=== PATIENT | male | born 1940 | race Caucasian/White ===

== ENCOUNTER → 2020-07-19 09:14 | Outpatient (BNVA) | payer MEDICARE, SELFPAY | PROVIDERS: PCP Internal Medicine; Referring Provider Internal Medicine; Visit Provider Orthopaedic Surgery | DX: Z47.1 Aftercare following joint replacement surgery (principal); Z96.641 Presence of right artificial hip joint; I48.0 Paroxysmal atrial fibrillation | CPT/HCPCS: 99212 ==

== ENCOUNTER 2020-08-09 07:48 | Outpatient (REF) | payer MEDICARE, SELFPAY ==
[2020-08-09 11:19] LABS: MANUAL DIFF FLAG NO
[2020-08-09 11:30] LABS: Basophils Absolute Auto 0.1 X10*3/uL (0.0-0.2); Basophils Percent Auto 0.8 % (0-2); Eosinophils Absolute Auto 0.8 X10*3/uL (0.0-0.4); Eosinophils Percent Auto 9.4 % (0-4); Hematocrit 44.6 % (42-52); Hemoglobin 14.1 g/dl (14.0-18.0); Imm Gran Abs Auto 0.09 X10*3/uL (0.00-0.03); Imm Gran Pct Auto 1.1 % (0.0-0.4); Lymphocytes Absolute Auto 1.7 X10*3/uL (1.2-4.9); Lymphocytes Percent Auto 21.2 % (20-40); Mean Corpuscular HGB Conc 31.6 g/dl (31.0-36.0); Mean Corpuscular Hemoglobin 29.7 pg (27.0-33.0); Mean Corpuscular Volume 93.9 fL (80-98); Mean Platelet Volume 11.3 fL (9.4-12.4); Monocytes Absolute Auto 0.6 X10*3/uL (0.1-1.2); Monocytes Percent Auto 7.6 % (2-11); Neutrophils Absolute Auto 4.8 X10*3/uL (2.0-8.3); Neutrophils Percent Auto 59.9 % (45-73); Platelet Count 257 X10*3/uL (160-400); Red Blood Count 4.75 X10*6/uL (4.60-5.80); Red Cell Distribution Width 14.2 % (11.0-16.0)
[2020-08-09 12:08] LABS: Alanine Aminotransferase 18 U/L (0-40); Albumin Level 4.2 g/dL (3.5-5.0); Alkaline Phosphatase 78 U/L (39-117); Anion Gap 14 (12-20); Aspartate Amino Transferase 17 U/L (5-37); Bilirubin Total 0.8 mg/dL (0.0-1.0); Blood Urea Nitrogen 20 mg/dL (9-16); Calcium 8.7 mg/dL (8.4-10.2); Carbon Dioxide 24 mmol/L (22-29); Chloride 110 mmol/L (96-108); Estimated Glomerular Filt Rate 57; Glucose Random 69 mg/dL (60-115); Potassium 4.9 mmol/l (3.3-5.1); Sodium 143 mmol/L (135-145); Total Protein 6.8 g/dL (6.5-8.0)
== END 2020-08-09 07:49 | disposition home or self-care (01) ==
LOC: HO.HMGCLDS 07:48
PROVIDERS: PCP Internal Medicine; Visit Provider Internal Medicine
DX: Z12.5 Encounter for screening for malignant neoplasm of prostate (principal); I48.0 Paroxysmal atrial fibrillation; R97.20 Elevated prostate specific antigen [PSA]
CPT/HCPCS: 36415; 80053; 84153; 85025

== ENCOUNTER 2020-08-09 08:00 | Outpatient (RCR) | payer MEDICARE, SELFPAY ==
--- NOTE | 2020-09-07 07:50 | MHC.PT.DC ---
[facility] [place] Office [place] Office [place] Office [address] Jean Montoya [address] [phone] F: [phone] F: [phone] F: [phone] F: [phone] Physical Therapy Discharge Report Diagnosis: S/P total R hip replacement Date of Surgery: 04/24/2020 Date of Evaluation: 05/29/20 Date of Discharge: 09/07/20 Treatments to Date: 19 Cancellations to Date: 0 No Shows to Date: 0 Discharge Status: Achieved Goals Improved Function Independent with HEP Patient Elected to Stop Discharge Summary: At the last tx session patient reporting no issues with ther-ex and understands his home exercise program well. Demos less LE buckling with transfers into standing. Patient went on vacation and did not return to PT following this. He was I in ambulation, demo'd good ROM and strength and I in HEP. Chart was kept open for 30 days. DC to HEP at this time. Electronically signed by: Roslyn Stephens, PT Please sign and return to therapist. Thank you for your referral.
== END 2020-09-07 07:50 | disposition home or self-care (01) ==
LOC: HO.PTCHIC 08:00
PROVIDERS: PCP Internal Medicine; Visit Provider Physician Assistant
DX: Z47.1 Aftercare following joint replacement surgery (principal); Z96.641 Presence of right artificial hip joint
CPT/HCPCS: 97110; 97116; 97140; 97530

== ENCOUNTER → 2020-08-29 09:15 | Outpatient (BNVA) | payer MEDICARE, SELFPAY | PROVIDERS: PCP Internal Medicine; Referring Provider Internal Medicine; Visit Provider Internal Medicine | DX: Z76.89 Persons encountering health services in other specified circumstances (principal) ==

== ENCOUNTER → 2020-08-29 | Outpatient (REF) | payer MEDICARE, SELFPAY ==
--- NOTE | 2020-08-29 | ECG_ITS ---
Hook-up date: 2020-08-29 10:36:00 Duration: 29:32:00 Test Indications: PAF Medications: 70069 QRS complexes 534 Ventricular ectopics which represent <1 % of total QRS comp. 1227 Supraventricular ectopics which represent 1 % of total QRS comp. * Paced QRS complexs which represent % of total QRS comp. VENTRICULAR ECTOPY 534 Isolated 0 Bigeminal Cycles 0 Couplets 0 Runs 0 Beats in Runs * Beats LONGEST at * BPM at :: -- * Beats FASTEST at * BPM at :: -- SUPRAVENTRICULAR ECTOPY 1156 Isolated 15 Couplets 12 Runs 41 Beats in Runs 7 Beats LONGEST at 91 BPM at 06:49:13 2020-08-30 3 Beats FASTEST at 144 BPM at 20:55:52 2020-08-29 HEART RATES 52 MIN at 03:05:45 2020-08-30 68 AVG 130 MAX at 10:26:17 2020-08-30 LONGEST RR 1.2400 secs at 07:41:21 2020-08-30 S-T LEVELS Channel 1 - 128 mm at 10:36:00 2020-08-29 - 128 mm at 10:36:00 2020-08-29 Channel 2 - 128 mm at 10:36:00 2020-08-29 - 128 mm at 10:36:00 2020-08-29 Channel 3 - 128 mm at 02:95:51 -- - 128 mm at 02:95:51 Underlying rhythm is sinus; Average ventricular rate 68/min; Occasional supraventricular and ventricular ectopy; Some strips show atrial flutter, but overall burden about 1%; ventricular rate during flutter about 100-130/min; Patient did not return diary Referred By: Kim Chandra Overread By: KIM CHANDRA
== END ==
LOC: HO.CARD
PROVIDERS: Visit Provider Internal Medicine
DX: I48.0 Paroxysmal atrial fibrillation (principal)
CPT/HCPCS: 93226

== ENCOUNTER → 2020-08-30 08:51 | Outpatient (BNVA) | payer MEDICARE, SELFPAY | PROVIDERS: Visit Provider Orthopaedic Surgery | DX: I48.91 Unspecified atrial fibrillation (principal); Z96.641 Presence of right artificial hip joint | CPT/HCPCS: 99212 ==

== ENCOUNTER → 2020-09-24 12:26 | Outpatient (BNVA) | payer MEDICARE, SELFPAY | PROVIDERS: PCP Internal Medicine; Visit Provider Internal Medicine | DX: I48.0 Paroxysmal atrial fibrillation (principal); R42 Dizziness and giddiness; Z79.01 Long term (current) use of anticoagulants | CPT/HCPCS: 93005; 99212 ==

== ENCOUNTER 2020-11-21 07:51 | Outpatient (REF) | payer MEDICARE, SELFPAY ==
[2020-11-21 11:21] LABS: MANUAL DIFF FLAG NO
[2020-11-21 11:38] LABS: Basophils Percent Auto 0.6 % (0-2); Eosinophils Absolute Auto 0.5 X10*3/uL (0.0-0.4); Eosinophils Percent Auto 6.8 % (0-4); Hematocrit 44.3 % (42-52); Hemoglobin 14.3 g/dl (14.0-18.0); Imm Gran Abs Auto 0.09 X10*3/uL (0.00-0.03); Imm Gran Pct Auto 1.3 % (0.0-0.4); Lymphocytes Absolute Auto 1.4 X10*3/uL (1.2-4.9); Lymphocytes Percent Auto 21.2 % (20-40); Mean Corpuscular HGB Conc 32.3 g/dl (31.0-36.0); Mean Corpuscular Hemoglobin 29.8 pg (27.0-33.0); Mean Corpuscular Volume 92.3 fL (80-98); Mean Platelet Volume 11.5 fL (9.4-12.4); Monocytes Absolute Auto 0.6 X10*3/uL (0.1-1.2); Monocytes Percent Auto 8.3 % (2-11); Neutrophils Absolute Auto 4.2 X10*3/uL (2.0-8.3); Neutrophils Percent Auto 61.8 % (45-73); Platelet Count 259 X10*3/uL (160-400); White Blood Count 6.7 X10*3/uL (4.8-10.8)
[2020-11-21 12:03] LABS: Anion Gap 13 (12-20); Blood Urea Nitrogen 20 mg/dL (9-16); Calcium 8.9 mg/dL (8.4-10.2); Carbon Dioxide 24 mmol/L (22-29); Chloride 110 mmol/L (96-108); Estimated Glomerular Filt Rate > 60; Potassium 4.6 mmol/L (3.3-5.1); Sodium 142 mmol/L (135-145)
[2020-11-21 12:05] LABS: Free T4 (Free Thyroxine) 0.89 ng/dL (0.71-1.85); Thyroid Stimulating Hormone 3.36 uIU/mL (0.32-4.0)
[2020-11-21 12:25] LABS: Glucose Random 55 mg/dL (60-115)
[2020-11-22 22:24] LABS: Vitamin B12 261 pg/mL (200-900)
== END 2020-11-21 07:52 | disposition home or self-care (01) ==
LOC: HO.HMGCLDS 07:51
PROVIDERS: PCP Internal Medicine; Visit Provider Internal Medicine
DX: I48.0 Paroxysmal atrial fibrillation (principal); N18.9 Chronic kidney disease, unspecified; E78.00 Pure hypercholesterolemia, unspecified; R63.5 Abnormal weight gain; E53.8 Deficiency of other specified B group vitamins
CPT/HCPCS: 36415; 80048; 82607; 84439; 84443; 85025

== ENCOUNTER 2020-11-23 08:45 | Outpatient (REF) | payer MEDICARE, SELFPAY ==
[2020-11-23 12:34] LABS: Anion Gap 14 (12-20); Blood Urea Nitrogen 17 mg/dL (9-16); Calcium 8.9 mg/dL (8.4-10.2); Carbon Dioxide 23 mmol/L (22-29); Chloride 110 mmol/L (96-108); Estimated Glomerular Filt Rate 59; Glucose Random 82 mg/dL (60-115); Lipase 28 U/L (8-78); Potassium 4.6 mmol/L (3.3-5.1); Sodium 142 mmol/L (135-145)
[2020-11-23 13:29] LABS: Prostate Specific Antigen 7.45 ng/mL (<0.05-4.0)
[2020-11-26 13:06] LABS: Insulin Level Total 15.7 uIU/mL
== END 2020-11-23 08:46 | disposition home or self-care (01) ==
LOC: HO.HMGCLDS 08:45
PROVIDERS: PCP Internal Medicine; Visit Provider Internal Medicine
DX: Z12.5 Encounter for screening for malignant neoplasm of prostate (principal); R53.83 Other fatigue; E16.2 Hypoglycemia, unspecified; I48.91 Unspecified atrial fibrillation; R97.20 Elevated prostate specific antigen [PSA]
CPT/HCPCS: 36415; 80048; 83525; 83690; 84153

== ENCOUNTER 2021-02-01 09:07 | Outpatient (REF) | payer MEDICARE, SELFPAY ==
--- NOTE | ~2021-02-01 | XR_ITS ---
EXAMINATION: XR PELVIS CLINICAL INFORMATION: Right hip replacement. Pain. COMPARISON: Previous x-rays most recent May 2020 TECHNIQUE: AP view of the pelvis and right hip. FINDINGS: There is a right hip replacement in satisfactory position. There is a faint vertical lucency in the femoral shaft adjacent to the inferior is a stent that appears unchanged. No fracture, dislocation or x-ray evidence of loosening is seen. There is degenerative changes of the lower lumbar spine. Bones of the pelvis are unremarkable. There is mild arthritis at the left hip joint. Soft tissues are unremarkable. XR/XR pelvis 1-2V IMPRESSION: Unchanged appearance of right hip replacement. Mild arthritis and lower lumbar spine.
== END 2021-02-01 09:08 | disposition home or self-care (01) ==
LOC: HO.HOSX 09:07
PROVIDERS: Visit Provider Orthopaedic Surgery
DX: M16.11 Unilateral primary osteoarthritis, right hip (principal); M25.551 Pain in right hip; I48.0 Paroxysmal atrial fibrillation; R97.20 Elevated prostate specific antigen [PSA]; Z96.641 Presence of right artificial hip joint
CPT/HCPCS: 72170; 99212

== ENCOUNTER 2021-02-20 14:10 | Outpatient (REF) | payer MEDICARE, SELFPAY ==
[2021-02-20 16:27] LABS: Anion Gap 15 (12-20); Blood Urea Nitrogen 19 mg/dL (9-16); Calcium 8.8 mg/dL (8.4-10.2); Carbon Dioxide 20 mmol/L (22-29); Chloride 109 mmol/L (96-108); Estimated Glomerular Filt Rate 60; Glucose Random 116 mg/dL (60-115); Potassium 4.1 mmol/L (3.3-5.1); Sodium 140 mmol/L (135-145)
[2021-02-20 16:54] LABS: Vitamin B12 209 pg/mL (200-900)
== END 2021-02-20 14:11 | disposition home or self-care (01) ==
LOC: HO.HMGCLDS 14:10
PROVIDERS: PCP Internal Medicine; Visit Provider Internal Medicine
DX: I48.0 Paroxysmal atrial fibrillation (principal); N18.9 Chronic kidney disease, unspecified; E53.8 Deficiency of other specified B group vitamins
CPT/HCPCS: 36415; 80048; 82607

== ENCOUNTER → 2021-02-26 08:45 | Outpatient (REF) | payer MEDICARE, SELFPAY ==
--- NOTE | 2021-02-26 08:47 | CA_ITS ---
Transthoracic Echocardiogram Patient (Last, First, Middle): Jesus Giraldo E Gender: Male Date of : 1940 Age: 80 Procedure Date: 02/26/2021 Procedure Type: Transthoracic Echocardiogram Location: OP Height: 177.8 cm Weight: 102.06 kg BSA: 2.19 m2 Heart Rate: bpm BP: 130 / 70 mmHg Lab Assistant: Referring MD: Kwaku Valencia MD Symptoms: I48.0 - Paroxysmal atrial fibrillation Study Quality: Good ECG Rhythm: Sinus and intermittent atrial flutter Conclusions: - The left ventricular systolic function is normal. The visually estimated ejection fraction is between 55-60%. - No obvious valvular pathology seen on this study. Findings Left Ventricle Normal left ventricular cavity size. There is mildly increased left ventricular wall thickness. The left ventricular systolic function is normal. The visually estimated ejection fraction is between 55-60%. There is no evidence of regional wall motion abnormalities. Diastolic function is indeterminate on the basis of available data. Right Ventricle Normal right ventricular cavity size and systolic function. Atria Both atria are normal in size. Aortic Valve There is a normal trileaflet aortic valve. There is no aortic valve stenosis. There is no aortic valve regurgitation. Mitral Valve The mitral valve appears normal. There is trace mitral valve regurgitation. There is no mitral valve stenosis. Pulmonic Valve The pulmonic valve was not well visualized. There is trace pulmonic valve regurgitation. Tricuspid Valve Normal tricuspid valve structure. There is trace tricuspid valve regurgitation. The pulmonary artery systolic pressure is normal. Great Vessels The aortic annulus, sinuses of valsalva, asc aorta, and aortic arch are normal in size. Venous The inferior vena cava was not well visualized. Pericardium/Pleural There is no evidence of pericardial effusion. Prior Study Comparison No significant change compared to prior study dated: 06/24/2019. Recommendations, Care & Conclusions No obvious valvular pathology seen on this study. Measurements 2D Linear Measurements RVIDd: 3.12 RVIDd Index: 1.42 IVSd: 1.06 0.6-0.9/0.6-1.0 cm LVIDd: 5.89 3.9-5.3/4.2-5.9 cm LVIDd Index: 2.69 2.4-3.2/2.2-3.1 cm/m2 LVIDs: 4.19 2.0-3.6 cm LVPWd: 1.33 0.7-1.1 cm Ao Root: 3.40 2.1-3.5 cm LA Diam: 4.20 2.7-3.8/3.0-4.0 cm LAIDs Index: 1.92 1.5-2.3 cm/m2 LV Mass: 377.86 67-162/88-224 g LV Mass Index: 172.54 43-95/49-115 g/m2 LVOT Diam: 2.30 3.0+(-)1.3 cm 2D Systolic Function EF 4C: 50.40 >55% EF 2C: 61.20 >55% EF BiP: 55.40 >55% Aortic Valve AoV Pk Andrew: 1.13 AoV Mn Andrew: 0.87 AoV VTI: 0.21 AoV Pk Grad: 5.00 Aov Mn Grad: 3.00 DIMA Cont.VTI: 3.52 LVOT LVOT Pk Andrew: 1.08 LVOT Mn Andrew: 0.63 LVOT VTI: 0.18 LVOT Pk Grad: 5.00 LVOT Mn Grad: 2.00 LVOT Diam: 2.30 LVOT Area: 4.15 Tricuspid Valve TR Pk Andrew: 2.23 TR Pk Grad: 20.00 RA Press: 8.00 RVSP: 28.00 Great Vessels Aorta Ao Root-2D: 3.40 2.0-3.7 cm Ao Asc: 3.70 2.1-3.4 cm Ao Arch: 2.60 Updated in Other Vendor System with Status of Final Kwaku Valencia MD electronically signed on 02/26/2021 2:04:08 PM with status of Final
--- NOTE | 2021-02-26 08:47 | ECG_ITS ---
Hook-up date: 2021-02-26 09:48:00 Duration: 25:08:00 Test Indications: PAF Medications: 633083 QRS complexes 266 Ventricular ectopics which represent <1 % of total QRS comp. 790 Supraventricular ectopics which represent <1 % of total QRS comp. * Paced QRS complexs which represent % of total QRS comp. VENTRICULAR ECTOPY 266 Isolated 3 Bigeminal Cycles 0 Couplets 0 Runs 0 Beats in Runs * Beats LONGEST at * BPM at :: -- * Beats FASTEST at * BPM at :: -- SUPRAVENTRICULAR ECTOPY 766 Isolated 7 Couplets 2 Runs 10 Beats in Runs 7 Beats LONGEST at 120 BPM at 18:44:23 2021-02-26 7 Beats FASTEST at 120 BPM at 18:44:23 2021-02-26 HEART RATES 53 MIN at 02:24:59 2021-02-27 72 AVG 137 MAX at 09:55:01 2021-02-26 LONGEST RR 1.3200 secs at 00:43:36 2021-02-27 S-T LEVELS Channel 1 - 128 mm at 09:48:00 2021-02-26 - 128 mm at 09:48:00 2021-02-26 Channel 2 - 128 mm at 09:48:00 2021-02-26 - 128 mm at 09:48:00 2021-02-26 Channel 3 - 128 mm at 02:90:71 -- - 128 mm at 02:90:71 Underlying rhythm is sinus; About 5% of the time, the rhythm is atrial fibrillation; rate goes up to 137/min; but only 2% of the time, rate >100/min; Overall average rate 72/min; Rare PACs and PVCs (<1%); Patient diary not available for review. Referred By: Kim Chandra Overread By: KIM CHANDRA
== END ==
LOC: HO.CARD 08:45
PROVIDERS: Visit Provider Internal Medicine
DX: I48.0 Paroxysmal atrial fibrillation (principal)
CPT/HCPCS: 93225; 93226; 93306

== ENCOUNTER → 2021-03-13 14:55 | Outpatient (BNVA) | payer MEDICARE, SELFPAY | PROVIDERS: PCP Internal Medicine; Referring Provider Internal Medicine; Visit Provider Internal Medicine | DX: I48.0 Paroxysmal atrial fibrillation (principal); R42 Dizziness and giddiness; Z79.01 Long term (current) use of anticoagulants | CPT/HCPCS: 93005; 99212 ==

== ENCOUNTER 2021-03-17 18:08 | Emergency (ER) | payer MEDICARE, SELFPAY ==
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
--- NOTE | ~2021-03-17 | XR_ITS ---
EXAMINATION: XR HIP, RIGHT CLINICAL INFORMATION: Right hip pain COMPARISON: 02/01/2021 TECHNIQUE: Two views of the right hip. AP pelvis FINDINGS: The right total hip arthroplasty components are in stable position and alignment without evidence of loosening or fracture. No new abnormality. XR/XR hip RT min 2V IMPRESSION: Stable appearance of the pelvis and right hip arthroplasty.
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
[2021-03-17 18:16] VITALS: BP 127/66; PULSE 105; RESP 18; TEMP 37; O2SAT 94; BMI 32.3
--- NOTE | 2021-03-17 18:20 | PC.NURSE ---
Late entry: 1820: Pt's gait is steady and even using walker. pt has no obvious deformity at right hip. Pt is able to tolerate seated position without issues.
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
[2021-03-17] MEDS: Acetaminophen 325 MG TABLET 975 MG PO (20:37)
[2021-03-17 20:51] VITALS: BP 115/74; PULSE 100; RESP 15; TEMP 37; O2SAT 96
--- NOTE | 2021-03-17 21:01 | PC.NURSE ---
PT OF PT IN ROOM NOTED THAT WERE WAS SOME BLOOD NOTED ON PT PANTS AFTER USING THE REST ROOM PT IS ON BLOOD THINNER URINE ORDER AND LABS ORDERED.
[2021-03-17 21:07] LABS: MANUAL DIFF FLAG NO
[2021-03-17 21:12] LABS: Basophils Percent Auto 0.3 % (0-2); Eosinophils Absolute Auto 0.3 X10*3/uL (0.0-0.4); Eosinophils Percent Auto 3.6 % (0-4); Hematocrit 40.7 % (42-52); Hemoglobin 13.2 g/dl (14.0-18.0); Imm Gran Abs Auto 0.08 X10*3/uL (0.00-0.03); Imm Gran Pct Auto 0.9 % (0.0-0.4); Lymphocytes Absolute Auto 1.7 X10*3/uL (1.2-4.9); Lymphocytes Percent Auto 17.6 % (20-40); Mean Corpuscular HGB Conc 32.4 g/dl (31.0-36.0); Mean Corpuscular Hemoglobin 29.4 pg (27.0-33.0); Mean Corpuscular Volume 90.6 fL (80-98); Mean Platelet Volume 10.3 fL (9.4-12.4); Monocytes Absolute Auto 0.8 X10*3/uL (0.1-1.2); Monocytes Percent Auto 8.9 % (2-11); Neutrophils Absolute Auto 6.5 X10*3/uL (2.0-8.3); Neutrophils Percent Auto 68.7 % (45-73); Platelet Count 231 X10*3/uL (160-400); Red Blood Count 4.49 X10*6/uL (4.60-5.80); Red Cell Distribution Width 13.2 % (11.0-16.0); White Blood Count 9.4 X10*3/uL (4.8-10.8)
[2021-03-17 21:34] LABS: Anion Gap 14 (12-20); Blood Urea Nitrogen 16 mg/dL (9-16); Calcium 8.8 mg/dL (8.4-10.2); Carbon Dioxide 22 mmol/L (22-29); Chloride 110 mmol/L (96-108); Creatinine Clr Calc Pharmacy 60.2; Estimated Glomerular Filt Rate > 60; Glucose Random 83 mg/dL (60-115); Potassium 4.5 mmol/L (3.3-5.1); Sodium 141 mmol/L (135-145)
[2021-03-17 22:29] LABS: Glucose Urine UA NEG (NEG); Leukocyte Esterase Urine NEG (NEG); Nitrite Urine NEG (NEG); Specific Gravity - Urine 1.025 (1.005-1.025); Urine Blood NEG (NEG); Urine Ketones NEG (NEG); Urine Protein TRACE MG/DL (NEG-TRACE)
[2021-03-17 22:30] LABS: Appearance Urine HAZY; Color Urine YELLOW
== END 2021-03-18 00:12 | disposition home or self-care (01) ==
PROVIDERS: Physician Assistant Medical; Emergency Provider Emergency Medicine; PCP Internal Medicine
DX: S70.01XA Contusion of right hip, initial encounter (principal); R51.9 Headache, unspecified; I48.0 Paroxysmal atrial fibrillation; Z79.01 Long term (current) use of anticoagulants; Z96.641 Presence of right artificial hip joint; Y93.89 Activity, other specified; V85.5XXA Driver of special construction vehicle injured in nontraffic accident, initial encounter; Y93.9 Activity, unspecified; Y92.410 Unspecified street and highway as the place of occurrence of the external cause; Y99.9 Unspecified external cause status
CPT/HCPCS: 36415; 70450; 73502; 73700; 80048; 81003; 85025; 99284; 99285

== ENCOUNTER → 2021-04-11 08:06 | Outpatient (BNVA) | payer MEDICARE, SELFPAY | PROVIDERS: PCP Internal Medicine; Visit Provider Orthopaedic Surgery | DX: M25.551 Pain in right hip (principal); M16.11 Unilateral primary osteoarthritis, right hip; I48.0 Paroxysmal atrial fibrillation; Z96.641 Presence of right artificial hip joint; Z79.01 Long term (current) use of anticoagulants | CPT/HCPCS: 99212 ==

== ENCOUNTER → 2021-04-15 15:51 | Outpatient (REF) | payer MEDICARE, SELFPAY | LOC: HO.SL 15:51 | PROVIDERS: PCP Internal Medicine; Visit Provider Internal Medicine | DX: G47.33 Obstructive sleep apnea (adult) (pediatric) (principal) | CPT/HCPCS: 95806 ==

== ENCOUNTER → 2021-05-08 13:49 | Outpatient (BNVA) | payer MEDICARE, SELFPAY | PROVIDERS: PCP Internal Medicine; Visit Provider Urology | DX: R97.20 Elevated prostate specific antigen [PSA] (principal); N40.1 Benign prostatic hyperplasia with lower urinary tract symptoms; N13.8 Other obstructive and reflux uropathy | CPT/HCPCS: 99202 ==

== ENCOUNTER → 2021-05-28 11:10 | Outpatient (BNVA) | payer MEDICARE, SELFPAY | PROVIDERS: PCP Internal Medicine; Visit Provider Internal Medicine | DX: G47.33 Obstructive sleep apnea (adult) (pediatric) (principal); R06.00 Dyspnea, unspecified; I48.0 Paroxysmal atrial fibrillation; M16.11 Unilateral primary osteoarthritis, right hip; R97.20 Elevated prostate specific antigen [PSA]; Z96.641 Presence of right artificial hip joint; Z79.01 Long term (current) use of anticoagulants; Z79.899 Other long term (current) drug therapy | CPT/HCPCS: 99202 ==

== ENCOUNTER 2021-06-07 08:00 | Outpatient (RCR) | payer MEDICARE, SELFPAY ==
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
--- NOTE | 2021-06-07 08:56 | MHC.PT.DC ---
[facility] [place] Office [place] Office [place] Office [address] Jean Montoya [address] [phone] F: [phone] F: [phone] F: [phone] F: [phone] Physical Therapy Discharge Report Diagnosis: R hip contracture, flexor tendon tightness Date of Surgery: 03/2020 Date of Evaluation: 04/26/21 Date of Discharge: 06/07/21 Treatments to Date: 9 Cancellations to Date: 0 No Shows to Date: 1 Discharge Status: Achieved Goals Improved Function Independent with HEP Discharge Summary: Pt appropriate for d/c secondary to meeting all goals and I with HEP. He continues to have mildly tight hip flexors, but his balance strategies have improved to 60seconds with eyes open on airex and 30sec with eyes closed on airex. LEFS improved from 37/80 to 49/80. No further questions at this time. Electronically signed by: Sharon Cornejo PT Please sign and return to therapist. Thank you for your referral.
== END 2021-06-07 08:56 | disposition home or self-care (01) ==
LOC: HO.PTCHIC 08:00
PROVIDERS: PCP Internal Medicine; Visit Provider Orthopaedic Surgery
DX: M24.559 Contracture, unspecified hip (principal); Z96.641 Presence of right artificial hip joint
CPT/HCPCS: 97110; 97112; 97140; 97161

== ENCOUNTER 2021-07-16 14:46 | Outpatient (REF) | payer MEDICARE, SELFPAY ==
--- NOTE | 2021-07-16 17:39 | PFT_ITS ---
INDICATION: Dyspnea. SPIROMETRY: The FEV1 to FVC of 80% with an FEV1 of 3.22 L which is 115% predicted, FVC of 4.05 L which is 102% predicted. No significant response to bronchodilators noted. Maximum voluntary ventilation 103% predicted. LUNG VOLUMES: Total lung capacity 110% predicted with a residual volume 116% predicted and a significant decrease of 28% predicted of the expiratory reserve volume. The patient also has a mild diffusion impairment. COMPARISONS: None available. INTERPRETATION: No obstructive nor restrictive ventilatory defects identified. No significant response to bronchodilators noted. Normal maximum voluntary ventilation. Lung volumes demonstrate a significantly decreased expiratory reserve volume secondary to his elevated BMI. In addition to that, he does have a mild diffusion impairment. Clinical correlation warranted. MD ANDERS Corona/STELLA / [id number]
== END 2021-07-16 14:47 | disposition home or self-care (01) ==
LOC: HO.RESP 14:46
PROVIDERS: PCP Internal Medicine; Visit Provider Internal Medicine
DX: R06.00 Dyspnea, unspecified (principal); G47.33 Obstructive sleep apnea (adult) (pediatric); I48.0 Paroxysmal atrial fibrillation
CPT/HCPCS: 94060; 94727; 94729

== ENCOUNTER 2021-09-02 11:22 | Outpatient (REF) | payer MEDICARE, SELFPAY ==
--- NOTE | ~2021-09-02 | US_ITS ---
EXAMINATION: US PELVIS LIMITED (BLADDER) CLINICAL INFORMATION: Poor urinary stream. COMPARISON: None. TECHNIQUE: Real-time imaging of the bladder. FINDINGS: BLADDER: Well distended. Bilateral ureteral jets are demonstrated. Prevoid bladder volume is 196.5 mL. Postvoid bladder volume is 176 mL. The bladder wall is mildly thickened measuring 1.2 cm. There are layered echogenic stones and debris in the bladder with twinkle artifact. Enlarged prostate, volume 124 mL. There is a small anechoic cyst in the prostate gland measuring 1.0 x 0.8 x 0.7 cm. US/US bladder IMPRESSION: Echogenic debris and small stones in the dependent portion of the bladder. There is mild bladder wall thickening. Moderate prostate enlargement with a small cyst within.
== END 2021-09-02 11:23 | disposition home or self-care (01) ==
LOC: HO.US 11:22
PROVIDERS: PCP Internal Medicine; Visit Provider Urology
DX: N40.1 Benign prostatic hyperplasia with lower urinary tract symptoms (principal); N13.8 Other obstructive and reflux uropathy; R39.12 Poor urinary stream
CPT/HCPCS: 76857

== ENCOUNTER 2021-09-10 15:53 | Outpatient (REF) | payer MEDICARE, SELFPAY ==
[2021-09-10 17:34] LABS: PSA,Total (Free>4and<10) 3.11 ng/mL (0.00-4.00)
== END 2021-09-10 15:54 | disposition home or self-care (01) ==
LOC: HO.LAB 15:53
PROVIDERS: PCP Internal Medicine; Visit Provider Urology
DX: Z12.5 Encounter for screening for malignant neoplasm of prostate (principal); R97.20 Elevated prostate specific antigen [PSA]
CPT/HCPCS: 36415; 84153

== ENCOUNTER → 2021-09-12 11:30 | Outpatient (BNVA) | payer MEDICARE, SELFPAY | PROVIDERS: Visit Provider Urology | DX: N40.1 Benign prostatic hyperplasia with lower urinary tract symptoms (principal); N13.8 Other obstructive and reflux uropathy; R35.1 Nocturia; R97.20 Elevated prostate specific antigen [PSA] | CPT/HCPCS: 99212 ==

== ENCOUNTER → 2021-09-17 13:19 | Outpatient (BNVA) | payer MEDICARE, SELFPAY | PROVIDERS: PCP Internal Medicine; Visit Provider Internal Medicine | DX: G47.33 Obstructive sleep apnea (adult) (pediatric) (principal); R06.00 Dyspnea, unspecified | CPT/HCPCS: 99212 ==

== ENCOUNTER 2021-09-18 12:15 | Outpatient (REF) | payer MEDICARE, SELFPAY ==
[2021-09-18 13:30] LABS: MANUAL DIFF FLAG NO
[2021-09-18 13:32] LABS: Basophils Percent Auto 0.6 % (0-2); Eosinophils Absolute Auto 0.3 X10*3/uL (0.0-0.4); Eosinophils Percent Auto 4.3 % (0-4); Hematocrit 45.6 % (42.0-52.0); Hemoglobin 14.8 g/dl (14.0-18.0); Imm Gran Abs Auto 0.07 X10*3/uL (0.00-0.03); Lymphocytes Absolute Auto 1.6 X10*3/uL (1.2-4.9); Lymphocytes Percent Auto 22.2 % (20-40); Mean Corpuscular HGB Conc 32.5 g/dl (31.0-36.0); Mean Corpuscular Hemoglobin 29.7 pg (27.0-33.0); Mean Corpuscular Volume 91.6 fL (80.0-98.0); Mean Platelet Volume 10.7 fL (9.4-12.4); Monocytes Absolute Auto 0.6 X10*3/uL (0.1-1.2); Neutrophils Absolute Auto 4.7 x10*3/uL (2.0-8.3); Neutrophils Percent Auto 63.9 % (45-73); Platelet Count 250 X10*3/uL (160-400); Red Blood Count 4.98 X10*6/uL (4.60-5.80); Red Cell Distribution Width 13.3 % (11.0-16.0); White Blood Count 7.3 X10*3/uL (4.8-10.8)
[2021-09-18 13:50] LABS: Alanine Aminotransferase 16 U/L (0-40); Albumin Level 4.1 g/dL (3.5-5.0); Alkaline Phosphatase 63 U/L (39-117); Anion Gap 13 (12-20); Aspartate Amino Transferase 13 U/L (5-37); Bilirubin Total 0.9 mg/dL (0.0-1.0); Blood Urea Nitrogen 19 mg/dL (9-16); Calcium 9.3 mg/dL (8.4-10.2); Carbon Dioxide 24 mmol/L (22-29); Chloride 111 mmol/L (96-108); Estimated Glomerular Filt Rate > 60; Glucose Random 74 mg/dL (60-115); Potassium 4.6 mmol/L (3.3-5.1); Sodium 143 mmol/L (135-145); Total Protein 6.9 g/dL (6.5-8.0)
[2021-09-18 14:12] LABS: Thyroid Stimulating Hormone 2.37 uIU/mL (0.32-4.0)
== END 2021-09-18 12:16 | disposition home or self-care (01) ==
LOC: HO.10HDL 12:15
PROVIDERS: Visit Provider Internal Medicine
DX: I48.91 Unspecified atrial fibrillation (principal); R53.83 Other fatigue; I48.0 Paroxysmal atrial fibrillation; R42 Dizziness and giddiness; G47.33 Obstructive sleep apnea (adult) (pediatric); Z79.01 Long term (current) use of anticoagulants
CPT/HCPCS: 36415; 80053; 84439; 84443; 85025; 93005; 99212

== ENCOUNTER 2021-10-10 08:47 | Day surgery (SDC) | payer MEDICARE, SELFPAY ==
[2021-10-04 12:49] VITALS: BMI 32.7
[2021-10-10 08:53] VITALS: BMI 32.3
[2021-10-10 09:10] VITALS: BP 134/79; PULSE 92; RESP 22; TEMP 36.8; O2SAT 97
[2021-10-10] MEDS: Lactated Ringers 1,000 ML 100 ML IVCONT (09:18)
--- NOTE | 2021-10-10 09:50 | MHC.SHP ---
Pre-Procedural Eval Section A Date of Service: 10/10/21 The patient is an INPATIENT: No Section B Chief Complaint: A-Fib Allergies: Allergies Allergy/AdvReac Type Severity Reaction Status Date / Time No Known Allergies Allergy Verified 09/18/21 14:27 [No Known Allergies*] Plan I have reviewed the history and physical and performed a pertinent physical examination on my patient. No changes have occurred unless specified.
[2021-10-10 10:29] VITALS: BP 108/76; PULSE 80; RESP 14; TEMP 36.7; O2SAT 95
[2021-10-10 10:34] VITALS: BP 105/64; PULSE 80; RESP 16; O2SAT 97
[2021-10-10 10:39] VITALS: BP 104/72; PULSE 83; RESP 16; O2SAT 97
[2021-10-10 10:44] VITALS: BP 118/73; PULSE 81; RESP 16; O2SAT 96
[2021-10-10 10:59] VITALS: BP 127/78; PULSE 85; RESP 16; TEMP 36.7; O2SAT 96
--- NOTE | 2021-10-10 11:15 | P.PNCAR_ITS ---
Cardioversion Procedure Note Cardioversion Date of Procedure: 10/10/2021 Ordering Provider: Performing Provider: Indication for Procedure: Atrial fibrillation Pre-Op Diagnosis: Atrial fibrillation Post-Op Diagnosis: Atrial fibrillation Consent: Informed consent obtained. Procedure: After informed consent was obtained, patient was taken to the PACU. The patient was then positioned appropriately. The cardioversion pads were placed in anteroposterior position. Once under anesthesia, 120 joules of synchronized shock was administered. The rhythm converted from atrial fibrillation to sinus rhythm. However, this lasted only for a few seconds and he went back into atrial fibrillation. He was again cardioverted with 150 joules of synchronized shock. He again converted to sinus but very briefly and went back into atrial fibrillation. Complications: None. Impression: Unsuccessful cardioversion. Recommendations: Will arrange followup. Possible Amiodarone loading and redo- cardioversion. To be decided. Discussed with .
--- NOTE | 2021-10-10 13:40 | P.CONAN_ITS ---
HPI - Anesthesia Eval Consult details Narrative: 81 yo male patient for Cardioversion [facility] Active Problems Active Problems: All Active Problems (Updated 09/18/21 @ 15:46 by Kwaku Valencia MD) Nocturia more than twice per night (Acute) LATASHA (obstructive sleep apnea) (Acute). Unable to tolerate CPAP Dyspnea on exertion (Acute) Elevated PSA (Acute) BPH w urinary obs/LUTS (Acute) Hip flexor tendon tightness (Acute) long-term current use of anticoagulant (Acute) Postural dizziness (Acute) Paroxysmal atrial fibrillation (Acute) Status post right hip replacement (Acute) Past Medical History Medical History Dyspnea on exertion Elevated PSA long-term current use of anticoagulant LATASHA (obstructive sleep apnea) Paroxysmal atrial fibrillation Unilateral primary osteoarthritis, right hip Family History Family History Father Heart attack Mother No problems noted. 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 Allergies Allergy/AdvReac Type Severity Reaction Status Date / Time No Known Allergies Allergy Verified 09/18/21 14:27 [No Known Allergies*] Home Medications Medication Instructions Recorded Confirmed Last Taken Type finasteride 5 mg tablet 5 mg PO DAILY 09/18/21 10/04/21 Unknown History tamsulosin 0.4 mg capsule 0.4 mg PO DAILY 09/18/21 10/04/21 Unknown History Exam Exam Date and Time: October 10, 2021 1340 Height,Weight and Vital Signs: Height 5 ft 10 in Weight 102.058 kg Last Vital Signs Temp 98.1 F 10/10/21 10:59 Pulse 85 10/10/21 10:59 Resp 16 10/10/21 10:59 BP 127/78 10/10/21 10:59 Pulse Ox 96 10/10/21 10:59 Airway Mallampati Class: II TM Dist: >3cm Neck ROM: Full Loose/Missing/Broken Teeth: No Heart: Irregularly irregular Lungs: CTAB Assessment and Plan Assessment Anesthesia Assessment: Anesthesia Plan Discussed and Chart Reviewed Final Anesthetic Review Family History of Problems with Anesthesia: No History of Problems with Anesthesia: No NPO: Yes ASA Class: III Final Preanesthetic Review: No Changes in Pt Med Stat, Meds/Allgs Chart Reviewed, Consent Obtained/Reviewed and Anes Risks/Benef Reviewed Patient Risk: Intermediate Procedure Risk: Intermediate Assessment/Block/Sedation in SS: Assess/Block/Sedation- Anesthetic Plan Anesthetic Plan: GA Disposition: Standard PACU
== END 2021-10-10 11:24 | disposition home or self-care (01) ==
PROVIDERS: PCP Internal Medicine; Visit Provider Internal Medicine
PROC: 5A2204Z Restoration of Cardiac Rhythm, Single (ICD-10-PCS; CPT 92960; principal; 2021-10-10 10:00)
DX: I48.0 Paroxysmal atrial fibrillation (principal); Z79.01 Long term (current) use of anticoagulants; R53.83 Other fatigue; R03.1 Nonspecific low blood-pressure reading; R06.02 Shortness of breath; G47.33 Obstructive sleep apnea (adult) (pediatric); Z79.899 Other long term (current) drug therapy; Z96.641 Presence of right artificial hip joint
CPT/HCPCS: 92960; J2370

== ENCOUNTER → 2021-10-21 09:11 | Outpatient (BNVA) | payer MEDICARE, SELFPAY | PROVIDERS: PCP Internal Medicine; Referring Provider Internal Medicine; Visit Provider Internal Medicine | DX: I48.0 Paroxysmal atrial fibrillation (principal); R42 Dizziness and giddiness; G47.33 Obstructive sleep apnea (adult) (pediatric); Z79.01 Long term (current) use of anticoagulants | CPT/HCPCS: 93005; 99212 ==

== ENCOUNTER → 2021-11-07 09:10 | Outpatient (BNVA) | payer MEDICARE, SELFPAY | PROVIDERS: PCP Internal Medicine; Referring Provider Internal Medicine; Visit Provider Internal Medicine | DX: Z13.89 Encounter for screening for other disorder (principal) ==

== ENCOUNTER → 2022-02-26 09:01 | Outpatient (BNVA) | payer MEDICARE, SELFPAY | PROVIDERS: PCP Internal Medicine; Referring Provider Internal Medicine; Visit Provider Internal Medicine | DX: I48.0 Paroxysmal atrial fibrillation (principal); R42 Dizziness and giddiness; G47.33 Obstructive sleep apnea (adult) (pediatric); Z79.01 Long term (current) use of anticoagulants | CPT/HCPCS: 93005; 99212 ==

== ENCOUNTER 2022-03-11 15:29 | Outpatient (REF) | payer MEDICARE, SELFPAY ==
--- NOTE | ~2022-03-11 | XR_ITS ---
EXAMINATION: XR ABDOMEN KUB CLINICAL INDICATION: Rule out gastric obstruction COMPARISON: None TECHNIQUE: AP view of the abdomen. FINDINGS: There are very dilated loop of large bowel. There is a large amount of stool the colon. Findings are suggestive of severe constipation/large bowel obstruction. There is no evidence of free air. No calcifications are seen. There are degenerative changes of the spine. There is a right hip replacement. XR/XR abdomen 1V IMPRESSION: Very dilated and large bowel in a large amount of stool in the colon. Differential would include severe constipation/obstipation and large bowel obstruction. Findings will be communicated to the emergency room by the [facility] work flow registered pharmacy technician.
--- NOTE | ~2022-03-11 | XR_ITS ---
EXAMINATION: XR CHEST CLINICAL INFORMATION: Rule out lesion COMPARISON: None TECHNIQUE: 2 views of the chest were obtained. FINDINGS: The cardiac and mediastinal contours are normal. The lungs are clear. There is no pleural effusion or pneumothorax. There are degenerative changes of the spine. Distended bowel below the diaphragm is noted. XR/XR chest 2V IMPRESSION: No evidence for acute disease in the chest. Distended bowel below the diaphragm.
[2022-03-11 16:55] LABS: MANUAL DIFF FLAG NO
[2022-03-11 16:56] LABS: PSA,Total (Free>4and<10) 4.63 ng/mL (0.00-4.00)
[2022-03-11 18:11] LABS: Basophils Absolute Auto 0.1 X10*3/uL (0.0-0.2); Basophils Percent Auto 0.6 % (0-2); Eosinophils Absolute Auto 0.4 X10*3/uL (0.0-0.4); Eosinophils Percent Auto 4.3 % (0-4); Hematocrit 43.1 % (42.0-52.0); Hemoglobin 14.1 g/dl (14.0-18.0); Imm Gran Abs Auto 0.09 X10*3/uL (0.00-0.03); Lymphocytes Absolute Auto 1.9 X10*3/uL (1.2-4.9); Lymphocytes Percent Auto 21.4 % (20-40); Mean Corpuscular HGB Conc 32.7 g/dl (31.0-36.0); Mean Corpuscular Hemoglobin 30.3 pg (27.0-33.0); Mean Corpuscular Volume 92.5 fL (80.0-98.0); Mean Platelet Volume 11.2 fL (9.4-12.4); Monocytes Absolute Auto 0.6 X10*3/uL (0.1-1.2); Monocytes Percent Auto 6.4 % (2-11); Neutrophils Absolute Auto 5.9 x10*3/uL (2.0-8.3); Neutrophils Percent Auto 66.3 % (45-73); Platelet Count 245 X10*3/uL (160-400); Red Blood Count 4.66 X10*6/uL (4.60-5.80); Red Cell Distribution Width 13.8 % (11.0-16.0); White Blood Count 8.9 X10*3/uL (4.8-10.8)
[2022-03-11 18:19] LABS: Alanine Aminotransferase 14 U/L (0-40); Albumin Level 4.2 g/dL (3.5-5.0); Alkaline Phosphatase 69 U/L (39-117); Anion Gap 12 (12-20); Aspartate Amino Transferase 15 U/L (5-37); Bilirubin Total 0.9 mg/dL (0.0-1.0); Blood Urea Nitrogen 17 mg/dL (9-16); C Reactive Protein 0.16 mg/dL (< or = 0.50); Calcium 8.8 mg/dL (8.4-10.2); Carbon Dioxide 23 mmol/L (22-29); Chloride 111 mmol/L (96-108); Estimated Glomerular Filt Rate 50; Glucose Random 97 mg/dL (60-115); Potassium 4.2 mmol/L (3.3-5.1); Sodium 142 mmol/L (135-145); Total Protein 6.9 g/dL (6.5-8.0)
[2022-03-11 18:42] LABS: Free T4 (Free Thyroxine) 0.97 ng/dL (0.71-1.85); Thyroid Stimulating Hormone 3.51 uIU/mL (0.32-4.0)
[2022-03-11 18:44] LABS: Vitamin B12 202 pg/mL (200-900)
[2022-03-12 14:22] LABS: Free Prostate Spec Ag 1.7 ng/mL; Percent Free Prostate Spec Ag 35 % (calc) (>25); Prostate Specific Ag Total 4.9 ng/mL (< OR = 4.0)
== END 2022-03-11 15:30 | disposition home or self-care (01) ==
LOC: HO.LAB 15:29
PROVIDERS: Absent Provider Internal Medicine; PCP Internal Medicine; Visit Provider Urology
DX: N40.1 Benign prostatic hyperplasia with lower urinary tract symptoms (principal); N13.8 Other obstructive and reflux uropathy; R53.83 Other fatigue; G47.33 Obstructive sleep apnea (adult) (pediatric); Z12.5 Encounter for screening for malignant neoplasm of prostate
CPT/HCPCS: 36415; 71046; 74018; 80053; 82550; 82607; 84153; 84154; 84439; 84443; 85025; 86140

== ENCOUNTER 2022-03-14 10:57 | Emergency (ER) | payer MEDICARE, SELFPAY ==
--- NOTE | ~2022-03-14 | CT_ITS ---
EXAMINATION: CT ABDOMEN AND PELVIS WITHOUT CONTRAST CLINICAL INFORMATION: Abdominal discomfort COMPARISON: None TECHNIQUE: Multidetector volumetric imaging was performed from the superior aspect of the liver through the pubic symphysis. Sagittal and coronal reformatted images were obtained on the technologist's workstation. This CT examination was performed using dose optimization techniques as appropriate, variously including the following: *Automated exposure control *Adjustment of mA and/or kV according to patient size (this includes techniques or standardized protocols for targeted exams where dose is matched to indication/reason for exam; i.e. extremities or head) *Use of iterative reconstruction technique DLP: 850 mGy-cm FINDINGS: LUNG BASES: The visualized lung bases are unremarkable. LIVER, GALLBLADDER, AND BILIARY TREE: The liver is normal in size, shape, and attenuation. No focal hepatic lesion or biliary ductal dilatation is present. Physiologically contracted. PANCREAS: Markedly atrophic. No pancreatic mass or inflammation. SPLEEN: Unremarkable. ADRENAL GLANDS: Unremarkable. KIDNEYS AND URETERS: The kidneys are normal in size, shape, and attenuation. No hydronephrosis, hydroureter, or calculi seen. No perinephric stranding. BLADDER: Multiple stones present within the bladder. No significant gallbladder wall thickening or perivesicular fat stranding. GASTROINTESTINAL TRACT: Small hiatal hernia. Stomach otherwise unremarkable. No intestinal obstruction or inflammation. Moderate stool present throughout the colon. Appendix not clearly identified, however there are no inflammatory changes about the cecum to suggest appendicitis. ABDOMINAL WALL: Moderate fat-containing indirect inguinal hernia on the right without associated inflammation. LYMPH NODES: Normal. VASCULAR: Unremarkable. PELVIC VISCERA: Moderate prostatomegaly. Seminal vesicles unremarkable. OSSEOUS STRUCTURES: No acute or suspicious osseous abnormalities. Degenerative changes present throughout the spine. CT/CT abdomen pelvis wo con IMPRESSION: * No acute findings within the abdomen or pelvis. * Multiple bladder calculi present, without evidence of cystitis. * Mild constipation. * Small hiatal hernia.
[2022-03-14 11:03] VITALS: BP 147/81; PULSE 72; RESP 20; TEMP 36.9; O2SAT 96; BMI 32.7
--- NOTE | 2022-03-14 11:32 | PC.NURSE ---
ABDOMEN IS FIRM BUT NORMAL FOR HIM, HISTORY OF CONSTIPATION, GOES SMALL AMOUNTS EVERY OTHER DAY. TAKES MEDICATION FOR HIS BOWELS
[2022-03-14 11:42] VITALS: BP 144/84; PULSE 70; RESP 18; TEMP 36.6; O2SAT 95
--- NOTE | 2022-03-14 11:46 | ECG_ITS ---
Test Reason : Dyspnea Blood Pressure : / mmHG Vent. Rate : 073 BPM Atrial Rate : 073 BPM P-R Int : 174 ms QRS Dur : 090 ms QT Int : 420 ms P-R-T Axes : 013 042 022 degrees QTc Int : 462 ms Normal sinus rhythm Normal ECG When compared with ECG of 23-APR-2020 09:28, Sinus rhythm has replaced Atrial fibrillation Referred By: Nadia Ramos Electronically Signed By:Bird Soria
--- NOTE | 2022-03-14 11:57 | ED_ITS ---
HPI - General Adult General Chief complaint: Dyspnea Stated complaint: was told to come in by DR. plata Time Seen by Provider: 03/14/22 11:44 Source: patient and family () Mode of arrival: ambulatory History of Present Illness HPI narrative: 81-year-old male with with increasing shortness of breath and abdominal distension and feeling of weakness. He was seen by his primary care provider on 03/11 at and at that time he noted that he was more tired and increased shortness of breath on exertion. The further endorses that the patient has had very small bowel movements that are light brown in nature they deny any nausea, vomiting, fever, chills, melena, hematochezia. Related Data Previous Rx's Medication Instructions Recorded apixaban 5 mg tablet (Eliquis) 5 mg PO BID #60 tabs 10/10/21 diltiazem HCl 120 mg 120 mg PO DAILY #90 caps 02/26/22 capsule,extended release 24 hr Allergies Allergy/AdvReac Type Severity Reaction Status Date / Time No Known Allergies Allergy Verified 02/26/22 09:04 [No Known Allergies*] Review of Systems Review of Systems: Pertinent positives and negatives as stated in HPI 10 point review systems is otherwise negative. PMFSH Past Medical History Source: nursing notes reviewed Medical History Unilateral primary osteoarthritis, right hip Family History Family History Father Heart attack Mother No problems noted. Social History Social History Alcohol intake: never Patient Tobacco Use Status: Never used Tobacco Advance Directives: Yes Advance Directives Information Provided: Yes Advance Directives on File: No Current occupational status: retired Current occupation: Right Handed Physical Exam ED Vital Signs: Vital Signs - 24 hr 03/14/22 11:03 03/14/22 11:42 03/14/22 13:37 Temperature 98.4 F 97.8 F 98.2 F Pulse Rate 72 70 77 Respiratory Rate 20 18 16 Blood Pressure 147/81 H 144/84 H 134/89 Pulse Oximetry 96 95 95 Oxygen Delivery Method Room Air Room Air Nasal Cannula BMI result Body Mass Index 32.7 VITAL SIGNS: Reviewed. GENERAL: Well developed, well nourished, in no acute distress. HEAD: Normocephalic/atraumatic EYES: PERRLA, EOMI EARS: Ext canals without abnormality OROPHARYNX: no oral lesions noted, posterior pharynx clear LUNGS: Normal breath sounds. No adventitious sounds or accessory muscle use. SpO2<96> CARDIOVASCULAR: Regular rate and rhythm without noted murmurs, no JVD or lower extremity edema. ABDOMEN: Soft, non-tender, non-distended with bowel sounds. MUSCULOSKELETAL: No tenderness, deformities, or effusions noted on gross inspection. EXTREMITIES: No cyanosis, clubbing or edema. SKIN: Inspection of the skin reveals no rashes NEUROLOGIC: Alert and oriented x 4. Strength and sensation to light touch were grossly intact x 4. Course Course Course Narrative: 81-year-old male with history and clinical presentation concerning for possible distal mass given the brief review of AXR that has not been officially read by radiology. Patient will undergo CT scan and repeat lab work to better identify an intra-abdominal situation. Radiology called and informed me that patient has a large bowel obstruction, questionable Cleveland's, however Roxy's is not consistent with patient's history and on my own interpretation of CT scan review is likely secondary to an extensive stool load. I did consult with Dr. Espinal who came down and saw the patient and has deemed in no surgical intervention at this time and the noted inguinal hernia is reducible. Patient will receive an enema at this time and will re-evaluated afterwards. Patient received 1 fleets enema with good response and otherwise has no acute complaints. I did discuss with the patient and his girlfriend the possibility of a referral to Gastroenterology and as they are in contact with the primary care provider the girlfriend will contact him and set that up. Medical Decision Making Lab Data Result diagrams: 03/14/22 12:36 03/14/22 12:36 Labs: Lab Results 03/14/22 03/14/22 03/14/22 Range/Units 12:36 12:36 12:36 WBC 7.6 (4.8-10.8) X10*3/uL RBC 4.43 L (4.60-5.80) X10*6/uL Hgb 13.2 L (14.0-18.0) g/dl Hct 40.9 L (42.0-52.0) % MCV 92.3 (80.0-98.0) fL MCH 29.8 (27.0-33.0) pg MCHC 32.3 (31.0-36.0) g/dl RDW 13.2 (11.0-16.0) % Plt Count 228 (160-400) X10*3/uL MPV 10.3 (9.4-12.4) fL Immature Gran % (Auto) 0.9 H (0.0-0.4) % Neut % (Auto) 68.6 (45-73) % Lymph % (Auto) 19.1 L (20-40) % [place] % (Auto) 7.2 (2-11) % Eos % (Auto) 3.8 (0-4) % Baso % (Auto) 0.4 (0-2) % Lymph # (Auto) 1.4 (1.2-4.9) X10*3/uL [place] # (Auto) 0.5 (0.1-1.2) X10*3/uL Eos # (Auto) 0.3 (0.0-0.4) X10*3/uL Baso # (Auto) 0.0 (0.0-0.2) X10*3/uL Abs Immat Gran (auto) 0.07 H (0.00-0.03) X10*3/uL Absolute Neuts (auto) 5.2 (2.0-8.3) x10*3/uL Absolute Nucleated RBC 0.000 (0.0-0.012) X10*3/uL Nucleated RBC % (auto) 0.0 (0.0-0.2) /100WBC PT 17.1 H (9.9-13.0) SEC INR 1.5 H (0.9-1.1) Sodium 140 (135-145) mmol/L Potassium 4.3 (3.3-5.1) mmol/L Chloride 110 H (96-108) mmol/L Carbon Dioxide 23 (22-29) mmol/L Anion Gap 11 L (12-20) BUN 19 H (9-16) mg/dL Creatinine 1.21 (0.5-1.4) mg/dL Estim Creat Clear Calc 56.7 Estimated GFR 57 Random Glucose 82 (60-115) mg/dL Lactic Acid (0.5-2.0) mmol/L Calcium 8.5 (8.4-10.2) mg/dL Total Bilirubin 0.5 (0.0-1.0) mg/dL AST 11 (5-37) U/L ALT 13 (0-40) U/L Alkaline Phosphatase 64 (39-117) U/L Total Protein 6.4 L (6.5-8.0) g/dL Albumin 3.9 (3.5-5.0) g/dL Urine Color Urine Appearance Urine pH (5.0-8.0) Ur Specific [place] (1.005-1.025) Urine Protein (NEG-TRACE) MG/DL Urine Glucose (UA) (NEG) MG/DL Urine Ketones (NEG) MG/DL Urine Blood (NEG) Urine Nitrite (NEG) Ur Leukocyte Esterase (NEG) Stool Occult Blood (NEGATIVE) COVID-19 (ANNA) (Negative) COVID-19 Clin Com 03/14/22 03/14/22 03/14/22 Range/Units 12:36 12:40 12:56 WBC (4.8-10.8) X10*3/uL RBC (4.60-5.80) X10*6/uL Hgb (14.0-18.0) g/dl Hct (42.0-52.0) % MCV (80.0-98.0) fL MCH (27.0-33.0) pg MCHC (31.0-36.0) g/dl RDW (11.0-16.0) % Plt Count (160-400) X10*3/uL MPV (9.4-12.4) fL Immature Gran % (Auto) (0.0-0.4) % Neut % (Auto) (45-73) % Lymph % (Auto) (20-40) % [place] % (Auto) (2-11) % Eos % (Auto) (0-4) % Baso % (Auto) (0-2) % Lymph # (Auto) (1.2-4.9) X10*3/uL [place] # (Auto) (0.1-1.2) X10*3/uL Eos # (Auto) (0.0-0.4) X10*3/uL Baso # (Auto) (0.0-0.2) X10*3/uL Abs Immat Gran (auto) (0.00-0.03) X10*3/uL Absolute Neuts (auto) (2.0-8.3) x10*3/uL Absolute Nucleated RBC (0.0-0.012) X10*3/uL Nucleated RBC % (auto) (0.0-0.2) /100WBC PT (9.9-13.0) SEC INR (0.9-1.1) Sodium (135-145) mmol/L Potassium (3.3-5.1) mmol/L Chloride (96-108) mmol/L Carbon Dioxide (22-29) mmol/L Anion Gap (12-20) BUN (9-16) mg/dL Creatinine (0.5-1.4) mg/dL Estim Creat Clear Calc Estimated GFR Random Glucose (60-115) mg/dL Lactic Acid 1.2 (0.5-2.0) mmol/L Calcium (8.4-10.2) mg/dL Total Bilirubin (0.0-1.0) mg/dL AST (5-37) U/L ALT (0-40) U/L Alkaline Phosphatase (39-117) U/L Total Protein (6.5-8.0) g/dL Albumin (3.5-5.0) g/dL Urine Color Urine Appearance Urine pH (5.0-8.0) Ur Specific [place] (1.005-1.025) Urine Protein (NEG-TRACE) MG/DL Urine Glucose (UA) (NEG) MG/DL Urine Ketones (NEG) MG/DL Urine Blood (NEG) Urine Nitrite (NEG) Ur Leukocyte Esterase (NEG) Stool Occult Blood POSITIVE (NEGATIVE) COVID-19 (ANNA) Negative (Negative) COVID-19 Clin Com See Note 03/14/22 Range/Units 14:03 WBC (4.8-10.8) X10*3/uL RBC (4.60-5.80) X10*6/uL Hgb (14.0-18.0) g/dl Hct (42.0-52.0) % MCV (80.0-98.0) fL MCH (27.0-33.0) pg MCHC (31.0-36.0) g/dl RDW (11.0-16.0) % Plt Count (160-400) X10*3/uL MPV (9.4-12.4) fL Immature Gran % (Auto) (0.0-0.4) % Neut % (Auto) (45-73) % Lymph % (Auto) (20-40) % [place] % (Auto) (2-11) % Eos % (Auto) (0-4) % Baso % (Auto) (0-2) % Lymph # (Auto) (1.2-4.9) X10*3/uL [place] # (Auto) (0.1-1.2) X10*3/uL Eos # (Auto) (0.0-0.4) X10*3/uL Baso # (Auto) (0.0-0.2) X10*3/uL Abs Immat Gran (auto) (0.00-0.03) X10*3/uL Absolute Neuts (auto) (2.0-8.3) x10*3/uL Absolute Nucleated RBC (0.0-0.012) X10*3/uL Nucleated RBC % (auto) (0.0-0.2) /100WBC PT (9.9-13.0) SEC INR (0.9-1.1) Sodium (135-145) mmol/L Potassium (3.3-5.1) mmol/L Chloride (96-108) mmol/L Carbon Dioxide (22-29) mmol/L Anion Gap (12-20) BUN (9-16) mg/dL Creatinine (0.5-1.4) mg/dL Estim Creat Clear Calc Estimated GFR Random Glucose (60-115) mg/dL Lactic Acid (0.5-2.0) mmol/L Calcium (8.4-10.2) mg/dL Total Bilirubin (0.0-1.0) mg/dL AST (5-37) U/L ALT (0-40) U/L Alkaline Phosphatase (39-117) U/L Total Protein (6.5-8.0) g/dL Albumin (3.5-5.0) g/dL Urine Color YELLOW Urine Appearance CLEAR Urine pH 6.0 (5.0-8.0) Ur Specific [place] 1.020 (1.005-1.025) Urine Protein NEG (NEG-TRACE) MG/DL Urine Glucose (UA) NEG (NEG) MG/DL Urine Ketones NEG (NEG) MG/DL Urine Blood NEG (NEG) Urine Nitrite NEG (NEG) Ur Leukocyte Esterase NEG (NEG) Stool Occult Blood (NEGATIVE) COVID-19 (ANNA) (Negative) COVID-19 Clin Com ECG Data Attestation: I personally reviewed and interpreted this ECG as follows: Prior ECG tracings: available for review Interpretation: Normal sinus rhythm, HR-73, no STEMI, LA/QRS/QTC are within normal limits. Discharge Plan Discharge Clinical Impression: Constipation in male, Paroxysmal A-fib, Chronic anticoagulation Patient Disposition: Home, Self-Care Instructions: Constipation (ED), High Fiber Diet (ED), Fleet Enema (ED) Additional Instructions: 1. Resume all home medications as prescribed. 2. Recommend [id number] Fleet's enema no more than twice a week. 3. Follow-up with your primary care provider in the next 1-2 days and is cuss the appropriateness of obtaining a Gastroenterology consultation for further evaluation of your constipation. Return to the ER for any acute worsening of symptoms. Prescriptions: No Action Eliquis 5 mg tablet 5 mg PO BID Qty: 60 11RF diltiazem HCl 120 mg capsule,extended release 24hr 120 mg PO DAILY Qty: 90 3RF Referrals: Demond Plata MD [Primary Care Provider] -
[2022-03-14 12:44] LABS: MANUAL DIFF FLAG NO
[2022-03-14 12:49] LABS: Basophils Percent Auto 0.4 % (0-2); Eosinophils Absolute Auto 0.3 X10*3/uL (0.0-0.4); Eosinophils Percent Auto 3.8 % (0-4); Hematocrit 40.9 % (42.0-52.0); Hemoglobin 13.2 g/dl (14.0-18.0); Imm Gran Abs Auto 0.07 X10*3/uL (0.00-0.03); Imm Gran Pct Auto 0.9 % (0.0-0.4); Lymphocytes Absolute Auto 1.4 X10*3/uL (1.2-4.9); Lymphocytes Percent Auto 19.1 % (20-40); Mean Corpuscular HGB Conc 32.3 g/dl (31.0-36.0); Mean Corpuscular Hemoglobin 29.8 pg (27.0-33.0); Mean Corpuscular Volume 92.3 fL (80.0-98.0); Mean Platelet Volume 10.3 fL (9.4-12.4); Monocytes Absolute Auto 0.5 X10*3/uL (0.1-1.2); Monocytes Percent Auto 7.2 % (2-11); Neutrophils Absolute Auto 5.2 x10*3/uL (2.0-8.3); Neutrophils Percent Auto 68.6 % (45-73); Platelet Count 228 X10*3/uL (160-400); Red Blood Count 4.43 X10*6/uL (4.60-5.80); Red Cell Distribution Width 13.2 % (11.0-16.0); White Blood Count 7.6 X10*3/uL (4.8-10.8)
--- NOTE | 2022-03-14 12:51 | PM.CNGS ---
History of Present Illness Consult details Consult date: 03/14/22 Reason for consult: other (abd bloating & constipation) Requesting physician: Nadai Ramos Narrative: The patient is an 81-year-old male who denies any significant past medical history but reports that he seldom sees his PCP and has never had a colonoscopy. Per cardiology note, he has atrial fibrillation, obstructive sleep apnea, is on an anticoagulant/Eliquis and is being worked up for possible orthopedic procedure. He has had a right hip replacement previously. He is accompanied by his girlfriend of some number of years who reports that he has had chronic issues with constipation and she treats him by giving him MiraLax, omaira Colace, lactulose occasionally but notes that he never seems to have complete evacuation of his colon in her experience. She further reports that his abdomen is bloating and dilated and he has gone up a pants size over the past 6 months. Patient was being evaluated as an outpatient by his PCP and abdominal x-ray from the other day raise concern about a colon obstruction, so I was asked to evaluate the patient. Patient denies any abdominal pain, nausea or vomiting. He has never had a colonoscopy. He reports a normal for him bowel movement earlier today but his significant other and notes that he frequently has thin stool. In reviewing his cardiology notes, he had an attempted cardioversion and recent medication changes. He denies asthma, cardiac, pulmonary, hepatic or renal disorders. He notes that he sees Dr. Perez, the urologist, on a regular basis and had a rectal exam. The patient does not believe he has prostate cancer but rather just elevated PSA. Review of Systems Review of Systems: Yes all other systems are reviewed and are negative Constitutional: Constitutional: Reports as per HPI Cardiovascular: Cardiovascular: Reports as per HPI Respiratory: Respiratory: Reports as per HPI Gastrointestinal: Gastrointestinal: Reports change in bowel habits Comments: Worsening constipation, no blood per rectum and no diarrhea Genitourinary: Genitourinary: Reports no additional male genitourinary complaints Musculoskeletal: Musculoskeletal: Reports as per HPI Integumentary/Breasts: Skin/Breast: Reports system reviewed and no additional complaints, except as docu Neurologic: Reports system reviewed and no additional complaints, except as documented Psychiatric: Psychiatric: Reports no additional psychiatric complaints Endocrine: Endocrine: Reports no additional endocrine complaints Hematologic/Lymphatic: Hematologic/Lymphatic: Reports no additional hematologic/lymphatic complaints and Reports easy bruising Allergic/Immunologic: Allergic/Immunologic: Reports no additional allergic/immunologic complaints [facility] Past Medical History Medical History Unilateral primary osteoarthritis, right hip Family History Family History Father Heart attack Mother No problems noted. 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 He is an elderly gentleman who is anicteric and in no acute distress NC/AT, PENG I EOMI Sclera are anicteric, conjunctiva pink and moist Oropharynx clear no aphthous ulcers Mallampati class 4 mucous membranes moist No cervical masses adenopathy or bruits are noted Heart is regular with no rubs or murmurs, normal S1-S2 Lungs are clear and equal anteriorly Abdomen is obese and soft. There is no tenderness to palpation and no rebound, rigidity or guarding On rectal exam, it is a limited exam due to his habitus but I do not appreciate any rectal masses. Guaiac card was left with the ER staff prostate is enlarged and I do not appreciate any dominant masses good sphincter tone is present On abdominal exam, a reducible right inguinal hernia is noted and a prominent diastasis is present Skin has decreased turgor is to be expected with his age Extremities are free of cyanosis clubbing edema Results Labs Result diagrams: 03/14/22 12:36 03/14/22 12:36 Labs: Abnormal lab results 03/14/22 Range/Units 12:36 RBC 4.43 L (4.60-5.80) X10*6/uL Hgb 13.2 L (14.0-18.0) g/dl Hct 40.9 L (42.0-52.0) % Immature Gran % (Auto) 0.9 H (0.0-0.4) % Lymph % (Auto) 19.1 L (20-40) % Abs Immat Gran (auto) 0.07 H (0.00-0.03) X10*3/uL Short CBC 03/14/22 Range/Units 12:36 WBC 7.6 (4.8-10.8) X10*3/uL Hgb 13.2 L (14.0-18.0) g/dl Hct 40.9 L (42.0-52.0) % Plt Count 228 (160-400) X10*3/uL All other labs normal. CT scan report excerpt: GASTROINTESTINAL TRACT: Small hiatal hernia. Stomach otherwise unremarkable. No intestinal obstruction or inflammation. Moderate stool present throughout the colon. Appendix not clearly identified, however there are no inflammatory changes about the cecum to suggest appendicitis. RIGHT indirect inguinal hernia containing fat also noted; this is reducible on exam. Imaging Abdominal x-ray: report reviewed Abdomen CT scan report/results: report reviewed and image reviewed CT scan - pelvis: report reviewed and image reviewed Assessment and Plan (1) Constipation in male: Status: Acute (2) Paroxysmal A-fib: Status: Acute (3) Chronic anticoagulation: Status: Acute (4) LATASHA (obstructive sleep apnea): Status: Acute (5) BPH w urinary obs/LUTS: Status: Acute (6) Elevated PSA: Status: Acute (7) [facility] current use of anticoagulant: Status: Acute Plan I reviewed the CT scan myself. While there is a right inguinal hernia, it readily reduces on exam and does not contain bowel. Repeat labs show no leukocytosis nor left shift. The patient is CT demonstrates that his colon is large and dilated but there is no free air, free fluid or evidence of a volvulus or acute surgical pathology to explain his chronic constipation issues. Official interpretation is pending I spoke with Dr. Ramos and would recommend completing the workup. If the patient is not able to take p.o. or is unsafe at home with medical management, this is deferred to the medical team but there is no acute surgical pathology to explain the ongoing symptoms. The patient clearly needs an outpatient colonoscopy given his age and progression of constipation and fact that he has never had a colonoscopy. 1507 ADDENDUM No acute surgical pathology to explain the patient's chronic constipation is noted. Care is deferred to the ED team and an outpatient colonoscopy/GI workup regarding his chronic constipation would be in order. Thank you for asking me to participate in his care. Procedures Date of Service Date of Service: 03/14/22
[2022-03-14 12:55] LABS: INTERNATIONAL NORM RATIO 1.5 (0.9-1.1); Prothrombin Time 17.1 SEC (9.9-13.0)
[2022-03-14 12:59] LABS: Lactic Acid 1.2 mmol/L (0.5-2.0)
[2022-03-14] MEDS: Sodium Phosphate,Mono-Dibasic 133 ML ENEMA PR (13:04)
[2022-03-14 13:05] LABS: COVID-19 Test Negative (Negative)
[2022-03-14 13:05] LABS: Alanine Aminotransferase 13 U/L (0-40); Albumin Level 3.9 g/dL (3.5-5.0); Alkaline Phosphatase 64 U/L (39-117); Anion Gap 11 (12-20); Aspartate Amino Transferase 11 U/L (5-37); Bilirubin Total 0.5 mg/dL (0.0-1.0); Blood Urea Nitrogen 19 mg/dL (9-16); Calcium 8.5 mg/dL (8.4-10.2); Carbon Dioxide 23 mmol/L (22-29); Chloride 110 mmol/L (96-108); Creatinine Clr Calc Pharmacy 56.7; Estimated Glomerular Filt Rate 57; Glucose Random 82 mg/dL (60-115); Potassium 4.3 mmol/L (3.3-5.1); Sodium 140 mmol/L (135-145); Total Protein 6.4 g/dL (6.5-8.0)
[2022-03-14 13:07] LABS: OBS Int Ctl Valid YES; OBS1 POSITIVE (NEGATIVE)
[2022-03-14 13:37] VITALS: BP 134/89; PULSE 77; RESP 16; TEMP 36.8; O2SAT 95
[2022-03-14 14:20] LABS: Appearance Urine CLEAR; Color Urine YELLOW; Glucose Urine UA NEG (NEG); Leukocyte Esterase Urine NEG (NEG); Nitrite Urine NEG (NEG); Urine Blood NEG (NEG); Urine Ketones NEG (NEG); Urine Protein NEG (NEG-TRACE)
[2022-03-14 15:23] VITALS: BP 140/70; PULSE 77; RESP 16; TEMP 36.9; O2SAT 98
== END 2022-03-14 15:29 | disposition home or self-care (01) ==
PROVIDERS: Emergency Provider Student in an Organized Health Care Education/Training Program; PCP Internal Medicine
DX: K59.00 Constipation, unspecified (principal); I48.0 Paroxysmal atrial fibrillation; R06.02 Shortness of breath; R14.0 Abdominal distension (gaseous); G47.33 Obstructive sleep apnea (adult) (pediatric); N40.1 Benign prostatic hyperplasia with lower urinary tract symptoms; N13.8 Other obstructive and reflux uropathy; R97.20 Elevated prostate specific antigen [PSA]; Z79.01 Long term (current) use of anticoagulants; Z20.822 Contact with and (suspected) exposure to COVID-19
CPT/HCPCS: 36415; 74176; 80053; 81003; 82272; 83605; 85025; 85610; 87040; 87635; 93005; 99284

== ENCOUNTER → 2022-03-18 08:22 | Outpatient (BNVA) | payer MEDICARE, SELFPAY | PROVIDERS: PCP Internal Medicine; Visit Provider Urology | DX: N40.1 Benign prostatic hyperplasia with lower urinary tract symptoms (principal); R35.1 Nocturia; R97.20 Elevated prostate specific antigen [PSA] | CPT/HCPCS: Q3014 ==

== ENCOUNTER 2022-04-30 09:21 | Day surgery (SDC) | payer MEDICARE, SELFPAY ==
--- NOTE | 2022-04-29 08:29 | HO.ANESPROP2 ---
Documented by User: Richa Peralta NP 04/29/22 08:30 HPI - Anesthesia Eval Consult details Narrative: 81yo M for Colonoscopy Eliquis for afib s/p cardioversion 09/2021 with [place] [facility] Active Problems Active Problems: All Active Problems (Updated 03/15/22 @ 00:01 by Background Daemon) Nocturia more than twice per night (Acute) LATASHA (obstructive sleep apnea) (Acute) Dyspnea on exertion (Acute) Elevated PSA (Acute) BPH w urinary obs/LUTS (Acute) Hip flexor tendon tightness (Acute) alf current use of anticoagulant (Acute) Postural dizziness (Acute) Paroxysmal atrial fibrillation (Acute) Status post right hip replacement (Acute) Past Medical History Medical History Unilateral primary osteoarthritis, right hip Family History Family History Father Heart attack Mother No problems noted. Family history of problems with anesthesia: No Surgical History Surgical History History of total replacement of right hip History of Problems with Anesthesia: No Social History Social History Alcohol intake: never Patient Tobacco Use Status: Never used Tobacco Use of substances other than those prescribed or required for medical reasons: No Are you DNR?: No Advance Directives: No Advance Directives Information Provided: Yes Current occupational status: retired Current occupation: Right [employer]ed Meds Allergies Allergy/AdvReac Type Severity Reaction Status Date / Time No Known Allergies Allergy Verified 03/18/22 08:23 [No Known Allergies*] Home Medications Medication Instructions Recorded Confirmed Last Taken Type diltiazem HCl 120 mg capsule,24 120 mg PO DAILY 03/18/22 03/18/22 Unknown History hr,extended release Exam Exam Date and Time: April 29, 2022 08 Pertinent Lab Results Pertinent Lab Results: Laboratory Tests 03/14/22 03/14/22 12:36 12:36 WBC 7.6 Hgb 13.2 L Hct 40.9 L Plt Count 228 Sodium 140 Potassium 4.3 Chloride 110 H Carbon Dioxide 23 BUN 19 H Creatinine 1.21 Narrative Narrative: EKG 02/2022 Vent. Rate : 073 BPM ? ? Atrial Rate : 073 BPM ?? P-R Int : 174 ms? QRS Dur : 090 ms ? ? QT Int : 420 ms ? ? ? P-R-T Axes : 013 042 022 degrees ?? QTc Int : 462 ms ? Normal sinus rhythm Normal ECG When compared with ECG of 23-APR-2020 09:28, Sinus rhythm has replaced Atrial fibrillation Assessment and Plan Assessment Anesthesia Assessment: Chart Reviewed Final Anesthetic Review Family History of Problems with Anesthesia: No History of Problems with Anesthesia: No Documented by User: Hermes Ramires MD 04/30/22 10:12 [facility] Past Medical History Medical History Unilateral primary osteoarthritis, right hip Family History Family History Father Heart attack Mother No problems noted. Surgical History Surgical History History of total replacement of right hip Social History Social History Alcohol intake: never Patient Tobacco Use Status: Never used Tobacco Use of substances other than those prescribed or required for medical reasons: No Are you DNR?: No Advance Directives: No Advance Directives Information Provided: Yes Current occupational status: retired Current occupation: Right [employer]ed Meds Allergies Allergy/AdvReac Type Severity Reaction Status Date / Time No Known Allergies Allergy Verified 03/18/22 08:23 [No Known Allergies*] Home Medications Medication Instructions Recorded Confirmed Last Taken Type diltiazem HCl 120 mg capsule,24 120 mg PO DAILY 03/18/22 03/18/22 Unknown History hr,extended release Exam Airway Mallampati Class: III TM Dist: >3cm Neck ROM: Full Assessment and Plan Assessment Anesthesia Assessment: Anesthesia Plan Discussed Final Anesthetic Review NPO: Yes ASA Class: III Final Preanesthetic Review: No Changes in Pt Med Stat, Meds/Allgs Chart Reviewed, Consent Obtained/Reviewed and Anes Risks/Benef Reviewed Patient Risk: Intermediate Procedure Risk: Low Anesthetic Plan Anesthetic Plan: MAC: Disposition: Standard PACU
--- NOTE | ~2022-04-30 | CT_ITS ---
EXAMINATION: CT COLONOGRAPHY CLINICAL INFORMATION: Incomplete colonoscopy. Possible mass in region of splenic flexure COMPARISON: Selected portions of CT performed without contrast 03/14/22 TECHNIQUE: Bowel preparation: There is a large amount of retained fecal residue and fluid. This limits the exam. Stool tagging with Gastrografin and barium: Stool tagging was not used. Colonic distention: CO2 mechanical insufflator used via enema tube with inadequate distention despite multiple efforts. Acquisition: Low dose imaging targeted to colonic was performed in the supine and prone positions. Procedure: No immediate complication reported. Review: The acquired images were reviewed in axial, coronal and sagittal planes. Additional 3-D fly through images were reviewed at an independent workstation. This CT examination was performed using dose optimization techniques as appropriate, variously including the following: *Automated exposure control *Adjustment of mA and/or kV according to patient size (this includes techniques or standardized protocols for targeted exams where dose is matched to indication/reason for exam; i.e. extremities or head) *Use of iterative reconstruction technique DLP: 568 mGy-cm FINDINGS: Colonic findings: There is inadequate distention. This precludes assessment for small or moderate sized polyps or masses. There is a large amount of fecal residue and fluid. The colon is tortuous and redundant. There is an abrupt changing caliber in a redundant sigmoid:. The degree of proximal distention makes significant folliculus unlikely. There are segments of colon which are markedly dilated and other segments which are extremely narrowed. There appears to be an Endo Clip associated with an area of the colon immediately beneath the diaphragm. This is likely in the region of the splenic flexure. At the time of the current study there is no gaseous distention through this area. Even in retrospect I do not appreciate a definite mass on the previous study. The large number of loops in the epigastric area and subphrenic area in the upper midline make assessment difficult. In the coronal plane the potential of a colonic mass immediately beneath the diaphragm is difficult to exclude. Alternatively, consistent with the abrupt change in caliber of the sigmoid colon and twisting of the mesentery a twisting of the transverse colon due to some developing volvulus or abnormal fixation of the gut could be present. Non-colonic findings: There is fat protruding through a hiatal hernia and there is a sliding-type hiatal hernia. The orientation of the mesentery is somewhat atypical. No evidence of small bowel obstruction. The prostate is enlarged. There are bladder calculi. Fat protrudes into the right inguinal canal. Artifact related to right hip replacement. There is some low-attenuation associated with the left sacroiliac joint which does not have an aggressive appearance. CT/CT colonography IMPRESSION: Study limited by retained fecal material and inadequate distention despite multiple attempts. The study is abnormal but difficult to evaluate. Markedly redundant and tortuous colon. The sigmoid demonstrates an abrupt change in caliber but there is no evidence of a high-grade proximal obstruction. A form of sigmoid volvulus could develop from this orientation. Many loops of bowel coalescing beneath the diaphragm in the epigastric area including a segment of colon which contains an Endo Clip and is never distended. A mass in this area cannot be excluded. Alternatively consistent with the possible swirling of the mesentery and angulation and abrupt narrowing of the sigmoid there may be a similar abrupt narrowing in the transverse colon with a twisting of the gut. There is a hiatal hernia. The orientation of the vessels in the mesentery is atypical. Fat-containing right inguinal hernia. There are bladder calculi.
[2022-04-30 10:02] VITALS: BMI 32.5
[2022-04-30 10:31] VITALS: BP 144/84; PULSE 72; RESP 20; TEMP 36.6; O2SAT 99
[2022-04-30] MEDS: Lactated Ringers 1,000 ML 100 ML IVCONT (10:31)
[2022-04-30 12:35] VITALS: BP 106/54; PULSE 61; RESP 16; TEMP 36.1; O2SAT 98
--- NOTE | 2022-04-30 12:38 | P.BOP_ITS ---
Brief Operative Note Date of Service: 04/30/22 Pre-op diagnosis: Heme + stool Post-op diagnosis: other (Mass at ? splenic flexure) Procedure: Colonoscopy to transverse colon with biopsies, marking with submucosal ink, and placement of Resolution clip x 1 Surgeon: Arturo Salazar Anesthesia: MAC Was an Resource Specialist used for this Procedure?: No Estimated blood loss (mL): 2.0 Pathology: other (A. Mass at 90cm, ? splenic flexure) Condition: stable Disposition: PACU
[2022-04-30 12:50] VITALS: BP 105/72; PULSE 57; RESP 16; O2SAT 99
[2022-04-30 13:18] VITALS: BP 144/72; PULSE 54; RESP 16; O2SAT 98
--- NOTE | 2022-04-30 23:17 | OP_ITS ---
SURGEON: Arturo Salazar MD INDICATIONS: The patient presents for evaluation of heme-positive stool. Full consent was obtained from him for this, including risks of bleeding and perforation. PREOPERATIVE DIAGNOSIS: Heme-positive stool. POSTOPERATIVE DIAGNOSIS: PROCEDURE PERFORMED: ESTIMATED BLOOD LOSS: COMPLICATIONS: ANESTHESIA: Preop medication used, monitored anesthesia care. ASSISTANTS: SPECIMENS: POSTOPERATIVE DIAGNOSES: Heme-positive stool, colon mass at what appeared to be the area of the splenic flexure, diverticulosis, and internal hemorrhoids. PROCEDURES PERFORMED: Colonoscopy to the region of the transverse colon with biopsies, marking with submucosal ink, and placement of one resolution clip. DESCRIPTION OF PROCEDURE: The patient was placed in the left lateral decubitus position. The digital rectal exam revealed no abnormalities. The Olympus video pediatric colonoscope was entered into the rectum and advanced to the region of what I felt was the transverse colon. The colon at this level was somewhat dilated and tortuous. I was able to visualize the lumen clearly proximal to the scope, but I could not advance beyond what I felt was the transverse colon, despite abdominal wall pressure. The scope was then slowly withdrawn assessing all mucosal surfaces carefully. Preparation was excellent. In the area of what I felt was the splenic flexure at approximately 90 cm was a polypoid lesion with what appeared to be some narrowing of the lumen, encompassing at least 50% of the circumference of the colon, which was quite flat and carpet-like in parts, but also polypoid in parts. It was quite soft. It was not particularly ulcerated nor friable. Multiple biopsies were obtained from it. I did place multiple ink cannon proximal, adjacent, and just distal to the lesion. I also placed a single clip on the distal edge of the lesion to help locate with a CT scan. The colon distal to this appeared normal without any sign of other polyps, colitis, nor angiodysplasia. There was a mild amount of sigmoid diverticulosis. Again, the colon distal to the area also appeared somewhat dilated and tortuous. In the rectum, the scope was retroflexed visualizing internal hemorrhoids, but no other pathology. The rectal mucosa appeared normal. The scope was straightened and withdrawn from the patient. He tolerated the procedure well and was returned to the recovery area in stable condition. IMPRESSION: Colonic lesion with some component of narrowing of the bowel lumen at what I feel is probably the splenic flexure, status post biopsy, marking with submucosal ink, and placement of a resolution clip. 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 I shall see if we can obtain a CT colonography to assess the more proximal bowel today and also see where the lesion is located if we can see the clip on the CT scan. I will plan to see him shortly in followup in the office and we will arrange surgical followup as needed. This has all been discussed with his significant other. He was advised that he could resume his Eliquis in the next 48 hours. MD SARA Lang/STELLA / [phone] MTDD
== END 2022-04-30 14:27 | disposition home or self-care (01) ==
PROVIDERS: PCP Internal Medicine; Visit Provider Internal Medicine
PROC: 0DJD8ZZ Inspection of Lower Intestinal Tract, Via Natural or Artificial Opening Endoscopic (ICD-10-PCS; CPT 45378; principal; 2022-04-30 10:40)
DX: K92.1 Melena (principal); R19.8 Other specified symptoms and signs involving the digestive system and abdomen; D12.3 Benign neoplasm of transverse colon; K57.30 Diverticulosis of large intestine without perforation or abscess without bleeding; K64.8 Other hemorrhoids; K59.00 Constipation, unspecified; R97.20 Elevated prostate specific antigen [PSA]; G47.33 Obstructive sleep apnea (adult) (pediatric); I48.0 Paroxysmal atrial fibrillation; Z79.01 Long term (current) use of anticoagulants
CPT/HCPCS: 45380; 45381; 74261; 88305

== ENCOUNTER 2022-05-06 11:05 | Outpatient (REF) | payer MEDICARE, SELFPAY ==
--- NOTE | ~2022-05-06 | US_ITS ---
EXAMINATION: US PELVIS LIMITED (BLADDER) CLINICAL INFORMATION: Poor urinary stream. COMPARISON: US pelvis limited (bladder) 09/02/2021. CT colonoscopy 04/30/2022 TECHNIQUE: Real-time imaging of the bladder. FINDINGS: BLADDER: Well distended. There is bladder wall thickening measuring up to 1.3 cm. There are multiple bladder stones. Bilateral ureteral jets are demonstrated. Prevoid bladder volume is 382 mL. Postvoid bladder volume is 228 mL. ADDITIONAL FINDINGS: The prostate gland is difficult to visualize. The prostate gland appears enlarged, volume measuring 59 mL. US/US bladder IMPRESSION: Multiple bladder stones, largest 228 post void bladder residual and diffuse bladder wall thickening. Enlarged prostate gland.
== END 2022-05-06 11:06 | disposition home or self-care (01) ==
LOC: HO.US 11:05
PROVIDERS: Visit Provider Urology
DX: R35.1 Nocturia (principal); R39.12 Poor urinary stream
CPT/HCPCS: 76857

== ENCOUNTER → 2022-05-07 10:35 | Outpatient (BNVA) | payer MEDICARE, SELFPAY | PROVIDERS: PCP Internal Medicine; Visit Provider Surgery | DX: D12.3 Benign neoplasm of transverse colon (principal); Z98.890 Other specified postprocedural states | CPT/HCPCS: 99202 ==

== ENCOUNTER → 2022-05-29 15:02 | Outpatient (BNVA) | payer MEDICARE, SELFPAY | PROVIDERS: PCP Internal Medicine; Visit Provider Surgery | DX: D12.3 Benign neoplasm of transverse colon (principal); Z98.890 Other specified postprocedural states | CPT/HCPCS: 99212 ==

== ENCOUNTER → 2022-06-25 10:52 | Outpatient (BNVA) | payer MEDICARE, SELFPAY | PROVIDERS: PCP Internal Medicine; Visit Provider Urology | DX: R97.20 Elevated prostate specific antigen [PSA] (principal); N40.1 Benign prostatic hyperplasia with lower urinary tract symptoms; N13.8 Other obstructive and reflux uropathy; R35.1 Nocturia | CPT/HCPCS: 99212 ==

== ENCOUNTER → 2022-08-12 08:25 | Outpatient (REF) | payer MEDICARE, SELFPAY ==
--- NOTE | 2022-08-12 08:28 | HM_ITS ---
Conclusion: 1. Patient was monitored for total period of 3 days 2. Baseline was normal sinus rhythm with intermittent atrial fibrillation noted 52% of time. This was 1 single long episode of 1 day and 4 hours with maximal heart rate of 154 beats per minute 3. No significant pauses or bradycardia noted 4. Total of 10,278 PACs accounting for about 3% of total beats account for frequent PACs 5. No patient reported events MTDD
--- NOTE | 2022-08-12 08:28 | CA_ITS ---
Transthoracic Echocardiogram Patient (Last, First, Middle): Jesus Giraldo E Gender: Male Date of : 1940 Age: 82 Procedure Date: 08/12/2022 Procedure Type: Transthoracic Echocardiogram Location: OP Height: 177.8 cm Weight: 102.06 kg BSA: 2.19 m2 Heart Rate: bpm BP: 136 / 84 mmHg Data Management Consultant: CAROLE Referring MD: Kwaku Valencia MD Hardening Machine Operator Helper: Gigi Kessler MD Symptoms: I48.0 - Paroxysmal atrial fibrillation Study Quality: Fair, contrast used ECG Rhythm: Atrial Fibrillation Conclusions: - 1. Normal LV systolic function with LVEF of 55-60% 2. Normal cardiac valvular Doppler 3. Normal RV systolic pressure 4. 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 No gross pericardial effusion Findings Procedure Information Contrast agent, definity, is being given per protocol without apparent complications. Left Ventricle Normal left ventricular size, thickness, and systolic function. The visually estimated ejection fraction is between 55-60%. Diastolic function is indeterminate on the basis of available data. Right Ventricle Normal right ventricular cavity size and systolic function. Atria The left atrium is likely dilated. Interatrial shunt cannot be excluded. The right atrium is normal in size. Aortic Valve Normal aortic valve structure and function. There is no aortic valve stenosis. There is no aortic valve regurgitation. Mitral Valve Normal mitral valve structure and function. There is trace mitral valve regurgitation. There is no mitral valve stenosis. Pulmonic Valve The pulmonic valve was not well visualized. Tricuspid Valve There is trace tricuspid valve regurgitation. The right ventricular systolic pressure is normal. There is no evidence of pulmonary hypertension. Great Vessels The pulmonary artery was not well visualized. There is mild dilatation of the ascending aorta measuring 3.90 cm. Venous The inferior vena cava is normal in size and collapses greater than 50% with inspiration. Pericardium/Pleural There is no evidence of pericardial effusion. Prior Study Comparison Changes noted compared to prior study dated: 02/26/2021. Ascending aorta is mildly dilated at 3.9 cm. Patient noted to be in atrial fibrillation Measurements 2D Linear Measurements IVSd: 1.05 0.6-0.9/0.6-1.0 cm LVIDd: 5.10 3.9-5.3/4.2-5.9 cm LVIDd Index: 2.33 2.4-3.2/2.2-3.1 cm/m2 LVIDs: 3.39 2.0-3.6 cm LVPWd: 1.13 0.7-1.1 cm LA Diam: 4.50 2.7-3.8/3.0-4.0 cm LAIDs Index: 2.05 1.5-2.3 cm/m2 LV Mass: 263.30 67-162/88-224 g LV Mass Index: 120.23 43-95/49-115 g/m2 LVOT Diam: 2.20 3.0+(-)1.3 cm 2D Systolic Function EF 4C: 57.30 >55% EF 2C: 60.80 >55% EF BiP: 58.50 >55% Mitral Valve MV Pk E: 0.99 MV PK A: 0.37 MV Decel Time: 155.00 E/A: 2.60 E'Lateral: 7.62 E'Medial: 6.13 E/E' Med: 16.10 E/E' Lat: 12.90 PHT: 45.00 MVA PHT: 4.89 Decel Grand: 6.35 Aortic Valve AoV Pk Andrew: 0.96 AoV Mn Andrew: 0.68 AoV VTI: 0.19 AoV Pk Grad: 4.00 Aov Mn Grad: 2.00 DIMA Cont.VTI: 3.01 LVOT LVOT Pk Andrew: 0.73 LVOT Mn Andrew: 0.49 LVOT VTI: 0.15 LVOT Pk Grad: 2.00 LVOT Mn Grad: 1.00 LVOT Diam: 2.20 LVOT Area: 3.80 Diastolic Function MV Pk E: 0.99 MV Pk A: 0.37 E/A: 2.60 E'Medial: 6.13 E/E' Med: 16.10 E' Laterial: 7.62 E/E' Lat: 12.90 Right Ventricle TAPSE (mm): 17.00 TVS' Andrew: 11.20 Tricuspid Valve TR Pk Andrew: 2.13 TR Pk Grad: 18.00 RA Press: 3.00 RVSP: 21.00 Great Vessels Aorta Sinus of Valsalva: 4.01 2.0-3.[address] Ridge: 2.96 1.7-3.4 cm Ao Asc: 3.90 2.1-3.4 cm Updated in Other Vendor System with Status of Final Gigi Kessler MD electronically signed on 08/13/2022 4:57:41 PM with status of Final
== END ==
LOC: HO.CARD 08:25
PROVIDERS: PCP Internal Medicine; Visit Provider Internal Medicine
DX: I48.0 Paroxysmal atrial fibrillation (principal)
CPT/HCPCS: 93242; 93306; Q9957

== ENCOUNTER → 2022-08-18 12:55 | Outpatient (BNVA) | payer MEDICARE, SELFPAY | PROVIDERS: PCP Internal Medicine; Referring Provider Internal Medicine; Visit Provider Internal Medicine | DX: Z01.810 Encounter for preprocedural cardiovascular examination (principal); I48.0 Paroxysmal atrial fibrillation; G47.33 Obstructive sleep apnea (adult) (pediatric); Z79.01 Long term (current) use of anticoagulants | CPT/HCPCS: 93005; 99212 ==

== ENCOUNTER 2022-11-20 10:54 | Outpatient (REF) | payer MEDICARE, SELFPAY ==
[2022-11-20 14:06] LABS: MANUAL DIFF FLAG NO
[2022-11-20 14:28] LABS: Basophils Absolute Auto 0.1 X10*3/uL (0.0-0.2); Basophils Percent Auto 0.8 % (0-2); Eosinophils Absolute Auto 0.3 X10*3/uL (0.0-0.4); Eosinophils Percent Auto 4.6 % (0-4); Hematocrit 44.1 % (42.0-52.0); Imm Gran Abs Auto 0.11 X10*3/uL (0.00-0.03); Imm Gran Pct Auto 1.5 % (0.0-0.4); Lymphocytes Absolute Auto 1.4 X10*3/uL (1.2-4.9); Lymphocytes Percent Auto 19.9 % (20-40); Mean Corpuscular HGB Conc 31.7 g/dl (31.0-36.0); Mean Corpuscular Hemoglobin 28.4 pg (27.0-33.0); Mean Corpuscular Volume 89.5 fL (80.0-98.0); Mean Platelet Volume 11.7 fL (9.4-12.4); Monocytes Absolute Auto 0.5 X10*3/uL (0.1-1.2); Monocytes Percent Auto 6.9 % (2-11); Neutrophils Absolute Auto 4.8 x10*3/uL (2.0-8.3); Neutrophils Percent Auto 66.3 % (45-73); Platelet Count 232 X10*3/uL (160-400); Red Blood Count 4.93 X10*6/uL (4.60-5.80); Red Cell Distribution Width 15.9 % (11.0-16.0); White Blood Count 7.2 X10*3/uL (4.8-10.8)
[2022-11-20 14:55] LABS: Alanine Aminotransferase 16 U/L (0-40); Albumin Level 3.9 g/dL (3.5-5.0); Alkaline Phosphatase 80 U/L (39-117); Anion Gap 12 (12-20); Aspartate Amino Transferase 13 U/L (5-37); Bilirubin Total 0.6 mg/dL (0.0-1.0); Blood Urea Nitrogen 18 mg/dL (9-16); Calcium 8.8 mg/dL (8.4-10.2); Carbon Dioxide 26 mmol/L (22-29); Chloride 110 mmol/L (96-108); Estimated Glomerular Filt Rate > 60; Glucose Random 113 mg/dL (60-115); Potassium 4.8 mmol/L (3.3-5.1); Sodium 143 mmol/L (135-145); Total Protein 6.9 g/dL (6.5-8.0)
[2022-11-20 15:06] LABS: Appearance Urine Cloudy; Color Urine Yellow; Glucose Urine UA Negative (Negative); Leukocyte Esterase Urine Large (3+) (Negative); Nitrite Urine Negative (Negative); PH 8.5 (5.0-9.0); UMIC TRIGGER UACC YES; Urine Blood Negative (Negative); Urine Ketones Negative (Negative); Urine Protein 100 (2+) mg/dL (Neg-Trace)
[2022-11-20 15:17] LABS: Vitamin B12 312 pg/mL (200-900)
[2022-11-20 15:29] LABS: UACC Culture Trigger YES; WBC Urine 0-5 /HPF (0-5)
[2022-11-20 15:33] LABS: Bacteria Urine 2+ (None Seen)
[2022-11-20 15:34] LABS: Hyaline Casts Urine 0-2 /LPF (0-2); Other Crystals Urine Present
== END 2022-11-20 10:55 | disposition home or self-care (01) ==
LOC: HO.10HDL 10:54
PROVIDERS: Visit Provider Internal Medicine
DX: D64.9 Anemia, unspecified (principal); I48.91 Unspecified atrial fibrillation; R30.0 Dysuria; E53.8 Deficiency of other specified B group vitamins
CPT/HCPCS: 36415; 80053; 81001; 81003; 82607; 85025; 87086; 87088; 87186

== ENCOUNTER → 2022-12-03 11:06 | Outpatient (REF) | payer MEDICARE, SELFPAY ==
--- NOTE | 2022-12-03 11:12 | HM_ITS ---
Conclusion: 1. Patient was monitored for total period of 3 days 2. Baseline was atrial fibrillation with average heart of 87 beats per minute with overall adequate rate control 3. No significant pauses noted 4. No patient reported symptoms MTDD
== END ==
LOC: HO.CARD 11:06
PROVIDERS: PCP Internal Medicine; Visit Provider Internal Medicine
DX: I48.0 Paroxysmal atrial fibrillation (principal)
CPT/HCPCS: 93242

== ENCOUNTER 2022-12-22 10:58 | Outpatient (REF) | payer MEDICARE, SELFPAY ==
[2022-12-22 14:37] LABS: Prostate Specific Antigen 2.66 ng/mL (<0.05-4.0)
== END 2022-12-22 10:59 | disposition home or self-care (01) ==
LOC: HO.10HDL 10:58
PROVIDERS: Visit Provider Urology
DX: Z12.5 Encounter for screening for malignant neoplasm of prostate (principal); R97.20 Elevated prostate specific antigen [PSA]
CPT/HCPCS: 36415; 84153

== ENCOUNTER 2022-12-23 08:31 | Outpatient (REF) | payer MEDICARE, SELFPAY | END 2022-12-23 08:32 | disposition home or self-care (01) | LOC: HO.LAB 08:31 | PROVIDERS: PCP Internal Medicine; Visit Provider Urology | DX: N40.1 Benign prostatic hyperplasia with lower urinary tract symptoms (principal); R35.1 Nocturia; R33.8 Other retention of urine; N13.8 Other obstructive and reflux uropathy; N39.0 Urinary tract infection, site not specified; R97.20 Elevated prostate specific antigen [PSA]; Z79.899 Other long term (current) drug therapy; Z79.01 Long term (current) use of anticoagulants | CPT/HCPCS: 51798; 87086; 87088; 87186; 99212 ==

== ENCOUNTER → 2023-02-26 15:12 | Outpatient (BNVA) | payer MEDICARE, SELFPAY | PROVIDERS: PCP Internal Medicine; Referring Provider Internal Medicine; Visit Provider Internal Medicine | DX: I48.0 Paroxysmal atrial fibrillation (principal); G47.33 Obstructive sleep apnea (adult) (pediatric); Z79.01 Long term (current) use of anticoagulants | CPT/HCPCS: 99212 ==

== ENCOUNTER → 2023-03-03 10:31 | Outpatient (BNVA) | payer MEDICARE, SELFPAY | PROVIDERS: PCP Internal Medicine; Visit Provider Internal Medicine | DX: G47.33 Obstructive sleep apnea (adult) (pediatric) (principal); R06.00 Dyspnea, unspecified; E66.9 Obesity, unspecified; I48.0 Paroxysmal atrial fibrillation; Z68.33 Body mass index [BMI] 33.0-33.9, adult | CPT/HCPCS: 99212 ==

== ENCOUNTER → 2023-03-06 10:11 | Outpatient (REF) | payer MEDICARE, SELFPAY ==
--- NOTE | ~2023-03-06 | NM_ITS ---
TC-PYP Cardiac Study INDICATION: Evaluation for Cardiac Amyloidosis CLINICAL HISTORY: 82 years old Male with diastolic heart failure TECHNIQUE: 25 mCi of Tc-99m pyrophosphate was injected intravenously. Planar images of the chest were obtained in the anterior and left lateral views at 3 hours.. SPECT-CT images of the chest were also obtained. Images were obtained with and without CT attenuation. Total DLP 182 mGy-cm COMPARISON: None FINDINGS: 1. Image Quality: Fair 2. Semi-quantitative visual scoring of the cardiac uptake is performed as follows: 0 = absent cardiac uptake and intense bone uptake 3. H-CL Ratio if Applicable: Normal 4. Ancillary Finds: Calcific changes in the ascending aorta as well as the pulmonary 3 NM/NM TC PYP cardiac amyloidosis IMPRESSION: 1. No evidence of ATTR type cardiac amyloidosis 2. Please note that the Tc 99m PYP is more sensitive in detecting transthyretin-related cardiac amyloidosis than that of light-chain cardiac amyloidosis.
== END ==
LOC: HO.NUCMED 10:11
PROVIDERS: PCP Internal Medicine; Visit Provider Internal Medicine
DX: I50.43 Acute on chronic combined systolic (congestive) and diastolic (congestive) heart failure (principal)
CPT/HCPCS: 78803; A9538

== ENCOUNTER 2023-03-12 10:35 | Outpatient (REF) | payer MEDICARE, SELFPAY ==
[2023-03-12 13:21] LABS: MANUAL DIFF FLAG NO
[2023-03-12 13:41] LABS: Basophils Absolute Auto 0.1 X10*3/uL (0.0-0.2); Basophils Percent Auto 0.8 % (0-2); Eosinophils Absolute Auto 0.3 X10*3/uL (0.0-0.4); Hemoglobin 15.2 g/dl (14.0-18.0); Imm Gran Abs Auto 0.09 X10*3/uL (0.00-0.03); Imm Gran Pct Auto 1.2 % (0.0-0.4); Lymphocytes Absolute Auto 1.7 X10*3/uL (1.2-4.9); Lymphocytes Percent Auto 21.7 % (20-40); Mean Corpuscular HGB Conc 32.3 g/dl (31.0-36.0); Mean Corpuscular Hemoglobin 29.4 pg (27.0-33.0); Mean Corpuscular Volume 90.9 fL (80.0-98.0); Mean Platelet Volume 11.4 fL (9.4-12.4); Monocytes Absolute Auto 0.6 X10*3/uL (0.1-1.2); Monocytes Percent Auto 7.7 % (2-11); Neutrophils Absolute Auto 5.1 x10*3/uL (2.0-8.3); Neutrophils Percent Auto 64.6 % (45-73); Platelet Count 248 X10*3/uL (160-400); Red Blood Count 5.17 X10*6/uL (4.60-5.80); Red Cell Distribution Width 13.4 % (11.0-16.0); White Blood Count 7.8 X10*3/uL (4.8-10.8)
[2023-03-12 13:55] LABS: Alanine Aminotransferase 12 U/L (0-40); Alkaline Phosphatase 63 U/L (39-117); Anion Gap 14 (12-20); Aspartate Amino Transferase 12 U/L (5-37); Bilirubin Total 0.9 mg/dL (0.0-1.0); Blood Urea Nitrogen 18 mg/dL (9-16); Calcium 9.6 mg/dL (8.4-10.2); Carbon Dioxide 22 mmol/L (22-29); Chloride 109 mmol/L (96-108); Estimated Glomerular Filt Rate 58; Glucose Random 67 mg/dL (60-115); Potassium 4.4 mmol/L (3.3-5.1); Sodium 141 mmol/L (135-145); Total Protein 7.4 g/dL (6.5-8.0)
[2023-03-12 14:16] LABS: B Type Natriuretic Peptide 107 pg/mL (<100)
== END 2023-03-12 10:36 | disposition home or self-care (01) ==
LOC: HO.10HDL 10:35
PROVIDERS: Visit Provider Internal Medicine
DX: I48.91 Unspecified atrial fibrillation (principal); R06.02 Shortness of breath; I10 Essential (primary) hypertension; N40.0 Benign prostatic hyperplasia without lower urinary tract symptoms
CPT/HCPCS: 36415; 80053; 83880; 85025; 86140

== ENCOUNTER → 2023-04-14 10:50 | Outpatient (REF) | payer MEDICARE, SELFPAY | LOC: HO.SL 10:50 | PROVIDERS: PCP Internal Medicine; Visit Provider Internal Medicine | DX: G47.33 Obstructive sleep apnea (adult) (pediatric) (principal); R40.0 Somnolence; E66.9 Obesity, unspecified | CPT/HCPCS: 95806 ==

== ENCOUNTER → 2023-04-14 11:17 | Outpatient (BNV) | payer MEDICARE, SELFPAY | PROVIDERS: PCP Internal Medicine; Visit Provider Internal Medicine | DX: G47.33 Obstructive sleep apnea (adult) (pediatric) (principal) | CPT/HCPCS: 95806 ==

== ENCOUNTER 2023-04-30 11:13 | Outpatient (AMB) | payer MEDICARE, SELFPAY ==
[2023-04-30 11:18] VITALS: BP 94/50; BMI 33.1
--- NOTE | 2023-04-30 11:18 | A.OFFVIS_ITS ---
Intake Vital Signs 04/30/23 11:18 Height 5 ft 10 in Weight 231 lb BMI 33.1 BP 94/50 L Blood Pressure Location Lt brachial Position Sitting Intake Visit Reasons: copd/andreas Intake Note: pt is here for follow up of sleep study results. 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 COMES FOR FOLLOW-UP., AFTER HE HAS A REPEAT SLEEP STUDY. ACCORDING TO HIS HE SLEEPS FAIRLY GOOD, BUT STILL WAKES UP UN-REFRESHED AND REMAINS TIRED AND SLEEPY DURING THE DAYTIME. HE HAS NO COUGH OR WHEEZING. WEIGHT IS UNCHANGED. THIS GENTLEMAN IS KNOWN TO HAVE HYPERTENSION, CHRONIC ATRIAL FIBRILLATION, BPH. HE IS ON LONG-TERM ANTICOAGULATION. 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 Social History Alcohol intake: never Patient Tobacco Use Status: Never used Tobacco Current occupational status: retired Current occupation: Right Handed Review of Systems Const All systems reviewed & are unremarkable except as noted in HPI and below Eyes Reports no additional complaints ENT Reports no additional complaints Card Denies chest pain, Reports irregular heart rhythm, Denies leg edema and Reports dyspnea on exertion (mild) Resp Reports dyspnea on exertion (mild) GI Reports no additional complaints Reports no additional complaints Musc Reports no additional complaints Skin/Breast Reports system reviewed and no additional complaints, except as documented Neuro Reports no additional complaints Psych Reports no additional complaints Physical Exam Vital Signs: Last Vital Signs BP 94/50 L 04/30/23 11:18 BMI result Body Mass Index 33.1 Const General: healthy appearing (Except for being overweight), comfortable, no acute distress, alert and awake Orientation/consciousness: patient oriented x3 HEENT Head: Yes normal to inspection General nose exam: No nasal polyps present and No nasal discharge present Face and sinus: Yes sinuses nontender Mouth: oropharynx normal Throat: Yes posterior oropharynx normal Eyes General: appearance normal, both eyes and all related structures Neck Neck: Yes normal visual inspection, Yes no lymphadenopathy, Yes trachea midline and Yes no JVD Thyroid: Thyroid normal Chest Chest palpation & inspection: normal inspection of the chest, normal palpation of entire chest wall and no tenderness Resp Effort & Inspection: normal respiratory effort Auscultation: clear to auscultation bilaterally, no crackles and no wheezes Percussion: percussion normal Cardio Palpation: normal PMI Rate: regular rate Rhythm: abnormal rhythm (Atrial fib) Heart sounds: no gallops and no murmurs Peripheral pulses: Peripheral pulses 2+ throughout GI Palpation (GI): Soft to palpation, nontender, No hepatosplenomegaly present, no masses and Other GI palpation findings present (Abdomen is moderately obese and protuberant) Auscultation: normal bowel sounds Back/Spine/Pelvis Thoracic/Lumbar Spine: thoracic and lumbar spine normal to inspection Skin General skin exam: no rashes or lesions noted Neuro General: patient oriented x3 and no focal motor deficits Cranial nerves: Yes CN's II-XII intact bilaterally Extrem General: Yes normal to inspection, Yes no clubbing, cyanosis or edema and Yes no calf tenderness Psych Appearance: grossly normal and well kempt Speech and movement: Normal speech and movement present Results Reviewed Results Reviewed: HOME-BASED SLEEP STUDY ON 04/15/2023. RESULTS REVIEWED WITH HIM AND HIS . TOTAL SLEEP TIME AHI 24 WHICH PUTS HIM IN MODERATELY SEVERE OBSTRUCTIVE SLEEP APNEA CATEGORY. HE SLEPT MOST OF THE TIME IN LEFT LATERAL POSITION WITH AHI OF 22.5. THERE WAS ALSO MILD NOCTURNAL HYPOXEMIA WITH AVERAGE O2 SAT 94 LOWEST O2 SAT 82 AND O2 SAT BELOW 88% FOR 6 MINUTES Assessment & Plan Assessment & Plan (1) Obesity (BMI 30-39.9): Comment: Remains moderately obese, this puts him at risk of obstructive sleep apnea. He is not able to lose much weight. Code(s): E66.9 - Obesity, unspecified (2) ANDREAS (obstructive sleep apnea): Comment: Patient has past history of documented obstructive sleep apnea. He gave up using CPAP hoping that he could lose some weight and will continue to practice Position therapy. Because of persistent paroxysmal atrial fibrillation, his cardiology service has recommended him to reconsider going on CPAP therapy. HIS SLEEP STUDY DOES CONFIRM THAT HE HAS MODERATELY SEVERE OBSTRUCTIVE SLEEP APNEA. Considering that he has comorbidity is specially chronic atrial fibrillation, he should consider using Ng the CPAP. After some discussion he has agreed to try using the CPAP. I will order the a Pap mode with pressure setting 6-20 cm, using nasal mask and this could be changed to full face if needed. He wanted to discuss the alternative modes of treatment, I explained that CPAP therapy is the best mode. Also discussed with him about INSPIRE . TO BE CONSIDERED FOR THIS MODE OF TREATMENT HE STILL HAS TO USE CPAP AND IF HE FAILS AGAIN, HE WOULD BE REFERRED TO AN INSPIRE-TRAINED SURGEON. FULL INFORMATION ABOUT THE INSPIRE THERAPY IS GIVEN TO HIM. Code(s): G47.33 - Obstructive sleep apnea (adult) (pediatric) (3) Dyspnea on exertion: Comment: DYSPNEA ON EXERTION FOR THE LAST FEW YEARS. As per pulmonary function test he does not have obstructive or restrictive pulmonary disorder. Dyspnea on exertion is probably functional, may be contributed by his abdominal obesity, and atrial fibrillation. I explained the results to him and his . He does not need and would not benefit from use of any bronchodilator or inhaled steroids. PLAN : Try to lose some weight. Do deep breathing exercises with the incentive spirometer which I have given him from the office, at least 3 times a day. Code(s): R06.00 - Dyspnea, unspecified Coding Level of Care Code Est Pt Level 4 (95612) Diagnoses Obesity (BMI 30-39.9) E66.9 ANDREAS (obstructive sleep apnea) G47.33 Dyspnea on exertion R06.00
== END 2023-04-30 13:24 | disposition home or self-care (01) ==
PROVIDERS: PCP Internal Medicine; Visit Provider Internal Medicine
DX: E66.9 Obesity, unspecified (principal); G47.33 Obstructive sleep apnea (adult) (pediatric); R06.00 Dyspnea, unspecified
CPT/HCPCS: 99214

== ENCOUNTER → 2023-04-30 11:13 | Outpatient (BNVA) | payer MEDICARE, SELFPAY | PROVIDERS: PCP Internal Medicine; Visit Provider Internal Medicine | DX: G47.33 Obstructive sleep apnea (adult) (pediatric) (principal); R06.00 Dyspnea, unspecified; E66.9 Obesity, unspecified; Z68.33 Body mass index [BMI] 33.0-33.9, adult | CPT/HCPCS: 99212 ==

== ENCOUNTER 2023-05-26 08:51 | Outpatient (AMB) | payer MEDICARE, SELFPAY ==
--- NOTE | 2023-05-26 08:53 | MHC.OFFVIS ---
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 To recall, in 2019, he was diagnosed with atrial fibrillation. This happened in the setting of workup for hip surgery. We briefly used amiodarone around the time of his hip surgery but subsequently left him on beta-blockers only. Then he went back into atrial fibrillation and was not feeling too good. Attempted cardioversion, but remained in atrial fibrillation. Then we planned on amiodarone loading and re-attempt cardioversion. However even before the cardioversion he went back into sinus. He did remain in sinus for a while but then went back into atrial fibrillation. However, with regard to symptoms he felt the same with or without atrial fibrillation and hence no further attempts were made. Currently, according to as well as patient main symptom is shortness of breath with activity. Difficult to say if it is from atrial fibrillation, as even he was in sinus, he never felt really normal. Still not able to use CPAP. That is another issue. FORMERLY [facility] Medical History Colon adenoma Dyspnea on exertion Elevated PSA [facility] current use of anticoagulant Obesity (BMI 30-39.9) LATASHA (obstructive sleep apnea) Paroxysmal atrial fibrillation Somnolence, daytime Unilateral primary osteoarthritis, right hip Surgical History 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 Social History Alcohol intake: never Patient Tobacco Use Status: Never used Tobacco Current occupational status: retired Current occupation: Right Handed Review of Systems Const Denies weakness ENT Denies dizziness Card Denies chest pain, Denies chest pain with activity, Denies syncope, Denies rapid heart rate, Denies pedal edema, Denies edema, Denies leg edema, Denies lightheadedness, Denies palpitations, Reports dyspnea, Reports dyspnea on exertion and Denies orthopnea Resp Denies cough, Reports dyspnea and Reports dyspnea on exertion GI Denies hematochezia and Denies change in stool character Musc Denies abnormal gait, Denies muscle cramps, Denies muscle weakness, Denies numbness, Denies radiating pain into limb and Denies tingling Neuro Denies abnormal gait, Denies dizziness, Denies syncope, Denies numbness, Denies tingling and Denies weakness Endo Denies palpitations Physical Exam Vital Signs: Last Vital Signs Pulse 82 05/26/23 08:55 BP 100/62 05/26/23 08:55 BMI result Body Mass Index 33.2 Const General: comfortable and no acute distress Orientation/consciousness: patient oriented x3 HEENT Other: Unremarkable Head: Yes normal to inspection Neck Neck: Yes normal visual inspection Chest Chest palpation & inspection: normal inspection of the chest Resp Auscultation: clear to auscultation bilaterally Cardio Palpation: normal PMI Heart sounds: S1 normal heart sound present, S2 normal heart sound present, no gallops, no murmurs and no rubs GI Palpation (GI): Soft to palpation Back/Spine/Pelvis Other: unremarkable Skin General skin exam: no rashes or lesions noted Neuro General: patient oriented x3 Extrem General: Yes normal to inspection Psych Mental Status: mental status grossly normal Assessment & Plan Assessment & Plan (1) Persistent atrial fibrillation: Code(s): I48.19 - Other persistent atrial fibrillation (2) Paroxysmal atrial fibrillation: Comment: Patient is being followed by Cardiology and he is on long-term anticoagulation Code(s): I48.0 - Paroxysmal atrial 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 He gave up using CPAP hoping that he could lose some weight and will continue to practice Position therapy. Because of persistent paroxysmal atrial fibrillation, his cardiology service has recommended him to reconsider going on CPAP therapy. HIS SLEEP STUDY DOES CONFIRM THAT HE HAS MODERATELY SEVERE OBSTRUCTIVE SLEEP APNEA. Considering that he has comorbidity is specially chronic atrial fibrillation, he should consider using Ng the CPAP. After some discussion he has agreed to try using the CPAP. I will order the a Pap mode with pressure setting 6-20 cm, using nasal mask and this could be changed to full face if needed. He wanted to discuss the alternative modes of treatment, I explained that CPAP therapy is the best mode. Also discussed with him about INSPIRE . TO BE CONSIDERED FOR THIS MODE OF TREATMENT HE STILL HAS TO USE CPAP AND IF HE FAILS AGAIN, HE WOULD BE REFERRED TO AN INSPIRE-TRAINED SURGEON. FULL INFORMATION ABOUT THE INSPIRE THERAPY IS GIVEN TO HIM. Code(s): G47.33 - Obstructive sleep apnea (adult) (pediatric) Plan Shortness of breath is possibly related to atrial fibrillation at least partially, but again difficult to say as even in the past he did not feel any different even while in sinus rhythm. Any case, we will reassess him for cardiomyopathy from persistent atrial fibrillation and also do another Holter to see how the heart rate control is. Based on this, possibly start him on amiodarone and prepare him for another cardioversion to see if that might help. Long-term effects of amiodarone also discussed today. If indeed successful, then possibly refer for ablation. However, even before planning cardioversion the sleep apnea will need to be sorted out as he is still not using CPAP and working with Pulmonary regarding that. That needs to be in working order before attempted cardioversion as likely that he will go back into atrial fibrillation otherwise. Patient's is concerned about carotid disease and hence would like him screen for the same. Will get a carotid Doppler. Follow-up after testing. All questions answered to the satisfaction. 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
[2023-05-26 08:55] VITALS: BP 100/62; PULSE 82; BMI 33.2
== END 2023-05-26 09:18 | disposition home or self-care (01) ==
PROVIDERS: PCP Internal Medicine; Referring Provider Internal Medicine; Visit Provider Internal Medicine
DX: I48.19 Other persistent atrial fibrillation (principal); I48.0 Paroxysmal atrial fibrillation; Z79.01 Long term (current) use of anticoagulants; G47.33 Obstructive sleep apnea (adult) (pediatric)
CPT/HCPCS: 99214

== ENCOUNTER → 2023-05-26 08:51 | Outpatient (BNVA) | payer MEDICARE, SELFPAY | PROVIDERS: PCP Internal Medicine; Referring Provider Internal Medicine; Visit Provider Internal Medicine | DX: I48.19 Other persistent atrial fibrillation (principal); I48.0 Paroxysmal atrial fibrillation; G47.33 Obstructive sleep apnea (adult) (pediatric); Z79.01 Long term (current) use of anticoagulants | CPT/HCPCS: 99212 ==

== ENCOUNTER 2023-06-02 14:00 | Emergency (ER) | payer MEDICARE, SELFPAY ==
--- NOTE | ~2023-06-02 | XR_ITS ---
EXAMINATION: XR CHEST CLINICAL INFORMATION: Shortness of breath. COMPARISON: March 11, 2022. TECHNIQUE: Frontal view of the chest was obtained. FINDINGS: No significant abnormality is noted involving the heart, lungs, mediastinum, or soft tissues. Mild degenerative changes of the spine and possibly the shoulders. XR/XR chest 1V IMPRESSION: No acute finding.
[2023-06-02 14:02] VITALS: BP 105/68; PULSE 81; RESP 20; TEMP 36; O2SAT 96; BMI 33.0
--- NOTE | 2023-06-02 14:02 | ED.GENADULT ---
HPI - General Adult General Chief complaint: Dyspnea Stated complaint: Lightheaded,SOB Time Seen by Provider: 06/02/23 17:15 Related Data Home Medications Medication Instructions Recorded Confirmed polyethylene glycol 3350 17 17 g PO DAILY 05/07/22 05/26/23 gram/dose oral powder (Miralax) Previous Rx's Medication Instructions Recorded apixaban 5 mg tablet (Eliquis) 5 mg PO BID #60 tabs 10/10/22 finasteride 5 mg tablet 5 mg PO DAILY 90 days #90 tabs 12/23/22 tamsulosin 0.4 mg capsule 0.4 mg PO BEDTIME 90 days #90 caps 01/15/23 diltiazem HCl 120 mg 120 mg PO DAILY #90 caps 04/30/23 capsule,extended release 24 hr Allergies Allergy/AdvReac Type Severity Reaction Status Date / Time No Known Allergies Allergy Verified 06/02/23 14:02 [No Known Allergies*] PMF Past Medical History Medical History Colon adenoma Dyspnea on exertion Elevated PSA [facility] current use of anticoagulant Obesity (BMI 30-39.9) LATASHA (obstructive sleep apnea) Paroxysmal atrial fibrillation Somnolence, daytime Unilateral primary osteoarthritis, right hip Surgical History History of total replacement of right hip Status post right hip replacement Family History Family History Father Heart attack Mother No problems noted. Social History Social History Alcohol intake: never Patient Tobacco Use Status: Never used Tobacco Advance Directives: No Advance Directives Information Provided: No Current occupational status: retired Current occupation: Right Handed Physical Exam ED Vital Signs: Vital Signs - 24 hr 06/02/23 14:02 06/02/23 17:20 06/02/23 18:16 Temperature 96.8 F Pulse Rate 81 87 79 Respiratory Rate 20 18 Blood Pressure 105/68 118/78 128/87 Pulse Oximetry 96 97 Oxygen Delivery Method Room Air Room Air 06/02/23 18:17 06/02/23 18:21 06/02/23 19:42 Temperature 97.5 F Pulse Rate 90 83 83 Respiratory Rate 18 Blood Pressure 127/90 H 129/81 138/84 Pulse Oximetry 100 Oxygen Delivery Method Room Air BMI result Body Mass Index 33.0 Course Course Course Narrative: 82 year old male with history of afib presenting from the echo suite with increasing shortness of breath. 90/48mmHg in the echo suite and patient was very diaphoretic so they sent him down here. Plan: labs, imaging, EKG Medical Decision Making Medical Decision Making [facility] Narrative: Patient's blood pressure normal 138/84, heart rate 83 -orthostatic vitals negative -patient does have a mild UTI, given cefuroxime p.o. -patient does not want to wait for the results of a 2nd troponin Differential Diagnosis Differential Diagnoses: The differential diagnosis associated with the presentation includes (ACS, orthostatic hypotension, dehydration) Admission/Observation Consideration of admission/observation: Escalation of care including admission/observation considered (Patient could not complete his echocardiogram due to symptoms including dizziness, admission was considered. Patient now asymptomatic) Lab Data [facility] Lab Attestation statement: I reviewed the patient's lab results. 06/02/23 14:24 06/02/23 14:23 Labs: Lab Results 06/02/23 06/02/23 06/02/23 Range/Units 14:23 14:23 14:24 WBC 6.6 (4.8-10.8) X10*3/uL RBC 4.97 (4.60-5.80) X10*6/uL Hgb 15.0 (14.0-18.0) g/dl Hct 45.3 (42.0-52.0) % MCV 91.1 (80.0-98.0) fL MCH 30.2 (27.0-33.0) pg MCHC 33.1 (31.0-36.0) g/dl RDW 14.0 (11.0-16.0) % Plt Count 192 (160-400) X10*3/uL MPV 10.2 (9.4-12.4) fL Immature Gran % (Auto) 1.2 H (0.0-0.4) % Neut % (Auto) 57.2 (45-73) % Lymph % (Auto) 25.9 (20-40) % [place] % (Auto) 10.2 (2-11) % Eos % (Auto) 4.7 H (0-4) % Baso % (Auto) 0.8 (0-2) % Lymph # (Auto) 1.7 (1.2-4.9) X10*3/uL [place] # (Auto) 0.7 (0.1-1.2) X10*3/uL Eos # (Auto) 0.3 (0.0-0.4) X10*3/uL Baso # (Auto) 0.1 (0.0-0.2) X10*3/uL Abs Immat Gran (auto) 0.08 H (0.00-0.03) X10*3/uL Absolute Neuts (auto) 3.8 (2.0-8.3) x10*3/uL Absolute Nucleated RBC 0.000 (0.0-0.012) X10*3/uL Nucleated RBC % (auto) 0.0 (0.0-0.2) /100WBC Sodium 142 (135-145) mmol/L Potassium 4.1 (3.3-5.1) mmol/L Chloride 111 H (96-108) mmol/L Carbon Dioxide 22 (22-29) mmol/L Anion Gap 13 (12-20) BUN 17 H (9-16) mg/dL Creatinine 1.33 (0.5-1.4) mg/dL Estim Creat Clear Calc 50.9 Estimated GFR 51 Random Glucose 68 (60-115) mg/dL Calcium 9.5 (8.4-10.2) mg/dL Magnesium 2.3 (1.6-2.6) mg/dL Total Bilirubin 0.7 (0.0-1.0) mg/dL AST 14 (5-37) U/L ALT 17 (0-40) U/L Alkaline Phosphatase 60 (39-117) U/L Troponin I High Sens < 2.7 (<3.5-35.0) ng/L B-Natriuretic Peptide (<100) pg/mL Total Protein 7.3 (6.5-8.0) g/dL Albumin 4.1 (3.5-5.0) g/dL Urine Color Urine Appearance Urine pH (5.0-9.0) Ur Specific [place] (1.005-1.025) Urine Protein (Neg-Trace) mg/dL Urine Glucose (UA) (Negative) mg/dL Urine Ketones (Negative) mg/dL Urine Blood (Negative) Urine Nitrite (Negative) Ur Leukocyte Esterase (Negative) Urine RBC (0-2) /HPF Urine WBC (0-5) /HPF Ur Squamous Epith Cells (0-2) /HPF Urine Bacteria (None Seen) Hyaline Casts (0-2) /LPF 06/02/23 06/02/23 Range/Units 14:24 18:13 WBC (4.8-10.8) X10*3/uL RBC (4.60-5.80) X10*6/uL Hgb (14.0-18.0) g/dl Hct (42.0-52.0) % MCV (80.0-98.0) fL MCH (27.0-33.0) pg MCHC (31.0-36.0) g/dl RDW (11.0-16.0) % Plt Count (160-400) X10*3/uL MPV (9.4-12.4) fL Immature Gran % (Auto) (0.0-0.4) % Neut % (Auto) (45-73) % Lymph % (Auto) (20-40) % [place] % (Auto) (2-11) % Eos % (Auto) (0-4) % Baso % (Auto) (0-2) % Lymph # (Auto) (1.2-4.9) X10*3/uL [place] # (Auto) (0.1-1.2) X10*3/uL Eos # (Auto) (0.0-0.4) X10*3/uL Baso # (Auto) (0.0-0.2) X10*3/uL Abs Immat Gran (auto) (0.00-0.03) X10*3/uL Absolute Neuts (auto) (2.0-8.3) x10*3/uL Absolute Nucleated RBC (0.0-0.012) X10*3/uL Nucleated RBC % (auto) (0.0-0.2) /100WBC Sodium (135-145) mmol/L Potassium (3.3-5.1) mmol/L Chloride (96-108) mmol/L Carbon Dioxide (22-29) mmol/L Anion Gap (12-20) BUN (9-16) mg/dL Creatinine (0.5-1.4) mg/dL Estim Creat Clear Calc Estimated GFR Random Glucose (60-115) mg/dL Calcium (8.4-10.2) mg/dL Magnesium (1.6-2.6) mg/dL Total Bilirubin (0.0-1.0) mg/dL AST (5-37) U/L ALT (0-40) U/L Alkaline Phosphatase (39-117) U/L Troponin I High Sens (<3.5-35.0) ng/L B-Natriuretic Peptide 146 H (<100) pg/mL Total Protein (6.5-8.0) g/dL Albumin (3.5-5.0) g/dL Urine Color Yellow Urine Appearance Cloudy Urine pH 8.0 (5.0-9.0) Ur Specific [place] 1.025 (1.005-1.025) Urine Protein 30 (1+) H (Neg-Trace) mg/dL Urine Glucose (UA) Negative (Negative) mg/dL Urine Ketones Trace (Negative) mg/dL Urine Blood Negative (Negative) Urine Nitrite Positive H (Negative) Ur Leukocyte Esterase Large (3+) H (Negative) Urine RBC 0-2 (0-2) /HPF Urine WBC >50 H (0-5) /HPF Ur Squamous Epith Cells 0-2 (0-2) /HPF Urine Bacteria 4+ (None Seen) Hyaline Casts 0-2 (0-2) /LPF Critical Care Time Critical Care Time Critical Care Time: Yes Total Critical Care Time: 60 Attestation: I have personally provided critical care time. Time includes review of lab data, radiology results, discussion with consultants, and monitoring for potential decompensation. Intervention performed as documented. Discharge Plan Discharge Clinical Impression: Dizziness Patient Disposition: Home, Self-Care Prescriptions: No Action Eliquis 5 mg tablet 5 mg PO BID Qty: 60 11RF tamsulosin 0.4 mg capsule 0.4 mg PO BEDTIME 90 Days Qty: 90 1RF diltiazem HCl 120 mg capsule,extended release 24hr 120 mg PO DAILY Qty: 90 3RF polyethylene glycol 3350 [Miralax] 17 gram/dose powder 17 g PO DAILY finasteride 5 mg tablet 5 mg PO DAILY 90 Days Qty: 90 1RF
--- NOTE | 2023-06-02 14:04 | ECG_ITS ---
Test Reason : SOB Blood Pressure : / mmHG Vent. Rate : 095 BPM Atrial Rate : 000 BPM P-R Int : 000 ms QRS Dur : 092 ms QT Int : 388 ms P-R-T Axes : 000 039 -13 degrees QTc Int : 487 ms Atrial fibrillation Possible Inferior infarct , age undetermined Abnormal ECG When compared with ECG of 14-MAR-2022 12:06, Atrial fibrillation has replaced Sinus rhythm Referred By: Estelita Tabares Electronically Signed By:KRISHAN JOSE
[2023-06-02 14:30] LABS: MANUAL DIFF FLAG NO
[2023-06-02 14:33] LABS: Basophils Absolute Auto 0.1 X10*3/uL (0.0-0.2); Basophils Percent Auto 0.8 % (0-2); Eosinophils Absolute Auto 0.3 X10*3/uL (0.0-0.4); Eosinophils Percent Auto 4.7 % (0-4); Hematocrit 45.3 % (42.0-52.0); Imm Gran Abs Auto 0.08 X10*3/uL (0.00-0.03); Imm Gran Pct Auto 1.2 % (0.0-0.4); Lymphocytes Absolute Auto 1.7 X10*3/uL (1.2-4.9); Lymphocytes Percent Auto 25.9 % (20-40); Mean Corpuscular HGB Conc 33.1 g/dl (31.0-36.0); Mean Corpuscular Hemoglobin 30.2 pg (27.0-33.0); Mean Corpuscular Volume 91.1 fL (80.0-98.0); Mean Platelet Volume 10.2 fL (9.4-12.4); Monocytes Absolute Auto 0.7 X10*3/uL (0.1-1.2); Monocytes Percent Auto 10.2 % (2-11); Neutrophils Absolute Auto 3.8 x10*3/uL (2.0-8.3); Neutrophils Percent Auto 57.2 % (45-73); Platelet Count 192 X10*3/uL (160-400); Red Blood Count 4.97 X10*6/uL (4.60-5.80); White Blood Count 6.6 X10*3/uL (4.8-10.8)
[2023-06-02 14:55] LABS: B Type Natriuretic Peptide 146 pg/mL (<100)
[2023-06-02 15:06] LABS: Troponin-I High Sensitivity < 2.7 ng/L (<3.5-35.0)
[2023-06-02 15:34] LABS: Alanine Aminotransferase 17 U/L (0-40); Albumin Level 4.1 g/dL (3.5-5.0); Alkaline Phosphatase 60 U/L (39-117); Anion Gap 13 (12-20); Aspartate Amino Transferase 14 U/L (5-37); Bilirubin Total 0.7 mg/dL (0.0-1.0); Blood Urea Nitrogen 17 mg/dL (9-16); Calcium 9.5 mg/dL (8.4-10.2); Carbon Dioxide 22 mmol/L (22-29); Chloride 111 mmol/L (96-108); Creatinine Clr Calc Pharmacy 50.9; Estimated Glomerular Filt Rate 51; Glucose Random 68 mg/dL (60-115); Magnesium 2.3 mg/dL (1.6-2.6); Potassium 4.1 mmol/L (3.3-5.1); Sodium 142 mmol/L (135-145); Total Protein 7.3 g/dL (6.5-8.0)
[2023-06-02 17:20] VITALS: BP 118/78; PULSE 87; RESP 18; O2SAT 97
--- NOTE | 2023-06-02 17:57 | ED_ITS ---
HPI - General Adult General Chief complaint: Dyspnea Stated complaint: Lightheaded,SOB Time Seen by Provider: 06/02/23 17:15 Source: patient Mode of arrival: wheelchair Limitations: no limitations History of Present Illness HPI narrative: Patient comes to the emergency room via wheelchair from the cardiology office. Today, patient was getting an echocardiogram. They were unable to complete echocardiogram because the patient started feeling short of breath, lightheaded with exertion, started becoming diaphoretic. Patient is known to have a history of atrial fibrillation and is on Eliquis. Patient reports any chest pain or syncopal episodes. At this time, patient states that he is asymptomatic. Related Data Previous Rx's ?Medication ?Instructions ?Recorded apixaban 5 mg tablet (Eliquis) 5 mg PO BID #60 tabs 10/19/23 diltiazem HCl 120 mg capsule,24 120 mg PO DAILY #90 caps 01/14/24 hr,extended release Allergies Allergy/AdvReac Type Severity Reaction Status Date / Time No Known Allergies Allergy Verified 03/15/24 09:17 [No Known Allergies*] Review of Systems 2 Review of Systems: Constitutional : No Weight loss, No Fever, No Chills, No Night Sweats, No Fatigue, No Malaise ENT/Mouth : No Hearing loss, No Ear Pain, No Nasal Congestion, No Sinus Pain, No Hoarseness, No sore throat, No Rhinorrhea, No Swallowing Difficulty Eyes: No Eye Pain, No Swelling, No Redness, No Foreign Body, No Discharge, No Vision Changes Cardiovascular : No Chest Pain, No SOB, No Dyspnea on Exertion, No Orthopnea, No Edema, No Palpitations Respiratory : No Cough, No Sputum, No Wheezing, No Smoke Exposure, No Dyspnea Gastrointestinal : No Nausea, No Vomiting, No Diarrhea, No Constipation, No abdominal Pain, No Hematochezia, No Melena Genitourinary : no irregular bleeding, No Dysuria, No Urinary Frequency, No Hematuria, No Urinary Incontinence, No Urgency, No Flank Pain, No Urinary Flow Changes, No Hesitancy Musculoskeletal : No joint pain, No Myalgias, No Joint Swelling Skin : No Skin Lesions, No rash Neuro : No Weakness, No Numbness, No Paresthesias, No Loss of Consciousness, No Dizziness, No Headache Psych : No Anxiety/Panic, No Depression, No SI/HI/AH/VH, No Social Issues, Heme/Lymph: No Bruising, No Bleeding,No Lymphadenopathy Endocrine : No Polyuria, No Polydipsia, No Temperature Intolerance 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 Social History Social History Alcohol intake: never Patient Tobacco Use Status: Never used Tobacco Current occupational status: retired Current occupation: Right Handed Physical Exam ED Vital Signs: Vital Signs - 24 hr 06/02/23 14:02 06/02/23 17:20 Temperature 96.8 F Pulse Rate 81 87 Respiratory Rate 20 18 Blood Pressure 105/68 118/78 Pulse Oximetry 96 97 Oxygen Delivery Method Room Air Room Air BMI result Body Mass Index 33.0 Const Other: Appearance: Alert. Oriented X3. No acute distress. Eyes: Pupils equal, round and reactive to light. ENT: Pharynx normal. Neck: Normal inspection. Neck supple. No lymph nodes noted. No crepitus CVS: Normal heart rate and rhythm. Pulses normal. Normal S1 and S2 Respiratory: No respiratory distress. Breath sounds normal. No Wheezing. No rales Abdomen: Soft and nontender. No rigidity. No distention. Skin: Skin warm and dry. Normal skin color. Normal skin turgor. Extremities: No lower extremity edema. No Lacerations. No Rash Neuro: Oriented X 3. No motor deficit. No sensory deficit. Moving all extremities. No slurred speech. CN 2 through 12 grossly intact Psych: calm, cooperative, normal affect Medications Administered Discontinued Medications Generic Name Dose Route Start Last Admin Trade Name Freq PRN Reason Stop Dose Admin Cefuroxime Axetil 500 mg 06/02/23 20:18 06/02/23 20:51 Cefuroxime Axetil 500 Mg Tablet PO 06/02/23 20:19 500 mg ONCE ONE Administration Medical Decision Making Lab Data 06/02/23 14:24 06/02/23 14:23 Labs: Lab Results 06/02/23 06/02/23 06/02/23 Range/Units 14:23 14:24 18:13 WBC 6.6 (4.8-10.8) X10*3/uL RBC 4.97 (4.60-5.80) X10*6/uL Hgb 15.0 (14.0-18.0) g/dl Hct 45.3 (42.0-52.0) % MCV 91.1 (80.0-98.0) fL MCH 30.2 (27.0-33.0) pg MCHC 33.1 (31.0-36.0) g/dl RDW 14.0 (11.0-16.0) % Plt Count 192 (160-400) X10*3/uL MPV 10.2 (9.4-12.4) fL Immature Gran % (Auto) 1.2 H (0.0-0.4) % Neut % (Auto) 57.2 (45-73) % Lymph % (Auto) 25.9 (20-40) % Anderson % (Auto) 10.2 (2-11) % Eos % (Auto) 4.7 H (0-4) % Baso % (Auto) 0.8 (0-2) % Lymph # (Auto) 1.7 (1.2-4.9) X10*3/uL Anderson # (Auto) 0.7 (0.1-1.2) X10*3/uL Eos # (Auto) 0.3 (0.0-0.4) X10*3/uL Baso # (Auto) 0.1 (0.0-0.2) X10*3/uL Abs Immat Gran (auto) 0.08 H (0.00-0.03) X10*3/uL Absolute Neuts (auto) 3.8 (2.0-8.3) x10*3/uL Absolute Nucleated RBC 0.000 (0.0-0.012) X10*3/uL Nucleated RBC % (auto) 0.0 (0.0-0.2) /100WBC Sodium 142 (135-145) mmol/L Potassium 4.1 (3.3-5.1) mmol/L Chloride 111 H (96-108) mmol/L Carbon Dioxide 22 (22-29) mmol/L Anion Gap 13 (12-20) BUN 17 H (9-16) mg/dL Creatinine 1.33 (0.5-1.4) mg/dL Estim Creat Clear Calc 50.9 Estimated GFR 51 Random Glucose 68 (60-115) mg/dL Calcium 9.5 (8.4-10.2) mg/dL Magnesium 2.3 (1.6-2.6) mg/dL Total Bilirubin 0.7 (0.0-1.0) mg/dL AST 14 (5-37) U/L ALT 17 (0-40) U/L Alkaline Phosphatase 60 (39-117) U/L Troponin I High Sens < 2.7 (<3.5-35.0) ng/L B-Natriuretic Peptide 146 H (<100) pg/mL Total Protein 7.3 (6.5-8.0) g/dL Albumin 4.1 (3.5-5.0) g/dL Urine Color Yellow Urine Appearance Cloudy Urine pH 8.0 (5.0-9.0) Ur Specific [place] 1.025 (1.005-1.025) Urine Protein 30 (1+) H (Neg-Trace) mg/dL Urine Glucose (UA) Negative (Negative) mg/dL Urine Ketones Trace (Negative) mg/dL Urine Blood Negative (Negative) Urine Nitrite Positive H (Negative) Ur Leukocyte Esterase Large (3+) H (Negative) Urine RBC 0-2 (0-2) /HPF Urine WBC >50 H (0-5) /HPF Ur Squamous Epith Cells 0-2 (0-2) /HPF Urine Bacteria 4+ (None Seen) Hyaline Casts 0-2 (0-2) /LPF 06/02/23 Range/Units 19:49 WBC (4.8-10.8) X10*3/uL RBC (4.60-5.80) X10*6/uL Hgb (14.0-18.0) g/dl Hct (42.0-52.0) % MCV (80.0-98.0) fL MCH (27.0-33.0) pg MCHC (31.0-36.0) g/dl RDW (11.0-16.0) % Plt Count (160-400) X10*3/uL MPV (9.4-12.4) fL Immature Gran % (Auto) (0.0-0.4) % Neut % (Auto) (45-73) % Lymph % (Auto) (20-40) % Anderson % (Auto) (2-11) % Eos % (Auto) (0-4) % Baso % (Auto) (0-2) % Lymph # (Auto) (1.2-4.9) X10*3/uL Anderson # (Auto) (0.1-1.2) X10*3/uL Eos # (Auto) (0.0-0.4) X10*3/uL Baso # (Auto) (0.0-0.2) X10*3/uL Abs Immat Gran (auto) (0.00-0.03) X10*3/uL Absolute Neuts (auto) (2.0-8.3) x10*3/uL Absolute Nucleated RBC (0.0-0.012) X10*3/uL Nucleated RBC % (auto) (0.0-0.2) /100WBC Sodium (135-145) mmol/L Potassium (3.3-5.1) mmol/L Chloride (96-108) mmol/L Carbon Dioxide (22-29) mmol/L Anion Gap (12-20) BUN (9-16) mg/dL Creatinine (0.5-1.4) mg/dL Estim Creat Clear Calc Estimated GFR Random Glucose (60-115) mg/dL Calcium (8.4-10.2) mg/dL Magnesium (1.6-2.6) mg/dL Total Bilirubin (0.0-1.0) mg/dL AST (5-37) U/L ALT (0-40) U/L Alkaline Phosphatase (39-117) U/L Troponin I High Sens < 2.7 (<3.5-35.0) ng/L B-Natriuretic Peptide (<100) pg/mL Total Protein (6.5-8.0) g/dL Albumin (3.5-5.0) g/dL Urine Color Urine Appearance Urine pH (5.0-9.0) Ur Specific [place] (1.005-1.025) Urine Protein (Neg-Trace) mg/dL Urine Glucose (UA) (Negative) mg/dL Urine Ketones (Negative) mg/dL Urine Blood (Negative) Urine Nitrite (Negative) Ur Leukocyte Esterase (Negative) Urine RBC (0-2) /HPF Urine WBC (0-5) /HPF Ur Squamous Epith Cells (0-2) /HPF Urine Bacteria (None Seen) Hyaline Casts (0-2) /LPF Discharge Plan Discharge Clinical Impression: Dizziness, Acute UTI Patient Disposition: Home, Self-Care Additional Instructions: Please follow-up with your primary care physician tomorrow. If you have any worsening or new symptoms, please return to the emergency room or call 911 Prescriptions: No Action Eliquis 5 mg tablet 5 mg PO BID Qty: 60 11RF diltiazem HCl 120 mg capsule,extended release 24 hr 120 mg PO DAILY Qty: 90 3RF Interventions: ED Discharge Assessment Last Done: 06/02/23 20:58 Discharge Date/Time: 06/02/23 21:48 Print Language: Hong Konger
[2023-06-02 18:16] VITALS: BP 128/87; PULSE 79
[2023-06-02 18:17] VITALS: BP 127/90; PULSE 90
[2023-06-02 18:21] VITALS: BP 129/81; PULSE 83
[2023-06-02 18:25] LABS: Appearance Urine Cloudy; Color Urine Yellow; Glucose Urine UA Negative (Negative); Leukocyte Esterase Urine Large (3+) (Negative); Nitrite Urine Positive (Negative); Specific Gravity - Urine 1.025 (1.005-1.025); UMIC TRIGGER UACC YES; Urine Blood Negative (Negative); Urine Ketones Trace mg/dL (Negative); Urine Protein 30 (1+) mg/dL (Neg-Trace)
[2023-06-02 18:30] LABS: Bacteria Urine 4+ (None Seen); Hyaline Casts Urine 0-2 /LPF (0-2); RBC Urine 0-2 /HPF (0-2); Squamous Epithelial Cell Urine 0-2 /HPF (0-2); UACC Culture Trigger YES; WBC Urine >50 /HPF (0-5)
[2023-06-02 19:42] VITALS: BP 138/84; PULSE 83; RESP 18; TEMP 36.4; O2SAT 100
[2023-06-02 20:35] LABS: Troponin-I High Sensitivity < 2.7 ng/L (<3.5-35.0)
== END 2023-06-02 21:48 | disposition home or self-care (01) ==
PROVIDERS: Physician Assistant; Emergency Provider Emergency Medicine; PCP Internal Medicine
DX: R06.02 Shortness of breath (principal); R42 Dizziness and giddiness; I48.91 Unspecified atrial fibrillation; Z79.899 Other long term (current) drug therapy; Z79.01 Long term (current) use of anticoagulants
CPT/HCPCS: 36415; 71045; 80053; 81001; 83735; 83880; 84484; 85025; 87086; 87088; 87186; 93005; 99284; 99285

== ENCOUNTER → 2023-06-05 11:04 | Outpatient (REF) | payer MEDICARE, SELFPAY ==
--- NOTE | ~2023-06-05 | US_ITS ---
EXAMINATION: US EXTRACRANIAL CAROTID DUPLEX, BILATERAL CLINICAL INFORMATION: Carotid stenosis per COMPARISON: None available. TECHNIQUE: Real-time ultrasound and Doppler techniques (integrating B-mode 2-D vascular images, Doppler spectral analysis and color-flow Doppler imaging) were utilized to interrogate the extracranial carotid arteries, the vertebral arteries and proximal subclavian arteries bilaterally. The degree of stenosis is determined by criteria similar to NASCET. FINDINGS: Right Side: 1. There is mild atherosclerotic plaque seen in the bifurcation/proximal ICA region. 2. The common carotid artery PSV proximally is 119 cm/s and distally 95 cm/s. 3. The proximal internal carotid artery velocities are 62 cm/s systolic and 15 cm/s diastolic. 4. The proximal external carotid artery PSV is 91 cm/s. 5. The vertebral artery shows 37 flow. 6. The subclavian artery waveforms are normal. Left Side: 1. There is mild atherosclerotic plaque seen in the bifurcation/proximal ICA region. 2. The common carotid artery PSV proximally is 110 cm/s and distally 81 cm/s. 3. The proximal internal carotid artery velocities are 41 cm/s systolic and 15 cm/s diastolic. 4. The proximal external carotid artery PSV is 109 cm/s. 5. The vertebral artery shows antegrade flow. 6. The subclavian artery waveforms are normal. US/US carotid duplex BI IMPRESSION: 1. RIGHT: Minimal, non-hemodynamically significant stenosis of the proximal right internal carotid artery corresponding to a 0-49% stenosis by velocity criteria. 2. LEFT: Minimal, non-hemodynamically significant stenosis of the proximal left internal carotid artery corresponding to a 0-49% stenosis by velocity criteria. 3. An irregular cardiac rhythm is observed.
--- NOTE | 2023-06-05 11:06 | HM_ITS ---
Conclusion: 1. Patient was monitored for total period of 3 days 2. Baseline rhythm is atrial fibrillation with average heart of 83 beats per minute with good rate control 3. Rare PVCs noted 4. No significant pauses noted 5. No patient reported events MTDD
--- NOTE | 2023-06-05 11:06 | CA_ITS ---
Transthoracic Echocardiogram Patient (Last, First, Middle): Jesus Giraldo E Gender: Male Date of : 1940 Age: 82 Procedure Date: 06/05/2023 Procedure Type: Transthoracic Echocardiogram Location: OP Height: 177.8 cm Weight: 104.33 kg BSA: 2.22 m2 Heart Rate: 94 bpm BP: 138 / 84 mmHg Product Support Consultant: SB Referring MD: Kwaku Valencia MD City Comptroller: Gigi Kessler MD Symptoms: I48.19 - Other persistent atrial fibrillation Study Quality: Technically Difficult ECG Rhythm: Atrial Fibrillation Conclusions: - 1. Technically very limited study despite use of contrast agent 2. Low normal LV ejection fraction 50-55% 3. Limited visualization cardiac valves with cardiac valvular Dopplers within normal limits 4. Normal measured RV systolic pressure Findings Procedure Information Contrast agent, definity, is being given per protocol without apparent complications. The quality of the study was technically difficult. The study quality is limited by patients body habitus and lung artifact. Left Ventricle The left ventricle was not well visualized. Normal left ventricular cavity size. The left ventricular systolic function is low normal. The visually estimated ejection fraction is between 50-55%. Diastolic function is indeterminate on the basis of available data. Right Ventricle The right ventricle was not well visualized. Atria The left atrium was not well visualized. The right atrium was not well visualized. Aortic Valve The aortic valve was not well visualized. There is no aortic valve stenosis. There is no aortic valve regurgitation. Mitral Valve The mitral valve was not well visualized. There is no mitral valve regurgitation. Pulmonic Valve The pulmonic valve was not well visualized. Tricuspid Valve The tricuspid valve was not well visualized. There is trace tricuspid valve regurgitation. The right ventricular systolic pressure is normal. Great Vessels The aorta was not well visualized. The pulmonary artery was not well visualized. Venous The inferior vena cava collapses greater than 50% with inspiration. Pericardium/Pleural The pericardium was not well visualized. Prior Study Comparison Changes noted compared to prior study dated: 08/12/2022. LV systolic function may be margin reduce although with quality of the study it could be also due to off axis view. Measurements 2D Linear Measurements LVOT Diam: 2.40 3.0+(-)1.3 cm 2D Systolic Function EF 4C: 56.00 >55% EF 2C: 47.30 >55% EF BiP: 51.10 >55% Mitral Valve MV Pk E: 0.82 Aortic Valve AoV Pk Andrew: 0.78 AoV Pk Grad: 2.00 DIMA: 4.22 LVOT LVOT Pk Andrew: 0.73 LVOT Mn Andrew: 0.51 LVOT VTI: 0.13 LVOT Pk Grad: 2.00 LVOT Mn Grad: 1.00 LVOT Diam: 2.40 LVOT Area: 4.52 Diastolic Function MV Pk E: 0.82 Right Ventricle TAPSE (mm): 14.00 TVS' Andrew: 9.57 Tricuspid Valve TR Pk Andrew: 2.16 TR Pk Grad: 19.00 RA Press: 3.00 RVSP: 23.00 Great Vessels Aorta Sinus of Valsalva: 3.80 2.0-3.5 cm Ao Asc: 3.70 2.1-3.4 cm Pulmonary Valve PV Pk Andrew: 0.64 Peak PV Grad: 2.00 Updated in Other Vendor System with Status of Final Gigi Kessler MD electronically signed on 06/05/2023 4:38:17 PM with status of Final
== END ==
LOC: HO.CARD 11:04
PROVIDERS: PCP Internal Medicine; Visit Provider Internal Medicine
DX: R00.2 Palpitations (principal); I48.19 Other persistent atrial fibrillation; I65.23 Occlusion and stenosis of bilateral carotid arteries
CPT/HCPCS: 93242; 93306; 93880; Q9957

== ENCOUNTER → 2023-06-05 11:06 | Outpatient (BNV) | payer MEDICARE, SELFPAY | PROVIDERS: PCP Internal Medicine; Visit Provider Internal Medicine Cardiovascular Disease | DX: I48.19 Other persistent atrial fibrillation (principal) | CPT/HCPCS: 93244; 93306 ==

== ENCOUNTER 2023-06-30 09:11 | Outpatient (AMB) | payer MEDICARE, SELFPAY ==
--- NOTE | 2023-06-30 09:13 | MHC.OFFVIS ---
Intake Intake Visit Reasons: 6m/PVR Intake Note: Patient is Present for Follow Up PVR Urology Medication: Finasteride, Tamsulosin Antibiotic Allergies: None Blood Thinners: Eliquis [facility] PVR: 148ml Allergies No Known Allergies [No Known Allergies*] Allergy (Verified 06/30/23 09:15) Medication List - Last Reconciled 06/30/23 by Carlin Perez MD apixaban (Eliquis) 5 mg PO BID cefuroxime axetil 500 mg PO BID diltiazem HCl 120 mg PO DAILY finasteride 5 mg PO DAILY 90 days polyethylene glycol 3350 (Miralax) 17 grams PO DAILY tamsulosin 0.4 mg PO BEDTIME 90 days HPI HPI Comments History of Present Illness Details Jesus is a very pleasant male. He is a patient of Dr. Leyva. He is seen for the following issues - elevated PSA - BPH PVR 150 Nocturia x3 Having trouble with bladder emptying On finasteride and tamsulosin Switched to terazosin 10 mg Recent UTI Proteus - finished 7 day course Still with leukocytes Repeat 7 day course with ciprofloxacin Lower urinary tract symptoms Here for further assessment of lower urinary tract symptoms Nocturia x3, weakness of stream No prior medications PSA 06/16 8.6, 04/17 7.5, 09/17 3.1, 03/19 4.6 35% ERIC 3+ prostate Discussed risks of prostate cancer approximately 20% Diagnosed with colorectal cancer 2021 Underwent resection in August 2022 - Associated with urinary retention [facility] Medical History Somnolence, daytime Obesity (BMI 30-39.9) Colon adenoma LATASHA (obstructive sleep apnea) Dyspnea on exertion snf current use of anticoagulant Paroxysmal atrial fibrillation Elevated PSA Unilateral primary osteoarthritis, right hip Surgical History 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 Social History Alcohol intake: never Patient Tobacco Use Status: Never used Tobacco Current occupational status: retired Current occupation: Right Handed Review of Systems Const Denies chills and Denies fever(s) Card Reports no additional complaints and Denies syncope Resp Denies cough GI Denies abdominal pain and Denies heartburn Reports as per HPI and Denies change in libido Neuro Denies syncope Psych Denies change in libido Endo Denies change in libido Physical Exam Const General: cooperative, healthy appearing, comfortable and no acute distress Orientation/consciousness: patient oriented x3 HEENT Face and sinus: Yes normal facial exam Mouth: moist mucous membranes Neck Neck: Yes normal visual inspection, Yes full ROM and Yes trachea midline Chest Chest palpation & inspection: normal inspection of the chest Resp Effort & Inspection: normal respiratory effort, able to speak in complete sentences and no respiratory distress GI Inspection: Yes normal to inspection Back/Spine/Pelvis Cervical Spine: normal cervical lordosis Thoracic/Lumbar Spine: thoracic and lumbar spine normal to inspection Skin General skin exam: no rashes or lesions noted Neuro General: patient oriented x3, gait normal, tone normal and moves all extremities Extrem General: Yes normal to inspection and Yes capillary refill normal Office Procedures Post Void Residual Post Residual Void Post Void Residual (PVR): 148 [id number] Void Residual by ultrasound Results AMB Urinalysis, Automated UA Leukoctes 500 Haley/uL Last Edit by MARKO Pollard on 06/30/23 09:24 UA Nitrite Negative Last Edit by MARKO Pollard on 06/30/23 09:24 UA Urobilinogen 1 mg/dL Last Edit by MARKO Pollard on 06/30/23 09:24 UA Protein 15 mg/dL Last Edit by MARKO Pollard on 06/30/23 09:24 UA pH 7.0 Last Edit by MARKO Pollard on 06/30/23 09:24 UA Blood 0 Ortiz/uL Last Edit by MARKO Pollard on 06/30/23 09:24 UA Specific [place] 1.015 Last Edit by MARKO Pollard on 06/30/23 09:24 UA Ketone Negative Last Edit by MARKO Pollard on 06/30/23 09:24 UA Bilirubin 0 mg/dL Last Edit by MARKO Pollard on 06/30/23 09:24 UA Glucose 0 mg/dL Last Edit by MARKO Pollard on 06/30/23 09:24 Results Reviewed Results Reviewed: Laboratory Last Values Urine pH (Auto) 7.0 06/30/23 09:15 Specific [place] (Auto) 1.015 06/30/23 09:15 Urine Protein (Auto) 15 mg/dL 06/30/23 09:15 Glucose (UA)(Auto) 0 mg/dL 06/30/23 09:15 Urine Ketones (Auto) Negative 06/30/23 09:15 Urine Blood (Auto) 0 Ortiz/uL 06/30/23 09:15 Urine Nitrite (Auto) Negative 06/30/23 09:15 Urine Bilirubin (Auto) 0 mg/dL 06/30/23 09:15 Urine Urobilinogen (Auto) 1 mg/dL 06/30/23 09:15 Leukocyte Esterase (Auto) 500 Haley/uL 06/30/23 09:15 Assessment & Plan Assessment & Plan (1) Chronic UTI (urinary tract infection): Code(s): N39.0 - Urinary tract infection, site not specified (2) BPH w urinary obs/LUTS: Code(s): N40.1 - Benign prostatic hyperplasia with lower urinary tract symptoms; N13.8 - Other obstructive and reflux uropathy Plan Two month follow-up Orders: Orders AMB Post Void Residual by ultrasound Today N13.8 - Other obstructive and reflux uropathy, N40.1 - Benign prostatic hyperplasia with lower urinary tract symptoms US bladder 2 Months N13.8 - Other obstructive and reflux uropathy, N40.1 - Benign prostatic hyperplasia with lower urinary tract symptoms AMB Urinalysis Automated Today Z13.9 - Encounter for screening, unspecified Medications: New terazosin 10 mg PO BEDTIME 90 days 90 caps 0RF N13.8 - Other obstructive and reflux uropathy, N40.1 - Benign prostatic hyperplasia with lower urinary tract symptoms ciprofloxacin HCl 250 mg PO BID 7 days 14 tabs 0RF N13.8 - Other obstructive and reflux uropathy, N40.1 - Benign prostatic hyperplasia with lower urinary tract symptoms Discontinued tamsulosin Discontinued Reason: Doctor's Order 0.4 mg PO BEDTIME 90 days 90 caps 1RF Patient Instructions: Imaging studies, laboratory and physical exam results were discussed and reviewed in detail. No major barriers to patient understanding were identified. An opportunity to ask questions regarding the treatment plan was provided. All questions were answered. The patient expressed understanding and agreement with the above treatment plan. The patient is aware they should contact our office by phone for worsening of their current condition or the appearance of new urologic symptoms. Compliance is encouraged with any medications and followup testing that is ordered. It is a privilege to participate in the urologic care of your patient. If you have any questions or concerns regarding treatment for the above conditions, or other urologic issues, please do not hesitate to contact me. The office telephone contact is [phone]. This note is constructed using voice recognition software. While every effort has been made to ensure accuracy rubber goods cutter finisher errors may have been included. Yours sincerely, Dr Carlin Perez MD, [facility] - Urology Providers of Expert, Compassionate Care for the Genitourinary System Coding Level of Care Code Est Pt Level 4 (56812) Diagnoses Chronic UTI (urinary tract infection) N39.0 BPH w urinary obs/LUTS N40.1; N13.8 CPT Codes Post Residual Void - PVR CPT Code: 09225-[id number] Void Residual by ultrasound ([id number])
== END 2023-06-30 09:42 | disposition home or self-care (01) ==
PROVIDERS: PCP Internal Medicine; Visit Provider Urology
DX: N39.0 Urinary tract infection, site not specified (principal); N40.1 Benign prostatic hyperplasia with lower urinary tract symptoms; N13.8 Other obstructive and reflux uropathy; Z13.9 Encounter for screening, unspecified
CPT/HCPCS: 99214

== ENCOUNTER → 2023-06-30 09:11 | Outpatient (BNVA) | payer MEDICARE, SELFPAY | PROVIDERS: Visit Provider Urology | DX: N40.1 Benign prostatic hyperplasia with lower urinary tract symptoms (principal); N13.8 Other obstructive and reflux uropathy; N39.0 Urinary tract infection, site not specified | CPT/HCPCS: 51798; 81003; 99212 ==

== ENCOUNTER 2023-07-16 10:05 | Outpatient (AMB) | payer MEDICARE, SELFPAY ==
[2023-07-16 10:07] VITALS: BP 108/60; PULSE 109; O2SAT 98
--- NOTE | 2023-07-16 10:07 | A.OFFVIS_ITS ---
Intake Vital Signs 07/16/23 10:07 BP 108/60 Blood Pressure Location Lt brachial Position Sitting Pulse 109 H Pulse Source Pulse Oximeter Pulse Oximetry (%) 98 Oxygen Delivery Method Room Air Intake Visit Reasons: Obstructive sleep apnea Allergies No Known Allergies [No Known Allergies*] Allergy (Verified 07/16/23 10:11) Medication List - Last Reconciled 07/16/23 by Marianna Correa LPN apixaban (Eliquis) 5 mg PO BID cefuroxime axetil 500 mg PO BID ciprofloxacin HCl 250 mg PO BID 7 days diltiazem HCl 120 mg PO DAILY finasteride 5 mg PO DAILY 90 days polyethylene glycol 3350 (Miralax) 17 grams PO DAILY terazosin 10 mg PO BEDTIME 90 days Do you need a note to return to daycare/school/sports/work: No HPI Obstructive sleep apnea HPI Details For 82 years old gentleman is here for follow-up for his obstructive. Sleep apnea and use of CPAP Since his last visit he has been using his CPAP very regularly, He has some discomfort from the mask, and also slips off during the night, but he has been sleeping well. Sometimes wakes up early around 04:00 and goes down to living room where he can still use CPAP for a few hours. He remains somewhat slow and gets short of breath when walking, this is a chronic problem and felt to be secondary to his being overweight . His pulmonary function test has shown no obstructive or restrictive disorder. 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 Social History Alcohol intake: never Patient Tobacco Use Status: Never used Tobacco Current occupational status: retired Current occupation: Right Handed Review of Systems Const All systems reviewed & are unremarkable except as noted in HPI and below Eyes Reports no additional complaints ENT Reports no additional complaints Card Denies chest pain, Reports irregular heart rhythm, Denies leg edema and Reports dyspnea on exertion (mild) Resp Reports dyspnea on exertion (mild) GI Reports no additional complaints Reports no additional complaints Musc Reports no additional complaints Skin/Breast Reports system reviewed and no additional complaints, except as documented Neuro Reports no additional complaints Psych Reports no additional complaints Physical Exam Vital Signs: Last Vital Signs Pulse 109 H 07/16/23 10:07 BP 108/60 07/16/23 10:07 Pulse Ox 98 07/16/23 10:07 Oxygen Delivery Method Room Air 07/16/23 10:07 Const General: healthy appearing (Except for being overweight), comfortable, no acute distress, alert and awake Orientation/consciousness: patient oriented x3 HEENT Head: Yes normal to inspection General nose exam: No nasal polyps present and No nasal discharge present Face and sinus: Yes sinuses nontender Mouth: oropharynx normal Throat: Yes posterior oropharynx normal Eyes General: appearance normal, both eyes and all related structures Neck Neck: Yes normal visual inspection, Yes no lymphadenopathy, Yes trachea midline and Yes no JVD Thyroid: Thyroid normal Chest Chest palpation & inspection: normal inspection of the chest, normal palpation of entire chest wall and no tenderness Resp Effort & Inspection: normal respiratory effort Auscultation: clear to auscultation bilaterally, no crackles and no wheezes Percussion: percussion normal Cardio Palpation: normal PMI Rate: regular rate Rhythm: abnormal rhythm (Atrial fib) Heart sounds: no gallops and no murmurs Peripheral pulses: Peripheral pulses 2+ throughout GI Palpation (GI): Soft to palpation, nontender, No hepatosplenomegaly present, no masses and Other GI palpation findings present (Abdomen is moderately obese and protuberant) Auscultation: normal bowel sounds Back/Spine/Pelvis Thoracic/Lumbar Spine: thoracic and lumbar spine normal to inspection Skin General skin exam: no rashes or lesions noted Neuro General: patient oriented x3 and no focal motor deficits Cranial nerves: Yes CN's II-XII intact bilaterally Extrem General: Yes normal to inspection, Yes no clubbing, cyanosis or edema and Yes no calf tenderness Psych Appearance: grossly normal and well kempt Speech and movement: Normal speech and movement present Results Reviewed Results Reviewed: COMPLIANCE REPORT FOR THE LAST 30 NIGHTS IS REVIEWED. HE HAS USED 30/30 NIGHTS, 100% AVERAGE USE PER NIGHT 6 HOURS 53 MINUTES. PRESSURE USED MOSTLY 12-13 CM. THERE IS MODERATE DEGREE OF AIR LEAK. RESIDUAL AHI 5.7 Assessment & Plan Assessment & Plan (1) Obesity (BMI 30-39.9): Comment: Remains moderately obese. He is not able to lose much weight. as he cannot do much exercise Code(s): E66.9 - Obesity, unspecified (2) LATASHA (obstructive sleep apnea): Comment: His home-based sleep study did show that he has moderately severe obstructive sleep apnea with total sleep time AHI 24. He has been started on CPAP therapy and he is remaining very compliant. As noted above in the compliance report, he is using 30/30 nights, and on an average is 6 hours and 53 minutes which is good. He is commended for his full compliance and is encouraged to keep on using. CPAP every night There is mild to moderate amount of air leak and he is instructed to tighten the straps, for proper fitting. Will recheck in 4 months. Code(s): G47.33 - Obstructive sleep apnea (adult) (pediatric) (3) Dyspnea on exertion: Comment: DYSPNEA ON EXERTION FOR THE LAST FEW YEARS. As per pulmonary function test he does not have obstructive or restrictive pulmonary disorder. Dyspnea on exertion is probably functional, may be contributed by his abdominal obesity, and atrial fibrillation. Advised to see if he can lose some lb. Also advised to keep on doing deep breathing exercises with the incentive spirometry device 3 to 4 times a day. Code(s): R06.00 - Dyspnea, unspecified Coding Level of Care Code Est Pt Level 3 (48566) Diagnoses Obesity (BMI 30-39.9) E66.9 LATASHA (obstructive sleep apnea) G47.33 Dyspnea on exertion R06.00
== END 2023-07-16 10:32 | disposition home or self-care (01) ==
PROVIDERS: PCP Internal Medicine; Visit Provider Internal Medicine
DX: E66.9 Obesity, unspecified (principal); G47.33 Obstructive sleep apnea (adult) (pediatric); R06.00 Dyspnea, unspecified
CPT/HCPCS: 99213

== ENCOUNTER → 2023-07-16 10:05 | Outpatient (BNVA) | payer MEDICARE, SELFPAY | PROVIDERS: PCP Internal Medicine; Visit Provider Internal Medicine | DX: R06.00 Dyspnea, unspecified (principal); G47.33 Obstructive sleep apnea (adult) (pediatric); E66.9 Obesity, unspecified | CPT/HCPCS: 99212 ==

== ENCOUNTER 2023-07-20 15:53 | Outpatient (REF) | payer MEDICARE, SELFPAY ==
--- NOTE | ~2023-07-20 | XR_ITS ---
EXAMINATION: XR ABDOMEN KUB CLINICAL INDICATION: Abdominal pain. Constipation. COMPARISON: Previous CT colonoscopy April 2022 TECHNIQUE: AP view of the abdomen. FINDINGS: There is a large amount stool colon. There are dilated loops of large bowel. Dilated viscus seen in the left lower quadrant probably representing the sigmoid colon measuring 15 cm in diameter. Distal large bowel obstruction cannot be excluded. No free air. No suspicious calcifications. Right hip replacement. Arthritis of the left hip joint and lumbar spine. XR/XR KUB IMPRESSION: Large stool burden and dilated large bowel. 15 centimeter dilated viscus in the left lower quadrant probably representing the sigmoid colon. Distal large bowel obstruction cannot be excluded. Findings will be communicated by the [place] workflow blood bank laboratory technician.
== END 2023-07-20 15:54 | disposition home or self-care (01) ==
LOC: HO.XRAY 15:53
PROVIDERS: PCP Internal Medicine; Visit Provider Internal Medicine
DX: Z13.89 Encounter for screening for other disorder (principal)
CPT/HCPCS: 74018

== ENCOUNTER 2023-07-20 16:31 | Emergency (ER) | payer MEDICARE, SELFPAY ==
--- NOTE | ~2023-07-20 | CT_ITS ---
EXAMINATION: CT ABDOMEN AND PELVIS WITH CONTRAST CLINICAL INFORMATION: hx of abdominal surgery constipated no flatus COMPARISON: CT coronary arteriography 04/30/2022, CT abdomen pelvis 03/14/2022, KUB earlier today TECHNIQUE: Multidetector volumetric images were obtained from the superior aspect of the liver through the pubic symphysis following administration 85 mL of Omnipaque 350 intravenous contrast. Sagittal and coronal reformatted images were obtained on the technologist's workstation. Oral contrast: No This CT examination was performed using dose optimization techniques as appropriate, variously including the following: *Automated exposure control *Adjustment of mA and/or kV according to patient size (this includes techniques or standardized protocols for targeted exams where dose is matched to indication/reason for exam; i.e. extremities or head) *Use of iterative reconstruction technique DLP: 834 mGy-cm FINDINGS: LUNG BASES: The visualized lung bases are unremarkable aside from the presence of some atelectasis. Heart size normal. Coronary calcium is seen.. LIVER, GALLBLADDER, AND BILIARY TREE: The liver is enlarged at 18 cm in cephalocaudad dimension. No focal hepatic lesion or biliary ductal dilatation is present. The gallbladder is unremarkable with no evidence of radiopaque gallstones, gallbladder wall thickening, or obvious pericholecystic inflammatory changes. PANCREAS: Unremarkable. SPLEEN: Unremarkable. ADRENAL GLANDS: Unremarkable. KIDNEYS AND URETERS: The kidneys are normal in size, shape, and attenuation. No hydronephrosis, hydroureter, or calculi seen. No perinephric stranding. BLADDER: The bladder calculi are seen, the largest measuring 1 cm in size. Similar findings have been seen in the past. GASTROINTESTINAL TRACT: A small hiatal hernia is present. Moderate stool burden is present throughout the colon. There is mild gaseous distention of bowel loop of sigmoid The small and large bowel are unremarkable. The appendix is not seen but there is no evidence of appendicitis. ABDOMINAL WALL: Small right inguinal hernia containing only fat. Similar but smaller hernia on the left. LYMPH NODES: No retroperitoneal lymphadenopathy. VASCULAR: Minimal calcific plaque in the aorta without aneurysm PELVIC VISCERA: Moderate to marked prostatic enlargement. Seminal vesicles appear normal OSSEOUS STRUCTURES: Degenerative changes are present in the spine. Right total hip prosthesis is present. No bony destructive lesions. CT/CT abdomen pelvis w IV con IMPRESSION: 1. Moderate stool burden throughout the colon with mild gaseous distention of a loop of sigmoid. No evidence of bowel obstruction. 2. Bladder calculi. 3. Mild hepatomegaly. 4. Small hiatal hernia. 5. Small bilateral inguinal hernias containing only fat. 6. Moderate to marked prostatic enlargement. 7. Other incidental findings as described above. Fleischner guidelines were followed.
--- NOTE | 2023-07-20 16:35 | ED_ITS ---
HPI - General Adult General Chief complaint: Abdominal Pain Stated complaint: ? bowel obstruction sent for xray Time Seen by Provider: 07/20/23 18:28 Source: patient, family (partner does most of the interview and talking for the patient) and old records reviewed Mode of arrival: ambulatory Limitations: no limitations History of Present Illness HPI narrative: 82 yo male with PMH of UTI, PAF On eliquis, obesity, LATASHA, BPH, colon adenoma s/p what sounds like laparascopic R sided colectomy in 2021 at [facility] in [place] due to partner preference comes in with c/o 1 weeks worsening constipation, poor appetite, distention. No flatus for 2 days, no BM for 2 days. No n/v or pain. Came in concerned for bowel obstruction MD complaint: ?obstruction Onset (ago): week(s) (1) Location: abdomen Radiation: non-radiation Severity: moderate Quality: dull and constant Relieving factors: none Exacerbating factors: eating Associated symptoms: loss of appetite Treatments prior to arrival: none Related Data Home Medications Medication Instructions Recorded Confirmed polyethylene glycol 3350 17 17 g PO DAILY 05/07/22 07/16/23 gram/dose oral powder (Miralax) Previous Rx's Medication Instructions Recorded apixaban 5 mg tablet (Eliquis) 5 mg PO BID #60 tabs 10/10/22 finasteride 5 mg tablet 5 mg PO DAILY 90 days #90 tabs 12/23/22 diltiazem HCl 120 mg 120 mg PO DAILY #90 caps 04/30/23 capsule,extended release 24 hr cefuroxime axetil 500 mg tablet 500 mg PO BID #14 tabs 06/02/23 ciprofloxacin HCl 250 mg tablet 250 mg PO BID 7 days #14 tabs 06/30/23 terazosin 10 mg capsule 10 mg PO BEDTIME 90 days #90 caps 06/30/23 Allergies Allergy/AdvReac Type Severity Reaction Status Date / Time No Known Allergies Allergy Verified 07/16/23 10:11 [No Known Allergies*] Review of Systems 2 Review of Systems: Constitutional : No Weight loss, No Fever, No Chills ENT/Mouth : No sore throat, No Rhinorrhea Eyes: No Swelling, No Redness Cardiovascular : No Chest Pain, No SOB, NoEdema Respiratory : No Cough, No Sputum, No Wheezing Gastrointestinal : no Nausea, no Vomiting, no Diarrhea, no abdominal Pain, No Hematochezia, No Melena, pos constipation Genitourinary : No Dysuria, No Urinary Frequency, No Hematuria, No Urgency Musculoskeletal : No joint pain, No Myalgias, No Joint Swelling Skin : No Skin Lesions, No rash Neuro : No Weakness, No Numbness, No Dizziness, No Headache Psych : No Anxiety/Panic, No Depression Heme/Lymph: No Bruising, No Lymphadenopathy Endocrine : No Polyuria, No Polydipsia All other systems reviewed and are negative. [facility] Past Medical History Attestation statement: The following information was validated with the patient. 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 Social History Social History Alcohol intake: never Patient Tobacco Use Status: Never used Tobacco Smoked in Last 30 Days: No Use of substances other than those prescribed or required for medical reasons: No Advance Directives: No Advance Directives Information Provided: No Current occupational status: retired Current occupation: Right Handed Physical Exam ED Vital Signs: Vital Signs - 24 hr 07/20/23 16:36 07/20/23 19:49 07/20/23 19:54 Temperature 98.3 F 97.9 F Pulse Rate 92 82 Respiratory Rate 20 18 Blood Pressure 121/77 147/88 H Pulse Oximetry 96 96 Oxygen Delivery Method Room Air Room Air BMI result Body Mass Index 33.7 Appearance: Alert. Oriented X3. No acute distress. Eyes: Pupils equal, round and reactive to light. ENT: Pharynx normal. Neck: Normal inspection. Neck supple. CVS: Normal heart rate and rhythm. Pulses normal. Respiratory: No respiratory distress. Breath sounds normal. Abdomen: mildly distended but no ttp Skin: Skin warm and dry. Normal skin color. Normal skin turgor. Extremities: No lower extremity edema. No calf ttp Neuro: Oriented X 3. No motor deficit. No sensory deficit. Course Course Course Narrative: RME performed by Mera Winn PA-C. Patient is an 82 year old assigned male at presenting to the emergency department with a bowel obstruction. Patient states that he was being seen by his PCP when he informed him that he hadn't had a bowel movement in 1 week. Patient was sent to radiology where they got an x-ray and recommended he come to the ER. Labs ordered. Patient placed in the back. warehouse assembly worker notified. Medications Administered Generic Name Dose Route Start Last Admin Trade Name Freq PRN Reason Stop Dose Admin Sodium Chloride 1,000 mls @ 100 mls/hr 07/20/23 19:00 07/20/23 19:54 Ns IVCONT 100 mls/hr .Q10H BEVERLY Administration Discontinued Medications Generic Name Dose Route Start Last Admin Trade Name Freq PRN Reason Stop Dose Admin Diatrizoate Meglum/Diatrizoate Sod 30 ml 07/20/23 21:45 07/20/23 21:46 Diatrizoate Meglumine, Sodium 30 Ml Solution PO 07/20/23 21:46 30 ml ONCE ONE Administration Iohexol 100 ml 07/20/23 21:45 07/20/23 21:45 Iohexol 350 Mg/Ml 100 Ml Infus..Btl IV 07/20/23 21:46 85 ml ONCE ONE Administration Medical Decision Making Medical Decision Making MDM Narrative: 82 yo male with PMH of UTI, PAF On eliquis, obesity, LATASHA, BPH, colon adenoma s/p what sounds like laparascopic R sided colectomy in 2021 at [facility] in [place] here with c/o constipation, decreased PO intake, lack of flatus worsening for 1 week now with distention - attempting to obtain records from [facility]. Will order labs, NS rate, CT scan for obstruction. Differential Diagnosis Differential Diagnoses: The differential diagnosis associated with the presentation includes constipation, obstruction Admission/Observation Consideration of admission/observation: Escalation of care including admission/observation considered no bowel obstruction at this time labs reassuring, very small bump in Cr to 1.43 from 1.33 but was given IVF. I went over CT scan with patient and spouse he seems fine but she is very upset we did not find anything and there is no obstruction he is not having n/v he has some bloating on exam but he is not tender. I explained she should follow with GI and she is upset they had to wait 8 hours and nothing again . I did try to listen to her but she is upset about the results and findings today. she also notes he has never had a normal bowel movement since she has known him Consult Healthcare Provider Management of the patient was discussed with: Mineral Technologist Lab Data [facility] Lab Attestation statement: I reviewed the patient's lab results. 07/20/23 18:49 07/20/23 18:49 Labs: Lab Results 07/20/23 Range/Units 18:49 WBC 7.8 (4.8-10.8) X10*3/uL RBC 4.87 (4.60-5.80) X10*6/uL Hgb 14.4 (14.0-18.0) g/dl Hct 43.8 (42.0-52.0) % MCV 89.9 (80.0-98.0) fL MCH 29.6 (27.0-33.0) pg MCHC 32.9 (31.0-36.0) g/dl RDW 13.7 (11.0-16.0) % Plt Count 209 (160-400) X10*3/uL MPV 10.0 (9.4-12.4) fL Immature Gran % (Auto) 0.6 H (0.0-0.4) % Neut % (Auto) 69.4 (45-73) % Lymph % (Auto) 19.1 L (20-40) % [place] % (Auto) 6.7 (2-11) % Eos % (Auto) 3.6 (0-4) % Baso % (Auto) 0.6 (0-2) % Lymph # (Auto) 1.5 (1.2-4.9) X10*3/uL [place] # (Auto) 0.5 (0.1-1.2) X10*3/uL Eos # (Auto) 0.3 (0.0-0.4) X10*3/uL Baso # (Auto) 0.1 (0.0-0.2) X10*3/uL Abs Immat Gran (auto) 0.05 H (0.00-0.03) X10*3/uL Absolute Neuts (auto) 5.4 (2.0-8.3) x10*3/uL Absolute Nucleated RBC 0.000 (0.0-0.012) X10*3/uL Nucleated RBC % (auto) 0.0 (0.0-0.2) /100WBC PT 15.9 H (11.1-13.3) SEC INR 1.3 H (0.9-1.1) Sodium 143 (135-145) mmol/L Potassium 4.1 (3.3-5.1) mmol/L Chloride 112 H (96-108) mmol/L Carbon Dioxide 21 L (22-29) mmol/L Anion Gap 14 (12-20) BUN 16 (9-16) mg/dL Creatinine 1.43 H (0.5-1.4) mg/dL Estim Creat Clear Calc 47.8 Estimated GFR 47 Random Glucose 96 (60-115) mg/dL Calcium 9.1 (8.4-10.2) mg/dL Magnesium 2.1 (1.6-2.6) mg/dL Total Bilirubin 0.4 (0.0-1.0) mg/dL AST 16 (5-37) U/L ALT 17 (0-40) U/L Alkaline Phosphatase 70 (39-117) U/L Total Protein 7.3 (6.5-8.0) g/dL Albumin 4.1 (3.5-5.0) g/dL Independent Interpretation I performed an independent interpretation of an: EKG and CT Scan (I see air and stool down to rectum) Interpretation: Rate: 78 Rhythm: afib [place]: normal Normal QRS complex. ST T wave : no PAULA, nonspecific qTC: normal prior studies: no acute ischemia The study has been interpreted contemporaneously by me. . Radiology Impression Discussion of test interpretation with radiology: I have reviewed the radiologist's reading. Independent Historian Clinical information obtained from an independent historian. History obtained from or confirmed by: Spouse External Record Review External record reviewed: Inpatient record Discharge Plan Discharge Clinical Impression: Constipation Qualifiers: Constipation type: unspecified constipation type Qualified Code(s): K59.00 - Constipation, unspecified Patient Disposition: Home, Self-Care Instructions: Constipation (ED) Additional Instructions: at this time a CT scan with both oral and IV contrast was done which did not show obstruction. Please follow up with your GI doctor or your colorectal surgeon. I would continue to stay hydrated and you could try over the counter stool softeners and a gentle stimulant one time a day like senna 8.6mg return for severe pain, vomiting, fevers, dizziness, weakness, inability to urinate, or any other concerns. Prescriptions: No Action Eliquis 5 mg tablet 5 mg PO BID Qty: 60 11RF diltiazem HCl 120 mg capsule,extended release 24hr 120 mg PO DAILY Qty: 90 3RF cefuroxime axetil 500 mg tablet 500 mg PO BID Qty: 14 0RF polyethylene glycol 3350 [Miralax] 17 gram/dose powder 17 g PO DAILY finasteride 5 mg tablet 5 mg PO DAILY 90 Days Qty: 90 1RF terazosin 10 mg capsule 10 mg PO BEDTIME 90 Days Qty: 90 0RF ciprofloxacin HCl 250 mg tablet 250 mg PO BID 7 Days Qty: 14 0RF Referrals: Arturo Salazar MD [Physician] - (please call to schedule appointment)
[2023-07-20 16:36] VITALS: BP 121/77; PULSE 92; RESP 20; TEMP 36.8; O2SAT 96; BMI 33.7
--- NOTE | 2023-07-20 18:32 | ECG_ITS ---
Test Reason : DIZZINESS Blood Pressure : / mmHG Vent. Rate : 078 BPM Atrial Rate : 000 BPM P-R Int : 000 ms QRS Dur : 090 ms QT Int : 378 ms P-R-T Axes : 000 066 -04 degrees QTc Int : 430 ms Atrial fibrillation Abnormal ECG When compared with ECG of 02-JUN-2023 14:16, No significant changes seen Referred By: Qiana Meek Electronically Signed By:KAREN RIOS MD
[2023-07-20 18:53] LABS: MANUAL DIFF FLAG NO
[2023-07-20 18:54] LABS: Basophils Absolute Auto 0.1 X10*3/uL (0.0-0.2); Basophils Percent Auto 0.6 % (0-2); Eosinophils Absolute Auto 0.3 X10*3/uL (0.0-0.4); Eosinophils Percent Auto 3.6 % (0-4); Hematocrit 43.8 % (42.0-52.0); Hemoglobin 14.4 g/dl (14.0-18.0); Imm Gran Abs Auto 0.05 X10*3/uL (0.00-0.03); Imm Gran Pct Auto 0.6 % (0.0-0.4); Lymphocytes Absolute Auto 1.5 X10*3/uL (1.2-4.9); Lymphocytes Percent Auto 19.1 % (20-40); Mean Corpuscular HGB Conc 32.9 g/dl (31.0-36.0); Mean Corpuscular Hemoglobin 29.6 pg (27.0-33.0); Mean Corpuscular Volume 89.9 fL (80.0-98.0); Monocytes Absolute Auto 0.5 X10*3/uL (0.1-1.2); Monocytes Percent Auto 6.7 % (2-11); Neutrophils Absolute Auto 5.4 x10*3/uL (2.0-8.3); Neutrophils Percent Auto 69.4 % (45-73); Platelet Count 209 X10*3/uL (160-400); Red Blood Count 4.87 X10*6/uL (4.60-5.80); Red Cell Distribution Width 13.7 % (11.0-16.0); White Blood Count 7.8 X10*3/uL (4.8-10.8)
[2023-07-20 19:03] LABS: INTERNATIONAL NORM RATIO 1.3 (0.9-1.1); Prothrombin Time 15.9 SEC (11.1-13.3)
[2023-07-20 19:07] LABS: Alanine Aminotransferase 17 U/L (0-40); Albumin Level 4.1 g/dL (3.5-5.0); Alkaline Phosphatase 70 U/L (39-117); Anion Gap 14 (12-20); Aspartate Amino Transferase 16 U/L (5-37); Bilirubin Total 0.4 mg/dL (0.0-1.0); Blood Urea Nitrogen 16 mg/dL (9-16); Calcium 9.1 mg/dL (8.4-10.2); Carbon Dioxide 21 mmol/L (22-29); Chloride 112 mmol/L (96-108); Creatinine Clr Calc Pharmacy 47.8; Estimated Glomerular Filt Rate 47; Glucose Random 96 mg/dL (60-115); Magnesium 2.1 mg/dL (1.6-2.6); Potassium 4.1 mmol/L (3.3-5.1); Sodium 143 mmol/L (135-145); Total Protein 7.3 g/dL (6.5-8.0)
[2023-07-20 19:49] VITALS: BP 147/88; PULSE 82; RESP 18; O2SAT 96
[2023-07-20 19:54] VITALS: TEMP 36.6
[2023-07-20] MEDS: 0.9 % Sodium Chloride 1,000 ML 100 ML IVCONT (19:54)
[2023-07-20] MEDS: iohexoL 350 MG/ML 100 ML INFUS..BTL IV (21:45)
[2023-07-20] MEDS: Diatrizoate Meglumine, Sodium 30 ML SOLUTION PO (21:46)
[2023-07-20 22:53] VITALS: BP 142/83; PULSE 74; RESP 18; O2SAT 96
[2023-07-20 23:17] LABS: Appearance Urine Clear; Color Urine Yellow; Glucose Urine UA Negative (Negative); Leukocyte Esterase Urine Small (1+) (Negative); Nitrite Urine Negative (Negative); UMIC TRIGGER UACC YES; Urine Blood Negative (Negative); Urine Ketones Negative (Negative); Urine Protein Negative (Neg-Trace)
[2023-07-20 23:22] LABS: Bacteria Urine Trace (None Seen); Hyaline Casts Urine 0-2 /LPF (0-2); RBC Urine 0-2 /HPF (0-2); Squamous Epithelial Cell Urine 0-2 /HPF (0-2); UACC Culture Trigger YES
== END 2023-07-20 23:34 | disposition home or self-care (01) ==
PROVIDERS: Physician Assistant Medical; Emergency Provider Emergency Medicine; PCP Internal Medicine
DX: K59.00 Constipation, unspecified (principal); I48.91 Unspecified atrial fibrillation; Z79.01 Long term (current) use of anticoagulants; Z79.899 Other long term (current) drug therapy
CPT/HCPCS: 36415; 74018; 74177; 80053; 81001; 83735; 85025; 85610; 87086; 87088; 87186; 93005; 99285; Q9967

== ENCOUNTER 2023-07-30 10:50 | Outpatient (AMB) | payer MEDICARE, SELFPAY ==
--- NOTE | 2023-07-30 10:56 | MHC.OFFVIS ---
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 To recall, in 2019, he was diagnosed with atrial fibrillation. This happened in the setting of workup for hip surgery. We briefly used amiodarone around the time of his hip surgery but subsequently left him on beta-blockers only. Then he went back into atrial fibrillation and was not feeling too good. Attempted cardioversion, but remained in atrial fibrillation. Then we planned on amiodarone loading and re-attempt cardioversion. However even before the cardioversion he went back into sinus. He did remain in sinus for a while but then went back into atrial fibrillation. However, with regard to symptoms he felt the same with or without atrial fibrillation and hence no further attempts were made. Currently, according to as well as patient main symptom is shortness of breath with activity. Difficult to say if it is from atrial fibrillation, as even he was in sinus, he never felt really normal. However, they feel it is a bit more than usual. 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 Social History Alcohol intake: never Patient Tobacco Use Status: Never used Tobacco Current occupational status: retired Current occupation: Right Handed Review of Systems Const All systems reviewed & are unremarkable except as noted in HPI and below Reports as per HPI, Reports no additional complaints and Reports weakness Eyes Reports as per HPI and Denies no additional complaints ENT Denies no additional complaints and Reports as per HPI Card Reports as per HPI, Reports no additional complaints, Denies acrocyanosis, Denies chest pain, Denies leg edema, Denies lightheadedness, Denies palpitations and Reports dyspnea Resp Reports as per HPI, Denies no additional complaints and Reports dyspnea GI Reports as per HPI and Denies no additional complaints Reports no additional complaints and Reports as per HPI Musc Reports no additional complaints and Reports as per HPI Skin/Breast Reports system reviewed and no additional complaints, except as documented Neuro Reports no additional complaints, Reports as per HPI and Reports weakness Psych Reports no additional complaints and Reports as per HPI Endo Reports no additional complaints, Reports as per HPI and Denies palpitations Yaniv/Lymph Reports no additional complaints and Reports as per HPI Aller/Immun Reports no additional complaints and Reports as per HPI Physical Exam Vital Signs: Last Vital Signs Pulse 83 07/30/23 10:57 BP 82/52 L 07/30/23 10:57 BMI result Body Mass Index 33.5 Const General: comfortable and no acute distress Orientation/consciousness: patient oriented x3 HEENT Other: Unremarkable Head: Yes normal to inspection Neck Neck: Yes normal visual inspection Chest Chest palpation & inspection: normal inspection of the chest Resp Auscultation: clear to auscultation bilaterally Cardio Palpation: normal PMI Heart sounds: S1 normal heart sound present, S2 normal heart sound present, no gallops, no murmurs and no rubs GI Palpation (GI): Soft to palpation Back/Spine/Pelvis Other: unremarkable Skin General skin exam: no rashes or lesions noted Neuro General: patient oriented x3 Extrem General: Yes normal to inspection Psych Mental Status: mental status grossly normal Assessment & Plan Assessment & Plan (1) Persistent atrial fibrillation: Code(s): I48.19 - Other persistent atrial fibrillation (2) LATASHA (obstructive sleep apnea): Code(s): G47.33 - Obstructive sleep apnea (adult) (pediatric) (3) Arterial hypotension: Code(s): I95.9 - Hypotension, unspecified Qualifiers: Hypotension type: hypotension due to drug Qualified Code(s): I95.2 - Hypotension due to drugs Plan Recent echocardiogram with low normal LVEF, 50-55% but otherwise unremarkable. In the Holter, underlying rhythm is atrial fibrillation rapid rate of 83/Min. Overall, difficult to say for shortness of breath is related to atrial fibrillation or not. We can give him another chance with cardioversion. We can start amiodarone and with loading dose. If he converts, then maintain low-dose amiodarone/consideration for ablation. Cardioversion in 2 weeks. Continue CPAP for LATASHA and he seems to be using it more regularly these days. With regard to low blood pressure, possibly related to Terazosin. That seems to be new medication. Need to discuss with Urology. Advised his to call them. Any case, he does not have any symptoms like presyncope. Discussed with significant other who came for appointment. Coding Level of Care Code Est Pt Level 4 (94316) Diagnoses Persistent atrial fibrillation I48.19 LATASHA (obstructive sleep apnea) G47.33 Hypotension due to drugs I95.2 Hypotension type: hypotension due to drug
[2023-07-30 10:57] VITALS: BP 82/52; PULSE 83; BMI 33.5
== END 2023-07-30 11:23 | disposition home or self-care (01) ==
PROVIDERS: PCP Internal Medicine; Visit Provider Internal Medicine
DX: I48.19 Other persistent atrial fibrillation (principal); G47.33 Obstructive sleep apnea (adult) (pediatric); I95.2 Hypotension due to drugs
CPT/HCPCS: 99214

== ENCOUNTER → 2023-07-30 10:50 | Outpatient (BNVA) | payer MEDICARE, SELFPAY | PROVIDERS: PCP Internal Medicine; Visit Provider Internal Medicine | DX: I48.19 Other persistent atrial fibrillation (principal); I95.2 Hypotension due to drugs; G47.33 Obstructive sleep apnea (adult) (pediatric) | CPT/HCPCS: 99212 ==

== ENCOUNTER 2023-08-04 12:18 | Outpatient (REF) | payer MEDICARE, SELFPAY ==
[2023-08-04 13:24] LABS: Appearance Urine Cloudy; Color Urine Yellow; Glucose Urine UA Negative (Negative); Leukocyte Esterase Urine Large (3+) (Negative); Nitrite Urine Negative (Negative); UMIC TRIGGER UACC YES; Urine Blood Negative (Negative); Urine Ketones Negative (Negative); Urine Protein Trace mg/dL (Neg-Trace)
[2023-08-04 13:31] LABS: Bacteria Urine 4+ (None Seen); Hyaline Casts Urine 0-2 /LPF (0-2); RBC Urine 0-2 /HPF (0-2); Squamous Epithelial Cell Urine 0-2 /HPF (0-2); UACC Culture Trigger YES; WBC Urine >50 /HPF (0-5)
== END 2023-08-04 12:19 | disposition home or self-care (01) ==
LOC: HO.10HDL 12:18
PROVIDERS: Visit Provider Internal Medicine
DX: R30.0 Dysuria (principal)
CPT/HCPCS: 81001; 87086; 87088; 87186

== ENCOUNTER 2023-08-12 12:36 | Outpatient (REF) | payer MEDICARE, SELFPAY ==
[2023-08-12 13:25] LABS: MANUAL DIFF FLAG NO
[2023-08-12 13:32] LABS: Basophils Absolute Auto 0.1 X10*3/uL (0.0-0.2); Basophils Percent Auto 0.7 % (0-2); Eosinophils Absolute Auto 0.3 X10*3/uL (0.0-0.4); Hematocrit 45.6 % (42.0-52.0); Hemoglobin 14.9 g/dl (14.0-18.0); Imm Gran Abs Auto 0.06 X10*3/uL (0.00-0.03); Imm Gran Pct Auto 0.7 % (0.0-0.4); Lymphocytes Absolute Auto 1.4 X10*3/uL (1.2-4.9); Lymphocytes Percent Auto 15.2 % (20-40); Mean Corpuscular HGB Conc 32.7 g/dl (31.0-36.0); Mean Corpuscular Volume 91.8 fL (80.0-98.0); Mean Platelet Volume 10.9 fL (9.4-12.4); Monocytes Absolute Auto 0.6 X10*3/uL (0.1-1.2); Monocytes Percent Auto 6.4 % (2-11); Neutrophils Absolute Auto 6.8 x10*3/uL (2.0-8.3); Platelet Count 244 X10*3/uL (160-400); Red Blood Count 4.97 X10*6/uL (4.60-5.80); Red Cell Distribution Width 13.9 % (11.0-16.0); White Blood Count 9.1 X10*3/uL (4.8-10.8)
[2023-08-12 14:09] LABS: Alanine Aminotransferase 16 U/L (0-40); Albumin Level 4.2 g/dL (3.5-5.0); Alkaline Phosphatase 70 U/L (39-117); Anion Gap 12 (12-20); Aspartate Amino Transferase 17 U/L (5-37); Bilirubin Total 0.7 mg/dL (0.0-1.0); Blood Urea Nitrogen 16 mg/dL (9-16); Calcium 8.8 mg/dL (8.4-10.2); Carbon Dioxide 25 mmol/L (22-29); Chloride 110 mmol/L (96-108); Estimated Glomerular Filt Rate 57; Glucose Random 112 mg/dL (60-115); Magnesium 2.3 mg/dL (1.6-2.6); Potassium 4.2 mmol/L (3.3-5.1); Sodium 143 mmol/L (135-145); Total Protein 7.4 g/dL (6.5-8.0)
[2023-08-12 14:17] LABS: Vitamin B12 257 pg/mL (200-900)
== END 2023-08-12 12:37 | disposition home or self-care (01) ==
LOC: HO.10HDL 12:36
PROVIDERS: Visit Provider Internal Medicine
DX: I48.91 Unspecified atrial fibrillation (principal); N18.9 Chronic kidney disease, unspecified; G47.33 Obstructive sleep apnea (adult) (pediatric); E53.8 Deficiency of other specified B group vitamins
CPT/HCPCS: 36415; 80053; 82607; 83735; 85025

== ENCOUNTER 2023-08-14 11:06 | Day surgery (SDC) | payer MEDICARE, SELFPAY ==
--- NOTE | 2023-08-13 08:50 | P.CONAN_ITS ---
HPI - Anesthesia Eval Consult details Narrative: 83yo M for Cardioversion Eliquis for afib [facility] Active Problems Active Problems: All Active Problems (Updated 03/18/22 @ 08:24 by MARKO Pollard) Arterial hypotension (Acute) Chronic UTI (urinary tract infection) (Acute) Persistent atrial fibrillation (Acute) Somnolence, daytime (Acute) Obesity (BMI 30-39.9) (Acute) Complicated urinary tract infection (Acute) Preoperative cardiovascular examination (Acute) Colon adenoma (Acute) Nocturia more than twice per night (Acute) LATASHA (obstructive sleep apnea) (Acute) Dyspnea on exertion (Acute) Elevated PSA (Acute) BPH w urinary obs/LUTS (Acute) Hip flexor tendon tightness (Acute) 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 History of Problems with Anesthesia: No Social History Alcohol intake: never Patient Tobacco Use Status: Never used Tobacco Current occupational status: retired Current occupation: Right Handed Meds Allergies Allergy/AdvReac Type Severity Reaction Status Date / Time No Known Allergies Allergy Verified 07/30/23 10:59 [No Known Allergies*] Home Medications Medication Instructions Recorded Confirmed Last Taken Type polyethylene glycol 3350 17 17 g PO DAILY 05/07/22 07/30/23 Unknown History gram/dose oral powder (Miralax) tamsulosin 0.4 mg capsule 0.4 mg PO DAILY 07/30/23 07/30/23 Unknown History Exam Pertinent Lab Results Pertinent Lab Results: Laboratory Tests 08/12/23 12:45 WBC 9.1 Hgb 14.9 Hct 45.6 Plt Count 244 Sodium 143 Potassium 4.2 Chloride 110 H Carbon Dioxide 25 BUN 16 Creatinine 1.22 Narrative Narrative: EKG 06/2023 Vent. Rate : 078 BPM Atrial Rate : 000 BPM P-R Int : 000 ms QRS Dur : 090 ms QT Int : 378 ms P-R-T Axes : 000 066 -04 degrees QTc Int : 430 ms Atrial fibrillation Abnormal ECG When compared with ECG of 02-JUN-2023 14:16, No significant changes seen ECHO 05/2023 Conclusions: - 1. Technically very limited study despite use of contrast agent 2. Low normal LV ejection fraction 50-55% 3. Limited visualization cardiac valves with cardiac valvular Dopplers within normal limits 4. Normal measured RV systolic pressure Assessment and Plan Assessment Anesthesia Assessment: Chart Reviewed Final Anesthetic Review Family History of Problems with Anesthesia: No History of Problems with Anesthesia: No
[2023-08-14] VITALS (7 sets, daily range): BP systolic 125–151; BP diastolic 78–94; PULSE 61–81; RESP 16–20; TEMP 36.4–36.6; O2SAT 95–97; BMI 33.2
[2023-08-14] MEDS: Lactated Ringers 1,000 ML 100 ML IVCONT (11:59)
[2023-08-14] MEDS: Apixaban 5 MG TABLET PO (11:59)
--- NOTE | 2023-08-14 12:09 | PC.NURSE ---
PT DIDNOT TAKE HIS ELIQUIS THIS AM DR CHANDRA ORDERED HIS AM DOSE GIVEN TO PATEINT RASH NOTED TO LEFT SIDE AND UMBILICAL HERNIA NOTED PT DENIES PAIN
--- NOTE | 2023-08-14 12:18 | P.CONAN_ITS ---
[facility] Active Problems Active Problems: All Active Problems (Updated 07/30/23 @ 12:23 by Kwaku Valencia MD) Arterial hypotension (Acute) Chronic UTI (urinary tract infection) (Acute) Persistent atrial fibrillation (Acute) Complicated urinary tract infection (Acute) Preoperative cardiovascular examination (Acute) Nocturia more than twice per night (Acute) BPH w urinary obs/LUTS (Acute) Hip flexor tendon tightness (Acute) Postural dizziness (Acute) Somnolence, daytime (Acute) Obesity (BMI 30-39.9) (Acute) Colon adenoma (Acute) LATASHA (obstructive sleep apnea) (Acute) Dyspnea on exertion (Acute) Elevated PSA (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 History of Problems with Anesthesia: No Social History Social History Alcohol intake: never Patient Tobacco Use Status: Never used Tobacco Are you DNR?: No Advance Directives: No Advance Directives Information Provided: Yes Nutrition Risks: No Nutritional Risk Current occupational status: retired Current occupation: Right Handed Meds Allergies Allergy/AdvReac Type Severity Reaction Status Date / Time No Known Allergies Allergy Verified 07/30/23 10:59 [No Known Allergies*] Active Medications: Current Medications Lactated Ringer's (Lr) 1,000 mls @ 100 mls/hr IVCONT .Q10H BEVERLY Last Admin: 08/14/23 11:59 Dose: 100 mls/hr Home Medications Medication Instructions Recorded Confirmed Last Taken Type polyethylene glycol 3350 17 17 g PO DAILY 05/07/22 07/30/23 Unknown History gram/dose oral powder (Miralax) tamsulosin 0.4 mg capsule 0.4 mg PO DAILY 07/30/23 07/30/23 Unknown History Exam Height,Weight and Vital Signs: Height 5 ft 10 in Weight 104.961 kg Last Vital Signs Temp 98 F 08/14/23 11:25 Pulse 81 08/14/23 11:25 Resp 20 08/14/23 11:25 BP 149/94 H 08/14/23 11:25 Pulse Ox 97 08/14/23 11:25 O2 Del Method Room Air 08/14/23 11:25 Airway Mallampati Class: II (top front) TM Dist: >3cm Neck ROM: Full Heart: rrr Lungs: cta Assessment and Plan Assessment Anesthesia Assessment: Anesthesia Plan Discussed and Chart Reviewed Final Anesthetic Review Family History of Problems with Anesthesia: No History of Problems with Anesthesia: No NPO: Yes ASA Class: III Final Preanesthetic Review: No Changes in Pt Med Stat, Meds/Allgs Chart Reviewed and Consent Obtained/Reviewed Patient Risk: Intermediate Procedure Risk: Intermediate Anesthetic Plan Anesthetic Plan: MAC: Disposition: Standard PACU
--- NOTE | 2023-08-14 12:39 | MHC.SHP ---
Pre-Procedural Eval Section A Date of Service: 08/14/23 The patient is an INPATIENT: No Section B Chief Complaint: Other persistent atrial fibrillation Allergies: Allergies Allergy/AdvReac Type Severity Reaction Status Date / Time No Known Allergies Allergy Verified 07/30/23 10:59 [No Known Allergies*] Plan I have reviewed the history and physical and performed a pertinent physical examination on my patient. No changes have occurred unless specified. Time Spent With Patient Time: Total time managing care of this patient today ____ minutes.
--- NOTE | 2023-08-14 12:40 | HO.CARDIVERS ---
Cardioversion Procedure Note Cardioversion Date of Procedure: 08/14/2023 Ordering Provider: Dr. Valencia Performing Provider: Dr. Valencia Indication for Procedure: Atrial fibrillation Pre-Op Diagnosis: Atrial fibrillation Post-Op Diagnosis: Sinus rhythm KAVITA findings (if KAVITA Performed): Not performed History: See office note Consent: Informed consent obtained Procedure: After informed consent was obtained, patient was taken to the PACU. The patient was then positioned appropriately. The cardioversion pads were placed in anteroposterior position. Once under anesthesia, 150 joules of synchronized shock was administered. The rhythm converted from atrial fibrillation to sinus rhythm. Patient remained in sinus rhythm after the end of procedure. Complications: None Impression: Successful cardioversion from atrial fibrillation to sinus rhythm Recommendations: Continue amiodarone. Continue Eliquis. Follow-up will be arranged. Discussed with .
--- NOTE | 2023-08-14 12:45 | ECG_ITS ---
Test Reason : post op Blood Pressure : / mmHG Vent. Rate : 063 BPM Atrial Rate : 063 BPM P-R Int : 192 ms QRS Dur : 090 ms QT Int : 460 ms P-R-T Axes : 018 051 016 degrees QTc Int : 470 ms Normal sinus rhythm Low voltage QRS Borderline ECG When compared with ECG of 20-JUL-2023 19:20, Sinus rhythm has replaced Atrial fibrillation Referred By: Kwaku Valencia Electronically Signed By:KAREN RIOS MD
== END 2023-08-14 13:50 | disposition home or self-care (01) ==
PROVIDERS: PCP Internal Medicine; Visit Provider Internal Medicine
PROC: 5A2204Z Restoration of Cardiac Rhythm, Single (ICD-10-PCS; principal; 2023-08-14 12:30)
DX: I48.19 Other persistent atrial fibrillation (principal); Z79.01 Long term (current) use of anticoagulants; G47.33 Obstructive sleep apnea (adult) (pediatric); Z79.899 Other long term (current) drug therapy
CPT/HCPCS: 92960; 93005; J2704

== ENCOUNTER → 2023-08-14 11:06 | Outpatient (BNV) | payer MEDICARE, SELFPAY | PROVIDERS: PCP Internal Medicine; Visit Provider Internal Medicine | DX: I48.19 Other persistent atrial fibrillation (principal) | CPT/HCPCS: 92960 ==

== ENCOUNTER 2023-08-24 11:02 | Outpatient (REF) | payer MEDICARE, SELFPAY ==
--- NOTE | ~2023-08-24 | US_ITS ---
EXAMINATION: US PELVIS LIMITED (BLADDER) CLINICAL INFORMATION: Benign prostatic hyperplasia with lower urinary tract symptoms. COMPARISON: CT abdomen and pelvis with contrast and x-ray abdomen KUB 07/20/2023. Ultrasound pelvis limited (bladder) 05/06/2022. X-ray abdomen 03/11/2022. Ultrasound pelvis limited (bladder) 09/02/2021. TECHNIQUE: Real-time imaging of the bladder. FINDINGS: BLADDER: Well distended. Mild borderline thickening of the bladder wall, diffuse. Bilateral ureteral jets are not demonstrated. Prevoid bladder volume is 148 mL. Postvoid bladder volume is 74.1 mL. ADDITIONAL FINDINGS: Multiple bladder stones are identified, largest measured 1.2 x 0.6 x 1.0 cm. Prostate volume 52.8 mL. US/US bladder IMPRESSION: 1. Multiple bladder stones. 2. Enlarged prostate with prominent post void bladder volume. 3. Bilateral ureteral jets were not visualized.
== END 2023-08-24 11:03 | disposition home or self-care (01) ==
LOC: HO.US 11:02
PROVIDERS: PCP Internal Medicine; Visit Provider Urology
DX: N40.1 Benign prostatic hyperplasia with lower urinary tract symptoms (principal); N13.8 Other obstructive and reflux uropathy
CPT/HCPCS: 76857

== ENCOUNTER 2023-09-01 08:35 | Outpatient (AMB) | payer MEDICARE, SELFPAY ==
--- NOTE | 2023-09-01 08:40 | A.OFFVIS_ITS ---
Intake Intake Visit Reasons: 2m/US(set) Intake Note: Patient is Present for Follow Up US Urology Medication: Finasteride,Tamsulosin, Terazosin Antibiotic Allergies: None Blood Thinners: Eliquis PVR: 48 Compliants: Patient states that he urinates alot. 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 Allergies No Known Allergies [No Known Allergies*] Allergy (Verified 09/01/23 08:43) HPI HPI Comments History of Present Illness Details Jesus is a very pleasant male. He is a patient of Dr. Leyva. He is seen for the following issues - elevated PSA - BPH PVR 50 cc Follow-up after switching to terazosin 10 mg Continue nocturia 3x - has been on CPAP On finasteride and terazosin 10 mg Prior UTI Proteus - Still with leukocytes Recommend cystoscopy Lower urinary tract symptoms Here for further assessment of lower urinary tract symptoms Nocturia x3, weakness of stream No prior medications PSA 06/16 8.6, 04/17 7.5, 09/17 3.1, 03/19 4.6 35% ERIC 3+ prostate Discussed risks of prostate cancer approximately 20% Diagnosed with colorectal cancer 2021 Underwent resection in August 2022 - Associated with urinary retention [facility] Medical History (Updated 07/30/23 @ 12:23 by Kwaku Valencia MD) Somnolence, daytime Obesity (BMI 30-39.9) Colon adenoma LATASHA (obstructive sleep apnea) Dyspnea on exertion [facility] current use of anticoagulant Paroxysmal atrial fibrillation Elevated PSA Unilateral primary osteoarthritis, right hip Surgical History (Updated 08/14/23 @ 11:48 by Janet Perrin RN) History of bowel resection 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 Social History Alcohol intake: never Patient Tobacco Use Status: Never used Tobacco Current occupational status: retired Current occupation: Right Handed Review of Systems Const Denies chills and Denies fever(s) Card Reports no additional complaints and Denies syncope Resp Denies cough GI Denies abdominal pain and Denies heartburn Reports as per HPI and Denies change in libido Neuro Denies syncope Psych Denies change in libido Endo Denies change in libido Physical Exam Const General: cooperative, healthy appearing, comfortable and no acute distress Orientation/consciousness: patient oriented x3 HEENT Face and sinus: Yes normal facial exam Mouth: moist mucous membranes Neck Neck: Yes normal visual inspection, Yes full ROM and Yes trachea midline Chest Chest palpation & inspection: normal inspection of the chest Resp Effort & Inspection: normal respiratory effort, able to speak in complete sentences and no respiratory distress GI Inspection: Yes normal to inspection Back/Spine/Pelvis Cervical Spine: normal cervical lordosis Thoracic/Lumbar Spine: thoracic and lumbar spine normal to inspection Skin General skin exam: no rashes or lesions noted Neuro General: patient oriented x3, gait normal, tone normal and moves all extremities Extrem General: Yes normal to inspection and Yes capillary refill normal Office Procedures Post Void Residual Post Residual Void Post Void Residual (PVR): 48 25714-[id number] Void Residual by ultrasound Results AMB Urinalysis, Automated UA Leukoctes 500 Haley/uL Last Edit by MARKO Pollard on 09/01/23 08:50 UA Nitrite Negative Last Edit by MARKO Pollard on 09/01/23 08:50 UA Urobilinogen 0.2 mg/dL Last Edit by MARKO Pollard on 09/01/23 08:5 0 UA Protein 15 mg/dL Last Edit by MARKO Pollard on 09/01/23 08:50 UA pH 6.0 Last Edit by MARKO Pollard on 09/01/23 08:50 UA Blood 10 Ortiz/uL Last Edit by MARKO Pollard on 09/01/23 08:50 UA Specific [place] 1.015 Last Edit by MARKO Pollard on 09/01/23 08: 50 UA Ketone Negative Last Edit by MARKO Pollard on 09/01/23 08:50 UA Bilirubin 0 mg/dL Last Edit by [facility] on 09/01/23 08:50 UA Glucose 0 mg/dL Last Edit by MARKO Pollard on 09/01/23 08:50 Results Reviewed Results Reviewed: Laboratory Last Values Urine pH (Auto) 6.0 09/01/23 08:44 Specific [place] (Auto) 1.015 09/01/23 08:44 Urine Protein (Auto) 15 mg/dL 09/01/23 08:44 Glucose (UA)(Auto) 0 mg/dL 09/01/23 08:44 Urine Ketones (Auto) Negative 09/01/23 08:44 Urine Blood (Auto) 10 Ortiz/uL 09/01/23 08:44 Urine Nitrite (Auto) Negative 09/01/23 08:44 Urine Bilirubin (Auto) 0 mg/dL 09/01/23 08:44 Urine Urobilinogen (Auto) 0.2 mg/dL 09/01/23 08:44 Leukocyte Esterase (Auto) 500 Haley/uL 09/01/23 08:44 Assessment & Plan Assessment & Plan (1) BPH w urinary obs/LUTS: Code(s): N40.1 - Benign prostatic hyperplasia with lower urinary tract symptoms; N13.8 - Other obstructive and reflux uropathy (2) Elevated PSA: Code(s): R97.20 - Elevated prostate specific antigen [PSA] (3) Complicated urinary tract infection: Code(s): N39.0 - Urinary tract infection, site not specified Plan check cystoscopy Orders: Orders AMB Post Void Residual by ultrasound Today N13.8 - Other obstructive and reflux uropathy, N40.1 - Benign prostatic hyperplasia with lower urinary tract symptoms AMB Urinalysis Automated Today Z13.9 - Encounter for screening, unspecified Patient Instructions: Imaging studies, laboratory and physical exam results were discussed and reviewed in detail. No major barriers to patient understanding were identified. An opportunity to ask questions regarding the treatment plan was provided. All questions were answered. The patient expressed understanding and agreement with the above treatment plan. The patient is aware they should contact our office by phone for worsening of their current condition or the appearance of new urologic symptoms. Compliance is encouraged with any medications and followup testing that is ordered. It is a privilege to participate in the urologic care of your patient. If you have any questions or concerns regarding treatment for the above conditions, or other urologic issues, please do not hesitate to contact me. The office telephone contact is [phone]. This note is constructed using voice recognition software. While every effort has been made to ensure accuracy breakfast host errors may have been included. Yours sincerely, Dr Carlin Perez MD, [facility] - Urology Providers of Expert, Compassionate Care for the Genitourinary System Coding Level of Care Code Est Pt Level 4 (15665) Diagnoses BPH w urinary obs/LUTS N40.1; N13.8 Elevated PSA R97.20 Complicated urinary tract infection N39.0 CPT Codes Post Residual Void - PVR CPT Code: 66360-Lgsb Void Residual by ultrasound ([id number])
== END 2023-09-01 09:06 | disposition home or self-care (01) ==
PROVIDERS: PCP Internal Medicine; Visit Provider Urology
DX: N40.1 Benign prostatic hyperplasia with lower urinary tract symptoms (principal); N13.8 Other obstructive and reflux uropathy; R97.20 Elevated prostate specific antigen [PSA]; N39.0 Urinary tract infection, site not specified; Z13.9 Encounter for screening, unspecified
CPT/HCPCS: 99214

== ENCOUNTER → 2023-09-01 08:35 | Outpatient (BNVA) | payer MEDICARE, SELFPAY | PROVIDERS: PCP Internal Medicine; Visit Provider Urology | DX: N40.1 Benign prostatic hyperplasia with lower urinary tract symptoms (principal); N13.8 Other obstructive and reflux uropathy; R97.20 Elevated prostate specific antigen [PSA] | CPT/HCPCS: 51798; 81003; 99212 ==

== ENCOUNTER 2023-09-03 13:46 | Outpatient (AMB) | payer MEDICARE, SELFPAY ==
[2023-09-03 13:49] VITALS: BP 112/62; PULSE 75; BMI 33.2
--- NOTE | 2023-09-03 13:49 | MHC.OFFVIS ---
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 To recall, in 2019, he was diagnosed with atrial fibrillation. This happened in the setting of workup for hip surgery. We briefly used amiodarone around the time of his hip surgery but subsequently left him on beta-blockers only. Then he went back into atrial fibrillation and was not feeling too good. Attempted cardioversion, but remained in atrial fibrillation. Then we planned on amiodarone loading and re-attempt cardioversion. However even before the cardioversion he went back into sinus. He did remain in sinus for a while but then went back into atrial fibrillation. However, with regard to symptoms he felt the same with or without atrial fibrillation and hence no further attempts were made. More recently, he was complaining of some shortness of breath activity and we gave him another attempt at cardioversion. In spite of amiodarone loading, he has gone back into atrial fibrillation by today's EKG. Also, he feels just about the same in atrial fibrillation as well as sinus rhythm. 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 Social History Alcohol intake: never Patient Tobacco Use Status: Never used Tobacco Current occupational status: retired Current occupation: Right Handed Review of Systems Const Denies weakness ENT Denies dizziness Card Denies chest pain, Denies chest pain with activity, Denies syncope, Denies rapid heart rate, Denies pedal edema, Denies edema, Denies leg edema, Denies palpitations, Denies dyspnea on exertion and Denies orthopnea Resp Denies cough and Denies dyspnea on exertion GI Denies hematochezia and Denies change in stool character Musc Denies abnormal gait, Denies muscle cramps, Denies muscle weakness, Denies numbness, Denies radiating pain into limb and Denies tingling Neuro Denies abnormal gait, Denies dizziness, Denies syncope, Denies numbness, Denies tingling and Denies weakness Endo Denies palpitations Physical Exam Vital Signs: Last Vital Signs Pulse 75 09/03/23 13:49 BP 112/62 09/03/23 13:49 BMI result Body Mass Index 33.2 Const General: comfortable and no acute distress Orientation/consciousness: patient oriented x3 HEENT Other: Unremarkable Head: Yes normal to inspection Neck Neck: Yes normal visual inspection Chest Chest palpation & inspection: normal inspection of the chest Resp Auscultation: clear to auscultation bilaterally Cardio Palpation: normal PMI Heart sounds: S1 normal heart sound present, S2 normal heart sound present, no gallops, no murmurs and no rubs GI Palpation (GI): Soft to palpation Back/Spine/Pelvis Other: unremarkable Skin General skin exam: no rashes or lesions noted Neuro General: patient oriented x3 Extrem General: Yes normal to inspection Psych Mental Status: mental status grossly normal Office Procedures EKG Details: EKG with atrial fibrillation at a rate of 75/Min; artifact in tracing; nonspecific ST-T changes. [id number], Complete Assessment & Plan Assessment & Plan (1) Persistent atrial fibrillation: Code(s): I48.19 - Other persistent atrial fibrillation (2) LATASHA (obstructive sleep apnea): Code(s): G47.33 - Obstructive sleep apnea (adult) (pediatric) (3) Arterial hypotension: Code(s): I95.9 - Hypotension, unspecified Qualifiers: Hypotension type: hypotension due to drug Qualified Code(s): I95.2 - Hypotension due to drugs Plan Recent echocardiogram with low normal LVEF, 50-55% but otherwise unremarkable. In the Holter, he was having atrial fibrillation throughout. He was amiodarone loaded him cardioverted but by EKG today, he is back in atrial fibrillation. He feels the same with or without cardioversion according to patient as well as . Overall, after a started using the CPAP he apparently feels better and he also has some color to his face extra per . Hence recommend continuing that as that may be causing lot of his issues. Otherwise we will stop the amiodarone and just leave him on rate control. Continue anticoagulation without changes. The low blood pressure issues seems improved. Could be related to urology medication like terazosin. Medications: Discontinued amiodarone Take Amiodarone 400mg (2 tabs) twice a day for 2 weeks followed by 200mg (1 tab) daily indefinitely. Discontinued Reason: Doctor's Order 200 mg PO DIRECTED 70 tabs 1RF Coding Level of Care Code Est Pt Level 4 (77583) Diagnoses Persistent atrial fibrillation I48.19 LATASHA (obstructive sleep apnea) G47.33 Hypotension due to drugs I95.2 Hypotension type: hypotension due to drug CPT Codes EKG - CPT: 98834-[id number], Complete ([id number])
== END 2023-09-03 16:44 | disposition home or self-care (01) ==
PROVIDERS: PCP Internal Medicine; Visit Provider Internal Medicine
DX: I48.19 Other persistent atrial fibrillation (principal); G47.33 Obstructive sleep apnea (adult) (pediatric); I95.2 Hypotension due to drugs
CPT/HCPCS: 93010; 99214

== ENCOUNTER → 2023-09-03 13:46 | Outpatient (BNVA) | payer MEDICARE, SELFPAY | PROVIDERS: PCP Internal Medicine; Visit Provider Internal Medicine | DX: I48.19 Other persistent atrial fibrillation (principal); I95.2 Hypotension due to drugs; G47.33 Obstructive sleep apnea (adult) (pediatric) | CPT/HCPCS: 93005; 99212 ==

== ENCOUNTER 2023-09-29 11:47 | Outpatient (REF) | payer MEDICARE, SELFPAY ==
[2023-09-29 12:19] LABS: Appearance Urine Cloudy; Color Urine Yellow; Glucose Urine UA Negative (Negative); Leukocyte Esterase Urine Large (3+) (Negative); Nitrite Urine Negative (Negative); PH 7.5 (5.0-9.0); Specific Gravity - Urine 1.025 (1.005-1.025); UMIC TRIGGER UACC YES; Urine Blood Negative (Negative); Urine Ketones Trace mg/dL (Negative); Urine Protein 30 (1+) mg/dL (Neg-Trace)
[2023-09-29 12:22] LABS: Bacteria Urine 4+ (None Seen); Hyaline Casts Urine 0-2 /LPF (0-2); RBC Urine 0-2 /HPF (0-2); Squamous Epithelial Cell Urine 0-2 /HPF (0-2); UACC Culture Trigger YES; WBC Urine >50 /HPF (0-5)
== END 2023-09-29 11:48 | disposition home or self-care (01) ==
LOC: HO.LAB 11:47
PROVIDERS: PCP Internal Medicine; Visit Provider Internal Medicine
DX: R30.0 Dysuria (principal)
CPT/HCPCS: 81001; 87086

== ENCOUNTER 2023-10-30 10:59 | Outpatient (AMB) | payer MEDICARE, SELFPAY ==
--- NOTE | 2023-10-30 11:11 | MHC.OFFVIS ---
Intake Intake Visit Reasons: cysto Intake Note: Patient present today for a cysto Meds: Tamsulosin, Terazosin Allergies to Antibiotic: No Known Allergies Blood Thinner: Eliquis Urinalysis test clear for Cysto Disposable Uro-G Cystoscope Cannula: Lot: [id number] Exp: 03/11/2025 Bank Credit Card Collection Clerk Required: No Allergies No Known Allergies [No Known Allergies*] Allergy (Verified 10/30/23 11:25) Medication List - Last Reconciled 10/30/23 by Carlin Perez MD apixaban (Eliquis) 5 mg PO BID cefuroxime axetil 500 mg PO BID diltiazem HCl 120 mg PO DAILY finasteride 5 mg PO DAILY 90 days polyethylene glycol 3350 (Miralax) 17 grams PO DAILY HPI HPI Comments History of Present Illness Details Jesus is a very pleasant male. He is a patient of Dr. Leyva. He is seen for the following issues - elevated PSA - lower urinary tract symptoms - recurrent urinary tract infection Effective bladder emptying on combination finasteride and terazosin Here for check cystoscopy since persistent leukocytes in urine Has bladder stones in bladder with enlarged prostate and incomplete emptying Recommend GreenLight laser prostate with holmium laser bladder stones is nurse who accompanied him throughout Is on Eliquis recommend stop 3 days prior to surgery Lower urinary tract symptoms Here for further assessment of lower urinary tract symptoms Nocturia x3, weakness of stream Current medications include terazosin 10 mg and finasteride PSA 06/16 8.6, 04/17 7.5, 09/17 3.1, 03/19 4.6 35% ERIC 3+ prostate Discussed risks of prostate cancer approximately 20% Diagnosed with colorectal cancer 2021 Underwent resection in August 2022 - Associated with urinary retention [facility] Medical History Somnolence, daytime Obesity (BMI 30-39.9) Colon adenoma LATASHA (obstructive sleep apnea) Dyspnea on exertion [facility] current use of anticoagulant Paroxysmal atrial fibrillation Elevated PSA Unilateral primary osteoarthritis, right hip Surgical History History of bowel resection 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 Social History Alcohol intake: never Patient Tobacco Use Status: Never used Tobacco Current occupational status: retired Current occupation: Right Handed Review of Systems Const Denies chills and Denies fever(s) Card Reports no additional complaints and Denies syncope Resp Denies cough GI Denies abdominal pain and Denies heartburn Reports as per HPI and Denies change in libido Neuro Denies syncope Psych Denies change in libido Endo Denies change in libido Physical Exam Const General: cooperative, healthy appearing, comfortable and no acute distress Orientation/consciousness: patient oriented x3 HEENT Face and sinus: Yes normal facial exam Mouth: moist mucous membranes Neck Neck: Yes normal visual inspection, Yes full ROM and Yes trachea midline Chest Chest palpation & inspection: normal inspection of the chest Resp Effort & Inspection: normal respiratory effort, able to speak in complete sentences and no respiratory distress GI Inspection: Yes normal to inspection Back/Spine/Pelvis Cervical Spine: normal cervical lordosis Thoracic/Lumbar Spine: thoracic and lumbar spine normal to inspection Skin General skin exam: no rashes or lesions noted Neuro General: patient oriented x3, gait normal, tone normal and moves all extremities Extrem General: Yes normal to inspection and Yes capillary refill normal Office Procedures Cystoscopy Consent Discussed risk and benefit or proposed procedure with the patient. Information consent for procedure given to the patient. Discussed technical aspects, risks, benefits and alternatives in full. Addressed all of the patient's questions and concerns regarding the procedure. The patient demonstrated knowledge and understanding. They wish to proceed with this procedure. Preparation The patient was prepped in the usual manner. A certified performance technologist was present and in the room. Genitalia was prepped with betadine solution in a sterile manner. Lidocaine Jelly 2% was placed into the urethra and 16Fr flexible Olympus cystoscope was inserted into the meatus after adequate lubrication. Procedure Meatus and circumcised Urethra anterior and posterior urethra normal Prostatic Urethra moderate trilobar hyperplasia Bladder examination with retroflexion of cystoscope Bladder Orifices normal shape and position Bladder Capacity large Trabeculations grade 2 with multiple bladder stones proximally 1.5 cm Cellule Formation yes Diverticulum Formation - Mucosal Erythema - Bladder Tumor - [id number] Procedure code (CPT) selection complete Office Meds lidocaine HCl 2 % mucosal jelly in applicator Performing Provider: Carlin Perez MD Performing Location: [facility] Administered by: Jhonatan Luu LPN on 10/30/23 11:30 Dose Route Admin Location Dispensed Lot Number Expiration Date NDC Director Of Personnel 10 mL intra-urethral 10 mL nitrofurantoin monohydrate/macrocrystals 100 mg capsule Performing Provider: Carlin Perez MD Performing Location: [facility] Administered by: Jhonatan Luu LPN on 10/30/23 11:30 Dose Route Admin Location Dispensed Lot Number Expiration Date NDC Director Of Personnel 100 mg PO 1 cap naproxen 500 mg tablet Performing Provider: Carlin Perez MD Performing Location: [facility] Administered by: Jhonatan Luu LPN on 10/30/23 11:30 Dose Route Admin Location Dispensed Lot Number Expiration Date NDC Director Of Personnel 500 mg PO 1 tab Results AMB Urinalysis, Automated UA Leukoctes 500 Haley/uL Last Edit by MARKO Pollard on 10/30/23 11:17 UA Nitrite Negative Last Edit by MARKO Pollard on 10/30/23 11:17 UA Urobilinogen 0.2 mg/dL Last Edit by MARKO Pollard on 10/30/23 11:17 UA Protein 15 mg/dL Last Edit by MARKO Pollard on 10/30/23 11:17 UA pH 6.5 Last Edit by MARKO Pollard on 10/30/23 11:17 UA Blood 10 Ortiz/uL Last Edit by MARKO Pollard on 10/30/23 11:17 UA Specific Sanborn 1.020 Last Edit by MARKO Pollard on 10/30/23 11:17 UA Ketone Negative Last Edit by MARKO Pollard on 10/30/23 11:17 UA Bilirubin 0 mg/dL Last Edit by MARKO Pollard on 10/30/23 11:17 UA Glucose 0 mg/dL Last Edit by MARKO Pollard on 10/30/23 11:17 Results Reviewed Results Reviewed: Laboratory Last Values Urine pH (Auto) 6.5 10/30/23 11:16 Specific Sanborn (Auto) 1.020 10/30/23 11:16 Urine Protein (Auto) 15 mg/dL 10/30/23 11:16 Glucose (UA)(Auto) 0 mg/dL 10/30/23 11:16 Urine Ketones (Auto) Negative 10/30/23 11:16 Urine Blood (Auto) 10 Ortiz/uL 10/30/23 11:16 Urine Nitrite (Auto) Negative 10/30/23 11:16 Urine Bilirubin (Auto) 0 mg/dL 10/30/23 11:16 Urine Urobilinogen (Auto) 0.2 mg/dL 10/30/23 11:16 Leukocyte Esterase (Auto) 500 Haley/uL 10/30/23 11:16 Assessment & Plan Assessment & Plan (1) BPH w urinary obs/LUTS: Code(s): N40.1 - Benign prostatic hyperplasia with lower urinary tract symptoms; N13.8 - Other obstructive and reflux uropathy (2) Bladder stones: Code(s): N21.0 - Calculus in bladder Plan We discussed the nature of the decision and reasonable options for performing a prostate intervention. Interventions include TURP, GreenLight laser enucleation of the prostate, GreenLight laser ablation of the prostate, transurethral incision of the prostate, and I-Tend prostate procedure. Options such as medical therapy were discussed. The relative uncertainties and benefits related to each alternate procedure were adequately discussed. General surgical risks including, but not limited to, pain, bleeding, infection, myocardial infarction, pulmonary embolus, deep vein thrombosis and cerebrovascular accident which may result in further hospitalization were discussed. Full disclosure of the procedure as well as all major risks, benefits and complications were discussed including but not limited to damage to the urethra or bladder neck, recurrent BPH, retrograde ejaculation, bladder infection, urge, de alina frequency, incomplete emptying, dysuria, remote chance of erectile dysfunction, epididymitis, and meatal stenosis. The success rate of the procedure was discussed. Success of the procedure in the short-term does not necessarily guarantee that long-term success will be maintained. Suitable follow up will need to be maintained. The patient showed understanding of discussion. An opportunity was provided for questions to be answered and wishes to proceed with the following procedure. - holmium laser of bladder stone was GreenLight laser of prostate Orders: Orders AMB Urinalysis Automated 10/30/23 Z13.9 - Encounter for screening, unspecified AMB Cystoscopy 10/30/23 N13.8 - Other obstructive and reflux uropathy, N40.1 - Benign prostatic hyperplasia with lower urinary tract symptoms Medications: Refilled finasteride 5 mg PO DAILY 90 tabs 1RF 90 days N13.8 - Other obstructive and reflux uropathy, N40.1 - Benign prostatic hyperplasia with lower urinary tract symptoms, R33.9 - Retention of urine, unspecified, R97.20 - Elevated prostate specific antigen [PSA] Patient Instructions: Imaging studies, laboratory and physical exam results were discussed and reviewed in detail. No major barriers to patient understanding were identified. An opportunity to ask questions regarding the treatment plan was provided. All questions were answered. The patient expressed understanding and agreement with the above treatment plan. The patient is aware they should contact our office by phone for worsening of their current condition or the appearance of new urologic symptoms. Compliance is encouraged with any medications and followup testing that is ordered. It is a privilege to participate in the urologic care of your patient. If you have any questions or concerns regarding treatment for the above conditions, or other urologic issues, please do not hesitate to contact me. The office telephone contact is [phone]. This note is constructed using voice recognition software. While every effort has been made to ensure accuracy biodiesel product development manager errors may have been included. Yours sincerely, Dr Carlin Perez MD, [facility] - Urology Providers of Expert, Compassionate Care for the Genitourinary System Coding Level of Care Code Est Pt Level 4 (26326) Diagnoses BPH w urinary obs/LUTS N40.1; N13.8 Bladder stones N21.0 CPT Codes Cystoscopy - CPT: [id number] ([id number])
== END 2023-10-30 12:10 | disposition home or self-care (01) ==
PROVIDERS: PCP Internal Medicine; Visit Provider Urology
DX: N40.1 Benign prostatic hyperplasia with lower urinary tract symptoms (principal); N13.8 Other obstructive and reflux uropathy; Z13.9 Encounter for screening, unspecified
CPT/HCPCS: 52000; 99214

== ENCOUNTER → 2023-10-30 10:59 | Outpatient (BNVA) | payer MEDICARE, SELFPAY | PROVIDERS: PCP Internal Medicine; Visit Provider Urology | DX: N40.1 Benign prostatic hyperplasia with lower urinary tract symptoms (principal); N13.8 Other obstructive and reflux uropathy; N21.0 Calculus in bladder | CPT/HCPCS: 52000; 81003; 99212 ==

== ENCOUNTER 2023-11-12 11:03 | Outpatient (AMB) | payer MEDICARE, SELFPAY ==
[2023-11-12 11:07] VITALS: BP 94/68; PULSE 79; O2SAT 98; BMI 34.2
--- NOTE | 2023-11-12 11:07 | A.OFFVIS_ITS ---
Intake Vital Signs 11/12/23 11:07 Height 5 ft 10 in Weight 238 lb 1.588 oz BMI 34.2 BP 94/68 Blood Pressure Location Lt brachial Position Sitting Pulse 79 Pulse Source Pulse Oximeter Pulse Oximetry (%) 98 Oxygen Delivery Method Room Air Intake Visit Reasons: Obstructive sleep apnea Intake Note: pt is here for follow up of using cpap, he does have to get up to use the bathroom often at night, pt states he doesn't feel any different but states his color and other md state he looks good. 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 HE IS A CASE OF OBSTRUCTIVE SLEEP APNEA USING CPAP EVERY NIGHT. HE DOES NOT SAY TOO MUCH, AND IS THE HAPPY WITH HIS USE OF CPAP. HOWEVER ACCORDING TO HIS , HE HAS TO GO TO THE BATHROOM DURING THE NIGHT A FEW TIMES AND THE MASK COMES OFF, THEN SOMETIMES HE DOES NOT PUT IT BACK. HE IS ALWAYS SLOW AND CALM DURING THE DAY BUT HE DOES NOT DO MUCH EXERCISE. HIS IS WONDERING IF HE COULD USE A DIFFERENT TYPE OF MASK, TO REDUCE THE AIR LEAKAGE, AND WHICH WILL BE EASIER TO PUT BACK ON AFTER HE GOES TO THE BATHROOM. 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 Social History Alcohol intake: never Patient Tobacco Use Status: Never used Tobacco Current occupational status: retired Current occupation: Right Handed Review of Systems Const All systems reviewed & are unremarkable except as noted in HPI and below Eyes Reports no additional complaints ENT Reports no additional complaints Card Denies chest pain, Reports irregular heart rhythm, Denies leg edema and Reports dyspnea on exertion (mild) Resp Reports dyspnea on exertion (mild) GI Reports no additional complaints Reports no additional complaints Musc Reports no additional complaints Skin/Breast Reports system reviewed and no additional complaints, except as documented Neuro Reports no additional complaints Psych Reports no additional complaints Physical Exam Vital Signs: Last Vital Signs Pulse 79 11/12/23 11:07 BP 94/68 11/12/23 11:07 Pulse Ox 98 11/12/23 11:07 Oxygen Delivery Method Room Air 11/12/23 11:07 BMI result Body Mass Index 34.2 Const General: healthy appearing (Except for being overweight), comfortable, no acute distress, alert and awake Orientation/consciousness: patient oriented x3 HEENT Head: Yes normal to inspection General nose exam: No nasal polyps present and No nasal discharge present Face and sinus: Yes sinuses nontender Mouth: oropharynx normal Throat: Yes posterior oropharynx normal Eyes General: appearance normal, both eyes and all related structures Neck Neck: Yes normal visual inspection, Yes no lymphadenopathy, Yes trachea midline and Yes no JVD Thyroid: Thyroid normal Chest Chest palpation & inspection: normal inspection of the chest, normal palpation of entire chest wall and no tenderness Resp Effort & Inspection: normal respiratory effort Auscultation: clear to auscultation bilaterally, no crackles and no wheezes Percussion: percussion normal Cardio Palpation: normal PMI Rate: regular rate Rhythm: abnormal rhythm (Atrial fib) Heart sounds: no gallops and no murmurs Peripheral pulses: Peripheral pulses 2+ throughout GI Palpation (GI): Soft to palpation, nontender, No hepatosplenomegaly present, no masses and Other GI palpation findings present (Abdomen is moderately obese and protuberant) Auscultation: normal bowel sounds Back/Spine/Pelvis Thoracic/Lumbar Spine: thoracic and lumbar spine normal to inspection Skin General skin exam: no rashes or lesions noted Neuro General: patient oriented x3 and no focal motor deficits Cranial nerves: Yes CN's II-XII intact bilaterally Extrem General: Yes normal to inspection, Yes no clubbing, cyanosis or edema and Yes no calf tenderness Psych Appearance: grossly normal and well kempt Speech and movement: Normal speech and movement present Results Reviewed Results Reviewed: COMPLIANCE REPORT FOR THE LAST. 30 NIGHTS IS REVIEWED HE HAS USED 29/30 NIGHTS, 97%. AVERAGE USE IT PER NIGHT IS 4 HOURS 26 MINUTES WHICH IS LESS THAN BEFORE. PRESSURE USED MOSTLY 11-12 CM WHICH IS WELL WITHIN THE AUTO SET RANGE. THERE IS LOT OF AIR LEAK 95TH PERCENTILE 82 AND MAXIMUM IS 1 O2 L PER MINUTE. RESIDUAL AHI 13.3 WHICH IS, HIGHER THAN BEFORE Assessment & Plan Assessment & Plan (1) Obesity (BMI 30-39.9): Comment: Remains moderately obese. He is not able to lose much weight. as he cannot do much exercise Code(s): E66.9 - Obesity, unspecified Plan: NO FURTHER ACTION (2) LATASHA (obstructive sleep apnea): Comment: SILVA IS A KNOWN CASE OF OBSTRUCTIVE SLEEP APNEA. BEING TREATED WITH CPAP, WHICH HE USES REGULARLY ALMOST EVERY NIGHT. HIS THE USAGE PER NIGHT IS SOMEWHAT LESS THAN BEFORE. THERE IS ALSO SIGNIFICANT AIR LEAK. SO HIS RESIDUAL AHI IS 13.3, INDICATING SUB OPTIMAL BENEFIT FROM USE OF CPAP. Code(s): G47.33 - Obstructive sleep apnea (adult) (pediatric) Plan: HAD A GOOD DISCUSSION WITH THE PATIENT AND HIS . HE MUST USE THE CPAP AT LEAST FOR 6 HOURS AT NIGHT, AND IF HE CAN USE CPAP FOR ABOUT 1 OR 2 HOURS DURING THE DAY IT WILL BE HELPFUL. WE ARE REFERRING HIM TO SEE THE DME PROVIDER TO HAVE THE MASK ADJUSTMENT. AND EDUCATION ABOUT PROPER USE OF THE MASK. Coding Level of Care Code Est Pt Level 3 (46499) Diagnoses Obesity (BMI 30-39.9) E66.9 LATASHA (obstructive sleep apnea) G47.33
== END 2023-11-12 11:29 | disposition home or self-care (01) ==
PROVIDERS: PCP Internal Medicine; Visit Provider Internal Medicine
DX: E66.9 Obesity, unspecified (principal); G47.33 Obstructive sleep apnea (adult) (pediatric)
CPT/HCPCS: 99213

== ENCOUNTER → 2023-11-12 11:03 | Outpatient (BNVA) | payer MEDICARE, SELFPAY | PROVIDERS: PCP Internal Medicine; Visit Provider Internal Medicine | DX: G47.33 Obstructive sleep apnea (adult) (pediatric) (principal); E66.9 Obesity, unspecified; Z68.34 Body mass index [BMI] 34.0-34.9, adult | CPT/HCPCS: 99212 ==

== ENCOUNTER 2023-11-23 14:54 | Outpatient (REF) | payer MEDICARE, SELFPAY ==
[2023-11-23 20:06] LABS: Appearance Urine Turbid; Color Urine Dark Yellow; Glucose Urine UA Negative (Negative); Leukocyte Esterase Urine Large (3+) (Negative); Nitrite Urine Negative (Negative); PH >= 9.0 (5.0-9.0); Specific Gravity - Urine 1.025 (1.005-1.025); UMIC TRIGGER UACC YES; Urine Blood Negative (Negative); Urine Ketones Negative (Negative); Urine Protein 100 (2+) mg/dL (Neg-Trace)
[2023-11-23 20:30] LABS: Bacteria Urine 1+ (None Seen); Other Crystals Urine Present; Squamous Epithelial Cell Urine 0-2 /HPF (0-2); UACC Culture Trigger YES; WBC Urine 0-5 /HPF (0-5)
[2023-11-23 20:32] LABS: RBC Urine 0-2 /HPF (0-2)
== END 2023-11-23 14:55 | disposition home or self-care (01) ==
LOC: HO.LAB 14:54
PROVIDERS: PCP Internal Medicine; Visit Provider Internal Medicine
DX: R30.0 Dysuria (principal)
CPT/HCPCS: 81001; 81003; 87086; 87088; 87186

== ENCOUNTER 2024-01-05 10:46 | Outpatient (AMB) | payer MEDICARE, SELFPAY ==
--- NOTE | 2024-01-05 10:48 | A.OFFVIS_ITS ---
Intake Intake Visit Reasons: H&P Greenlight(Confirmed) Intake Note: Patient is Present for Telephone Follow Up For H&P Greenlight Urology Med: Finasteride Antibiotic Allergy: None Blood Thinner:Eliquis Allergies No Known Allergies [No Known Allergies*] Allergy (Verified 11/12/23 11:26) HPI HPI Comments History of Present Illness Details Jesus is a very pleasant male. He is a patient of Dr. Leyva. He is seen for the following issues - elevated PSA - lower urinary tract symptoms - recurrent urinary tract infection Telemedicine Evaluation 15 min Consultation Somo Soheila Video attempted Questions answered Has bladder stones in bladder with enlarged prostate and incomplete emptying Recommend GreenLight laser prostate with holmium laser bladder stones is nurse who accompanied him throughout Is on Eliquis recommend stop 3 days prior to surgery Lower urinary tract symptoms Here for further assessment of lower urinary tract symptoms Nocturia x3, weakness of stream Current medications include terazosin 10 mg and finasteride PSA 06/16 8.6, 04/17 7.5, 09/17 3.1, 03/19 4.6 35% ERIC 3+ prostate Discussed risks of prostate cancer approximately 20% Diagnosed with colorectal cancer 2021 Underwent resection in August 2022 - Associated with urinary retention PFSH Medical History Somnolence, daytime Obesity (BMI 30-39.9) Colon adenoma LATASHA (obstructive sleep apnea) Dyspnea on exertion intermediate current use of anticoagulant Paroxysmal atrial fibrillation Elevated PSA Unilateral primary osteoarthritis, right hip Surgical History History of bowel resection 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 Social History Alcohol intake: never Patient Tobacco Use Status: Never used Tobacco Current occupational status: retired Current occupation: Right Handed Review of Systems Const All systems reviewed & are unremarkable except as noted in HPI and below Reports no additional complaints Resp Reports no additional complaints GI Reports no additional complaints Reports as per HPI Musc Reports no additional complaints Physical Exam Telemedicine evaluation Appropriate responses Regular breathing rate and rhythm HEENT Head: Yes normal to inspection Ears: hearing grossly normal bilaterally Eyes General: appearance normal, both eyes and all related structures Neck Neck: Yes normal visual inspection Chest Chest palpation & inspection: normal inspection of the chest Resp Effort & Inspection: normal respiratory effort and able to speak in complete sentences Assessment & Plan Assessment & Plan (1) Bladder stones: Code(s): N21.0 - Calculus in bladder (2) Chronic UTI (urinary tract infection): Code(s): N39.0 - Urinary tract infection, site not specified (3) Complicated urinary tract infection: Code(s): N39.0 - Urinary tract infection, site not specified (4) BPH w urinary obs/LUTS: Code(s): N40.1 - Benign prostatic hyperplasia with lower urinary tract symptoms; N13.8 - Other obstructive and reflux uropathy Plan Risks, benefits and alternatives to therapy were discussed. These include but are not limited to infection, bleeding, damage to local organs and tissues, need for further interventions. Anesthetic risks regarding cardiac arrhythmia, blood clots, and potential mortality were discussed. The patient understands the typical recovery time and the outpatient nature of the procedure. After consideration of these risks the patient gives full informed consent and they wish to move ahead with the procedure. Laser of bladder stones and prostate Patient Instructions: Imaging studies, laboratory and physical exam results were discussed and reviewed in detail. No major barriers to patient understanding were identified. An opportunity to ask questions regarding the treatment plan was provided. All questions were answered. The patient expressed understanding and agreement with the above treatment plan. The patient is aware they should contact our office by phone for worsening of their current condition or the appearance of new urologic symptoms. Compliance is encouraged with any medications and followup testing that is ordered. It is a privilege to participate in the urologic care of your patient. If you adamson ve any questions or concerns regarding treatment for the above conditions, or other urologic issues, please do not hesitate to contact me. The office telephone contact is [phone]. This note is constructed using voice recognition software. While every effort has been made to ensure accuracy chute boss errors may have been included. Yours sincerely, Dr Carlin Perez MD, [facility] - Urology Providers of Expert, Compassionate Care for the Genitourinary System Telehealth Telehealth Location of provider rendering services: practice address Location of patient: address on file Patient Identification confirmed using: Name, : Yes Telehealth method: video Patient verbally consented to treatment: Yes Patient verbally consented to billing insurance company: Yes Patient informed of any privacy concerns related to visit: Yes Coding Level of Care Code Tele Est Pt Level 3 (10109) Diagnoses Bladder stones N21.0 Chronic UTI (urinary tract infection) N39.0 Complicated urinary tract infection N39.0 BPH w urinary obs/LUTS N40.1; N13.8
== END 2024-01-05 11:20 | disposition home or self-care (01) ==
LOC: HO.HUSH 10:46
PROVIDERS: PCP Internal Medicine; Visit Provider Urology
DX: N21.0 Calculus in bladder (principal); N39.0 Urinary tract infection, site not specified; N40.1 Benign prostatic hyperplasia with lower urinary tract symptoms; N13.8 Other obstructive and reflux uropathy
CPT/HCPCS: 99213

== ENCOUNTER → 2024-01-05 10:46 | Outpatient (BNVA) | payer MEDICARE, SELFPAY | PROVIDERS: PCP Internal Medicine; Visit Provider Urology ==

== ENCOUNTER 2024-01-13 09:44 | Outpatient (AMB) | payer MEDICARE, SELFPAY ==
--- NOTE | 2024-01-13 09:47 | MHC.OFFVIS ---
Intake Vital Signs 01/13/24 09:51 Height 5 ft 10 in Weight 239 lb 3.225 oz BMI 34.3 BP 102/60 Blood Pressure Location Lt brachial Position Sitting Pulse 74 Pulse Source Pulse Oximeter Pulse Oximetry (%) 97 Oxygen Delivery Method Room Air Intake Visit Reasons: Obstructive sleep apnea Intake Note: pre-op Dr. Perez surgery is 01/24, he states he is feeling his usual., c-pap is difficult, just changed masks Him Specialist Required: No Allergies No Known Allergies [No Known Allergies*] Allergy (Verified 01/13/24 10:07) Medication List - Last Reconciled 01/13/24 by Ari Rea MD apixaban (Eliquis) 5 mg PO BID diltiazem HCl CD 120 mg PO DAILY finasteride 5 mg PO DAILY 90 days Do you need a note to return to daycare/school/sports/work: No HPI Obstructive sleep apnea HPI Details Mr. Giraldo is 83 years old very pleasant gentleman who is here for follow-up for his sleep apnea. After his last visit he got his new mask which is the nasal mask, and is somewhat more comfortable than his previous fullface mask. He has try to use the CPAP every night but, he has to go to the bathroom very frequently at night so does not keep the mask on for optimal duration. He does mild daytime sleepiness but this is because of insufficient sleep at night. Breathing jackson he denies any cough or wheezing , but he does have mild dyspnea on exertion. This may be due to being overweight. Patient does not have history of COPD and he does not need to use any bronchodilator inhalers [facility] Medical History Somnolence, daytime Obesity (BMI 30-39.9) Colon adenoma LATASHA (obstructive sleep apnea) Dyspnea on exertion [facility] current use of anticoagulant Paroxysmal atrial fibrillation Elevated PSA Unilateral primary osteoarthritis, right hip Surgical History History of bowel resection 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 Social History Alcohol intake: never Patient Tobacco Use Status: Never used Tobacco Current occupational status: retired Current occupation: Right Handed Review of Systems Const All systems reviewed & are unremarkable except as noted in HPI and below Eyes Reports no additional complaints ENT Reports no additional complaints Card Denies chest pain, Reports irregular heart rhythm, Denies leg edema and Reports dyspnea on exertion (mild) Resp Reports dyspnea on exertion (mild) GI Reports no additional complaints Reports no additional complaints Musc Reports no additional complaints Skin/Breast Reports system reviewed and no additional complaints, except as documented Neuro Reports no additional complaints Psych Reports no additional complaints Physical Exam Vital Signs: Last Vital Signs Pulse 74 01/13/24 09:51 BP 102/60 01/13/24 09:51 Pulse Ox 97 01/13/24 09:51 Oxygen Delivery Method Room Air 01/13/24 09:51 BMI result Body Mass Index 34.3 Const General: healthy appearing (Except for being overweight), comfortable, no acute distress, alert and awake Orientation/consciousness: patient oriented x3 HEENT Head: Yes normal to inspection General nose exam: No nasal polyps present and No nasal discharge present Face and sinus: Yes sinuses nontender Mouth: oropharynx normal Throat: Yes posterior oropharynx normal Eyes General: appearance normal, both eyes and all related structures Neck Neck: Yes normal visual inspection, Yes no lymphadenopathy, Yes trachea midline and Yes no JVD Thyroid: Thyroid normal Chest Chest palpation & inspection: normal inspection of the chest, normal palpation of entire chest wall and no tenderness Resp Effort & Inspection: normal respiratory effort Auscultation: clear to auscultation bilaterally, no crackles and no wheezes Percussion: percussion normal Cardio Palpation: normal PMI Rate: regular rate Rhythm: abnormal rhythm (Atrial fib) Heart sounds: no gallops and no murmurs Peripheral pulses: Peripheral pulses 2+ throughout GI Palpation (GI): Soft to palpation, nontender, No hepatosplenomegaly present, no masses and Other GI palpation findings present (Abdomen is moderately obese and protuberant) Auscultation: normal bowel sounds Back/Spine/Pelvis Thoracic/Lumbar Spine: thoracic and lumbar spine normal to inspection Skin General skin exam: no rashes or lesions noted Neuro General: patient oriented x3 and no focal motor deficits Cranial nerves: Yes CN's II-XII intact bilaterally Extrem General: Yes normal to inspection, Yes no clubbing, cyanosis or edema and Yes no calf tenderness Psych Appearance: grossly normal and well kempt Speech and movement: Normal speech and movement present Results Reviewed Results Reviewed: Compliance report is reviewed. He has used 27/30 nights, , 90% of the time. Average use it per night 2 hours 57 minutes, which is suboptimal. There is not much air leak. Residual AHI 10.2 which is still high but less than before . SPIROMETRY in office SFM=597 % OIY3=189 % FEF 25-75 = 138 % NORMAL Assessment & Plan Assessment & Plan (1) Obesity (BMI 30-39.9): Comment: Remains moderately obese. He is not able to lose much weight. as he cannot do much exercise Code(s): E66.9 - Obesity, unspecified Plan: Again advised to reduce the intake of carbohydrates., and eat in small portions . (2) LATASHA (obstructive sleep apnea): Comment: SILVA IS A KNOWN CASE OF OBSTRUCTIVE SLEEP APNEA. BEING TREATED WITH CPAP, WHICH HE USES REGULARLY ALMOST EVERY NIGHT. HIS THE USAGE PER NIGHT IS SUBOPTIMAL. PART OF THE REASON IS FREQUENT AWAKENING TO GO TO THE BATHROOM , AND THEN HE FORGETS TO PUT ON THE MASK. Code(s): G47.33 - Obstructive sleep apnea (adult) (pediatric) Plan: ADVISED TO USE THE MASK AT LEAST FOR 4 HOURS EVERY NIGHT. THIS MAY BE SUPPLEMENTED BY USING 1 OR 2 HOURS DURING THE DAYTIME. (3) Dyspnea on exertion: Comment: DYSPNEA ON EXERTION FOR THE LAST FEW YEARS. As per pulmonary function test he does not have obstructive or restrictive pulmonary disorder. Dyspnea on exertion is probably functional, may be contributed by his abdominal obesity, and atrial fibrillation. PULMONARY FUNCTION TEST IN 2020 WAS NORMAL SPIROMETRY TODAY IN THE OFFICE IS ALSO NORMAL. Code(s): R06.00 - Dyspnea, unspecified Plan: KEEP ON DOING DEEP BREATHING EXERCISES. Plan FOR THE PLANNED UROLOGIC PROCEDURE, FROM PULMONARY POINT OF VIEW THERE IS NO CONTRAINDICATION AND HE IS CLEARED. Coding Level of Care Code Est Pt Level 3 (10924) Diagnoses Obesity (BMI 30-39.9) E66.9 LATASHA (obstructive sleep apnea) G47.33 Dyspnea on exertion R06.00
[2024-01-13 09:51] VITALS: BP 102/60; PULSE 74; O2SAT 97; BMI 34.3
== END 2024-01-13 10:25 | disposition home or self-care (01) ==
PROVIDERS: PCP Internal Medicine; Referring Provider Internal Medicine; Visit Provider Internal Medicine
DX: E66.9 Obesity, unspecified (principal); G47.33 Obstructive sleep apnea (adult) (pediatric); R06.00 Dyspnea, unspecified
CPT/HCPCS: 94010; 99213

== ENCOUNTER → 2024-01-13 09:44 | Outpatient (BNVA) | payer MEDICARE, SELFPAY | PROVIDERS: PCP Internal Medicine; Visit Provider Internal Medicine | DX: G47.33 Obstructive sleep apnea (adult) (pediatric) (principal); E66.9 Obesity, unspecified; R06.00 Dyspnea, unspecified; Z68.34 Body mass index [BMI] 34.0-34.9, adult | CPT/HCPCS: 94010; 99212 ==

== ENCOUNTER 2024-01-14 10:27 | Outpatient (REF) | payer MEDICARE, SELFPAY ==
[2024-01-14 11:37] LABS: Appearance Urine Turbid; Color Urine Yellow; Glucose Urine UA Negative (Negative); Leukocyte Esterase Urine Large (3+) (Negative); Nitrite Urine Negative (Negative); PH 7.5 (5.0-9.0); UMIC TRIGGER UACC YES; Urine Blood Trace (Negative); Urine Ketones Negative (Negative); Urine Protein 30 (1+) mg/dL (Neg-Trace)
[2024-01-14 11:45] LABS: Bacteria Urine 3+ (None Seen); RBC Urine 0-2 /HPF (0-2); Squamous Epithelial Cell Urine 0-2 /HPF (0-2); UACC Culture Trigger YES; WBC Urine >50 /HPF (0-5)
== END 2024-01-14 10:28 | disposition home or self-care (01) ==
LOC: HO.LAB 10:27
PROVIDERS: PCP Internal Medicine; Visit Provider Internal Medicine
DX: R30.0 Dysuria (principal)
CPT/HCPCS: 81001; 87086

== ENCOUNTER 2024-01-25 07:00 | Day surgery (SDC) | payer MEDICARE, SELFPAY ==
[2024-01-21 13:43] VITALS: BMI 34.3
--- NOTE | 2024-01-22 09:22 | P.CONAN_ITS ---
Documented by User: Richa Peralta NP 01/22/24 09:27 HPI - Anesthesia Eval Consult details Narrative: 83yo M for ?Laser Ablation Prostate w/Green Light Follows [facility] [place] cardiology. Optimized for surgery Eliquis for afib. OK to hold per cardiology s/p cardioversion 07/2023 with MAC Follows [facility] [place] pulmo - cleared PMFSH Active Problems Active Problems: All Active Problems Bladder stones (Acute) Arterial hypotension (Acute) Chronic UTI (urinary tract infection) (Acute) Persistent atrial fibrillation (Acute) Complicated urinary tract infection (Acute) Preoperative cardiovascular examination (Acute) Nocturia more than twice per night (Acute) BPH w urinary obs/LUTS (Acute) Hip flexor tendon tightness (Acute) Postural dizziness (Acute) Somnolence, daytime (Acute) Obesity (BMI 30-39.9) (Acute) Colon adenoma (Acute) LATASHA (obstructive sleep apnea) (Acute) Dyspnea on exertion (Acute) Elevated PSA (Acute) skilled nursing current use of anticoagulant (Acute) Paroxysmal atrial fibrillation (Acute) Status post right hip replacement (Acute) Past Medical History Medical History Somnolence, daytime Obesity (BMI 30-39.9) Colon adenoma LATASHA (obstructive sleep apnea) 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 Family history of problems with anesthesia: No Surgical History Surgical History History of bowel resection History of total replacement of right hip Status post right hip replacement History of Problems with Anesthesia: No Social History Social History Alcohol intake: never Patient Tobacco Use Status: Never used Tobacco Use of substances other than those prescribed or required for medical reasons: No Are you DNR?: No Advance Directives: No Advance Directives Information Provided: Yes Current occupational status: retired Current occupation: Right Handed Meds Allergies Allergy/AdvReac Type Severity Reaction Status Date / Time No Known Allergies Allergy Verified 01/13/24 10:07 [No Known Allergies*] Exam Height,Weight and Vital Signs: Height 5 ft 10 in Weight 108.409 kg Pertinent Lab Results Pertinent Lab Results: Laboratory Tests 08/12/23 12:45 WBC 9.1 Hgb 14.9 Hct 45.6 Plt Count 244 Sodium 143 Potassium 4.2 Chloride 110 H Carbon Dioxide 25 BUN 16 Creatinine 1.22 Narrative Narrative: SPIROMETRY in office 12/2023 QRS=853 % BCR8=653 % FEF 25-75 = 138 % NORMAL EKG 08/2023 atrial fibrillation at a rate of 75/Min; artifact in tracing; nonspecific ST-T changes. ECHO 05/2023 Conclusions: - 1. Technically very limited study despite use of contrast agent 2. Low normal LV ejection fraction 50-55% 3. Limited visualization cardiac valves with cardiac valvular Dopplers within normal limits 4. 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 Surgical History Surgical History History of bowel resection History of total replacement of right hip Status post right hip replacement Social History Social History Alcohol intake: never Patient Tobacco Use Status: Never used Tobacco Use of substances other than those prescribed or required for medical reasons: No Are you DNR?: No Advance Directives: No Advance Directives Information Provided: Yes Current occupational status: retired Current occupation: Right Handed Meds Allergies Allergy/AdvReac Type Severity Reaction Status Date / Time No Known Allergies Allergy Verified 01/13/24 10:07 [No Known Allergies*] Exam Airway Mallampati Class: III TM Dist: >3cm Neck ROM: Full Assessment and Plan Assessment Anesthesia Assessment: Anesthesia Plan Discussed Final Anesthetic Review NPO: Yes ASA Class: III Final Preanesthetic Review: No Changes in Pt Med Stat, Meds/Allgs Chart Reviewed , Consent Obtained/Reviewed and Anes Risks/Benef Reviewed Patient Risk: Intermediate Procedure Risk: Intermediate Anesthetic Plan Anesthetic Plan: GA Disposition: Standard PACU
[2024-01-25] VITALS (8 sets, daily range): BP systolic 114–144; BP diastolic 79–109; PULSE 73–100; RESP 14–20; TEMP 36.1–36.3; O2SAT 92–98; BMI 33.0
--- NOTE | 2024-01-25 08:46 | MHC.SHP ---
Pre-Procedural Eval Section A - 24 Hr Update-Section A only Date of Service: 01/25/24 The patient is an INPATIENT: No Changes since office visit: No Cold of Flu in the past 2 weeks, No New Medical Problems, No Changes in Medication and No Patient answered all questions The patient has been examined within 24 hours of the surgical procedure. The History & Physical has been completed within 30 days and I have reviewed it.: Yes Section B - Complete if H&P > 30 days Chief Complaint: Benign prostatic hyperplasia with lower urinary tr Details of Present Illness: 55 gm prostate Relevant Social History: None Present Medications: None Medical History: Significant History History of Previous Operations: Relevant previous surgery/procedure and date(s) Allergies: Allergies Allergy/AdvReac Type Severity Reaction Status Date / Time No Known Allergies Allergy Verified 01/13/24 10:07 [No Known Allergies*] Review of Systems Sugical H&P ROS: Negative: Constitution, Cardiovascular, Respiratory, Neurological, Psychiatric, Hem-Onc, Allergic/Immunologic, Gastrointestinal, Genitourinary, Musculoskeletal, Integumentary, Endocrine and Eyes/Ears/Nose/Throat Exam Surgical H&P Exam: Normal: HEENT, Normal: Heart, Normal: Lungs, Normal: Extremities, Normal: Abdomen, Normal: Skin and Normal: Neurological Plan Diagnosis/Plan: Unchanged I have reviewed the history and physical and performed a pertinent physical examination on my patient. No changes have occurred unless specified. Time Spent With Patient Time: Total time managing care of this patient today ____ minutes.
--- NOTE | 2024-01-25 10:51 | W.PM.OPN ---
Operative Note Operative Note Date of Service: 01/25/24 Narrative: PreOperative Diagnosis: Bladder outlet obstruction Bladder stones Post Operative Diagnosis: Bladder outlet obstruction Bladder stones Procedure: 1) GreenLight Laser Enucleation of the prostate CPT 85455 2) laser of multiple bladder stones Surgeon: Dr Carlin Perez Anesthesia: General History of bladder outlet obstruction. Treated with alpha-alexis and other medications. Still with symptoms. On cystoscopy in office has tight bladder neck with 4 small bladder stones. Recommendation for prostate procedure with laser enucleation of prostate. Risks and benefits have been discussed. Focus was placed on development of retrograde ejaculation which is a normal part of this procedure. Procedure: After informed consent was verified the patient was brought to the operating room and placed in a supine position. Anesthesia was administered per protocol. Patient was placed in modified dorsal lithotomy position and prepped and draped in a sterile fashion. Safety pause time-out was confirmed. Antibiotics have been given. A Twenty-four Romanian laser cystoscope was inserted per urethra. No abnormalities were found of the anterior and bulbar urethra. The bladder was examined and both ureteric orifices were seen in their normal positions away from the area of interest. Using a holmium 980nm fiber the 4 small bladder stones were broken up using bladder stone settings on the holmium laser. Stone fragments were flushed and removed from the bladder. Using a GreenLight laser with settings of 80 w incisions were made at the 5 and 7 o'clock position. The incisions were taken down from the bladder neck down to the level of the veru. These were gradually deepened in order to define the lateral aspects of the median lobe area. Once clearly defined they will also extended in the lateral directions in order to create a deep groove. The median lobe was then ablated and enucleated tissue released into the bladder with the laser power increased to 120 W. Once the median lobe area had been cleared attention was directed to the lateral lobes. Starting with the patient's left lateral lobe. First the 05:00 o'clock groove was further developed. This was moved in the lateral direction to undermine the tissue on the lateral side running from the bladder neck to the prostate apex. Focus was then placed on the laser at the 1 o'clock position to developing a secondary groove down to the level of bladder fibers. The creation of a second deep groove defined a segment of intervening tissue similar to a slice of orange. At the apex of the prostate the 2 grooves were linked the us releasing the intervening tissue. This tissue was then removed with a combination of enucleation and ablation working from the apex toward the bladder neck. A similar procedure was repeated on the patient's right-hand side. The only differences being the position of the lateral groove at he 7 'oclock positioin and the secondary groove at the 11 o'clock position, Otherwise the procedure was developed in a mirror fashion. After the majority of tissue had been debulked remnant tissue was ablated with the side fire laser and the curve of the prostate followed up each side wall clearly defining the anterior remnant strip that remained between the 11 and 1 o'clock positions. When this was had been completed debris and pieces of prostate were removed from the bladder with irrigation. Both ureteric orifices were reviewed again in shown to be patent in away from any areas of energy damage. The apical area was reviewed in any stray ooze was controlled. A 22 Romanian 30 cc balloon Tariq catheter was placed over a stylet into the bladder. Clear efflux was obtained upopn irrigation with a Taylor piston syringe. 30 cc was placed in the balloon and gentle traction was placed. A snap was used to hold tension on the catheter to control bleeding during patient moved and transported. A drainage bag was placed. Once transportation is complete to the PACU the snap will be removed. The patient tolerated the procedure well, he was extubated in the operating and transferred in a stable condition to the recovery area. Total Power 164 kW Lasing time 25:48 Pathology: Prostate tissue Bladder stones Drains: Tariq catheter
[2024-01-25] MEDS: Acetaminophen 325 MG TABLET 975 MG PO (11:08)
== END 2024-01-25 12:00 | disposition home or self-care (01) ==
PROVIDERS: PCP Internal Medicine; Visit Provider Urology
PROC: (CPT 52648; principal; 2024-01-25 09:10)
DX: N40.1 Benign prostatic hyperplasia with lower urinary tract symptoms (principal); N13.8 Other obstructive and reflux uropathy; N21.0 Calculus in bladder; N39.0 Urinary tract infection, site not specified; I48.0 Paroxysmal atrial fibrillation; G47.33 Obstructive sleep apnea (adult) (pediatric); Z85.038 Personal history of other malignant neoplasm of large intestine; Z90.49 Acquired absence of other specified parts of digestive tract; Z79.01 Long term (current) use of anticoagulants; Z79.899 Other long term (current) drug therapy; Z98.890 Other specified postprocedural states
CPT/HCPCS: 52649; 52317; 88300; 88305; J1956; J2405; J2704; J3010

== ENCOUNTER → 2024-01-25 07:00 | Outpatient (BNV) | payer MEDICARE, SELFPAY | PROVIDERS: PCP Internal Medicine; Visit Provider Urology | DX: N40.1 Benign prostatic hyperplasia with lower urinary tract symptoms (principal); N21.0 Calculus in bladder | CPT/HCPCS: 52317; 52649 ==

== ENCOUNTER 2024-02-01 14:06 | Outpatient (REF) | payer MEDICARE, SELFPAY ==
[2024-02-01 15:17] LABS: Influenza A PCR NEGATIVE (Negative); Influenza B PCR NEGATIVE (Negative); Resp Syncy Virus RNA Qual PCR NEGATIVE (Negative); SARS COV2 PCR INHOUSE NEGATIVE (Negative)
== END 2024-02-01 14:07 | disposition home or self-care (01) ==
LOC: HO.LNP 14:06
PROVIDERS: Visit Provider Internal Medicine
DX: R05.9 Cough, unspecified (principal); R06.02 Shortness of breath
CPT/HCPCS: 0241U

== ENCOUNTER 2024-03-02 11:44 | Outpatient (AMB) | payer MEDICARE, SELFPAY ==
--- NOTE | 2024-03-02 11:46 | A.OFFVIS_ITS ---
Intake Visit Reasons: [facility] follow up Intake Note: Patient is Present for Telephone Follow Up For H&P [facility] Med: Finasteride Antibiotic Allergy: None Blood Thinner:Eliquis PVR 85 mL Allergies No Known Allergies [No Known Allergies*] Allergy (Verified 01/13/24 10:07) HPI Comments Details: Jesus is a very pleasant male. He is a patient of Dr. Leyva. He is seen for the following issues - elevated PSA - lower urinary tract symptoms - recurrent urinary tract infection PVR low Underwent [facility] laser prostate with holmium laser of bladder stones Minimal bleeding Six-month follow-up PSA is nurse who accompanied him throughout Is on Eliquis recommend stop 3 days prior to surgery Lower urinary tract symptoms Here for further assessment of lower urinary tract symptoms Nocturia x3, weakness of stream Current medications include terazosin 10 mg and finasteride PSA 06/16 8.6, 04/17 7.5, 09/17 3.1, 03/19 4.6 35% ERIC 3+ prostate Discussed risks of prostate cancer approximately 20% 01/19 [facility] laser prostate with bladder stone removal Diagnosed with colorectal cancer 2021 Underwent resection in August 2022 - Associated with urinary retention [facility] Medical History Somnolence, daytime Obesity (BMI 30-39.9) Colon adenoma LATASHA (obstructive sleep apnea) 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 Social History Alcohol intake: never Patient Tobacco Use Status: Never used Tobacco Current occupational status: retired Current occupation: Right Handed Review of Systems Const Denies chills and Denies fever(s) Card Reports no additional complaints and Denies syncope Resp Denies cough GI Denies abdominal pain and Denies heartburn Reports as per HPI and Denies change in libido Neuro Denies syncope Psych Denies change in libido Endo Denies change in libido Physical Exam Const General: cooperative, healthy appearing, comfortable and no acute distress Orientation/consciousness: patient oriented x3 HEENT Face and sinus: Yes normal facial exam Mouth: moist mucous membranes Neck Neck: Yes normal visual inspection, Yes full ROM and Yes trachea midline Chest Chest palpation & inspection: normal inspection of the chest Resp Effort & Inspection: normal respiratory effort, able to speak in complete sentences and no respiratory distress GI Inspection: Yes normal to inspection Back/Spine/Pelvis Cervical Spine: normal cervical lordosis Thoracic/Lumbar Spine: thoracic and lumbar spine normal to inspection Skin General skin exam: no rashes or lesions noted Neuro General: patient oriented x3, gait normal, tone normal and moves all extremities Extrem General: Yes normal to inspection and Yes capillary refill normal Office Procedures Post Void Residual Post Residual Void Post Void Residual (PVR): 85 [id number] Void Residual by ultrasound Assessment & Plan Assessment & Plan (1) Bladder stones: Code(s): N21.0 - Calculus in bladder Category: Medical (2) Urinary retention with incomplete bladder emptying: Code(s): R33.9 - Retention of urine, unspecified Category: Medical Plan Six-month follow-up Orders: Orders AMB Post Void Residual by ultrasound 03/02/24 N39.8 - Other specified disorders of urinary system Prostate Specific Antigen 6 Months N13.8 - Other obstructive and reflux uropathy, N40.1 - Benign prostatic hyperplasia with lower urinary tract symptoms Patient Instructions: Imaging studies, laboratory and physical exam results were discussed and reviewed in detail. No major barriers to patient understanding were identified. An opportunity to ask questions regarding the treatment plan was provided. All questions were answered. The patient expressed understanding and agreement with the above treatment plan. The patient is aware they should contact our office by phone for worsening of their current condition or the appearance of new urologic symptoms. Compliance is encouraged with any medications and followup testing that is ordered. It is a privilege to participate in the urologic care of your patient. If you have any questions or concerns regarding treatment for the above conditions, or other urologic issues, please do not hesitate to contact me. The office telephone contact is [phone]. This note is constructed using voice recognition software. While every effort has been made to ensure accuracy crop roller errors may have been included. Yours sincerely, Dr Carlin Perez MD, [facility] - Urology Providers of Expert, Compassionate Care for the Genitourinary System Coding Level of Care Code Est Pt Level 3 (51340) Diagnoses Bladder stones N21.0 Urinary retention with incomplete bladder emptying R33.9 CPT Codes Post Residual Void - PVR CPT Code: 31505-Nddd Void Residual by ultrasound ([id number])
== END 2024-03-02 12:19 | disposition home or self-care (01) ==
PROVIDERS: PCP Internal Medicine; Visit Provider Urology
DX: N21.0 Calculus in bladder (principal); R33.9 Retention of urine, unspecified
CPT/HCPCS: 99024

== ENCOUNTER → 2024-03-02 11:44 | Outpatient (BNVA) | payer MEDICARE, SELFPAY | PROVIDERS: PCP Internal Medicine; Visit Provider Urology | DX: N21.0 Calculus in bladder (principal); R33.9 Retention of urine, unspecified; Z79.01 Long term (current) use of anticoagulants; Z79.899 Other long term (current) drug therapy | CPT/HCPCS: 51798; 99212 ==

== ENCOUNTER 2024-03-15 09:05 | Outpatient (AMB) | payer MEDICARE, SELFPAY ==
[2024-03-15 09:15] VITALS: BP 120/82; PULSE 94; BMI 33.7
--- NOTE | 2024-03-15 09:15 | MHC.OFFVIS ---
Vital Signs 03/15/24 09:15 Height 5 ft 10 in Weight 235 lb 0.204 oz BMI 33.7 BP 120/82 Blood Pressure Location Lt brachial Position Sitting Pulse 94 Pulse Source Pulse Oximeter Intake Visit Reasons: 6 month follow u p [employer] Required: No Allergies No Known Allergies [No Known Allergies*] Allergy (Verified 03/15/24 09:17) Medication List - Last Reconciled 03/15/24 by Kwaku Valencia MD apixaban (Eliquis) 5 mg PO BID diltiazem HCl ER 120 mg PO DAILY HPI Comments Details: Jesus returns for follow-up regarding atrial fibrillation. To recall, in 2019, he was diagnosed with atrial fibrillation. This happened in the setting of workup for hip surgery. We briefly used amiodarone around the time of his hip surgery but subsequently left him on beta-blockers only. Then he went back into atrial fibrillation and was not feeling too good. Attempted cardioversion, but remained in atrial fibrillation. Then we planned on amiodarone loading and re-attempt cardioversion. However even before the cardioversion he went back into sinus. He did remain in sinus for a while but then went back into atrial fibrillation. However, with regard to symptoms he felt the same with or without atrial fibrillation and hence no further attempts were made. More recently, he was complaining of some shortness of breath activity and we gave him another attempt at cardioversion. In spite of amiodarone loading, he has gone back into atrial fibrillation. Also, he feels just about the same in atrial fibrillation as well as sinus rhythm. Chronic shortness of breath and just about the same as before. No clear-cut angina. [facility] Medical History Somnolence, daytime Obesity (BMI 30-39.9) Colon adenoma LATASHA (obstructive sleep apnea) Dyspnea on exertion snf current use of anticoagulant Paroxysmal atrial fibrillation Elevated PSA Unilateral primary osteoarthritis, right hip Surgical History History of bowel resection 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 Social History Alcohol intake: never Patient Tobacco Use Status: Never used Tobacco Current occupational status: retired Current occupation: Right Handed Review of Systems ENT Reports dizziness Card Denies chest pain, Denies chest pain at rest, Denies chest pain with activity, Denies rapid heart rate, Denies pedal edema, Denies edema, Denies leg edema, Denies lightheadedness, Denies palpitations, Denies dyspnea, Denies dyspnea on exertion and Denies orthopnea Resp Denies cough, Denies dyspnea and Denies dyspnea on exertion GI Denies hematochezia and Denies change in stool character Musc Denies abnormal gait, Reports limited range of motion, Reports muscle cramps, Denies muscle weakness, Denies numbness, Denies radiating pain into limb, Denies stiffness and Denies tingling Neuro Denies abnormal gait, Reports dizziness, Denies numbness and Denies tingling Endo Denies palpitations Physical Exam Vital Signs: Last Vital Signs Pulse 94 03/15/24 09:15 BP 120/82 03/15/24 09:15 BMI result Body Mass Index 33.7 Const General: comfortable and no acute distress Orientation/consciousness: patient oriented x3 HEENT Other: Unremarkable Head: Yes normal to inspection Neck Neck: Yes normal visual inspection Chest Chest palpation & inspection: normal inspection of the chest Resp Auscultation: clear to auscultation bilaterally Cardio Palpation: normal PMI Heart sounds: S1 normal heart sound present, S2 normal heart sound present, no gallops, no murmurs and no rubs GI Palpation (GI): Soft to palpation Back/Spine/Pelvis Other: unremarkable Skin General skin exam: no rashes or lesions noted Neuro General: patient oriented x3 Extrem General: Yes normal to inspection Psych Mental Status: mental status grossly normal Assessment & Plan Assessment & Plan (1) Persistent atrial fibrillation: Code(s): I48.19 - Other persistent atrial fibrillation Category: Medical (2) LATASHA (obstructive sleep apnea): Code(s): G47.33 - Obstructive sleep apnea (adult) (pediatric) Category: Medical Plan Last echocardiogram with low normal LVEF, 50-55% but otherwise unremarkable. In the Holter, he was having atrial fibrillation throughout. In spite of being on amiodarone, he went back to atrial fibrillation and additionally, he feels the same in either sinus rhythm or atrial fibrillation. Hence we can just manage with rate control. Additionally, he started feeling better after using CPAP and may continue that. Blood pressure seems to be stable otherwise. We will follow up in 6 months with an echocardiogram/Holter. Orders: Orders CA echo transthoracic complete 6 Months I48.19 - Other persistent atrial fibrillation ECG 3 day holter monitor 6 Months I48.19 - Other persistent atrial fibrillation Coding Level of Care Code Est Pt Level 4 (68563) Diagnoses Persistent atrial fibrillation I48.19 LATASHA (obstructive sleep apnea) G47.33
== END 2024-03-15 09:43 | disposition home or self-care (01) ==
PROVIDERS: PCP Internal Medicine; Visit Provider Internal Medicine
DX: I48.19 Other persistent atrial fibrillation (principal); G47.33 Obstructive sleep apnea (adult) (pediatric)
CPT/HCPCS: 99214

== ENCOUNTER → 2024-03-15 09:05 | Outpatient (BNVA) | payer MEDICARE, SELFPAY | PROVIDERS: PCP Internal Medicine; Visit Provider Internal Medicine | DX: I48.19 Other persistent atrial fibrillation (principal); G47.33 Obstructive sleep apnea (adult) (pediatric) | CPT/HCPCS: 99212 ==

== ENCOUNTER 2024-04-14 11:53 | Outpatient (REF) | payer MEDICARE, SELFPAY ==
[2024-04-14 12:51] LABS: Appearance Urine Cloudy; Color Urine Yellow; Glucose Urine UA Negative (Negative); Leukocyte Esterase Urine Large (3+) (Negative); Nitrite Urine Negative (Negative); PH 5.5 (5.0-9.0); UMIC TRIGGER UACC YES; Urine Blood Trace (Negative); Urine Ketones Negative (Negative); Urine Protein 30 (1+) mg/dL (Neg-Trace)
[2024-04-14 12:55] LABS: Bacteria Urine Trace (None Seen); Hyaline Casts Urine 0-2 /LPF (0-2); RBC Urine 0-2 /HPF (0-2); Squamous Epithelial Cell Urine 0-2 /HPF (0-2); UACC Culture Trigger YES; WBC Urine >50 /HPF (0-5)
== END 2024-04-14 11:54 | disposition home or self-care (01) ==
LOC: HO.LAB 11:53
PROVIDERS: PCP Internal Medicine; Visit Provider Internal Medicine
DX: R30.0 Dysuria (principal)
CPT/HCPCS: 81001; 87086

== ENCOUNTER 2024-05-25 09:54 | Outpatient (AMB) | payer MEDICARE, SELFPAY ==
[2024-05-25 10:00] VITALS: BP 124/84; PULSE 89; O2SAT 96; BMI 33.4
--- NOTE | 2024-05-25 10:00 | MHC.OFFVIS ---
Vital Signs 05/25/24 10:00 Height 5 ft 10 in Weight 232 lb 9.403 oz BMI 33.4 BP 124/84 Blood Pressure Location Lt brachial Position Sitting Pulse 89 Pulse Source Pulse Oximeter Pulse Oximetry (%) 96 Oxygen Delivery Method Room Air Intake Visit Reasons: Obstructive sleep apnea Intake Note: pt is here for follow up and states he is feeling not too great, eye surgery on 06/02/24.in [place], exertion he is short of breath [employer] Required: No Allergies No Known Allergies [No Known Allergies*] Allergy (Verified 05/25/24 10:21) Do you need a note to return to daycare/school/sports/work: No HPI HPI Obstructive sleep apnea: Details: Mr. Giraldo , 83 years old very pleasant gentleman is here for follow-up after 4 months, for obstructive sleep apnea. He has try to use the CPAP every night, still misses putting it on a few nights p.er month He states that he can not keep the mask on for more than 2 hours at a, time then he has to go to the ,bathroom and sometimes does not put the. mask on His encourages him to put the CPAP on during the daytime when he takes a brief nap. This the nasal mask is better tolerated than the fullface mask but he still does not like it much. He gets short of breath when he walks fast or climbs stairs, but denies any bouts of cough or wheezing. His spirometry test was essentially normal. 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 Social History Alcohol intake: never Patient Tobacco Use Status: Never used Tobacco Current occupational status: retired Current occupation: Right Handed Review of Systems Const All systems reviewed & are unremarkable except as noted in HPI and below Eyes Reports no additional complaints ENT Reports no additional complaints Card Denies chest pain, Reports irregular heart rhythm, Denies leg edema and Reports dyspnea on exertion (mild) Resp Reports dyspnea on exertion (mild) GI Reports no additional complaints Reports no additional complaints Musc Reports no additional complaints Skin/Breast Reports system reviewed and no additional complaints, except as documented Neuro Reports no additional complaints Psych Reports no additional complaints Physical Exam Vital Signs: Last Vital Signs Pulse 89 05/25/24 10:00 BP 124/84 05/25/24 10:00 Pulse Ox 96 05/25/24 10:00 Oxygen Delivery Method Room Air 05/25/24 10:00 BMI result Body Mass Index 33.4 Const General: healthy appearing (Except for being overweight), comfortable, no acute distress, alert and awake Orientation/consciousness: patient oriented x3 HEENT Head: Yes normal to inspection General nose exam: No nasal polyps present and No nasal discharge present Face and sinus: Yes sinuses nontender Mouth: oropharynx normal Throat: Yes posterior oropharynx normal Eyes General: appearance normal, both eyes and all related structures Neck Neck: Yes normal visual inspection, Yes no lymphadenopathy, Yes trachea midline and Yes no JVD Thyroid: Thyroid normal Chest Chest palpation & inspection: normal inspection of the chest, normal palpation of entire chest wall and no tenderness Resp Effort & Inspection: normal respiratory effort Auscultation: clear to auscultation bilaterally, no crackles and no wheezes Percussion: percussion normal Cardio Palpation: normal PMI Rate: regular rate Rhythm: abnormal rhythm (Atrial fib) Heart sounds: no gallops and no murmurs Peripheral pulses: Peripheral pulses 2+ throughout GI Palpation (GI): Soft to palpation, nontender, No hepatosplenomegaly present, no masses and Other GI palpation findings present (Abdomen is moderately obese and protuberant) Auscultation: normal bowel sounds Back/Spine/Pelvis Thoracic/Lumbar Spine: thoracic and lumbar spine normal to inspection Skin General skin exam: no rashes or lesions noted Neuro General: patient oriented x3 and no focal motor deficits Cranial nerves: Yes CN's II-XII intact bilaterally Extrem General: Yes normal to inspection, Yes no clubbing, cyanosis or edema and Yes no calf tenderness Psych Appearance: grossly normal and well kempt Speech and movement: Normal speech and movement present Results Reviewed Results Reviewed: Compliance report for the last 30 nights is reviewed. He used 23/30 nights, 77% of the nights. Average use it per night 2 hours 17 minutes, which is subopt.imal Pressure used 9-10 cm, well within the range. There is only minimal degree of air leak Residual AHI 1.8 Assessment & Plan Assessment & Plan (1) Obesity (BMI 30-39.9): Comment: Remains moderately obese. He is not able to lose much weight. as he cannot do much exercise Code(s): E66.9 - Obesity, unspecified Category: Medical Plan: Once again talked to him about the weight. It is understandable that he can not do much exercise However he needs to cut down the portions and also cut down carbohydrates as much as possible. (2) LATASHA (obstructive sleep apnea): Comment: Patient has try to use the CPAP every night but he still misses putting on the mask frequently. He used 23/30 nights and does meet the threshold for compliance. However his use it per night remains suboptimal Code(s): G47.33 - Obstructive sleep apnea (adult) (pediatric) Category: Medical Plan: Had a good talk with the patient and his . He needs to use the CPAP at least for 4 hours at night. If he can not use enough at night he should try to compensate by using the CPAP during the daytime. He say is he will try his best. (3) Dyspnea on exertion: Comment: DYSPNEA ON EXERTION FOR THE LAST FEW YEARS. As per pulmonary function test he does not have obstructive or restrictive pulmonary disorder. Dyspnea on exertion is probably functional, may be contributed by his abdominal obesity, and atrial fibrillation. PULMONARY FUNCTION TEST IN 2020 WAS NORMAL SPIROMETRY TODAY IN THE OFFICE IS ALSO NORMAL. Code(s): R06.00 - Dyspnea, unspecified Category: Medical Plan: Again explained to the patient that he has does not have any primary lung disease. Should continue to try losing weight and also should do deep breathing exercises 2 or 3 times a day Coding Level of Care Code Est Pt Level 3 (09082) Diagnoses Obesity (BMI 30-39.9) E66.9 LATASHA (obstructive sleep apnea) G47.33 Dyspnea on exertion R06.00
== END 2024-05-25 10:23 | disposition home or self-care (01) ==
PROVIDERS: PCP Internal Medicine; Visit Provider Internal Medicine
DX: E66.9 Obesity, unspecified (principal); G47.33 Obstructive sleep apnea (adult) (pediatric); R06.00 Dyspnea, unspecified
CPT/HCPCS: 99213

== ENCOUNTER → 2024-05-25 09:54 | Outpatient (BNVA) | payer MEDICARE, SELFPAY | PROVIDERS: PCP Internal Medicine; Visit Provider Internal Medicine | DX: G47.33 Obstructive sleep apnea (adult) (pediatric) (principal); R06.00 Dyspnea, unspecified; E66.9 Obesity, unspecified; Z68.33 Body mass index [BMI] 33.0-33.9, adult | CPT/HCPCS: 99212 ==

== ENCOUNTER 2024-05-26 12:27 | Outpatient (REF) | payer MEDICARE, SELFPAY ==
[2024-05-26 12:48] LABS: MANUAL DIFF FLAG NO
[2024-05-26 13:05] LABS: Basophils Absolute Auto 0.1 X10*3/uL (0.0-0.2); Basophils Percent Auto 0.6 % (0-2); Eosinophils Absolute Auto 0.2 X10*3/uL (0.0-0.4); Eosinophils Percent Auto 2.4 % (0-4); Hematocrit 46.3 % (42.0-52.0); Hemoglobin 15.3 g/dl (14.0-18.0); Imm Gran Abs Auto 0.11 X10*3/uL (0.00-0.03); Imm Gran Pct Auto 1.1 % (0.0-0.4); Lymphocytes Absolute Auto 1.3 X10*3/uL (1.2-4.9); Mean Corpuscular Hemoglobin 30.3 pg (27.0-33.0); Mean Corpuscular Volume 91.7 fL (80.0-98.0); Mean Platelet Volume 10.4 fL (9.4-12.4); Monocytes Absolute Auto 0.6 X10*3/uL (0.1-1.2); Monocytes Percent Auto 6.1 % (2-11); Neutrophils Absolute Auto 7.8 x10*3/uL (2.0-8.3); Neutrophils Percent Auto 76.8 % (45-73); Platelet Count 242 X10*3/uL (160-400); Red Blood Count 5.05 X10*6/uL (4.60-5.80); Red Cell Distribution Width 13.9 % (11.0-16.0); White Blood Count 10.2 X10*3/uL (4.8-10.8)
[2024-05-26 13:22] LABS: Appearance Urine Turbid; Color Urine Dark Yellow; Glucose Urine UA Negative (Negative); Leukocyte Esterase Urine Moderate (2+) (Negative); Nitrite Urine Negative (Negative); Specific Gravity - Urine >= 1.030 (1.005-1.025); UMIC TRIGGER UACC YES; Urine Blood Moderate (2+) (Negative); Urine Ketones Trace mg/dL (Negative); Urine Protein 30 (1+) mg/dL (Neg-Trace)
[2024-05-26 13:41] LABS: Bacteria Urine Trace (None Seen); Hyaline Casts Urine 0-2 /LPF (0-2); Squamous Epithelial Cell Urine 0-2 /HPF (0-2); UACC Culture Trigger YES; WBC Urine >50 /HPF (0-5)
[2024-05-26 13:43] LABS: Alanine Aminotransferase 17 U/L (0-40); Albumin Level 4.3 g/dL (3.5-5.0); Alkaline Phosphatase 65 U/L (39-117); Anion Gap 12 (12-20); Aspartate Amino Transferase 15 U/L (5-37); Bilirubin Total 0.7 mg/dL (0.0-1.0); Blood Urea Nitrogen 14 mg/dL (9-16); C Reactive Protein 0.17 mg/dL (< or = 0.50); Calcium 9.2 mg/dL (8.4-10.2); Carbon Dioxide 21 mmol/L (22-29); Chloride 113 mmol/L (96-108); Estimated Glomerular Filt Rate > 60; Glucose Random 86 mg/dL (60-115); Potassium 4.1 mmol/L (3.3-5.1); Sodium 142 mmol/L (135-145); Total Protein 7.6 g/dL (6.5-8.0)
== END 2024-05-26 12:28 | disposition home or self-care (01) ==
LOC: HO.LAB 12:27
PROVIDERS: PCP Internal Medicine; Visit Provider Internal Medicine
DX: R10.9 Unspecified abdominal pain (principal); I48.91 Unspecified atrial fibrillation; N40.0 Benign prostatic hyperplasia without lower urinary tract symptoms; R30.0 Dysuria; N18.9 Chronic kidney disease, unspecified
CPT/HCPCS: 36415; 80053; 81001; 82550; 85025; 86140; 87086

== ENCOUNTER 2024-06-03 15:43 | Outpatient (REF) | payer MEDICARE, SELFPAY ==
--- NOTE | ~2024-06-03 | XR_ITS ---
EXAMINATION: XR ABDOMEN KUB CLINICAL INDICATION: Abdominal pain and constipation COMPARISON: CT abdomen and pelvis on 07/20/2023 TECHNIQUE: AP view of the abdomen. FINDINGS: The bowel gas pattern is normal with no evidence of ileus or obstruction. There is air distention of the colon and large amount of stool in the right colon. No unusual soft tissue calcifications are noted. The bones are unremarkable. XR/XR KUB IMPRESSION: Large amount of stool in the right colon. Air distention of the left colon. Electronically signed by: Migdalia Daley MD 06/05/2024 07:30 AM EDT
== END 2024-06-03 15:44 | disposition home or self-care (01) ==
LOC: HO.XRAY 15:43
PROVIDERS: PCP Internal Medicine; Visit Provider Internal Medicine
DX: R10.9 Unspecified abdominal pain (principal)
CPT/HCPCS: 74018

== ENCOUNTER 2024-06-04 10:06 | Emergency (ER) | payer MEDICARE, SELFPAY ==
--- NOTE | ~2024-06-04 | CT_ITS ---
EXAMINATION: CT ABDOMEN AND PELVIS WITH CONTRAST CLINICAL INFORMATION: Abdominal pain, constipation, rule out obstruction COMPARISON: CT abdomen and pelvis 07/20/2023 TECHNIQUE: Multidetector volumetric images were obtained from the superior aspect of the liver through the pubic symphysis following administration 85 mL of Omnipaque 350 intravenous contrast. Sagittal and coronal reformatted images were obtained on the technologist's workstation. Oral contrast: No This CT examination was performed using dose optimization techniques as appropriate, variously including the following: *Automated exposure control *Adjustment of mA and/or kV according to patient size (this includes techniques or standardized protocols for targeted exams where dose is matched to indication/reason for exam; i.e. extremities or head) *Use of iterative reconstruction technique DLP: 790 mGy-cm FINDINGS: LUNG BASES: Coronary artery calcifications present. Visualized lung bases otherwise unremarkable. LIVER AND BILIARY TREE: Redemonstrated left hepatic lobe atrophy with a couple coarse left hepatic calcifications (series 3, image 13). Liver otherwise unremarkable. GALLBLADDER: Unremarkable. PANCREAS: Diffuse pancreatic parenchymal atrophy. SPLEEN: Unremarkable. ADRENAL GLANDS: Unremarkable. KIDNEYS AND URETERS: Inferior pole left renal sinus simple cysts for which no dedicated follow-up imaging is required.. Scattered right renal cortical scarring. No hydronephrosis. GASTROINTESTINAL TRACT: Small esophageal hiatal hernia. Incidental distal duodenal/proximal jejunal angiodysplasia No evidence of obstruction. Postoperative appearance from left partial colectomy with sigmoid colonic anastomotic suture. Gaseous distention of a redundant sigmoid colon trapped within the left upper abdomen. Moderate upstream ascending and transverse colonic stool burden. VASCULAR: Mild aortoiliac calcific atherosclerosis. LYMPH NODES: No lymphadenopathy. PERITONEUM: No ascites. BLADDER: Mild diffuse urinary bladder wall thickening. Dependent 7 mm posterior bladder calculus. PELVIC VISCERA: Prostatomegaly with prostate measuring up to 6.3 cm in average dimension. ABDOMINAL AND PELVIC WALL: Small fat-containing right inguinal hernia. OSSEOUS STRUCTURES: Partially visualized postoperative appearance from residual hip arthroplasty. CT/CT abdomen pelvis w IV con IMPRESSION: 1. Redemonstrated gaseous distention of a redundant sigmoid colon trapped within the left upper abdomen, without evidence of volvulus or obstruction at this time. Moderate upstream colonic stool burden. 2. Prostatomegaly with mild diffuse urinary bladder wall thickening, likely trabeculation secondary to chronic outlet obstruction. Dependent 7 mm posterior bladder calculus. Electronically signed by: Brandin Olivia MD 06/04/2024 03:57 PM EDT RP
[2024-06-04 10:08] VITALS: BP 128/83; PULSE 86; RESP 16; TEMP 36.9; O2SAT 97; BMI 33.2
[2024-06-04 10:31] LABS: MANUAL DIFF FLAG NO
[2024-06-04 10:34] LABS: Basophils Percent Auto 0.5 % (0-2); Eosinophils Absolute Auto 0.3 X10*3/uL (0.0-0.4); Eosinophils Percent Auto 3.4 % (0-4); Hematocrit 48.2 % (42.0-52.0); Hemoglobin 15.9 g/dl (14.0-18.0); Imm Gran Abs Auto 0.09 X10*3/uL (0.00-0.03); Lymphocytes Absolute Auto 1.8 X10*3/uL (1.2-4.9); Lymphocytes Percent Auto 20.2 % (20-40); Mean Corpuscular Hemoglobin 30.2 pg (27.0-33.0); Mean Corpuscular Volume 91.5 fL (80.0-98.0); Mean Platelet Volume 10.2 fL (9.4-12.4); Monocytes Absolute Auto 0.6 X10*3/uL (0.1-1.2); Monocytes Percent Auto 6.4 % (2-11); Neutrophils Percent Auto 68.5 % (45-73); Platelet Count 231 X10*3/uL (160-400); Red Blood Count 5.27 X10*6/uL (4.60-5.80); White Blood Count 8.7 X10*3/uL (4.8-10.8)
[2024-06-04 10:37] LABS: Appearance Urine Clear; Color Urine Yellow; Glucose Urine UA Negative (Negative); Leukocyte Esterase Urine Moderate (2+) (Negative); Nitrite Urine Negative (Negative); PH 5.5 (5.0-9.0); UMIC TRIGGER UACC YES; Urine Blood Negative (Negative); Urine Ketones Negative (Negative); Urine Protein Trace mg/dL (Neg-Trace)
[2024-06-04 10:42] LABS: Bacteria Urine None Seen (None Seen); Hyaline Casts Urine 0-2 /LPF (0-2); RBC Urine 0-2 /HPF (0-2); Squamous Epithelial Cell Urine 0-2 /HPF (0-2); UACC Culture Trigger YES; WBC Urine >50 /HPF (0-5)
[2024-06-04 10:51] LABS: Alanine Aminotransferase 18 U/L (0-40); Albumin Level 4.4 g/dL (3.5-5.0); Alkaline Phosphatase 75 U/L (39-117); Anion Gap 15 (12-20); Aspartate Amino Transferase 15 U/L (5-37); Bilirubin Total 0.8 mg/dL (0.0-1.0); Blood Urea Nitrogen 17 mg/dL (9-16); Calcium 9.6 mg/dL (8.4-10.2); Carbon Dioxide 23 mmol/L (22-29); Chloride 108 mmol/L (96-108); Creatinine Clr Calc Pharmacy 54.2; Estimated Glomerular Filt Rate 56; Glucose Random 104 mg/dL (60-115); Potassium 4.6 mmol/L (3.3-5.1); Sodium 141 mmol/L (135-145); Total Protein 7.8 g/dL (6.5-8.0)
--- NOTE | 2024-06-04 11:16 | ED_ITS ---
HPI - General Adult General Chief complaint: Abdominal Pain Stated complaint: abd pain Time Seen by Provider: 06/04/24 11:14 Source: patient Mode of arrival: ambulatory Limitations: no limitations History of Present Illness ED Provider: Mera Winn PA-C HPI narrative: Patient is an 83 year old assigned male at with a history of colon adenoma, atiral fib, recurrent UTIs, and bowel resection presenting to the emergency department today with abdominal pain and constipation. Patient states that over the last few weeks he has had persistent right lower quadrant abdominal pain. Patient states that he has not had a bowel movement in at least 10 days. Patient states that he has been taking things at home for constipation and it isn't helping. Patient denies any dizziness, lightheadedness, nausea, vomiting, fever, chills, blurry vision, double vision, loss of vision, chest pain, difficulty breathing, shortness of breath, back pain, night sweats, pain with urination, increased urinary frequency, increased urinary urgency, blood in his urine or stool, syncope or a near syncopal episode, recent trauma or falls, bowel incontinence, bladder incontinence, or any other complaints at this time. Patient states that he was seen by Dr. Leyva for clearance before his Cataract surgery and was told then he had a UTI and antibiotics were sent in to the pharmacy. Patient states that he has not picked those antibiotics up yet. Onset (ago): week(s) Relieving factors: none Exacerbating factors: none Associated symptoms: denies other symptoms Treatments prior to arrival: none Related Data Previous Rx's ?Medication ?Instructions ?Recorded apixaban 5 mg tablet (Eliquis) 5 mg PO BID #60 tabs 10/19/23 diltiazem HCl 120 mg capsule,24 120 mg PO DAILY #90 caps 01/14/24 hr,extended release Allergies Allergy/AdvReac Type Severity Reaction Status Date / Time No Known Allergies Allergy Verified 06/04/24 10:14 [No Known Allergies*] Review of Systems 2 Constitutional: Constitutional: Reports no additional constitutional complaints, Denies chills, Denies fever(s) and Denies night sweats Eyes: Eyes: Reports no additional eye complaints, Denies blurry vision, Denies change in vision, Denies diplopia, Denies eye discharge, Denies loss of vision and Denies eye pain ENT: Denies dizziness Cardiovascular: Cardiovascular: Reports no additional cardiovascular complaints, Denies chest pain, Denies lightheadedness, Denies Loss of Consciousness and Denies dyspnea Respiratory: Respiratory: Reports no additional respiratory complaints and Denies dyspnea Gastrointestinal: Gastrointestinal: Reports no additional gastrointestinal complaints, Reports abdominal pain, Denies melena, Denies hematochezia, Denies change in stool character and Reports constipation Genitourinary: Genitourinary: Reports no additional male genitourinary complaints, Denies hematuria, Denies oliguria, Denies difficulty urinating, Denies dysuria, Denies urinary frequency, Denies urinary hesitancy, Denies urinary incontinence and Denies urinary urgency Musculoskeletal: Musculoskeletal: Reports no additional musculoskeletal complaints, Denies numbness and Denies tingling Neurologic: Denies dizziness, Denies loss of vision, Denies numbness and Denies tingling Psychiatric: Psychiatric: Reports no additional psychiatric complaints Endocrine: Endocrine: Reports no additional endocrine complaints Hematologic/Lymphatic: Hematologic/Lymphatic: Reports no additional hematologic/lymphatic complaints Allergic/Immunologic: Allergic/Immunologic: Reports no additional allergic/immunologic complaints [facility] Past Medical History Attestation statement: The following information was validated with the patient. 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 Social History Social History Alcohol intake: never Patient Tobacco Use Status: Never used Tobacco Smoked in Last 30 Days: No Use of substances other than those prescribed or required for medical reasons: No Advance Directives: No Advance Directives Information Provided: No Current occupational status: retired Current occupation: Right Handed Physical Exam ED Vital Signs: Vital Signs - 24 hr 06/04/24 10:08 06/04/24 11:53 06/04/24 12:15 Temperature 98.5 F 98 F Pulse Rate 86 81 79 Respiratory Rate 16 15 16 Blood Pressure 128/83 128/77 Pulse Oximetry 97 97 97 Oxygen Delivery Method Room Air Room Air 06/04/24 14:37 06/04/24 16:50 06/04/24 17:43 Temperature 98.1 F 98 F Pulse Rate 92 92 76 Respiratory Rate 16 17 17 Blood Pressure 122/72 141/99 H 134/82 Pulse Oximetry 96 96 98 Oxygen Delivery Method Room Air Room Air Room Air BMI result Body Mass Index 33.2 Const General: cooperative, no acute distress, alert and awake Nutritional Appearance: well nourished Orientation/consciousness: patient oriented x3 Limitations: no limitations HENMT Head: Yes normal to inspection and Yes atraumatic Ears: hearing grossly normal bilaterally and external ears normal General nose exam: Normal external nose present, no nasal discharge noted and no epistaxis Face and sinus: Yes normal facial exam, No abrasion and No laceration Mouth: Normal oral and palatal mucosa present, no drooling and no muffled voice Eyes General: appearance normal, both eyes and all related structures Periorbital: periorbital findings normal Eyelids: Yes eyelids normal Conjunctivae: conjunctivae normal Pupils: Equal, round and reactive pupils present EOM: EOMs intact bilaterally Neck Neck: Yes normal visual inspection, Yes full ROM and Yes no lymphadenopathy Chest Chest palpation & inspection: normal inspection of the chest Resp Effort & Inspection: normal respiratory effort and able to speak in complete sentences GI Inspection: Yes normal to inspection and Yes distended Palpation (GI): Soft to palpation, not firm, nontender and no guarding Neuro General: patient oriented x3 and moves all extremities Cranial nerves: Yes Equal, round and reactive pupils present Cognition (Neuro): normal cognition Extrem General: Yes normal to inspection, Yes full ROM and Yes capillary refill normal Psych Appearance: grossly normal Mental Status: mental status grossly normal Affect: normal affect Attitude: cooperative Thought process: Normal thought process present Thought content: Normal thought content present Insight: Good insight present (Psych) Medications Administered Discontinued Medications Generic Name Dose Route Start Last Admin Trade Name Freq PRN Reason Stop Dose Admin Barium Sulfate 900 ml 06/04/24 11:45 06/04/24 11:46 Barium Sulfate Oral (Mocha) 450 Ml Oral.Susp PO 06/04/24 11:46 900 ml ONCE ONE Administration Iohexol 100 ml 06/04/24 13:31 06/04/24 13:31 Iohexol 350 Mg/Ml 100 Ml Infus..Btl IV 06/04/24 13:32 85 ml ONCE ONE Administration Medical Decision Making Medical Decision Making [facility] Narrative: Patient is an 83 year old assigned male at with a history of colon adenoma, atiral fib, recurrent UTIs, and bowel resection presenting to the emergency department today with abdominal pain and constipation. Patient's physical exam showed a distended abdomen but was otherwise unremarkable. Patient's blood work was unremarkable. Patient's urine showed a possible UTI. Patient's CT re-demonstrated gaseous distention of a redundant sigmoid colon trapped within the left upper abdomen without evidence of volculus or obstruction, moderate upstream colonic stool burden, and mild diffuse urinary bladder wall thickening. I reviewed this case with Dr. Low who confirmed nothing acute is occurring in the abdomen and recommended discharge. I consulted with the GI team who also agreed and recommended Miralax every 1-2 hours until he has a bowel movement. I explained my physical exam findings as well as all test results to the patient. I answered all questions asked by the patient. I stressed the importance of the patient taking his medication as directed (either prescribed or as the over the counter packaging recommends). I stressed the importance of the patient following up with his primary care provider and a GI specialist. I stressed the importance of the patient returning to the emergency department immediately if his symptoms were to worsen or if he were to develop any dizziness, shortness of breath, difficulty breathing, chest pain, blurry vision, loss of vision, nausea, vomiting, abdominal pain, fever, chills, back pain, or any other complaints. Patient verbalized agreement and understanding with this treatment plan and discharge. Differential Diagnosis Differential Diagnoses: The differential diagnosis associated with the presentation includes Constipation UTI Abdominal pain Admission/Observation Consideration of admission/observation: Escalation of care including admission/observation considered Patient would have been admitted to the hospital had his work up had any findings where hospital admission was appropriate and his clinical presentation warranted hospital admission. Consult Healthcare Provider Management of the patient was discussed with: Lotus Notes Administrator (spoke to the general surgeon and GI specialist as noted in the MDM Rationale portion of this note.) Lab Data [facility] Lab Attestation statement: I reviewed the patient's lab results. My interpretation of these results are in the MDM Rationale portion of this note. 09/07/24 10:27 06/04/24 10:27 Labs: Lab Results 06/04/24 Range/Units 10:27 WBC 8.7 (4.8-10.8) X10*3/uL RBC 5.27 (4.60-5.80) X10*6/uL Hgb 15.9 (14.0-18.0) g/dl Hct 48.2 (42.0-52.0) % MCV 91.5 (80.0-98.0) fL MCH 30.2 (27.0-33.0) pg MCHC 33.0 (31.0-36.0) g/dl RDW 14.0 (11.0-16.0) % Plt Count 231 (160-400) X10*3/uL MPV 10.2 (9.4-12.4) fL Immature Gran % (Auto) 1.0 H (0.0-0.4) % Neut % (Auto) 68.5 (45-73) % Lymph % (Auto) 20.2 (20-40) % [place] % (Auto) 6.4 (2-11) % Eos % (Auto) 3.4 (0-4) % Baso % (Auto) 0.5 (0-2) % Lymph # (Auto) 1.8 (1.2-4.9) X10*3/uL [place] # (Auto) 0.6 (0.1-1.2) X10*3/uL Eos # (Auto) 0.3 (0.0-0.4) X10*3/uL Baso # (Auto) 0.0 (0.0-0.2) X10*3/uL Abs Immat Gran (auto) 0.09 H (0.00-0.03) X10*3/uL Absolute Neuts (auto) 6.0 (2.0-8.3) x10*3/uL Absolute Nucleated RBC 0.000 (0.0-0.012) X10*3/uL Nucleated RBC % (auto) 0.0 (0.0-0.2) /100WBC Sodium 141 (135-145) mmol/L Potassium 4.6 (3.3-5.1) mmol/L Chloride 108 (96-108) mmol/L Carbon Dioxide 23 (22-29) mmol/L Anion Gap 15 (12-20) BUN 17 H (9-16) mg/dL Creatinine 1.23 (0.5-1.4) mg/dL Estim Creat Clear Calc 54.2 Estimated GFR 56 Random Glucose 104 (60-115) mg/dL Calcium 9.6 (8.4-10.2) mg/dL Total Bilirubin 0.8 (0.0-1.0) mg/dL AST 15 (5-37) U/L ALT 18 (0-40) U/L Alkaline Phosphatase 75 (39-117) U/L Total Protein 7.8 (6.5-8.0) g/dL Albumin 4.4 (3.5-5.0) g/dL Urine Color Yellow Urine Appearance Clear Urine pH 5.5 (5.0-9.0) Ur Specific Pinch 1.020 (1.005-1.025) Urine Protein Trace (Neg-Trace) mg/dL Urine Glucose (UA) Negative (Negative) mg/dL Urine Ketones Negative (Negative) mg/dL Urine Blood Negative (Negative) Urine Nitrite Negative (Negative) Ur Leukocyte Esterase Moderate (2+) H (Negative) Urine RBC 0-2 (0-2) /HPF Urine WBC >50 H (0-5) /HPF Ur Squamous Epith Cells 0-2 (0-2) /HPF Urine Bacteria None Seen (None Seen) Hyaline Casts 0-2 (0-2) /LPF Independent Interpretation I performed an independent interpretation of an: CT Scan Interpretation: My interpretation is in agreement with the radiologist's impression of this imaging study. - [address] [address] [address] Scan Report Signed Patient: Jesus Giraldo Jr MR#: [id number] : 1940 Acct:[id number] Age/Sex: 83 / M ADM Date: 06/04/24 Loc: HO.ED Attending Dr: Ordering Physician: Mera Winn Date of Service: 06/04/24 Procedure(s): CT abdomen pelvis w IV con Accession Number(s): [id number] cc: Demond Leyva MD; Mera Winn~ EXAMINATION: CT ABDOMEN AND PELVIS WITH CONTRAST CLINICAL INFORMATION: Abdominal pain, constipation, rule out obstruction COMPARISON: CT abdomen and pelvis 07/20/2023 TECHNIQUE: Multidetector volumetric images were obtained from the superior aspect of the liver through the pubic symphysis following administration 85 mL of Omnipaque 350 intravenous contrast. Sagittal and coronal reformatted images were obtained on the technologist's workstation. Oral contrast: Yes This CT examination was performed using dose optimization techniques as appropriate, variously including the following: *Automated exposure control *Adjustment of mA and/or kV according to patient size (this includes techniques or standardized protocols for targeted exams where dose is matched to indication/reason for exam; i.e. extremities or head) *Use of iterative reconstruction technique DLP: 790 mGy-cm FINDINGS: LUNG BASES: Coronary artery calcifications present. Visualized lung bases otherwise unremarkable. LIVER AND BILIARY TREE: Redemonstrated left hepatic lobe atrophy with a couple coarse left hepatic calcifications (series 3, image 13). Liver otherwise unremarkable. GALLBLADDER: Unremarkable. PANCREAS: Diffuse pancreatic parenchymal atrophy. SPLEEN: Unremarkable. ADRENAL GLANDS: Unremarkable. KIDNEYS AND URETERS: Inferior pole left renal sinus simple cysts for which no dedicated follow-up imaging is required.. Scattered right renal cortical scarring. No hydronephrosis. GASTROINTESTINAL TRACT: Small esophageal hiatal hernia. Incidental distal duodenal/proximal jejunal angiodysplasia No evidence of obstruction. Postoperative appearance from left partial colectomy with sigmoid colonic anastomotic suture. Gaseous distention of a redundant sigmoid colon trapped within the left upper abdomen. Moderate upstream ascending and transverse colonic stool burden. VASCULAR: Mild aortoiliac calcific atherosclerosis. LYMPH NODES: No lymphadenopathy. PERITONEUM: No ascites. BLADDER: Mild diffuse urinary bladder wall thickening. Dependent 7 mm posterior bladder calculus. PELVIC VISCERA: Prostatomegaly with prostate measuring up to 6.3 cm in average dimension. ABDOMINAL AND PELVIC WALL: Small fat-containing right inguinal hernia. OSSEOUS STRUCTURES: Partially visualized postoperative appearance from residual hip arthroplasty. CT/CT abdomen pelvis w IV con IMPRESSION: 1. Redemonstrated gaseous distention of a redundant sigmoid colon trapped within the left upper abdomen, without evidence of volvulus or obstruction at this time. Moderate upstream colonic stool burden. 2. Prostatomegaly with mild diffuse urinary bladder wall thickening, likely trabeculation secondary to chronic outlet obstruction. Dependent 7 mm posterior bladder calculus. Electronically signed by: Brandin Oilvia MD 06/04/2024 03:57 PM EDT RP Dictated By: Brandin Olivia MD Signed By: Electronically signed by Brandin Olivia MD 06/04/24 1557 Radiology Impression Discussion of test interpretation with radiology: I have reviewed the radiologist's reading. Discharge Plan Discharge Clinical Impression: Constipation, Acute UTI Patient Disposition: Home, Self-Care Instructions: Constipation (DC), Urinary Tract Infection in Men (DC) Additional Instructions: Follow up with your primary care provider and a GI specialist. Take the recommended dose of miralax (as written on the bottle) every 1-2 hours until you have a bowel movement (per the GI specialist I consulted). Take the antibiotic Dr. Leyva prescribed for your UTI. Return to the emergency department immediately if your symptoms worsen or if you develop any dizziness, shortness of breath, difficulty breathing, chest pain, blurry vision, loss of vision, nausea, vomiting, abdominal pain, fever, chills, back pain, or any other complaints. Prescriptions: No Action Eliquis 5 mg tablet 5 mg PO BID Qty: 60 11RF diltiazem HCl 120 mg capsule,extended release 24 hr 120 mg PO DAILY Qty: 90 3RF Referrals: Demond Leyva MD [Primary Care Provider] - Arturo Salazar MD [Physician] - Interventions: ED Discharge Assessment Last Done: 06/04/24 17:43 Discharge Date/Time: 06/04/24 17:48 Print Language: Turkish
[2024-06-04] MEDS: Barium Sulfate Oral (Mocha) 450 ML ORAL.SUSP 900 ML PO (11:46)
[2024-06-04 11:53] VITALS: PULSE 81; RESP 15; TEMP 36.6; O2SAT 97
[2024-06-04 12:15] VITALS: BP 128/77; PULSE 79; RESP 16; O2SAT 97
[2024-06-04] MEDS: iohexoL 350 MG/ML 100 ML INFUS..BTL IV (13:31)
[2024-06-04 14:37] VITALS: BP 122/72; PULSE 92; RESP 16; O2SAT 96
[2024-06-04 16:50] VITALS: BP 141/99; PULSE 92; RESP 17; TEMP 36.7; O2SAT 96
[2024-06-04 17:43] VITALS: BP 134/82; PULSE 76; RESP 17; TEMP 36.6; O2SAT 98
== END 2024-06-04 17:48 | disposition home or self-care (01) ==
PROVIDERS: Emergency Provider Emergency Medicine Emergency Medical Services; PCP Internal Medicine
DX: K59.00 Constipation, unspecified (principal); N39.0 Urinary tract infection, site not specified; I48.0 Paroxysmal atrial fibrillation; Z79.01 Long term (current) use of anticoagulants
CPT/HCPCS: 36415; 74177; 80053; 81001; 85025; 87086; 99284; Q9967

== ENCOUNTER → 2024-08-22 07:41 | Outpatient (REF) | payer MEDICARE, SELFPAY ==
--- NOTE | 2024-08-22 07:45 | HM_ITS ---
Conclusion: 1. Patient was monitored for total period of 1 day and 16 hours 2. Baseline was atrial fibrillation with average heart of 89 beats per minute with overall adequate rate control 3. No significant pauses noted 4. No patient reported events MTDD
--- NOTE | 2024-08-22 07:45 | CA_ITS ---
Transthoracic Echocardiogram Patient (Last, First, Middle): Jesus Giraldo E Gender: Male Date of : 1940 Age: 84 Procedure Date: 08/22/2024 Procedure Type: Transthoracic Echocardiogram Location: OP Height: 177.8 cm Weight: 104.33 kg BSA: 2.22 m2 Heart Rate: 91 bpm BP: 130 / 80 mmHg Accounting Officer: SB Referring MD: Kwaku Valencia MD Symptoms: I48.19 - Other persistent atrial fibrillation Study Quality: Fair ECG Rhythm: Atrial Fibrillation Conclusions: - The left ventricular systolic function is low normal. The visually estimated ejection fraction is between 50-55%. - No obvious valvular pathology seen on this study. Findings Procedure Information The quality of the study was technically difficult. The study quality is limited by patients body habitus and lung artifact. Left Ventricle Normal left ventricular cavity size. There is normal left ventricular wall thickness. The left ventricular systolic function is low normal. The visually estimated ejection fraction is between 50-55%. There is no evidence of regional wall motion abnormalities. Diastolic function is indeterminate on the basis of available data. Right Ventricle Normal right ventricular cavity size. There is low normal right ventricular systolic function. Atria Both atria are normal in size. Aortic Valve There is a normal trileaflet aortic valve. There is no aortic valve stenosis. There is no aortic valve regurgitation. Mitral Valve The mitral valve appears normal. There is no mitral valve regurgitation. There is no mitral valve stenosis. Pulmonic Valve The pulmonic valve is likely normal. Tricuspid Valve There is trace tricuspid valve regurgitation. There is no evidence of pulmonary hypertension. Great Vessels The asc aorta is normal in size. Venous The inferior vena cava was not well visualized. Pericardium/Pleural There is no evidence of pericardial effusion. Prior Study Comparison No significant change compared to prior study dated: 06/05/2023. Recommendations, Care & Conclusions No obvious valvular pathology seen on this study. Measurements 2D Linear Measurements IVSd: 0.90 0.6-0.9/0.6-1.0 cm LVIDd: 4.79 3.9-5.3/4.2-5.9 cm LVIDd Index: 2.16 2.4-3.2/2.2-3.1 cm/m2 LVIDs: 3.11 2.0-3.6 cm LVPWd: 0.80 0.7-1.1 cm LA Diam: 4.30 2.7-3.8/3.0-4.0 cm LAIDs Index: 1.94 1.5-2.3 cm/m2 LV Mass: 170.13 67-162/88-224 g LV Mass Index: 76.63 43-95/49-115 g/m2 LVOT Diam: 2.30 3.0+(-)1.3 cm 2D Systolic Function EF 4C: 53.20 >55% EF 2C: 54.60 >55% EF BiP: 51.60 >55% Mitral Valve MV Pk E: 0.79 E'Lateral: 7.91 E'Medial: 7.18 E/E' Med: 11.00 E/E' Lat: 10.00 Aortic Valve AoV Pk Andrew: 0.83 AoV Pk Grad: 3.00 DIMA: 3.30 LVOT LVOT Pk Andrew: 0.66 LVOT Mn Andrew: 0.46 LVOT VTI: 0.11 LVOT Pk Grad: 2.00 LVOT Mn Grad: 1.00 LVOT Diam: 2.30 LVOT Area: 4.15 Diastolic Function MV Pk E: 0.79 E'Medial: 7.18 E/E' Med: 11.00 E' Laterial: 7.91 E/E' Lat: 10.00 Right Ventricle TAPSE (mm): 13.50 Tricuspid Valve TR Pk Andrew: 2.38 TR Pk Grad: 23.00 Great Vessels Aorta Sinus of Valsalva: 3.70 2.0-3.5 cm Ao Asc: 3.50 2.1-3.4 cm Pulmonary Valve PV Pk Andrew: 0.84 Peak PV Grad: 3.00 Updated in Other Vendor System with Status of Final Kwaku Valencia MD electronically signed on 08/22/2024 9:03:39 AM with status of Final
== END ==
LOC: HO.CARD 07:41
PROVIDERS: PCP Internal Medicine; Visit Provider Internal Medicine
DX: I48.19 Other persistent atrial fibrillation (principal)
CPT/HCPCS: 93242; 93306

== ENCOUNTER → 2024-08-22 07:45 | Outpatient (BNV) | payer MEDICARE, SELFPAY | PROVIDERS: PCP Internal Medicine; Visit Provider Internal Medicine | DX: I48.19 Other persistent atrial fibrillation (principal) | CPT/HCPCS: 93306 ==

== ENCOUNTER 2024-09-01 09:28 | Outpatient (REF) | payer MEDICARE, SELFPAY ==
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
--- OUTSIDE RECORDS SUMMARY | 2024-09-07 01:27 | XMS_ITS | Patient Health Record ---
Author [facility] [place] Address [address] [place] [address] Care Team Providers Care Residential Roofer Helper Name Role Phone Demond Leyva MD Primary Care Provider Jovanni Payne Unavailable [phone] Allergies No Known Allergies Reason For Referral No Information Medications Medication SIG (Take, Route, Frequency, Duration) Notes Start Date End Date Status Proscar 5 MG 1 tablet Orally Once a day for 30 day(s) Active Fiber Active advil PRN Not-Taking Senokot 8.6 MG 2 tablets at bedtime as needed Orally Once a day for 30 day(s) Not-Taking Metoprolol Succinate 50 MG 1 capsule Orally Once a day Not-Taking MiraLax Active Eliquis 5 MG as directed Orally Twice a day Active dilTIAZem HCl ER 120 MG 1 capsule Orally Once a day Active Finasteride 5 MG 1 tablet Orally Once a day Not-Taking Tylenol PRN Not-Taking Amiodarone HCl 200 MG Oral for 90 Not-Taking Flomax Not-Taking Immunizations Vaccine Route Administration Date Status Comme nts COVID-19 Sin & Sin/Agustina Unknown 08/12/2021 Administered 1st 01/10/2021 Influenza Unknown 09/03/2021 Refused Social History Tobacco Use: Social History Observation [...] Are you an other tobacco user? 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, with unspecified presence of clinical manifestation (I70.203) Active confirmed Vital Signs Blood pressure diastolic 86 mm Hg 04/12/2024 Height 5 ft 10 in in 04/12/2024 Blood pressure systolic 138 mm Hg 04/12/2024 Weight 230 lbs 04/12/2024 BMI 33.00 kg/m2 04/12/2024 Procedures Procedure Date Ordered Date Performed Result Body Sit e 90771-AXZRNKS NAIL, 6 OR MORE 11/13/2023 N/A 26052-EPOJ SKIN LESIONS, 2 TO 4 11/13/2023 N/A 23753-QIUPDJY NAIL, 6 OR MORE 01/22/2024 N/A 52466-JWAP SKIN LESIONS, 2 TO 4 01/22/2024 N/A 57851-AGSBZRJ NAIL, 6 OR MORE 04/12/2024 N/A 37750-TUOJ SKIN LESIONS, 2 TO 4 04/12/2024 N/A Encounters Encounter Location Date Provider Diagnosis [address] [address] 11/13/2023 Jovanni Erin 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, with unspecified presence of clinical manifestation I70.203 ; Tinea unguium B35.1 ; Pain in right toe(s) M79.674 and Pain in left toe(s) M79.[address] [address] 01/22/2024 Jovanni Erin 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, with unspecified presence of clinical manifestation I70.203 ; Tinea unguium B35.1 ; Pain in right toe(s) M79.674 and Pain in left toe(s) M79.[address] [address] 04/12/2024 Jovanni Erin 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, with unspecified presence of clinical manifestation I70.203 ; Tinea unguium B35.1 ; Pain in right toe(s) M79.674 and Pain in left toe(s) M79.675 [facility] [address] [place] [address] 06/27/2024 Jovanni Khan Assessments Encounter Date Diagnosis (ICD Code) Assessment Notes Treatment Notes Treatment Clinical Notes Section Notes 11/13/2023 Tinea unguium (ICD-10 - B35.1) 11/13/2023 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, with unspecified presence of clinical manifestation (ICD-10 - I70.203) 01/22/2024 Tinea unguium (ICD-10 - B35.1) 01/22/2024 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, with unspecified presence of clinical manifestation (ICD-10 - I70.203) 04/12/2024 Tinea unguium (ICD-10 - B35.1) 04/12/2024 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, with unspecified presence of clinical manifestation (ICD-10 - I70.203) 04/12/2024 Pain in right toe(s) (ICD-10 - M79.674) 11/13/2023 Pain in right toe(s) (ICD-10 - M79.674) 01/22/2024 Pain in right toe(s) (ICD-10 - M79.674) 11/13/2023 Pain in left toe(s) (ICD-10 - M79.675) 01/22/2024 Pain in left toe(s) (ICD-10 - M79.675) 04/12/2024 Pain in left toe(s) (ICD-10 - M79.675) Plan Of Treatment Pending Test Test Name Order Date 19457-UIBKSHT NAIL, 6 OR MORE 03/08/2019 76560-BFKJNBT NAIL, 6 OR MORE 06/10/2019 85562-VOVKCBU NAIL, 6 OR MORE 08/19/2019 23273-ESYSXIV NAIL, 6 OR MORE 11/01/2019 73078-YJFKMAQ NAIL, 6 OR MORE 01/24/2020 35897-SJRVQPB NAIL, 6 OR MORE 04/10/2020 42570-XZPQSRA NAIL, 6 OR MORE 07/31/2020 70418-MKLCTUL NAIL, 6 OR MORE 10/16/2020 25671-TBABQUM NAIL, 6 OR MORE 01/15/2021 61545-SENSJRD NAIL, 6 OR MORE 03/22/2021 77255-UNOEVUX NAIL, 6 OR MORE 09/03/2021 71086-OGVLFJJ NAIL, 6 OR MORE 11/12/2021 94515-KPFNRQD NAIL, 6 OR MORE 01/21/2022 71951-SIAWPEV NAIL, 6 OR MORE 04/22/2022 14055-AATTEHD NAIL, 6 OR MORE 07/01/2022 55402-BLLAYLG NAIL, 6 OR MORE 10/21/2022 01235-UVABESS NAIL, 6 OR MORE 12/30/2022 03100-EUKIVDT NAIL, 6 OR MORE 03/17/2023 93969-OCBCHHG NAIL, 6 OR MORE 06/08/2023 40755-JFMWICA NAIL, 6 OR MORE 08/25/2023 36487-FJBTNNE NAIL, 6 OR MORE 11/13/2023 08965-JVINMAM NAIL, 6 OR MORE 01/22/2024 11665-YCSAUUH NAIL, 6 OR MORE 04/12/2024 75347-Asuv Destruction, 1-14 01/15/2021 19911-Grzm Destruction, 1-14 10/16/2020 95881-Gbtt Destruction, 1-14 07/31/2020 68889-XNXJ SKIN LESIONS, 2 TO 4 11/12/19 87537-CTQY SKIN LESIONS, 2 TO 4 08/25/20 74479-OROY SKIN LESIONS, 2 TO 4 06/08/20 23 56770-TBKJ SKIN LESIONS, 2 TO 4 03/17/20 50401-XKZO SKIN LESIONS, 2 TO 4 12/31/19 23 31331-ALXO SKIN LESIONS, 2 TO 4 10/21/19 23 43048-EQWV SKIN LESIONS, 2 TO 4 07/01/20 45245-JMAK SKIN LESIONS, 2 TO 4 04/22/20 76671-DLJE SKIN LESIONS, 2 TO 4 01/22/20 92664-HUCF SKIN LESIONS, 2 TO 4 04/12/20 68245-NYEX SKIN LESIONS, 2 TO 4 01/22/20 44338-YZVS SKIN LESIONS, 2 TO 4 11/13/19 Next Appt Details Provider Name:Jovanni Khan , 09/30/2024 01:00:00 PM, [address] [place], [address], Insurance Providers Payer Name Payer Address Payer Phone Subscriber Number Group Number Insured Name Patient Relationship to Insured Coverage Start Date Coverage End Date Medicare National Govt Svcs Inc [address] [place] [address] [id number] Jesus Giraldo Self - patient is the insured 5 [employer] Blue Shield [address] [place] [address] [id number] Jesus Giraldo Self - patient is the insured Medical (General) History Medical History History ICD Code hip OA Measles Mumps Chicken pox Surgical History Surgery Date(Month/Year) Dental Implant hip replacement - Right 04/24/20 colonoscopy 2021 Bowel resection 2021 Hospitalization History Reason Date(Month/Year) [facility] [place]- car [place], hip pain 02/2021
--- OUTSIDE RECORDS SUMMARY | 2024-09-07 01:27 | XMS_ITS ---
Author Organization [facility] Address [address] [place] [address] Care Team Providers Care Chemical Plant Operator Supervisor Name Role Phone Gordon GONGORA, Demond Primary Care Provider Jovanni Payne Unavailable [phone] Encounters Encounter Location Date Provider Diagnosis [address] [address] 06/28/2024 Jovanni Khan Plan Of Treatment Next Appt Details Provider Name:Jovanni Khan , 09/30/2024 01:00:00 PM, [address] [place] [address], [address], Progress Notes * Jesus SALAZAR DOB:[birth year] (84 yo M)Acc No.[id number]:06/28/2024 Progress Note Patient:?GREGORYJesus LAYNE Provider:?Jovanni Khan DPM :1940???Age:83 Y???Sex:Male Ilia e:06/28/2024 Address:[address] [place] [address], [phone] Pcp:Demond Leyva MD Subjective: * Chief Complaints: * ??? * Medical History:? Objective: * Vitals:? Assessment: Plan: * Treatment: * Images: * The named appointment provid er may or may not be the originator of this progress note, and it is not deemed complete until electronically signed by the appointment provider. Sign off status: Pending * Provider:?Jovanni Khan DPM Date:?2023 Generated for Luci pizarro/Le/Jordyn on:?09/07/2024 01:26 AM EST
--- OUTSIDE RECORDS SUMMARY | 2024-09-07 01:27 | XMS_ITS | Patient Health Record ---
Author Organization [facility] Address [address] [place] [address] Care Team Providers Care Product Marketing Analyst Name Role Phone Demond Leyva MD Primary Care Provider Arturo Schafer [phone] ALLERGIES No Known Allergies REASON FOR REFERRAL [...] (R19.8) Active confirmed Irregular bow el habits (041592789) Problem Encounter for screening for malignant neoplasm of colon (Z12.11) Active confirmed Screening for malignant neoplasm of colon (796912964) Problem Diverticulosis of colon (K57.30) Active confirmed Diverticulosi s of colon (215963218) PLAN OF TREATMENT Future Test Test Name Order Date COLONOSCOPY 04/17/2022 Insurance Providers Payer Name Payer Address Payer Phone Subscriber Number Group Number Insured Name Patient Relationship to Insured Coverage Start Date Coverage End Date MEDICARE OF [place] [address] [place] [address] [id number] SILVA SALAZAR Self - patient is the insured MEDEX ATTN CLAIMS [address] [place] [phone] [id number] SILVA SALAZAR Self - patient is the insured MEDICAL (GENERAL) HISTORY Medical History History ICD Code A fib--Dr. Valencia Sleep apnea - unable to use CPAP machine Hx of elevated PSA Borderline low Vit B12 level of 202 in Surgical History Surgery Date(Month/Year) Hip surgery Appendectomy Tonsillectomy
--- OUTSIDE RECORDS SUMMARY | 2024-09-07 01:27 | XMS_ITS ---
Author Organization [facility] Address [address] [place] [address] Care Team Providers Care Propeller Tester Name Role Phone Demond Leyva MD Primary Care Provider Jovanni Payne [phone] REASON FOR VISIT rs from 06/28 Encounters Encounter Location Date Provider Diagnosis [address] [address] 06/27/2024 Jovanni Khan Plan Of Treatment Next Appt Details Provider Name:Jovanni Khan , 09/30/2024 01:00:00 PM, [address] [place] [address], [address], Progress Notes * Jesus SALAZAR JrDOB:[birth year] (83 yo M)Acc No.[id number]:06/27/2024 Patient:?Jesus Salazar :1940???Age:83 Y???Sex:Male Address:[address] [place] [address], [address] * true * Date:? Generated for Juliai juarez/Le/eTransmitting on:?09/07/2024 01:27 AM EST
== END 2024-09-01 09:29 | disposition home or self-care (01) ==
LOC: HO.LAB 09:28
PROVIDERS: PCP Internal Medicine; Visit Provider Urology
DX: N39.0 Urinary tract infection, site not specified (principal); R97.20 Elevated prostate specific antigen [PSA]; N40.1 Benign prostatic hyperplasia with lower urinary tract symptoms
CPT/HCPCS: 51798; 81003; 87086; 99212

== ENCOUNTER 2024-09-01 09:28 | Outpatient (AMB) | payer MEDICARE, SELFPAY ==
--- NOTE | 2024-09-01 09:33 | MHC.OFFVIS ---
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 He is a patient of Dr. Leyva. He is seen for the following issues - elevated PSA - lower urinary tract symptoms - recurrent urinary tract infection Six-month follow-up PSA not completed PVR 0 cc UA 1+ leuks, 1+ protein, SG 1.025 is nurse who accompanied him throughout Concerned about UTI - last 3 cultures negative Culture to be performed Start methenamine vitamin-C Six-month follow-up PSA Lower urinary tract symptoms Here for further assessment of lower urinary tract symptoms Nocturia x3, weakness of stream Current medications include terazosin 10 mg and finasteride PSA 06/16 8.6, 04/17 7.5, 09/17 3.1, 03/19 4.6 35% ERIC 3+ prostate Discussed risks of prostate cancer approximately 20% 01/19 GreenLight laser prostate with bladder stone removal Diagnosed with colorectal cancer 2021 Underwent resection in August 2022 - Associated with urinary retention [facility] Medical History Somnolence, daytime Obesity (BMI 30-39.9) Colon adenoma LATASHA (obstructive sleep apnea) Dyspnea on exertion [facility] current use of anticoagulant Paroxysmal atrial fibrillation Elevated PSA Unilateral primary osteoarthritis, right hip Surgical History History of bowel resection 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 Social History Alcohol intake: never Patient Tobacco Use Status: Never used Tobacco Current occupational status: retired Current occupation: Right Handed Review of Systems Const Denies chills and Denies fever(s) Card Reports no additional complaints and Denies syncope Resp Denies cough GI Denies abdominal pain and Denies heartburn Reports as per HPI and Denies change in libido Neuro Denies syncope Psych Denies change in libido Endo Denies change in libido Physical Exam Const General: cooperative, healthy appearing, comfortable and no acute distress Orientation/consciousness: patient oriented x3 HEENT Face and sinus: Yes normal facial exam Mouth: moist mucous membranes Neck Neck: Yes normal visual inspection, Yes full ROM and Yes trachea midline Chest Chest palpation & inspection: normal inspection of the chest Resp Effort & Inspection: normal respiratory effort, able to speak in complete sentences and no respiratory distress GI Inspection: Yes normal to inspection Back/Spine/Pelvis Cervical Spine: normal cervical lordosis Thoracic/Lumbar Spine: thoracic and lumbar spine normal to inspection Skin General skin exam: no rashes or lesions noted Neuro General: patient oriented x3, gait normal, tone normal and moves all extremities Extrem General: Yes normal to inspection and Yes capillary refill normal Office Procedures Post Void Residual Post Residual Void Post Void Residual (PVR): 0 58523-Pikj Void Residual by ultrasound Assessment & Plan Assessment & Plan (1) Elevated PSA: Code(s): R97.20 - Elevated prostate specific antigen [PSA] Category: Medical (2) BPH w urinary obs/LUTS: Code(s): N40.1 - Benign prostatic hyperplasia with lower urinary tract symptoms; N13.8 - Other obstructive and reflux uropathy Category: Medical (3) Complicated urinary tract infection: Code(s): N39.0 - Urinary tract infection, site not specified Category: Medical Plan Six-month follow-up PSA Orders: Orders AMB Urinalysis Automated Today Z13.9 - Encounter for screening, unspecified Urine Culture Today N39.0 - Urinary tract infection, site not specified Prostate Specific Antigen 6 Months N13.8 - Other obstructive and reflux uropathy, N40.1 - Benign prostatic hyperplasia with lower urinary tract symptoms Medications: New ascorbic acid (vitamin C) 1 g PO DAILY 90 days 90 tabs 1RF N39.0 - Urinary tract infection, site not specified methenamine hippurate 1 g PO DAILY 90 days 90 tabs 1RF N39.0 - Urinary tract infection, site not specified Patient Instructions: Imaging studies, laboratory and physical exam results were discussed and reviewed in detail. No major barriers to patient understanding were identified. An opportunity to ask questions regarding the treatment plan was provided. All questions were answered. The patient expressed understanding and agreement with the above treatment plan. The patient is aware they should contact our office by phone for worsening of their current condition or the appearance of new urologic symptoms. Compliance is encouraged with any medications and followup testing that is ordered. It is a privilege to participate in the urologic care of your patient. If you have any questions or concerns regarding treatment for the above conditions, or other urologic issues, please do not hesitate to contact me. The office telephone contact is [phone]. This note is constructed using voice recognition software. While every effort has been made to ensure accuracy aging department supervisor errors may have been included. Yours sincerely, Dr Carlin Perez MD, [facility] - Urology Providers of Expert, Compassionate Care for the Genitourinary System Coding Level of Care Code Est Pt Level 4 (40957) Diagnoses Elevated PSA R97.20 BPH w urinary obs/LUTS N40.1; N13.8 Complicated urinary tract infection N39.0 CPT Codes Post Residual Void - PVR CPT Code: 18595-Oskf Void Residual by ultrasound ([id number])
--- OUTSIDE RECORDS SUMMARY | 2024-09-07 00:54 | XMS_ITS | Patient Health Record ---
Author Organization [facility] Address [address] [place] [address] Care Team Providers Care Psychic Reader Name Role Phone Demond Leyva MD Primary Care Provider Arturo Schafer [phone] ALLERGIES No Known Allergies REASON FOR REFERRAL No Information MEDICATIONS Medication SIG (Take, Route, Frequency, Duration) Notes Start Date End Date Status dilTIAZem HCl ER Beads 120 MG Oral for 90 Not-Taking Eliquis 5 MG Oral for 30 Activ e MiraLax 17 GM/SCOOP as directed Orally Active IMMUNIZATIONS Vaccine Route Administration Date Status Comme nts Influenza Unknown 04/15/2022 Refused SOCIAL HISTORY Tobacco Use: Social History Observation Description Date Details (start date - stop date) Never Smoker NA - NA Sex Assigned At : Social History Observation Description Sex Assigned At Unknown Tobacco Use/Smoking Question Answer Notes Patient is a nonsmoker Alcohol Screen Question Answer Notes Did you have a drink containing alcohol in the p ast year? No Points 0 Interpretation Negative PROBLEMS Problem Type ICD Code Onset Dates Problem Status W/U Status Risk SNOMED Code Notes Problem Irregular bowel habits (R19.8) Active confirmed Irregular bow el habits (360547592) Problem Encounter for screening for malignant neoplasm of colon (Z12.11) Active confirmed Screening for malignant neoplasm of colon (404538313) Problem Diverticulosis of colon (K57.30) Active confirmed Diverticulosi s of colon (224205059) PLAN OF TREATMENT Future Test Test Name Order Date COLONOSCOPY 04/17/2022 Insurance Providers Payer Name Payer Address Payer Phone Subscriber Number Group Number Insured Name Patient Relationship to Insured Coverage Start Date Coverage End Date MEDICARE OF [place] [address] [place] [address] [id number] SILVA SALAZAR Self - patient is the insured MED[employer] ATTN CLAIMS [address] [place] [address] [id number] SILVA SALAZAR Self - patient is the insured MEDICAL (GENERAL) HISTORY Medical History History ICD Code A fib--Dr. Valencia Sleep apnea - unable to use CPAP machine Hx of elevated PSA Borderline low Vit B12 level of 202 in Surgical History Surgery Date(Month/Year) Hip surgery Appendectomy Tonsillectomy
== END 2024-09-01 10:05 | disposition home or self-care (01) ==
PROVIDERS: PCP Internal Medicine; Visit Provider Urology
DX: R97.20 Elevated prostate specific antigen [PSA] (principal); N40.1 Benign prostatic hyperplasia with lower urinary tract symptoms; N13.8 Other obstructive and reflux uropathy; N39.0 Urinary tract infection, site not specified; Z13.9 Encounter for screening, unspecified
CPT/HCPCS: 99214

== ENCOUNTER 2024-09-13 11:35 | Outpatient (AMB) | payer MEDICARE, SELFPAY ==
--- OUTSIDE RECORDS SUMMARY | 2024-09-13 11:48 | XMS_ITS ---
Author Organization [facility] [place] Address [address] [place] [address] Care Team Providers Care Social Work Specialist Name Role Phone Demond Leyva MD Primary Care Provider Jovanni Payne Unavailable [phone] Allergies No Known Allergies REASON FOR VISIT [...] an other tobacco user? No Vital Signs Height 5 ft 10 in in 04/12/2024 Weight 230 lbs 04/12/2024 BMI 33.00 kg/m2 04/12/2024 Blood pressure systolic 138 mm Hg 04/12/20 24 Blood pressure diastolic 86 mm Hg 024 Procedures Procedure Date Ordered Date Performed Result Body Sit e 55793-LCOPCIW NAIL, 6 OR MORE 04/12/2024 N/A 46712-EKLC SKIN LESIONS, 2 TO 4 04/12/2024 N/A Encounters Encounter Location Date Provider Diagnosis [facility] [place] [address] [place] [address] 04/12/2024 Jovanni Khan Atherosclerosis of rincon artery of both lower extremities, with unspecified presence of clinical manifestation I70.203 ; Tinea unguium B35.1 ; Pain in right toe(s) M79.674 and Pain in left toe(s) M79.675 Assessments Encounter Date Diagnosis (ICD Code) Assessment Notes Treatment Notes Treatment Clinical Notes Section Notes 04/12/2024 Atherosclerosis of rincon artery of both lower extremities, with unspecified presence of clinical manifestation (ICD-10 - I70.203) 04/12/2024 Tinea unguium (ICD-10 - B35.1) 04/12/2024 Pain in right toe(s) (ICD-10 - M79.674) 04/12/2024 Pain in left toe(s) (ICD-10 - M79.675) Plan Of Treatment Pending Test Test Name Order Date 83761-AHPHLSA NAIL, 6 OR MORE 04/12/2024 65622-CZHN SKIN LESIONS, 2 TO 4 04/12/20 24 Next Appt Details Follow Up: prn, Reason: Provider Name:Jovanni Zen PierceErin , 09/30/2024 01:00:00 PM, [address] [place], [address], Procedure Notes * Category Sub-Category Detail Notes [...] as necessary. Patient chooses, no pharmaceutical tx (27513) Keratoma Treatment Parring or Cutting o f Benign Hyperkeratotic Lesion(s) 19007 (2-4 Lesions) - The Benign hyperkeratotic lesions, as described above were pared, and/or cut utilizing a sterile #15 blade, tissue nippers, and/or dremel, Q8 Progress Notes * Jesus SALAZAR JrDOB:[birth year] (83 yo M)Acc No.[id number]:04/12/2024 Progress Note Patient:?Jesus Salazar Provider:?Jovanni Khan DPM :1940???Age:83 Y???Sex:Male Ilia e:04/12/2024 Address:[address] [place] [address], [facility], [place]-[id number] Pcp:Demond Leyva MD Subjective: * Chief Complaints: [...] Assessment: 1.?Tinea unguium - B35.1?2.? Atherosclerosis of rincon artery of both lower extremities, with unspecified presence of clinical manifestation - I70.203 (Primary)?3.?Pain in right toe(s) - M79.674?4.?Pain in left toe(s) - M79.675? Plan: * Treatment: 2.?Tinea unguium?Procedure: 85424-JSNVYIP NAIL, 6 OR MORE * Procedures:?Debride Nail 6-10:?Nail debridement?Nail debridement performed extensively to reduce/remove overall nail length, girth, thickness, subungual debris, and necrotic tissue, by manual and electrical means through the use of a nail nipper and/or dremel, to more viable healthy nail plate or bed tissue 1-5. Silver nitrate used for any petechial bleeding as necessary. Patient chooses, no pharmaceutical tx (08021).?Keratoma Treatment:?Parring or Cutting of Benign Hyperkeratotic Lesion(s)?70385 (2-4 Lesions) - The Benign hyperkeratotic lesions, as described above were pared, and/or cut utilizing a sterile #15 blade, tissue nippers, and/or dremel, Q8.? * Procedure Codes:?10979 DEBRI DE NAIL, 6 OR MORE, Modifiers: XS 42357 TRIM SKIN LESIONS, 2 TO 4, Modifiers: XS , Q8 * Follow Up:?prn * Images: * Sign off status: Completed true * Provider:Maryellen Khan DPM Date:?2023 Generated for Luci pizarro/Le/eTransmana rosa on:?09/13/2024 11:48 AM EST History and Physical Notes * [...]
--- OUTSIDE RECORDS SUMMARY | 2024-09-13 11:48 | XMS_ITS ---
Author Organization [facility] Address [address] [place] [address] Care Team Providers Care Portfolio Lead Name Role Phone Demond Leyva MD Primary Care Provider Jovanni Payne [phone] REASON FOR VISIT rs from 06/28 Encounters Encounter Location Date Provider Diagnosis [address] [address] 06/27/2024 Jovanni Khan Plan Of Treatment Next Appt Details Provider Name:Jovanni Khan , 09/30/2024 01:00:00 PM, [address] [place] [address], [address], Progress Notes * Jesus SALAZAR JrDOB:[birth year] (83 yo M)Acc No.[id number]:06/27/2024 Patient:?Jesus Salazar :1940???Age:83 Y???Sex:Male Address:[address] [place] [address], [address] * true * Date:? Generated for Juliai juarez/Le/eTransmitting on:?09/13/2024 11:47 AM EST
--- OUTSIDE RECORDS SUMMARY | 2024-09-13 11:48 | XMS_ITS ---
Author Organization [facility] Address [address] [place] [address] Care Team Providers Care Veterinary Science Teacher Name Role Phone Gordon GONGORA, Demond Primary Care Provider Jovanni Payne Unavailable [phone] Encounters Encounter Location Date Provider Diagnosis [address] [address] 06/28/2024 Jovanni Khan Plan Of Treatment Next Appt Details Provider Name:Jovanni Khan , 09/30/2024 01:00:00 PM, [address] [place] [address], [phone], Progress Notes * Jesus SALAZAR DOB:[birth year] (84 yo M)Acc No.[id number]:06/28/2024 Progress Note Patient:?GREGORYJesus LAYNE Provider:?Jovanni hKan DPM :1940???Age:83 Y???Sex:Male Ilia e:06/28/2024 Address:[address] [place] [address], [id number] Pcp:Demond Leyva MD Subjective: * Chief Complaints: [...] Khan DPM Date:?2023 Generated for Luci pizarro/Le/Jordyn on:?09/13/2024 11:47 AM EST
--- OUTSIDE RECORDS SUMMARY | 2024-09-13 11:48 | XMS_ITS | Patient Health Record ---
Author [facility] [place] Address [address] [place] [address] Care Team Providers Care Sales Recruiter Name Role Phone Demond Leyva MD Primary Care Provider Jovanni Payne Unavailable [phone] Allergies No Known Allergies Reason For Referral [...] W/U Status Risk Notes Problem Atherosclerosis of pilot point arteries of the extremities (459380466741683) Atherosclerosis of pilot point artery of both lower extremities, with unspecified presence of clinical manifestation (I70.203) Active confirmed Vital Signs Blood pressure diastolic 86 mm Hg 04/12/2024 Height 5 ft 10 in in 04/12/2024 Blood pressure systolic 138 mm Hg 04/12/2024 Weight 230 lbs 04/12/2024 BMI 33.00 kg/m2 04/12/2024 Procedures Procedure Date Ordered Date Performed Result Body Sit e 39768-VUQWPPW NAIL, 6 OR MORE 11/13/2023 N/A 29206-NJRB SKIN LESIONS, 2 TO 4 11/13/2023 N/A 90861-VAUUHGE NAIL, 6 OR MORE 01/22/2024 N/A 83820-NKFO SKIN LESIONS, 2 TO 4 01/22/2024 N/A 12537-LKZEFTI NAIL, 6 OR MORE 04/12/2024 N/A 72556-LBWD SKIN LESIONS, 2 TO 4 04/12/2024 N/A Encounters Encounter Location Date Provider Diagnosis [address] [address] 11/13/2023 Jovanni Erin Atherosclerosis of pilot point artery of both lower extremities, with unspecified presence of clinical manifestation I70.203 ; Tinea unguium B35.1 ; Pain in right toe(s) M79.674 and Pain in left toe(s) M79.[address] [address] 01/22/2024 Jovanni Erin Atherosclerosis of pilot point artery of both lower extremities, with unspecified presence of clinical manifestation I70.203 ; Tinea unguium B35.1 ; Pain in right toe(s) M79.674 and Pain in left toe(s) M79.[address] [address] 04/12/2024 Jovanni Erin Atherosclerosis of pilot point artery of both lower extremities, with unspecified presence of clinical manifestation I70.203 ; Tinea unguium B35.1 ; Pain in right toe(s) M79.674 and Pain in left toe(s) M79.675 [facility] [place] [address] [place] [address] 06/27/2024 Jovanni Khan Assessments Encounter Date Diagnosis (ICD Code) Assessment Notes Treatment Notes Treatment Clinical Notes Section Notes 11/13/2023 Tinea unguium (ICD-10 - B35.1) 11/13/2023 Atherosclerosis of pilot point artery of both lower extremities, with unspecified presence of clinical manifestation (ICD-10 - I70.203) 01/22/2024 Tinea unguium (ICD-10 - B35.1) 01/22/2024 Atherosclerosis of pilot point artery of both lower extremities, with unspecified presence of clinical manifestation (ICD-10 - I70.203) 04/12/2024 Tinea unguium (ICD-10 - B35.1) 04/12/2024 Atherosclerosis of pilot point artery of both lower extremities, with unspecified [...] Treatment Pending Test Test Name Order Date 35558-MZVFGTR NAIL, 6 OR MORE 03/08/2019 41509-ZWITAZK NAIL, 6 OR MORE 06/10/2019 10126-RWPFOHX NAIL, 6 OR MORE 08/19/2019 06822-AKEQEWM NAIL, 6 OR MORE 11/01/2019 16769-PVGOFZK NAIL, 6 OR MORE 01/24/2020 95585-CWLCGYJ NAIL, 6 OR MORE 04/10/2020 83148-OCZCEDK NAIL, 6 OR MORE 07/31/2020 54554-UFQMQAX NAIL, 6 OR MORE 10/16/2020 36014-QOKQCDJ NAIL, 6 OR MORE 01/15/2021 70673-CKPQBEQ NAIL, 6 OR MORE 03/22/2021 65216-PPTAWRU NAIL, 6 OR MORE 09/03/2021 11760-DIVTVYV NAIL, 6 OR MORE 11/12/2021 83617-VUNAYVJ NAIL, 6 OR MORE 01/21/2022 33548-ZTBYHSE NAIL, 6 OR MORE 04/22/2022 30963-EUCCLLA NAIL, 6 OR MORE 07/01/2022 85922-EANWDNH NAIL, 6 OR MORE 10/21/2022 83355-LCOENFW NAIL, 6 OR MORE 12/30/2022 50348-HRREHCQ NAIL, 6 OR MORE 03/17/2023 54329-GKIFXVJ NAIL, 6 OR MORE 06/08/2023 16612-KPOBBXZ NAIL, 6 OR MORE 08/25/2023 48052-UNQWRKX NAIL, 6 OR MORE 11/13/2023 03810-HIJBFDP NAIL, 6 OR MORE 01/22/2024 96317-RJBULNW NAIL, 6 OR MORE 04/12/2024 93185-Cmiq Destruction, 1-14 01/15/2021 86353-Wcwn Destruction, 1-14 10/16/2020 75486-Sxqb Destruction, 1-14 07/31/2020 03953-XMNE SKIN LESIONS, 2 TO 4 11/12/19 86144-ZIEW SKIN LESIONS, 2 TO 4 08/25/20 58660-FJLK SKIN LESIONS, 2 TO 4 06/08/20 23 19659-HNFH SKIN LESIONS, 2 TO 4 03/17/20 75567-ECSC SKIN LESIONS, 2 TO 4 12/31/19 23 19406-EVQE SKIN LESIONS, 2 TO 4 10/21/19 23 06084-VXMM SKIN LESIONS, 2 TO 4 07/01/20 94812-ARNR SKIN LESIONS, 2 TO 4 04/22/20 45334-QIYI SKIN LESIONS, 2 TO 4 01/22/20 33693-XEVJ SKIN LESIONS, 2 TO 4 04/12/20 74296-LWJC SKIN LESIONS, 2 TO 4 01/22/20 39438-VTKD SKIN LESIONS, 2 TO 4 11/13/19 Next Appt Details Provider Name:Jovanni Khan , 09/30/2024 01:00:00 PM, [address] [place], [address], Insurance Providers Payer Name Payer Address Payer Phone Subscriber Number Group Number Insured Name Patient Relationship to Insured Coverage Start Date Coverage End Date Medicare National Govt Svcs Inc [address] [place] [address] [id number] Jesus Giraldo Self - patient is the insured 5 [employer]ex Blue Shield [address] [place] [address] [id number] Jesus Giraldo Self - patient is the insured Medical (General) History Medical History History ICD Code hip OA Measles Mumps Chicken pox Surgical History Surgery Date(Month/Year) Dental Implant hip replacement - Right 04/24/20 colonoscopy 2021 Bowel resection 2021 Hospitalization History Reason Date(Month/Year) [facility] [place], hip pain 02/2021
--- OUTSIDE RECORDS SUMMARY | 2024-09-13 11:48 | XMS_ITS | Patient Health Record ---
Author Organization [facility] Address [address] [place] [address] Care Team Providers Care Traffic Expert Name Role Phone Demond Leyva MD Primary Care Provider Arturo Schafer [phone] ALLERGIES No Known Allergies REASON FOR REFERRAL [...] (R19.8) Active confirmed Irregular bow el habits (511284177) Problem Encounter for screening for malignant neoplasm of colon (Z12.11) Active confirmed Screening for malignant neoplasm of colon (812912753) Problem Diverticulosis of colon (K57.30) Active confirmed Diverticulosi s of colon (703684021) PLAN OF TREATMENT Future Test Test Name Order Date COLONOSCOPY 04/17/2022 Insurance Providers Payer Name Payer Address Payer Phone Subscriber Number Group Number Insured Name Patient Relationship to Insured Coverage Start Date Coverage End Date MEDICARE OF [place] [address] [place] [address] [id number] SILVA SALAZAR Self - patient is the insured MEDEX ATTN CLAIMS [address] [place] [address] [phone] [id number] SILVA SALAZAR Self - patient is the insured MEDICAL (GENERAL) HISTORY Medical History History ICD Code A fib--Dr. Valencia Sleep apnea - unable to use CPAP machine Hx of elevated PSA Borderline low Vit B12 level of 202 in Surgical History Surgery Date(Month/Year) Hip surgery Appendectomy Tonsillectomy
[2024-09-13 12:42] VITALS: BP 124/78; PULSE 85; BMI 34.2
--- NOTE | 2024-09-13 12:42 | A.OFFVIS_ITS ---
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 To recall, in 2019, he was diagnosed with atrial fibrillation. This happened in the setting of workup for hip surgery. We briefly used amiodarone around the time of his hip surgery but subsequently left him on beta-blockers only. Then he went back into atrial fibrillation and was not feeling too good. Attempted cardioversion, but remained in atrial fibrillation. Then we planned on amiodarone loading and re-attempt cardioversion. However even before the cardioversion he went back into sinus. He did remain in sinus for a while but then went back into atrial fibrillation. However, with regard to symptoms he felt the same with or without atrial fibrillation and hence no further attempts were made. More recently, he was complaining of some shortness of breath activity and we gave him another attempt at cardioversion. In spite of amiodarone loading, he has gone back into atrial fibrillation. Also, he feels just about the same in atrial fibrillation as well as sinus rhythm. With regard to symptoms, chronic shortness of breath and just about the same as before. Sometimes, when he gets up from a seated position, he can get dizzy but no clear syncopal episodes. No angina at any point. 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 Social History Alcohol intake: never Patient Tobacco Use Status: Never used Tobacco Current occupational status: retired Current occupation: Right Handed Review of Systems Const Denies chills, Denies fatigue, Denies fever(s), Denies weight gain and Denies weight loss ENT Denies dizziness Card Denies chest pain, Denies leg edema, Denies lightheadedness, Denies palpitations, Reports dyspnea on exertion, Denies orthopnea and Denies other Resp Denies cough and Reports dyspnea on exertion GI Denies hematochezia and Denies change in stool character Musc Denies abnormal gait, Denies muscle weakness, Denies numbness, Denies radiating pain into limb and Denies tingling Neuro Denies abnormal gait, Denies dizziness, Denies numbness and Denies tingling Endo Denies fatigue and Denies palpitations Physical Exam Vital Signs: Last Vital Signs Pulse 85 09/13/24 12:42 BP 124/78 09/13/24 12:42 BMI result Body Mass Index 34.2 Const General: comfortable and no acute distress Orientation/consciousness: patient oriented x3 HEENT Other: Unremarkable Head: Yes normal to inspection Neck Neck: Yes normal visual inspection Chest Chest palpation & inspection: normal inspection of the chest Resp Auscultation: clear to auscultation bilaterally Cardio Palpation: normal PMI Heart sounds: S1 normal heart sound present, S2 normal heart sound present, no gallops, no murmurs and no rubs GI Palpation (GI): Soft to palpation Back/Spine/Pelvis Other: unremarkable Skin General skin exam: no rashes or lesions noted Neuro General: patient oriented x3 Extrem General: Yes normal to inspection Psych Mental Status: mental status grossly normal Office Procedures EKG Details: EKG with atrial fibrillation at a rate of 85/Min. [id number], Complete Assessment & Plan Assessment & Plan (1) Persistent atrial fibrillation: Code(s): I48.19 - Other persistent atrial fibrillation Category: Medical (2) LTAASHA (obstructive sleep apnea): Comment: Code(s): G47.33 - Obstructive sleep apnea (adult) (pediatric) Category: Medical Plan In the most recent echocardiogram, LVEF is 50-55%. No wall motion abnormalities and otherwise unremarkable. In the Holter monitor, underlying atrial fibrillation with an average rate of 89/Min. Overall, adequate rate control. No significant pauses. Overall, patient has persistent/permanent atrial fibrillation and failed cardioversions in spite of amiodarone use. Additionally, he feels the same either in sinus rhythm or atrial fibrillation. Hence considering his age, recommend that he stay on rate control only on the above therapy. Continue anticoagulation. Continue CPAP without changes. Otherwise, follow-up in 6 months. If any interim concerns, to contact us. Coding Level of Care Code Est Pt Level 4 (10867) Diagnoses Persistent atrial fibrillation I48.19 LATASHA (obstructive sleep apnea) G47.33 CPT Codes EKG - CPT: 73714-[id number], Complete ([id number])
== END 2024-09-13 13:02 | disposition home or self-care (01) ==
PROVIDERS: PCP Internal Medicine; Visit Provider Internal Medicine
DX: I48.19 Other persistent atrial fibrillation (principal); G47.33 Obstructive sleep apnea (adult) (pediatric)
CPT/HCPCS: 93010; 99214

== ENCOUNTER → 2024-09-13 11:35 | Outpatient (BNVA) | payer MEDICARE, SELFPAY | PROVIDERS: PCP Internal Medicine; Visit Provider Internal Medicine | DX: I48.19 Other persistent atrial fibrillation (principal); G47.33 Obstructive sleep apnea (adult) (pediatric) | CPT/HCPCS: 93005; 99212 ==

== ENCOUNTER 2024-09-29 09:48 | Outpatient (AMB) | payer MEDICARE, SELFPAY ==
--- OUTSIDE RECORDS SUMMARY | 2024-09-29 09:51 | XMS_ITS | Patient Health Record ---
Author Organization [facility] Address [address] [place] [address] Care Team Providers Care Health Services Administrator Name Role Phone Demond Leyva MD Primary Care Provider Arturo Schafer [phone] ALLERGIES No Known Allergies REASON FOR REFERRAL [...] (R19.8) Active confirmed Irregular bow el habits (449543338) Problem Encounter for screening for malignant neoplasm of colon (Z12.11) Active confirmed Screening for malignant neoplasm of colon (440667036) Problem Diverticulosis of colon (K57.30) Active confirmed Diverticulosi s of colon (651683861) PLAN OF TREATMENT Future Test Test Name Order Date COLONOSCOPY 04/17/2022 Insurance Providers Payer Name Payer Address Payer Phone Subscriber Number Group Number Insured Name Patient Relationship to Insured Coverage Start Date Coverage End Date MEDICARE OF [place] [address] [place] [address] [id number] SILVA SALAZAR Self - patient is the insured [employer] ATT[employer] CLAIMS [address] [place] [phone] [id number] SILVA SALAZAR Self - patient is the insured MEDICAL (GENERAL) HISTORY Medical History History ICD Code A fib--Dr. Valencia Sleep apnea - unable to use CPAP machine Hx of elevated PSA Borderline low Vit B12 level of 202 in Surgical History Surgery Date(Month/Year) Hip surgery Appendectomy Tonsillectomy
[2024-09-29 10:15] VITALS: BP 120/80; PULSE 83; O2SAT 96; BMI 33.8
--- NOTE | 2024-09-29 10:15 | MHC.OFFVIS ---
Vital Signs 09/29/24 10:15 Height 5 ft 10 in Weight 235 lb 14.314 oz BMI 33.8 BP 120/80 Blood Pressure Location Lt brachial Position Sitting Pulse 83 Pulse Source Pulse Oximeter Pulse Oximetry (%) 96 Oxygen Delivery Method Room Air Intake Visit Reasons: andreas Intake Note: pt is here for ANDREAS and he feels okay and he does feel short of breath with walking. 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 HE IS USING CPAP MORE REGULARLY, ALMOST EVERY NIGHT AND MISSED ONLY 2 NIGHTS IN THE WHOLE MONTH. HOWEVER HE IS KEEPING THE CPAP ON FOR ONLY 2-1/2 HOURS ON AN AVERAGE. HE WAKES UP FREQUENTLY TO GO TO THE BATHROOM AND SOMETIMES FORGETS TO PUT THE CPAP ON WHEN HE COMES BACK. ACCORDING TO HIS HE DOES LOOK BETTER WITH THE BETTER COLOR WHEN HE IS USING THE CPAP. HE HIMSELF IS NOT AWARE OF ANY DIFFERENCE. HE STILL CONTINUES TO HAVE SHORTNESS OF BREATH WHEN HE WALKS AROUND, BUT NO COUGH OR WHEEZING. 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 Social History Alcohol intake: never Patient Tobacco Use Status: Never used Tobacco Current occupational status: retired Current occupation: Right Handed Review of Systems Const All systems reviewed & are unremarkable except as noted in HPI and below Eyes Reports no additional complaints ENT Reports no additional complaints Card Denies chest pain, Reports irregular heart rhythm, Denies leg edema and Reports dyspnea on exertion (mild) Resp Reports dyspnea on exertion (mild) GI Reports no additional complaints Reports no additional complaints Musc Reports no additional complaints Skin/Breast Reports system reviewed and no additional complaints, except as documented Neuro Reports no additional complaints Psych Reports no additional complaints Physical Exam Vital Signs: Last Vital Signs Pulse 83 09/29/24 10:15 BP 120/80 09/29/24 10:15 Pulse Ox 96 09/29/24 10:15 Oxygen Delivery Method Room Air 09/29/24 10:15 BMI result Body Mass Index 34.2 Const General: healthy appearing (Except for being overweight), comfortable, no acute distress, alert and awake Orientation/consciousness: patient oriented x3 HEENT Head: Yes normal to inspection General nose exam: No nasal polyps present and No nasal discharge present Face and sinus: Yes sinuses nontender Mouth: oropharynx normal Throat: Yes posterior oropharynx normal Eyes General: appearance normal, both eyes and all related structures Neck Neck: Yes normal visual inspection, Yes no lymphadenopathy, Yes trachea midline and Yes no JVD Thyroid: Thyroid normal Chest Chest palpation & inspection: normal inspection of the chest, normal palpation of entire chest wall and no tenderness Resp Effort & Inspection: normal respiratory effort Auscultation: clear to auscultation bilaterally, no crackles and no wheezes Percussion: percussion normal Cardio Palpation: normal PMI Rate: regular rate Rhythm: abnormal rhythm (Atrial fib) Heart sounds: no gallops and no murmurs Peripheral pulses: Peripheral pulses 2+ throughout GI Palpation (GI): Soft to palpation, nontender, No hepatosplenomegaly present, no masses and Other GI palpation findings present (Abdomen is moderately obese and protuberant) Auscultation: normal bowel sounds Back/Spine/Pelvis Thoracic/Lumbar Spine: thoracic and lumbar spine normal to inspection Skin General skin exam: no rashes or lesions noted Neuro General: patient oriented x3 and no focal motor deficits Cranial nerves: Yes CN's II-XII intact bilaterally Extrem General: Yes normal to inspection, Yes no clubbing, cyanosis or edema and Yes no calf tenderness Psych Appearance: grossly normal and well kempt Speech and movement: Normal speech and movement present Results Reviewed Results Reviewed: COMPLIANCE REPORT FOR THE LAST 30 NIGHTS IS REVIEWED. USED 28/30 NIGHTS., 93% AVERAGE USE IT PER NIGHT 2 HOURS 38 MINUTES THIS IS STILL SUBOPTIMAL. HAS VERY LITTLE AIR LEAK. RESIDUAL AHI ONLY 1.7 Assessment & Plan Assessment & Plan (1) Obesity (BMI 30-39.9): Comment: Remains moderately obese. He is not able to lose much weight. as he cannot do much exercise Code(s): E66.9 - Obesity, unspecified Category: Medical Plan: ENCOURAGED TO CUT DOWN THE CALORIES INTAKE ESPECIALLY IN THE FORM OF CARBOHYDRATES . (2) ANDREAS (obstructive sleep apnea): Comment: HE DOES HAVE OBSTRUCTIVE SLEEP APNEA WHICH IS BEING TREATED WITH USE OF CPAP. HE USES NASAL MASK WHICH IS COMFORTABLE, THERE IS NOT MUCH AIR LEAK. USING THE CPAP MORE REGULARLY, BUT HIS DURATION OF USAGE AT NIGHT IS STILL SUBOPTIMAL. Code(s): G47.33 - Obstructive sleep apnea (adult) (pediatric) Category: Medical Plan: ADVISED TO KEEP ON USING CPAP EVERY NIGHT REGULARLY. TRY TO PUT THE CPAP ON AFTER COMING BACK FROM THE BATHROOM, . DURING THE NIGHT'S ALSO TRY TO USE THE CPAP FOR ABOUT 2 HOURS DURING THE DAYTIME WHEN SLEEPING IN THE RECLINER. (3) Dyspnea on exertion: Comment: DYSPNEA ON EXERTION FOR THE LAST FEW YEARS. * As per pulmonary function test he does not have obstructive or restrictive pulmonary disorder. Dyspnea on exertion is probably functional, may be contributed by his abdominal obesity, and atrial fibrillation. PULMONARY FUNCTION TEST IN 2020 WAS NORMAL SPIROMETRY TODAY IN THE OFFICE IS ALSO NORMAL. Code(s): R06.00 - Dyspnea, unspecified Category: Medical Plan: AGAIN EXPLAINED THAT HE NEEDS TO DO GENTLE EXERCISE DAILY, . WITH DEEP BREATHING EXERCISES ALSO EXPLAINED THAT PART OF HIS DYSPNEA ON EXERTION IS DUE TO HIS UNDERLYING CARDIAC CONDITION. Coding Level of Care Code Est Pt Level 3 (33298) Diagnoses Obesity (BMI 30-39.9) E66.9 ANDREAS (obstructive sleep apnea) G47.33 Dyspnea on exertion R06.00
== END 2024-09-29 10:34 | disposition home or self-care (01) ==
PROVIDERS: PCP Internal Medicine; Visit Provider Internal Medicine
DX: E66.9 Obesity, unspecified (principal); G47.33 Obstructive sleep apnea (adult) (pediatric); R06.00 Dyspnea, unspecified
CPT/HCPCS: 99213

== ENCOUNTER → 2024-09-29 09:48 | Outpatient (BNVA) | payer MEDICARE, SELFPAY | PROVIDERS: PCP Internal Medicine; Visit Provider Internal Medicine | DX: G47.33 Obstructive sleep apnea (adult) (pediatric) (principal); E66.9 Obesity, unspecified; R06.00 Dyspnea, unspecified; Z68.33 Body mass index [BMI] 33.0-33.9, adult | CPT/HCPCS: 99212 ==

== ENCOUNTER 2024-12-20 12:55 | Outpatient (AMB) | payer MEDICARE, SELFPAY ==
[2024-12-20 12:58] VITALS: BP 110/68; PULSE 90; BMI 34.9
--- NOTE | 2024-12-20 12:58 | A.OFFVIS_ITS ---
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: No Accompanied by: Self / Same As Patient Allergies No Known Allergies [No Known Allergies*] Allergy (Verified 09/29/24 10:24) Medication List - Last Reconciled 12/20/24 by Kamaljit Perez NP apixaban (Eliquis) 5 mg PO BID diltiazem HCl ER 120 mg PO DAILY vitamins A,C,D-kcoz-hqiywa 4,296 mcg-226 mg-90 mg (PreserVision AREDS) 1 cap PO BID HPI Comments Details: This is an 84-year-old male patient with a history of persistent atrial fibrillation previously failed amiodarone therapy as well as cardioversion, reduced heart function, sleep apnea, and obesity who presents for an office visit with complaints of worsening shortness of breath and edema. The patient reports that his shortness of breath has been ongoing but has worsened over the past few days, along with the onset of new leg swelling. He denies any associated symptoms of exertional chest pain, palpitations, orthopnea, PND, presyncope, or syncope. The patient also mentions chronic feeling dizzy at time s but notes no recent episodes of significant lightheadedness or fainting. The patient states he has been compliant with his prescribed medications. 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 Social History Alcohol intake: never Patient Tobacco Use Status: Never used Tobacco Current occupational status: retired Current occupation: Right Handed Review of Systems Const Denies chills, Denies fatigue, Denies fever(s), Denies weight gain and Denies weight loss ENT Reports dizziness Card Denies chest pain, Reports leg edema, Denies lightheadedness, Denies palpitations, Reports dyspnea on exertion, Denies orthopnea and Denies other Resp Denies cough and Reports dyspnea on exertion GI Denies hematochezia and Denies change in stool character Musc Denies abnormal gait, Denies muscle weakness, Denies numbness, Denies radiating pain into limb and Denies tingling Neuro Denies abnormal gait, Reports dizziness, Denies numbness and Denies tingling Endo Denies fatigue and Denies palpitations Physical Exam Vital Signs: Last Vital Signs Pulse 90 12/20/24 12:58 BP 110/68 12/20/24 12:58 BMI result Body Mass Index 34.9 Const General: cooperative, healthy appearing, comfortable and no acute distress Orientation/consciousness: patient oriented x3 HEENT Head: Yes normal to inspection Neck Neck: Yes normal visual inspection, Yes trachea midline and Yes supple Chest Chest palpation & inspection: normal inspection of the chest Resp Effort & Inspection: normal respiratory effort Auscultation: clear to auscultation bilaterally, no crackles, no rales, no rhonchi and no wheezes Cardio Jugular venous distension: no JVD Palpation: normal PMI Rate: regular rate Rhythm: abnormal rhythm Heart sounds: S1 normal heart sound present, S2 normal heart sound present, no click, no gallops, no murmurs and no rubs Peripheral pulses: Peripheral pulses 2+ throughout GI Inspection: Yes normal to inspection Palpation (GI): Soft to palpation Auscultation: normal bowel sounds Skin General skin exam: no rashes or lesions noted Neuro General: patient oriented x3 Extrem General: Yes normal to inspection and Yes edema (1+ pitting edema to b/l LE) Psych Appearance: grossly normal Mental Status: mental status grossly normal Speech and movement: Normal speech and movement present Assessment & Plan Assessment & Plan (1) Heart failure with reduced ejection fraction: Code(s): I50.20 - Unspecified systolic (congestive) heart failure Category: Medical Plan: 08/22/2024-echo study showed a low-normal ejection fraction between 50-55%, with no wall motion or valvular abnormalities. Given the patient's current presentation with leg swelling and worsening shortness of breath, we will initiate low-dose diuretic therapy to address fluid overload. We will check labs in 1 month. Reviewed the signs of heart failure in detail to ensure patient is aware of symptoms that may require prompt attention. Advised patient to stay on a low-s alt diet, fluid restriction, daily weight monitoring, and regular blood pressure checks. (2) Persistent atrial fibrillation: Code(s): I48.19 - Other persistent atrial fibrillation Category: Medical Plan: History of failed cardioversion and amiodarone therapy for persistent AFib. Holter showed controlled rate for AFib. Continue rate control approach with diltiazem. Continue Eliquis for full anticoagulation therapy. We will monitor labs periodically. Patient denies any signs of bleeding. (3) LATASHA (obstructive sleep apnea): Comment: HE DOES HAVE OBSTRUCTIVE SLEEP APNEA WHICH IS BEING TREATED WITH USE OF CPAP. HE USES NASAL MASK WHICH IS COMFORTABLE, THERE IS NOT MUCH AIR LEAK. USING THE CPAP MORE REGULARLY, BUT HIS DURATION OF USAGE AT NIGHT IS STILL SUBOPTIMAL. Code(s): G47.33 - Obstructive sleep apnea (adult) (pediatric) Category: Medical Plan: Continue CPAP therapy. Patient will follow-up in the office in 3 months, sooner if needed. In the interim, patient will call the office with any concerns or change in symptoms. This note was generated using voice recognition software. While every effort has been made to ensure accuracy and proper presser first, there may be occasional errors that could affect the content or meaning of the described symptoms. Orders: Orders Basic Metabolic Panel 1 Month I48.19 - Other persistent atrial fibrillation CA echo transthoracic complete 1 Month I50.20 - Unspecified systolic (congestive) heart failure Medications: New furosemide 20 mg PO DAILY 60 tabs 2RF Coding Level of Care Code Est Pt Level 4 (66556) Complex EM visit Add On G2211 Diagnoses Heart failure with reduced ejection fraction I50.20 Persistent atrial fibrillation I48.19 LATASHA (obstructive sleep apnea) G47.33 Time Spent (min) 32 Comment Time spent in reviewing the chart, test results, assessment, counseling and documentation.
--- OUTSIDE RECORDS SUMMARY | 2024-12-20 15:40 | XMS_ITS ---
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 Generated for Juliai juarez/Le/eTransmitting on:?12/20/2024 03:40 PM EDT
--- OUTSIDE RECORDS SUMMARY | 2024-12-20 15:40 | XMS_ITS | Patient Health Record ---
[facility] [place] Address [address] [place] [address] Care Team Providers Care Leather Whitener Name Role Phone Demond Leyva MD Primary Care Provider Jovanni Payne Unavailable [phone] Allergies No Known Allergies Reason For Referral No Information Medications Medication SIG (Take, Route, Frequency, Duration) Notes Start Date End Date Status Tylenol PRN Not-Taking Finasteride 5 MG 1 tablet Orally Once a day Not-Taking Flomax Not-Taking Amiodarone HCl 200 MG Oral for 90 Not-Taking Eliquis 5 MG as directed Orally Twice a day Active MiraLax Active Proscar 5 MG 1 tablet Orally Once a day for 30 day(s) Not-Taking dilTIAZem HCl ER 120 MG 1 capsule Orally Once a day Active Senokot 8.6 MG 2 tablets at bedtime as needed Orally Once a day for 30 day(s) Not-Taking Fiber Active advil PRN Not-Taking Metoprolol Succinate 50 MG 1 capsule Orally Once a day Not-Taking Immunizations Vaccine Route Administration Date Status [...] W/U Status Risk Notes Problem Atherosclerosis of [place] arteries of the extremities ([id number]) Atherosclerosis of [place] artery of both lower extremities, with unspecified presence of clinical manifestation (I70.203) Active confirmed Vital Signs Blood pressure diastolic 81 mm Hg 09/30/2024 Height 5 ft 10 in in 09/30/2024 Blood pressure systolic 122 mm Hg 09/30/2024 Weight 236 lbs 09/30/2024 BMI 33.86 kg/m2 09/30/2024 Procedures Procedure Date Ordered Date Performed Result Body Sit e 01042-WSUFURJ NAIL, 6 OR MORE 01/22/2024 N/A 43691-XXOE SKIN LESIONS, 2 TO 4 01/22/2024 N/A 69939-AHVXWYL NAIL, 6 OR MORE 04/12/2024 N/A 60511-SJEB SKIN LESIONS, 2 TO 4 04/12/2024 N/A 52784-IFOGYEG NAIL, 6 OR MORE 09/30/2024 N/A 91460-AQXF SKIN LESIONS, 2 TO 4 09/30/2024 N/A Encounters Encounter Location Date Provider Diagnosis [address] [address] 01/22/2024 Jovanni Erin Atherosclerosis of [place] artery of both lower extremities, with unspecified presence of clinical manifestation I70.203 ; Tinea unguium B35.1 ; Pain in right toe(s) M79.674 and Pain in left toe(s) M79.[address] [address] 04/12/2024 Jovanni Erin Atherosclerosis of [place] artery of both lower extremities, with unspecified presence of clinical manifestation I70.203 ; Tinea unguium B35.1 ; Pain in right toe(s) M79.674 and Pain in left toe(s) M79.[address] [address] 09/30/2024 Jovanni Erin Atherosclerosis of [place] artery of both lower extremities, with unspecified presence of clinical manifestation I70.203 ; Tinea unguium B35.1 ; Pain in right toe(s) M79.674 and Pain in left toe(s) M79.675 [facility] [address] [place] [address] 06/27/2024 Jovanni Khan Assessments Encounter Date Diagnosis (ICD Code) Assessment Notes Treatment Notes Treatment Clinical Notes Section Notes 01/22/2024 Tinea unguium (ICD-10 - B35.1) 01/22/2024 Atherosclerosis of [place] artery of both lower extremities, with unspecified presence of clinical manifestation (ICD-10 - I70.203) 04/12/2024 Tinea unguium (ICD-10 - B35.1) 04/12/2024 Atherosclerosis of [place] artery of both lower extremities, with unspecified presence of clinical manifestation (ICD-10 - I70.203) 09/30/2024 Tinea unguium (ICD-10 - B35.1) 09/30/2024 Atherosclerosis of [place] artery of both lower extremities, with unspecified presence of clinical manifestation (ICD-10 - I70.203) 04/12/2024 Pain in right toe(s) (ICD-10 - M79.674) 09/30/2024 Pain in right toe(s) (ICD-10 - M79.674) 01/22/2024 Pain in right toe(s) (ICD-10 - M79.674) 01/22/2024 Pain in left toe(s) (ICD-10 - M79.675) 09/30/2024 Pain in left toe(s) (ICD-10 - M79.675) 04/12/2024 Pain in left toe(s) (ICD-10 - M79.675) Plan Of Treatment Pending Test Test Name Order Date 58757-IAFHAHI NAIL, 6 OR MORE 03/08/2019 58273-NNPOPTO NAIL, 6 OR MORE 06/10/2019 53600-HPYPZCW NAIL, 6 OR MORE 08/19/2019 35571-CERKXRF NAIL, 6 OR MORE 11/01/2019 41054-RQESKTK NAIL, 6 OR MORE 01/24/2020 73022-IEDCRPN NAIL, 6 OR MORE 04/10/2020 74960-BMSFVFE NAIL, 6 OR MORE 07/31/2020 82456-TMZJJGF NAIL, 6 OR MORE 10/16/2020 23671-GORXALP NAIL, 6 OR MORE 01/15/2021 04394-TBQZFFU NAIL, 6 OR MORE 03/22/2021 18010-APYHZBJ NAIL, 6 OR MORE 09/03/2021 90877-YBVVESP NAIL, 6 OR MORE 11/12/2021 50947-ZNQLVHR NAIL, 6 OR MORE 01/21/2022 57577-CPGTBTP NAIL, 6 OR MORE 04/22/2022 31598-VVNWTXO NAIL, 6 OR MORE 07/01/2022 21556-OBOKJZZ NAIL, 6 OR MORE 10/21/2022 11093-IPMNKYH NAIL, 6 OR MORE 12/30/2022 61045-QJEUNNY NAIL, 6 OR MORE 03/17/2023 05114-TPPZJMO NAIL, 6 OR MORE 06/08/2023 93833-FMGHVBN NAIL, 6 OR MORE 08/25/2023 76678-HFVJZFV NAIL, 6 OR MORE 11/13/2023 32216-LFESUDS NAIL, 6 OR MORE 01/22/2024 24538-FFGLDTK NAIL, 6 OR MORE 04/12/2024 07676-MEUDZVK NAIL, 6 OR MORE 09/30/2024 33297-Wjqy Destruction, 1-14 01/15/2021 88286-Uebc Destruction, 1-14 10/16/2020 52093-Iexz Destruction, 1-14 07/31/2020 68972-NGXU SKIN LESIONS, 2 TO 4 11/12/19 21242-ACPT SKIN LESIONS, 2 TO 4 08/25/20 65774-DNJU SKIN LESIONS, 2 TO 4 06/08/20 79432-TGBV SKIN LESIONS, 2 TO 4 03/17/20 87926-IWYO SKIN LESIONS, 2 TO 4 12/31/19 92844-JNRM SKIN LESIONS, 2 TO 4 10/21/19 63556-NFTO SKIN LESIONS, 2 TO 4 07/01/20 99403-YGJD SKIN LESIONS, 2 TO 4 04/22/20 98410-CKWY SKIN LESIONS, 2 TO 4 01/22/20 98001-STUQ SKIN LESIONS, 2 TO 4 09/30/19 32294-DION SKIN LESIONS, 2 TO 4 04/12/20 55163-NVHO SKIN LESIONS, 2 TO 4 01/22/20 41263-LYRH SKIN LESIONS, 2 TO 4 02/16/20 24 Next Appt Details Provider Name:Jovanni Khan , 12/27/2024 03:30:00 PM, [address] [facility], [place], [address], Insurance Providers Payer Name Payer Address Payer Phone Subscriber Number Group Number Insured Name Patient Relationship to Insured Coverage Start Date Coverage End Date Medicare National Govt [employer] [address] [place] [address] [id number] Jesus Giraldo Self - patient is the insured 5 [employer] [address] [place] [address] [id number] Jesus Giraldo Self - patient is the insured Medical (General) History Medical History History ICD Code hip OA Measles Mumps Chicken pox Surgical History Surgery Date(Month/Year) Dental Implant 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
--- OUTSIDE RECORDS SUMMARY | 2024-12-20 15:40 | XMS_ITS ---
Author Organization [facility] Address [address] [place] [address] Care Team Providers Care Steel Shot Header Operator Name Role Phone Gordon GONGORA, Demond Primary Care Provider Jovanni Payne Unavailable [phone] Encounters Encounter Location Date Provider Diagnosis [address] [address] 06/28/2024 Jovanni Khan Plan Of Treatment Next Appt Details Provider Name:Jovanni Khan , 12/27/2024 03:30:00 PM, [address] [place] [address], [phone], Progress Notes * Jesus SALAZAR DOB:[birth year] (84 yo M)Acc No.[id number]:06/28/2024 Progress Note Patient:?GREGORYJesus LAYNE Provider:?Jovanni Khan DPM :1940???Age:83 Y???Sex:Male Ilia e:06/28/2024 Address:[address] [place] [address], [id number] Pcp:Demond Leyva MD Subjective: * Chief Complaints: [...] Khan DPM Date:?2023 Generated for Luci pizarro/Le/Jordyn on:?12/20/2024 03:40 PM EDT
--- OUTSIDE RECORDS SUMMARY | 2024-12-20 15:40 | XMS_ITS ---
Author Organization [facility] [place] Address [address] [place] [address] Care Team Providers Care Family Sociologist Name Role Phone Demond Leyva MD Primary Care Provider Jovanni Payne Unavailable [phone] Allergies No Known Allergies REASON FOR VISIT At Risk Footcare, Painful Nail(s) aggrevated by shoes and causing difficulty standing/walking. Medications Medication SIG (Take, Route, Frequency, Duration) Notes Start Date End Date Status Tylenol PRN Not-Taking Finasteride 5 MG 1 tablet Orally Once a day Not-Taking Senokot 8.6 MG 2 tablets at bedtime as needed Orally Once a day for 30 day(s) Not-Taking advil PRN Not-Taking Metoprolol Succinate 50 MG 1 capsule Orally Once a day Not-Taking Flomax Not-Taking Amiodarone HCl 200 MG Oral for 90 Not-Taking Eliquis 5 MG as directed Orally Twice a day Active MiraLax Active dilTIAZem HCl ER 120 MG 1 capsule Orally Once a day Active Proscar 5 MG 1 tablet Orally Once a day for 30 day(s) Not-Taking Fiber Active Social History Tobacco Use: Social History Observation Description Date Details (start date - stop date) Never Smoker NA - NA Tobacco Use/Smoking Question Answer Notes Are you a: nonsmoker Additional Findings: Tobacco Non-User Current no n-smoker Tobacco use other than smoking: Question Answer Notes Are you an other tobacco user? No Vital Signs Height 5 ft 10 in in 09/30/2024 Weight 236 lbs 09/30/2024 BMI 33.86 kg/m2 09/30/2024 Blood pressure systolic 122 mm Hg 09/30/19 25 Blood pressure diastolic 81 mm Hg 025 Procedures Procedure Date Ordered Date Performed Result Body Sit e 31313-EAIKMBU NAIL, 6 OR MORE 09/30/2024 N/A 57068-IXMM SKIN LESIONS, 2 TO 4 09/30/2024 N/A Encounters Encounter Location Date Provider Diagnosis [facility] [address] [address] 09/30/2024 Jovanni Khan Atherosclerosis of [place] artery of both lower extremities, with unspecified presence of clinical manifestation I70.203 ; Tinea unguium B35.1 ; Pain in right toe(s) M79.674 and Pain in left toe(s) M79.675 Assessments Encounter Date Diagnosis (ICD Code) Assessment Notes Treatment Notes Treatment Clinical Notes Section Notes 09/30/2024 Atherosclerosis of [place] artery of both lower extremities, with unspecified presence of clinical manifestation (ICD-10 - I70.203) 09/30/2024 Tinea unguium (ICD-10 - B35.1) 09/30/2024 Pain in right toe(s) (ICD-10 - M79.674) 09/30/2024 Pain in left toe(s) (ICD-10 - M79.675) Plan Of Treatment Pending Test Test Name Order Date 86528-RLBNWCE NAIL, 6 OR MORE 09/30/2024 81206-KYXS SKIN LESIONS, 2 TO 4 09/30/19 25 Next Appt Details Follow Up: prn, Reason: Provider Name:Jovanni Khan , 12/27/2024 03:30:00 PM, [address] [place] [address], [phone], Procedure Notes * Category Sub-Category Detail Notes Debride Nail 6-10 Nail debridement Due to the cl inical pathology outlined in the exam findings, performance of this nail treatment is medically necessary as its management by an unskilled/untrained nonprofessional would put this patients foot and overall health at risk. Therefore, debridement to affected nail(s), as described in exam ( TA, T1, T2, T3, T4, T5, T6, T8, T9), was performed exclusively by the physician of record to reduce/remove overall nail length, girth, thickness, subungual debris, and necrotic tissue, by manual and/or electrical means through the use of a nail nipper and/or dremel-type custom grinder, to a more viable healthy nail plate or bed tissue 6-10 nails in total. Silver nitrate was used for any petechial bleeding as necessary. Definitive antifungal treatment options, both pharmaceutical and surgical, have been reviewed and discussed with the patient. The patient solely prefers the use of intermittent/as needed professional debridement services for their nail condition and understands the need for additional periodic treatments to maintain effectiveness in symptomatic relief - 63363 Keratoma Treatment Parring or Cutting o f Benign Hyperkeratotic Lesion(s) (-56) 2-4 Lesions - Due to the at risk nature of the patients medical condition as documented in the exam findings, performance of this keratoderma treatment is medically necessary as its management by an unskilled/untrained nonprofessional would put this patients foot and overall health at risk. Therefore, the benign hyperkeratotic lesions, ( 4) in total, locations as stated and described in the exam ( Medial, IPJ, TA, Medial, IPJ, T5, SUB MTH (s), 1, Left, SUB MTH (s), 5, Left ), were pared, and/or cut utilizing a sterile 15 blade, tissue nippers, and/or power dremel instrumentation by the physician of record - 40091, Q8 Progress Notes * Jesus SALAZAR JrDOB:[birth year] (84 yo M)Acc No.[id number]:09/30/2024 Progress Note Patient:?Jesus SALAZAR Jr Provider:?Jovanni Khan DPM :1940???Age:84 Y???Sex:Male Ilia e:09/30/2024 Address:[address] [place] [address], [place], [id number] Pcp:Demond Leyva MD Subjective: * Chief Complaints: * ???At Risk FootcarePainful N ail(s) aggrevated by shoes and causing difficulty standing/walking. * HPI: ???At Risk footcare:?Pt States Last PCP Visit:?Date?08/29/2024 ?Misc?Patient accompanied by, .? * ROS:?General/Constitutional:?Nausea?denies.?Vomiting?denies.?Hunger Thirst?denies.?Loss appetite?denies.?Chills?denies.?Fatigue?denies.?Fever?denies.?Night Sweats?denies.?Unexplained weight loss?denies.?Unexplained [...] hip replacement - Right 04/24/20colonoscopy owel resection ataract surgery 06/2024 * Hospitalization/Major Diagno stic Procedure:[place] [place], hip pain 02/2021 * Family History:?Mother: dece ased.?Father: .? * Social History:?Tobacco Use:?Tobacco Use/Smoking?Are you a:?nonsmoker ?Additional Findings: Tobacco Non-User?Current non-smoker ?Tobacco use other than smoking?Are you an other tobacco user??No * Medications:?TakingFiber dil TIAZem HCl ER 120 MG Capsule Extended Release 12 Hour 1 capsule Orally Once a day Eliquis 5 MG Tablet as directed Orally Twice a day MiraLax Taking Fiber Taking dilTIAZem HCl ER 120 MG Capsule Extended Release 12 Hour 1 capsule Orally Once a day Taking Eliquis 5 MG Tablet as directed Orally Twice a day Taking MiraLax Not-Taking/PRNProscar 5 MG Tablet 1 tablet Orally Once a day Flomax Amiodarone HCl 200 MG Tablet Oral Tylenol , Notes to Pharmacist: PRNFinasteride 5 MG Tablet 1 tablet Orally Once a day Metoprolol Succinate 50 MG Capsule ER 24 Hour Sprinkle 1 capsule Orally Once a day Senokot 8.6 MG Tablet 2 tablets at bedtime as needed Orally Once a day advil , Notes to Pharmacist: PRNMedication List reviewed and reconciled with the patientNot-Taking/PRN Proscar 5 MG Tablet 1 tablet Orally Once a day Not-Taking/PRN Flomax Not-Taking/PRN Amiodarone HCl 200 MG Tablet Oral Not-Taking/PRN Tylenol , Notes to Pharmacist: PRNNot-Taking/PRN Finasteride 5 MG Tablet 1 tablet Orally Once a day Not-Taking/PRN Metoprolol Succinate 50 MG Capsule ER 24 Hour Sprinkle 1 capsule Orally Once a day Not-Taking/PRN Senokot 8.6 MG Tablet 2 tablets at bedtime as needed Orally Once a day Not-Taking/PRN advil , Notes to Pharmacist: PRNMedication List reviewed and reconciled with the patient * Allergies:?N.K.D.A.yes[Aller gies Verified] Objective: * Vitals:?Ht: 5 ft 10 in, Wt: 236, BMI: 33.86, Shoe size: 11, BP: 122/81 mm Hg, Wt-k.05 kg. * Examination: ???Vascular: ?DP PULSES (B):? 0-1/4, B/L.?PT PULSES (B):? 0-1/4, B/L.?CAPILLARY FILL TIME:? delayed, all digits, B/L.?TROPHIC CONDITION-TEXTURE/ELASTICITY/TURGOR/HAIR GROWTH (B):? decreased,?with sparse to absent hair growth, B/L.?TEMPERTURE GRADIENT (C):? decreased, cool to cool, proximal to distal, B/L.?PIGMENTATION:? rubrous, B/L.?EDEMA (C):? 1/4, non-pitting, without aching pain, B/L, Leg(s), Ankle(s), Feet.?CLAUDICATION (C):?denies, B/L.?REST PAIN:?denies, B/L.?Nails: ?NAILS are:?Elongated, overgrown, dystrophic, lytic, greater than 3mm thick, discolored and friable with crumbly malodorous subungual debris, with pain on palpation, TA, T1, T2, T3, T4, T5, T6, T8, T9, all other nails not described with characteristics as possessing mycosis are elongated, overgrown, and dystrophic.?Dermatologic: ?SKIN FINDINGS:?Skin exam reveals Keratotic lesion(s) located at , Medial, IPJ, TA, Medial, IPJ, T5, SUB MTH (s), 1, Left, SUB MTH (s), 5, Left .? Assessment: * Assessment: 1.?Tinea unguium - B35.1???2 .?Atherosclerosis of [place] artery of both lower extremities, with unspecified presence of clinical manifestation - I70.203 (Primary)???3.?Pain in right toe(s) - M79.674???4.?Pain in left toe(s) - M79.675??? Plan: * Treatment: 2.?Tinea unguium?Procedure: 52579-WIJKGAQ NAIL, 6 OR MORE * Procedures:?Debride Nail 6-10:?Nail debridement?Due to the clinical pathology outlined in the exam findings, performance of this nail treatment is medically necessary as its management by an unskilled/untrained nonprofessional would put this patients foot and overall health at risk. Therefore, debridement to affected nail(s), as described in exam (??TA, T1, T2, T3, T4,?T5,?T6,?T8,?T9), was performed exclusively by the physician of record to reduce/remove overall nail length, girth, thickness, subungual debris, and necrotic tissue, by manual and/or electrical means through the use of a nail nipper and/or dremel-type custom grinder, to a more viable healthy nail plate or bed tissue 6-10 nails in total. Silver nitrate was used for any petechial bleeding as necessary. Definitive antifungal treatment options, both pharmaceutical and surgical, have been reviewed and discussed with the patient. The patient solely prefers the use of intermittent/as needed professional debridement services for their nail condition and understands the need for additional periodic treatments to maintain effectiveness in symptomatic relief - 74301.?Keratoma Treatment:?Parring or Cutting of Benign Hyperkeratotic Lesion(s)?(-56) 2-4 Lesions - Due to the at risk nature of the patients medical condition as documented in the exam findings, performance of this keratoderma treatment is medically necessary as its management by an unskilled/untrained nonprofessional would put this patients foot and overall health at risk. Therefore, the benign hyperkeratotic lesions, ( 4) in total, locations as stated and described in the exam (?Medial,?IPJ,?TA,?Medial,?IPJ,?T5,?SUB MTH (s),?1,?Left,?SUB MTH (s),?5,?Left?), were pared, and/or cut utilizing a sterile 15 blade, tissue nippers, and/or power dremel instrumentation by the physician of record - 27602, Q8.? * Procedure Codes:?61190 DEBRI DE NAIL, 6 OR MORE, Modifiers: XS 66982 TRIM SKIN LESIONS, 2 TO 4, Modifiers: XS , Q8 * Follow Up:?prn * Images: * Sign off status: Completed true * Provider:?Jovanni Khna DPM Date:?2024 Generated for Luci pizarro/Le/Jordyn on:?12/20/2024 03:40 PM EDT History and Physical Notes * HPI (History of Present Illness) Category Sub-Category Detail Notes Category Not es At Risk footcare Pt States Last PCP Visit: Date: 4 [facility] [place] Patient accompanied by, Examination Category Sub-Category Detail Notes Category Not es Dermatologic SKIN FINDINGS: Skin exam reveal s Keratotic lesion(s) located at , Medial, IPJ, TA, Medial, IPJ, T5, SUB MTH (s), 1, Left, SUB MTH (s), 5, Left Vascular DP PULSES (B): 0-1/4, B/L PT PULSES (B): 0-1/4, B/L CAPILLARY FILL TIME: delayed, all digits , B/L TEMPERTURE GRADIENT (C): decreased, cool to cool, proximal to distal, B/L TROPHIC CONDITION-TEXTURE/ELASTICITY/TURGOR/HAIR GROWTH (B): decreased, with sparse to absent hair gr owth, B/L EDEMA (C): 1/4, non-pitting, wi thout aching pain, B/L, Leg(s), Ankle(s), Feet CLAUDICATION (C): denies, B/L REST PAIN: denies, B/L PIGMENTATION: rubrous, B/L Nails NAILS are: Elongated, overg rown, dystrophic, lytic, greater than 3mm thick, discolored and friable with crumbly malodorous subungual debris, with pain on palpation, TA, T1, T2, T3, T4, T5, T6, T8, T9, all other nails not described with characteristics as possessing mycosis are elongated, overgrown, and dystrophic
== END 2024-12-20 13:26 | disposition home or self-care (01) ==
LOC: HO.HCS 12:55
PROVIDERS: PCP Internal Medicine
DX: I50.20 Unspecified systolic (congestive) heart failure (principal); I48.19 Other persistent atrial fibrillation; G47.33 Obstructive sleep apnea (adult) (pediatric)
CPT/HCPCS: 99214; G2211

== ENCOUNTER → 2024-12-20 12:55 | Outpatient (BNVA) | payer MEDICARE, SELFPAY | PROVIDERS: PCP Internal Medicine | DX: I50.20 Unspecified systolic (congestive) heart failure (principal); I48.19 Other persistent atrial fibrillation; G47.33 Obstructive sleep apnea (adult) (pediatric) | CPT/HCPCS: 99212 ==

== ENCOUNTER 2025-01-16 09:12 | Outpatient (AMB) | payer MEDICARE, SELFPAY ==
[2025-01-16 09:16] VITALS: BP 118/70; PULSE 99; TEMP 36.3; O2SAT 99; BMI 34.6
--- NOTE | 2025-01-16 09:16 | MHC.PC.OV ---
Vital Signs 01/16/25 09:16 Height 5 ft 10 in Weight 241 lb BMI 34.6 BP 118/70 Blood Pressure Location Lt brachial Position Sitting Pulse 99 Pulse Source Pulse Oximeter Temp 97.4 F Temp Source Axillary Pulse Oximetry (%) 99 Oxygen Delivery Method Room Air Intake Visit Reasons: Routine Tile Designer Required: No Accompanied by: Spouse Allergies No Known Allergies [No Known Allergies*] Allergy (Verified 01/16/25 09:48) Medication List - Last Reconciled 01/16/25 by Boni Styles MD apixaban (Eliquis) 5 mg PO BID diltiazem HCl ER 120 mg PO DAILY furosemide 20 mg PO DAILY polyethylene glycol 3350 (Miralax) 17 grams PO DAILY sennosides (senna) 8.6 mg PO DAILY vitamins A,C,D-xdub-fcivap 4,296 mcg-226 mg-90 mg (PreserVision AREDS) 1 cap PO BID Tobacco use date assessed: 01/16/25 Fall risk assessment: No Falls in past year Last assessed Fall Risk: 01/16/25 Dental Screening Dental Screen Date: 01/16/25 Did you have a dental visit in the last 12 months?: Yes Did you have a dental problem in the last 6 months where you did not have access to dental care?: No PFSH Medical History Somnolence, daytime Obesity (BMI 30-39.9) Colon adenoma LATASHA (obstructive sleep apnea) 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 Social History Housing: House Alcohol intake: never Patient Tobacco Use Status: Never used Tobacco Current occupational status: retired Current occupation: Right Handed Cognitive needs: No Hearing needs: No Vision needs: Yes (reading glasses) Questionnaire PHQ-9 Over the last 2 weeks, how often have you been bothered by any of the following problems? 1. Little interest or pleasure in doing things: not at all 2. Feeling down, depressed, or hopeless: not at all 3. Trouble falling or staying asleep, or sleeping too much: not at all 4. Feeling tired or having little energy: not at all 5. Poor appetite or overeating: not at all 6. Feeling bad about yourself - or that you are a failure or have let yourself or your family down: not at all 7. Trouble concentrating on things, such as reading the newspaper or watching television: not at all 8. Moving or speaking so slowly that other people could have noticed. Or the opposite - being so fidgety or restless that you have been moving around a lot more than usual: not at all 9. Thoughts that you would be better off or of hurting yourself in some way: not at all Total score: 0 Depression Screening Interpretation: Negative Depression Screening Done: Yes Source: Developed by Drs. Arturo Nesbitt, Chasidy Gaviria, Minh Dill and colleagues, with an educational clementina from [employer]. Thrive Questionnaire Date Thrive assessed: 01/16/25 I am a: Patient Within the past 12 months, did the food you bought not last and you didn't have the money to get more?: Never true Within the past 12 months, did you worry whether your food would run out before you got money to buy more?: Never true Do you have trouble paying for medicines?: No Do you have trouble getting transportation to medical appointments?: No Do you have trouble paying your heating and electricity bill?: No Do you have trouble taking care of your child, family member or friend?: No Do you have trouble with day-to-day activities such as bathing, preparing meals, shopping, managing finances, etc.?: No Are you currently unemployed and looking for a job?: No Are you interested in more education?: No Currently or been in a relationship where the following occur: No concerns reported THRIVE Score: 0 AUDIT C Alcohol Use Questionnaire (AUDIT-C) 1. How often do you have a drink containing alcohol?: Never 3. How often do you have six or more drinks on one occasion?: Never Total Score: 0 HUGH-7 AMB Questionnaire HUGH-7 Date HUGH - 7 assessed: 01/16/25 Feeling nervous, anxious, or on edge: 0 = Not at all Not being able to stop or control worryin = Not at all Worrying too much about different things: 0 = Not at all Trouble relaxin = Not at all Being so restless that it is hard to sit still: 0 = Not at all Becoming easily annoyed or irritable: 0 = Not at all Feeling afraid as if something awful might happen: 0 = Not at all Total HUGH-7 score (0-4 normal; 5-9 mild; 10-14 moderate; 15-21 severe): 0 Source: Developed by Drs. Arturo Nesbitt, Chasidy Gaviria, Minh Dill and colleagues, with an educational clementina from [employer]. Physical exam (Primary Care) Vital Signs: Last Vital Signs Temp 97.4 F 01/16/25 09:16 Pulse 99 01/16/25 09:16 BP 118/70 01/16/25 09:16 Pulse Ox 99 01/16/25 09:16 Oxygen Delivery Method Room Air 01/16/25 09:16 Next steps: BP in range BMI result Body Mass Index 34.6 BMI Assessment/Plan discussion: High Tobacco/Smoking Status: Tobacco use Status Tobacco use date assessed 01/16/25 01/16/25 09:17 Patient Tobacco Use Status Never used Tobacco 01/16/25 09:17 PHQ-9: PHQ-9 Score PHQ-9: Total score 0 01/16/25 09:17 Depression Screening Interpretation: Negative Thrive Assessment: Date of Thrive Assessment Date Thrive assessed 01/16/25 01/16/25 09:17 Currently or been in a relationship where the following occur: No concerns reported Advance Care Planning discussion: Exists, not on file Date of discussion: 01/16/25 Who was present: Patient, his lady friend Forms completed: MOLST Time spent: 1-15 minutes, not on file Actual minutes spent: 5 Coding Level of Care Code New Pt Level 4 (38724) Complex EM visit Add On G2211 Diagnoses Paroxysmal atrial fibrillation I48.0 Obesity (BMI 30-39.9) E66.9 LATASHA (obstructive sleep apnea) G47.33 Heart failure with reduced ejection fraction I50.20 Conjunctivitis H10.9 Additional Codes Vital Signs *Quality* - Advance Care Planning discussion: Exists, not on file ([id number]) Vital Signs *Quality* - Time spent: 1-15 minutes, not on file ([id number]) Assessment & Plan Assessment & Plan (1) Paroxysmal atrial fibrillation: Comment: Patient is being followed by Cardiology and he is on long-term anticoagulation Code(s): I48.0 - Paroxysmal atrial fibrillation Category: Medical Plan: Condition is stable. Continue anticoagulation and same dosage on rate control. (2) Obesity (BMI 30-39.9): Comment: Remains moderately obese. He is not able to lose much weight. as he cannot do much exercise Code(s): E66.9 - Obesity, unspecified Category: Medical Plan: Condition is stable (3) LATASHA (obstructive sleep apnea): Comment: HE DOES HAVE OBSTRUCTIVE SLEEP APNEA WHICH IS BEING TREATED WITH USE OF CPAP. HE USES NASAL MASK WHICH IS COMFORTABLE, THERE IS NOT MUCH AIR LEAK. USING THE CPAP MORE REGULARLY, BUT HIS DURATION OF USAGE AT NIGHT IS STILL SUBOPTIMAL. Code(s): G47.33 - Obstructive sleep apnea (adult) (pediatric) Category: Medical Plan: Wearing the mask. Has a pulmonary appt coming up (4) Heart failure with reduced ejection fraction: Code(s): I50.20 - Unspecified systolic (congestive) heart failure Category: Medical Plan: Sx could reflect low EF. Lasix dosage has been doubled. Enalapril added to the regimen. Advised low salt intake (5) Conjunctivitis: Code(s): H10.9 - Unspecified conjunctivitis Plan: Erythromycin added to the regimen. Plan History of Present Illness The patient is an 84-year-old male presenting with lightheadedness and breathlessness upon standing and minimal exertion. He reports immediate dizziness upon standing and experiences shortness of breath with minor physical activities, suggesting exacerbation of heart failure symptoms despite current treatment with Eliquis, Lasix, and diltiazem. Notably, he has developed new lower extremity edema, indicating possible fluid overload. His ability to bear weight has been compromised, especially on his right side, but this has improved recently. 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 He continues to be managed by multiple specialists including cardiology, pulmonology, and urology, with ongoing follow-up care and further diagnostic evaluations in process. Social History - Reports support from family and friends. - Limited physical activity due to decreased leg strength and shortness of breath. - Uses a walker for mobility. - Dietary intake not specifically discussed. Review of Systems - Cardiovascular: Reports breathlessness upon exertion. - Neurological: Reports lightheadedness upon standing. - Musculoskeletal: Reports difficulty bearing weight on the right leg, improved recently. - Gastrointestinal: Reports gastroesophageal reflux disease symptoms. - Genitourinary: No specific issues reported. - Respiratory: Reports breathlessness with exertion. Physical Exam General: Cooperative and healthy appearing Nutritional Appearance: Well nourished Orientation/consciousness: Patient oriented x3 Limitations: No limitations Head: Normal to inspection General: Appearance normal, both eyes and all related structures Neck: Normal visual inspection Chest: Normal palpation of entire chest wall Respiratory: Patient experiences shortness of breath with minimal exertion. ormal respiratory effort Neurology: Patient oriented x3, reports lightheadedness upon standing. Eye: right eyelid: Tarsal Conjunctive is congested. Results - Labs: Pending results for urology-related blood work and PSA. Plan The patient's ongoing management consists of maintaining control of atrial fibrillation and heart failure symptoms through medications including Eliquis, furosemide, and diltiazem. Persistent symptoms of fluid overload such as edema are being targeted with increased diuretic therapy. Continuing scheduled follow-ups with cardiology and pulmonology, alongside the pending echocardiogram, will help in monitoring heart function. Reviewing outstanding lab work with the urologist will complete current diagnostic needs. Patient was informed and verbally consented to the use of an ambient scribe for clinic note documentation during this visit. Discussion Notes During today's consultation, we discussed the management of the patient's heart failure and atrial fibrillation. I emphasized the significance of his continued adherence to medications including Eliquis, furosemide, and diltiazem. We reviewed the importance of monitoring for new or worsening symptoms such as increased edema or breathlessness. I advised on the benefits of each medication in managing fluid status and arrhythmias, and the potential risk of side effects. The patient was informed about the upcoming echocardiogram and follow-up visits with his technical developer and animal stunner. Ensuring regular review of outstanding labs related to urology was also highlighted as important for comprehensive care. Patient Instructions - Take Eliquis twice daily as prescribed. - Take Lasix once daily as prescribed to manage fluid retention. - Take diltiazem once daily as prescribed. - Monitor for increased breathlessness or swelling and report if symptoms worsen. - Attend scheduled echocardiogram, cardiology, and pulmonology appointments. - Complete pending lab work for urology as soon as possible. - Avoid excessive physical exertion; use the walker as needed. - Elevate legs to manage swelling when possible. Orders: Orders Basic Metabolic Panel Today E66.9 - Obesity, unspecified, G47.33 - Obstructive sleep apnea (adult) (pediatric), I48.0 - Paroxysmal atrial fibrillation Complete Blood Count no Diff Today E66.9 - Obesity, unspecified, G47.33 - Obstructive sleep apnea (adult) (pediatric), I48.0 - Paroxysmal atrial fibrillation Lipid Panel Today E66.9 - Obesity, unspecified, G47.33 - Obstructive sleep apnea (adult) (pediatric), I48.0 - Paroxysmal atrial fibrillation Thyroid Stimulating Hormone Today E66.9 - Obesity, unspecified, G47.33 - Obstructive sleep apnea (adult) (pediatric), I48.0 - Paroxysmal atrial fibrillation B Type Natriuretic Peptide Today E66.9 - Obesity, unspecified, G47.33 - Obstructive sleep apnea (adult) (pediatric), I48.0 - Paroxysmal atrial fibrillation XR chest 2V Today R05.9 - Cough, unspecified Liver Panel Today E66.9 - Obesity, unspecified, G47.33 - Obstructive sleep apnea (adult) (pediatric), I48.0 - Paroxysmal atrial fibrillation
== END 2025-01-16 09:49 | disposition home or self-care (01) ==
LOC: HO.HMCHD 09:12
PROVIDERS: PCP Internal Medicine; Visit Provider Internal Medicine
DX: I48.0 Paroxysmal atrial fibrillation (principal); E66.9 Obesity, unspecified; G47.33 Obstructive sleep apnea (adult) (pediatric); I50.20 Unspecified systolic (congestive) heart failure; H10.9 Unspecified conjunctivitis; Z00.00 Encounter for general adult medical examination without abnormal findings

== ENCOUNTER 2025-01-16 09:12 | Outpatient (REF) | payer MEDICARE, SELFPAY ==
--- NOTE | ~2025-01-16 | XR_ITS ---
CLINICAL HISTORY: R05.9 - Cough, unspecified 2 view chest x-ray Comparison: None Findings: Lungs are clear without acute infiltrates. No pneumothorax. Heart size normal. No acute bony abnormalities. Impression: No acute processes This document has been electronically signed by: Edilberto Gleason MD on 01/17/2025 19:27:06
[2025-01-16 11:38] LABS: Prostate Specific Antigen 7.42 ng/mL (<0.05-4.0)
== END 2025-01-16 09:13 | disposition home or self-care (01) ==
LOC: HO.XRAY 09:12
PROVIDERS: Absent Provider Urology; PCP Internal Medicine; Visit Provider Internal Medicine
DX: I48.0 Paroxysmal atrial fibrillation (principal); E66.9 Obesity, unspecified; G47.30 Sleep apnea, unspecified; I50.20 Unspecified systolic (congestive) heart failure; G47.33 Obstructive sleep apnea (adult) (pediatric); H10.9 Unspecified conjunctivitis; N40.1 Benign prostatic hyperplasia with lower urinary tract symptoms; N13.8 Other obstructive and reflux uropathy; R05.9 Cough, unspecified; Z12.5 Encounter for screening for malignant neoplasm of prostate
CPT/HCPCS: 36415; 71046; 84153; 99202

== ENCOUNTER → 2025-01-16 10:14 | Outpatient (BNV) | payer MEDICARE, SELFPAY | PROVIDERS: Absent Provider Urology; PCP Internal Medicine; Visit Provider Radiology Diagnostic Radiology | DX: R05.9 Cough, unspecified (principal) | CPT/HCPCS: 71046 ==

== ENCOUNTER 2025-01-17 08:37 | Outpatient (REF) | payer MEDICARE, SELFPAY ==
[2025-01-17 09:03] LABS: Hematocrit 44.7 % (42.0-52.0); Hemoglobin 14.6 g/dl (14.0-18.0); Mean Corpuscular HGB Conc 32.7 g/dl (31.0-36.0); Mean Corpuscular Hemoglobin 29.7 pg (27.0-33.0); Mean Corpuscular Volume 90.9 fL (80.0-98.0); Mean Platelet Volume 10.4 fL (9.4-12.4); Platelet Count 250 X10*3/uL (160-400); Red Blood Count 4.92 X10*6/uL (4.60-5.80); Red Cell Distribution Width 13.9 % (11.0-16.0); White Blood Count 8.1 X10*3/uL (4.8-10.8)
[2025-01-17 09:44] LABS: B Type Natriuretic Peptide 103 pg/mL (<100)
[2025-01-17 10:04] LABS: Alanine Aminotransferase 23 U/L (0-40); Albumin Level 3.9 g/dL (3.5-5.0); Alkaline Phosphatase 82 U/L (39-117); Anion Gap 10 (12-20); Aspartate Amino Transferase 24 U/L (5-37); Bilirubin Direct 0.2 mg/dL (0.0-0.5); Bilirubin Total 0.6 mg/dL (0.0-1.0); Blood Urea Nitrogen 15 mg/dL (9-16); Calcium 8.8 mg/dL (8.4-10.2); Carbon Dioxide 24 mmol/L (22-29); Chloride 110 mmol/L (96-108); Cholesterol 185 mg/dL (<200); Estimated Glomerular Filt Rate 53; Glucose Random 96 mg/dL (60-115); HDL Cholesterol 33 mg/dL (>40); LDL Cholesterol Calculated 132 mg/dL (<100); Potassium 4.3 mmol/L (3.3-5.1); Sodium 140 mmol/L (135-145); Thyroid Stimulating Hormone 3.37 uIU/mL (0.32-4.0); Total Protein 7.1 g/dL (6.5-8.0); Triglycerides 102 mg/dL (<150)
== END 2025-01-17 08:38 | disposition home or self-care (01) ==
LOC: HO.LAB 08:37
PROVIDERS: PCP Internal Medicine; Visit Provider Internal Medicine
DX: I48.0 Paroxysmal atrial fibrillation (principal); E66.9 Obesity, unspecified; G47.33 Obstructive sleep apnea (adult) (pediatric)
CPT/HCPCS: 36415; 80048; 80061; 80076; 83880; 84443; 85027

== ENCOUNTER → 2025-01-20 10:00 | Outpatient (REF) | payer MEDICARE, SELFPAY ==
--- NOTE | 2025-01-20 10:04 | CA_ITS ---
Transthoracic Echocardiogram Patient (Last, First, Middle): Jesus Giraldo E Gender: Male Date of : 1940 Age: 84 Procedure Date: 01/20/2025 Procedure Type: Transthoracic Echocardiogram Location: OP Height: 177. cm Weight: 109.77 kg BSA: 2.26 m2 Heart Rate: bpm BP: 100 / 70 mmHg Burrito Maker: CHARO Referring MD: Kamaljit Perez NP Symptoms: I50.20 - Unspecified systolic (congestive) heart failure Study Quality: Adequate ECG Rhythm: Atrial Fibrillation Conclusions: - The left ventricular systolic function is low normal. The visually estimated ejection fraction is between 50-55%. - No obvious valvular pathology seen on this study. Findings Left Ventricle Normal left ventricular cavity size. There is mildly increased left ventricular wall thickness. The left ventricular systolic function is low normal. The visually estimated ejection fraction is between 50-55%. The calculated ejection fraction is 51% by biplane method. There is no evidence of regional wall motion abnormalities. Diastolic function is indeterminate on the basis of available data. Right Ventricle Normal right ventricular cavity size. There is mildly decreased right ventricular systolic function. Atria Both atria are normal in size. Aortic Valve There is mild calcification of the aortic valve. There is no aortic valve stenosis. There is no aortic valve regurgitation. Mitral Valve The mitral valve appears normal. There is no mitral valve regurgitation. There is no mitral valve stenosis. Pulmonic Valve The pulmonic valve is likely normal. Tricuspid Valve There is trace tricuspid valve regurgitation. There is no evidence of pulmonary hypertension. Great Vessels The asc aorta and aortic arch are normal in size. Venous The inferior vena cava was not well visualized. Pericardium/Pleural There is no evidence of pericardial effusion. Prior Study Comparison No significant change compared to prior study dated: 08/22/2024. Recommendations, Care & Conclusions No obvious valvular pathology seen on this study. Measurements 2D Linear Measurements IVSd: 1.02 0.6-0.9/0.6-1.0 cm LVIDd: 4.57 3.9-5.3/4.2-5.9 cm LVIDd Index: 2.02 2.4-3.2/2.2-3.1 cm/m2 LVIDs: 3.57 2.0-3.6 cm LVPWd: 1.03 0.7-1.1 cm LA Diam: 4.30 2.7-3.8/3.0-4.0 cm LAIDs Index: 1.90 1.5-2.3 cm/m2 LV Mass: 202.46 67-162/88-224 g LV Mass Index: 89.58 43-95/49-115 g/m2 LVOT Diam: 2.20 3.0+(-)1.3 cm 2D Systolic Function EF 4C: 50.10 >55% EF 2C: 50.90 >55% EF BiP: 50.70 >55% Mitral Valve MV Pk E: 0.89 MV Decel Time: 222.00 E'Lateral: 7.94 E'Medial: 5.15 E/E' Med: 17.30 E/E' Lat: 11.20 PHT: 65.00 MVA PHT: 3.38 Decel Hemphill: 4.02 Aortic Valve AoV Pk Andrew: 0.84 AoV Mn Andrew: 0.61 AoV VTI: 0.16 AoV Pk Grad: 3.00 Aov Mn Grad: 2.00 DIMA Cont.VTI: 3.04 LVOT LVOT Pk Andrew: 0.65 LVOT Mn Andrew: 0.48 LVOT VTI: 0.13 LVOT Pk Grad: 2.00 LVOT Mn Grad: 1.00 LVOT Diam: 2.20 LVOT Area: 3.80 Diastolic Function MV Pk E: 0.89 E'Medial: 5.15 E/E' Med: 17.30 E' Laterial: 7.94 E/E' Lat: 11.20 Right Ventricle TAPSE (mm): 18.40 TVS' Andrew: 8.09 Tricuspid Valve TR Pk Andrew: 2.17 TR Pk Grad: 19.00 Great Vessels Aorta Sinus of Valsalva: 3.60 2.0-3.5 cm Ao Asc: 3.80 2.1-3.4 cm Ao Arch: 2.80 Pulmonary Valve PV Pk Andrew: 0.99 Peak PV Grad: 4.00 Updated in Other Vendor System with Status of Final Kwaku Valencia MD electronically signed on 01/22/2025 1:02:03 PM with status of Final
--- OUTSIDE RECORDS SUMMARY | 2025-01-20 10:27 | XMS_ITS ---
Author Organization [facility] alma delia [place] Address [address] [place] [id number] Care Team Providers Care Finishing Area Operator Name Role Phone Boni Styles Primary Care Provider [phone] Jovanni Khan Unavailable [phone] Allergies No Known Allergies REASON FOR VISIT [...] Ordered Date Performed Result Body Sit e 68910-OTGEBMJ NAIL, 6 OR MORE 09/30/2024 N/A 26929-AUCP SKIN LESIONS, 2 TO 4 09/30/2024 N/A Encounters Encounter Location Date Provider Diagnosis [facility] [address] [address] 09/30/2024 Jovanni Khan Atherosclerosis of nenana artery of both lower extremities, with unspecified presence of clinical manifestation I70.203 ; Tinea unguium B35.1 ; Pain in right toe(s) M79.674 and Pain in left toe(s) M79.675 Assessments Encounter Date Diagnosis (ICD Code) Assessment Notes Treatment Notes Treatment Clinical Notes Section Notes 09/30/2024 Atherosclerosis of nenana artery of both lower extremities, with unspecified presence of clinical manifestation (ICD-10 - I70.203) 09/30/2024 Tinea unguium (ICD-10 - B35.1) 09/30/2024 Pain in right toe(s) (ICD-10 - M79.674) 09/30/2024 Pain in left toe(s) (ICD-10 - M79.675) Plan Of Treatment Pending Test Test Name Order Date 39379-OYOCBAJ NAIL, 6 OR MORE 09/30/2024 16454-ADTO SKIN LESIONS, 2 TO 4 09/30/19 25 Next Appt Details Follow Up: prn, Reason: Provider Name:Jovanni Khan , 03/28/2025 09:15:00 AM, [address] [place] [address], [phone], Procedure Notes * Category Sub-Category Detail Notes [...] use of a nail nipper and/or dremel-type grinder set up operator external, to a more viable healthy nail plate [...] to maintain effectiveness in symptomatic relief - 89894 Keratoma Treatment Parring or Cutting o f [...] instrumentation by the physician of record - 96758, Q8 Progress Notes * Jesus SALAZAR JrDOB:[birth year] (84 yo M)Acc No.[id number]:09/30/2024 Progress Note Patient:?NADINEDONTE Jesus Gonzales Provider:?Jovanni Khan DPM :1940???Age:84 Y???Sex:Male Ilia e:09/30/2024 Address:[address] [place] [address], [place], [id number] Pcp:Demond Leyva MD Subjective: * Chief Complaints: [...] ataract surgery 06/2024 * Hospitalization/Major Diagno stic Procedure:[place] [place], hip pain 02/2021 * Family [...] Assessment: 1.?Tinea unguium - B35.1???2 .?Atherosclerosis of nenana artery of both lower extremities, with unspecified presence of clinical manifestation - I70.203 (Primary)???3.?Pain in right toe(s) - M79.674???4.?Pain in left toe(s) - M79.675??? Plan: * Treatment: 2.?Tinea unguium?Procedure: 34178-FRQSASY NAIL, 6 OR MORE * Procedures:?Debride Nail [...] use of a nail nipper and/or dremel-type grinder set up operator external, to a more viable healthy nail plate [...] to maintain effectiveness in symptomatic relief - 83732.?Keratoma Treatment:?Parring or Cutting of Benign Hyperkeratotic Lesion(s)?(-56) [...] instrumentation by the physician of record - 21000, Q8.? * Procedure Codes:?52796 DEBRI DE NAIL, 6 OR MORE, Modifiers: XS 87212 TRIM SKIN LESIONS, 2 TO 4, Modifiers: XS , Q8 * Follow Up:?prn * Images: * Sign off status: Completed true * Provider:?Jovanni Khan DPM Date:?2024 Generated for Luci pizarro/Le/eTransmitting on:?01/20/2025 10:27 AM EDT History and Physical Notes * HPI (History of Present Illness) Category Sub-Category Detail Notes Category Not es At Risk footcare Pt States Last PCP Visit: Date: 4 [facility] [place] Patient accompanied by, Examination Category Sub-Category Detail [...]
--- OUTSIDE RECORDS SUMMARY | 2025-01-20 10:27 | XMS_ITS ---
Author Organization [facility] Address [address] [place] [phone] Care Team Providers Care Base Engineer Name Role Phone Boni Styles Primary Care Provider Jovanni Khan Unavailable [phone] Encounters Encounter Location Date Provider Diagnosis [address] [phone] 06/28/2024 Jovanni Khan Plan Of Treatment Next Appt Details Provider Name:Jovanni Khan , 03/28/2025 09:15:00 AM, [address] [place] [address], [phone], Progress Notes * Jesus SALAZAR DOB:[birth year] (84 yo M)Acc No.[id number]:06/28/2024 Progress Note Patient:?Jesus SALAZAR Provider:?Jovanni Khan DPM :1940???Age:83 Y???Sex:Male Ilia e:06/28/2024 Address:[address] [place] [phone] Pcp:Boni Styles Subjective: * Chief Complaints: * ??? * Medical History:? Objective: * Vitals:? Assessment: Plan: * Treatment: * Images: * The named appointment provid er may or may not be the originator of this progress note, and it is not deemed complete until electronically signed by the appointment provider. Sign off status: Pending * Provider:?Jovanni Khan DPM Date:?2023 Generated for Luci pizarro/Le/Jordyn on:?01/20/2025 10:27 AM EDT
--- OUTSIDE RECORDS SUMMARY | 2025-01-20 10:27 | XMS_ITS | Patient Health Record ---
Author Organization [facility] [place] Address [address] [place] [address] Care Team Providers Care Morgue Technician Name Role Phone Stephani, Kartik Primary Care Provider Jovanni Khan Unavailable [phone] Allergies No Known Allergies Reason For Referral No Information Medications Medication SIG (Take, Route, Frequency, Duration) Notes Start Date End Date Status advil PRN Not-Taking dilTIAZem HCl ER 120 MG 1 capsule Orally Once a day Active Lasix 20 MG 1 tablet Orally Once a day 12/27/2024 Active Senokot 8.6 MG 2 tablets at bedtime as needed Orally Once a day for 30 day(s) Not-Taking Fiber Active Proscar 5 MG 1 tablet Orally Once a day for 30 day(s) Not-Taking Flomax Not-Taking Eliquis 5 MG as directed Orally Twice a day Active MiraLax Active Finasteride 5 MG 1 tablet Orally Once a day Not-Taking Metoprolol Succinate 50 MG 1 capsule Orally Once a day Not-Taking Amiodarone HCl 200 MG Oral for 90 Not-Taking Tylenol PRN Not-Taking Immunizations Vaccine Route Administration Date Status Comme nts COVID-19 Sin & Sin/Agustina Unknown 08/12/2021 Administered 1st 01/10/2021 Influenza Unknown 09/03/2021 Refused Social History Tobacco Use: Social History Observation Description Date Details (start date - stop date) Never Smoker NA - NA Tobacco use other than smoking: Question Answer Notes Are you an other tobacco user? No Tobacco Control (Standard) Question Answer Notes Tobacco use: Nonsmoker Additional Findings: Tobacco non-user Current no nsmoker AUDIT-C (Standard) Question Answer Notes Did you have a drink containing alcohol in the p ast year? No Points 0 Interpretation Negative Problems Problem Type SNOMED Code ICD Code Onset Dates Problem Status W/U Status Risk Notes Problem Atherosclerosis of [place] arteries of the extremities ([id number]) Atherosclerosis of [place] artery of both lower extremities, with unspecified presence of clinical manifestation (I70.203) Active confirmed Vital Signs Blood pressure diastolic 70 mm Hg 12/27/2024 Height 5 ft 10 in in 12/27/2024 Blood pressure systolic 138 mm Hg 12/27/2024 Weight 236 lbs 12/27/2024 BMI 33.86 kg/m2 12/27/2024 Procedures Procedure Date Ordered Date Performed Result Body Sit e 98936-FOZXWAE NAIL, 6 OR MORE 01/22/2024 N/A 51106-JOVK SKIN LESIONS, 2 TO 4 01/22/2024 N/A 09719-UOOMYSZ NAIL, 6 OR MORE 04/12/2024 N/A 05556-FDBN SKIN LESIONS, 2 TO 4 04/12/2024 N/A 30529-YXPRJCR NAIL, 6 OR MORE 09/30/2024 N/A 40369-IRKI SKIN LESIONS, 2 TO 4 09/30/2024 N/A 41664-WJBFCSI NAIL, 6 OR MORE 12/27/2024 N/A 09159-HFCS SKIN LESIONS, 2 TO 4 12/27/2024 N/A Encounters Encounter Location Date Provider Diagnosis [address] [address] 01/22/2024 Jovanni Erin Atherosclerosis of [place] artery of both lower extremities, with unspecified presence of clinical manifestation I70.203 ; Tinea unguium B35.1 ; Pain in right toe(s) M79.674 and Pain in left toe(s) M79.[address] [address] 04/12/2024 Jovanni Erin Atherosclerosis of [place] artery of both lower extremities, with unspecified presence of clinical manifestation I70.203 ; Tinea unguium B35.1 ; Pain in right toe(s) M79.674 and Pain in left toe(s) M79.[address] [address] 09/30/2024 Jovanni Khan Atherosclerosis of [place] artery of both lower extremities, with unspecified presence of clinical manifestation I70.203 ; Tinea unguium B35.1 ; Pain in right toe(s) M79.674 and Pain in left toe(s) M79.[address] [address] 12/27/2024 Jovanni Khan Atherosclerosis of [place] artery of both lower extremities, with unspecified presence of clinical manifestation I70.203 ; Tinea unguium B35.1 ; Pain in right toe(s) M79.674 and Pain in left toe(s) M79.[address] [address] 06/27/2024 Jovanni Khan Assessments Encounter Date Diagnosis (ICD Code) Assessment Notes Treatment Notes Treatment Clinical Notes Section Notes 01/22/2024 Tinea unguium (ICD-10 - B35.1) 01/22/2024 Atherosclerosis of [place] artery of both lower extremities, with unspecified presence of clinical manifestation (ICD-10 - I70.203) 04/12/2024 Tinea unguium (ICD-10 - B35.1) 04/12/2024 Atherosclerosis of [place] artery of both lower extremities, with unspecified presence of clinical manifestation (ICD-10 - I70.203) 09/30/2024 Tinea unguium (ICD-10 - B35.1) 09/30/2024 Atherosclerosis of [place] artery of both lower extremities, with unspecified presence of clinical manifestation (ICD-10 - I70.203) 12/27/2024 Tinea unguium (ICD-10 - B35.1) 12/27/2024 Atherosclerosis of [place] artery of both lower extremities, with unspecified presence of clinical manifestation (ICD-10 - I70.203) 12/27/2024 Pain in right toe(s) (ICD-10 - M79.674) 04/12/2024 Pain in right toe(s) (ICD-10 - M79.674) 09/30/2024 Pain in right toe(s) (ICD-10 - M79.674) 01/22/2024 Pain in right toe(s) (ICD-10 - M79.674) 01/22/2024 Pain in left toe(s) (ICD-10 - M79.675) 12/27/2024 Pain in left toe(s) (ICD-10 - M79.675) 09/30/2024 Pain in left toe(s) (ICD-10 - M79.675) 04/12/2024 Pain in left toe(s) (ICD-10 - M79.675) Plan Of Treatment Pending Test Test Name Order Date 44492-XXVAZNT NAIL, 6 OR MORE 03/08/2019 76159-QXKUNEL NAIL, 6 OR MORE 06/10/2019 02915-UGEBWOD NAIL, 6 OR MORE 08/19/2019 61268-HWBOUHT NAIL, 6 OR MORE 11/01/2019 77765-FLNLRFE NAIL, 6 OR MORE 01/24/2020 89878-XJUNJXE NAIL, 6 OR MORE 04/10/2020 83262-FGUBUWV NAIL, 6 OR MORE 07/31/2020 55267-KGUHNXX NAIL, 6 OR MORE 10/16/2020 57558-LTEGGXX NAIL, 6 OR MORE 01/15/2021 20903-SESENDB NAIL, 6 OR MORE 03/22/2021 62507-KLWGSVV NAIL, 6 OR MORE 09/03/2021 46629-GJKRPKH NAIL, 6 OR MORE 11/12/2021 39608-EQCHQVB NAIL, 6 OR MORE 01/21/2022 63768-AIXEEKA NAIL, 6 OR MORE 04/22/2022 41047-YKLQTBH NAIL, 6 OR MORE 07/01/2022 13638-LPXOAYH NAIL, 6 OR MORE 10/21/2022 47371-GDPZHCS NAIL, 6 OR MORE 12/30/2022 34717-XCHEFVA NAIL, 6 OR MORE 03/17/2023 54096-KQUXAZS NAIL, 6 OR MORE 06/08/2023 36732-OOQJWJT NAIL, 6 OR MORE 08/25/2023 74846-SWDAEMV NAIL, 6 OR MORE 11/13/2023 76109-SRYCRRS NAIL, 6 OR MORE 01/22/2024 38505-GHNNVRN NAIL, 6 OR MORE 04/12/2024 24701-ANONZSI NAIL, 6 OR MORE 09/30/2024 42163-RBIEDRX NAIL, 6 OR MORE 12/27/2024 05448-Sibq Destruction, 1-14 01/15/2021 51524-Lqvj Destruction, 1-14 10/16/2020 56286-Atob Destruction, 1-14 07/31/2020 64457-QADE SKIN LESIONS, 2 TO 4 11/12/19 22 79444-SYSL SKIN LESIONS, 2 TO 4 08/25/20 23 95423-ELVZ SKIN LESIONS, 2 TO 4 06/08/20 23 71923-BHKR SKIN LESIONS, 2 TO 4 03/17/20 23 70952-OULH SKIN LESIONS, 2 TO 4 12/31/19 23 13637-CHRD SKIN LESIONS, 2 TO 4 10/21/19 23 38210-PLJX SKIN LESIONS, 2 TO 4 07/01/20 22 19646-YCDF SKIN LESIONS, 2 TO 4 04/22/20 22 01333-MBUO SKIN LESIONS, 2 TO 4 01/22/20 22 54073-WAWJ SKIN LESIONS, 2 TO 4 12/28/19 25 24381-SUNF SKIN LESIONS, 2 TO 4 09/30/19 25 08117-DHYE SKIN LESIONS, 2 TO 4 04/12/20 24 29195-JXSN SKIN LESIONS, 2 TO 4 01/22/20 24 55079-QCGX SKIN LESIONS, 2 TO 4 11/13/19 24 Next Appt Details Provider Name:Jovanni Khan , 03/28/2025 09:15:00 AM, [address] [place], [address], Insurance Providers Payer Name Payer Address Payer Phone Subscriber Number Group Number Insured Name Patient Relationship to Insured Coverage Start Date Coverage End Date Medicare National [employer] [address] [facility] [address] [id number] Jesus Giraldo Self - patient is the insured 5 [employer] [facility] [address] [place] [address] [phone] [id number] Jesus Giraldo Self - patient is the insured Medical (General) History Medical History History ICD Code hip OA Measles Mumps Chicken pox Surgical History Surgery Date(Month/Year) Dental Implant hip replacement - Right 04/24/20 colonoscopy 2021 Bowel resection 2021 cataract surgery 06/2024 Hospitalization History Reason Date(Month/Year) [facility] [place] pain 02/[place]
--- OUTSIDE RECORDS SUMMARY | 2025-01-20 10:27 | XMS_ITS ---
Author Organization [facility] alma delia [place] Address [address] [place] [address] Care Team Providers Care Motor Vehicle Examiner Name Role Phone Boni Styles Primary Care Provider Jovanni Khan Unavailable [phone] Allergies No Known Allergies REASON FOR VISIT At Risk Footcare, Painful Nail(s) aggrevated by shoes and causing difficulty standing/walking. Medications Medication SIG (Take, Route, Frequency, Duration) Notes Start Date End Date Status Proscar 5 MG 1 tablet Orally Once a day for 30 day(s) Not-Taking Flomax Not-Taking Eliquis 5 MG as directed Orally Twice a day Active MiraLax Active Amiodarone HCl 200 MG Oral for 90 Not-Taking Lasix 20 MG 1 tablet Orally Once a day 12/27/2024 Active Senokot 8.6 MG 2 tablets at bedtime as needed Orally Once a day for 30 day(s) Not-Taking Fiber Active advil PRN Not-Taking dilTIAZem HCl ER 120 MG 1 capsule Orally Once a day Active Finasteride 5 MG 1 tablet Orally Once a day Not-Taking Metoprolol Succinate 50 MG 1 capsule Orally Once a day Not-Taking Tylenol PRN Not-Taking Social History Tobacco Use: Social History Observation [...] ast year? No Points 0 Interpretation Negative Vital Signs Height 5 ft 10 in in 12/27/2024 Weight 236 lbs 12/27/2024 BMI 33.86 kg/m2 12/27/2024 Blood pressure systolic 138 mm Hg 12/28/19 Blood pressure diastolic 70 mm Hg 025 Procedures Procedure Date Ordered Date Performed Result Body Sit e 44695-PLXNWHS NAIL, 6 OR MORE 12/27/2024 N/A 22159-EKVU SKIN LESIONS, 2 TO 4 12/27/2024 N/A Encounters Encounter Location Date Provider Diagnosis [facility] [address] [place] [address] 12/27/2024 Jovannilubna Personier Atherosclerosis of [place] artery of both lower extremities, with unspecified presence of clinical manifestation I70.203 ; Tinea unguium B35.1 ; Pain in right toe(s) M79.674 and Pain in left toe(s) M79.675 Assessments Encounter Date Diagnosis (ICD Code) Assessment Notes Treatment Notes Treatment Clinical Notes Section Notes 12/27/2024 Atherosclerosis of [place] artery of both lower extremities, with unspecified presence of clinical manifestation (ICD-10 - I70.203) 12/27/2024 Tinea unguium (ICD-10 - B35.1) 12/27/2024 Pain in right toe(s) (ICD-10 - M79.674) 12/27/2024 Pain in left toe(s) (ICD-10 - M79.675) Plan Of Treatment Pending Test Test Name Order Date 20272-JMUTIZT NAIL, 6 OR MORE 12/27/2024 99921-EMRJ SKIN LESIONS, 2 TO 4 12/28/19 25 Next Appt Details Follow Up: prn, Reason: Provider Name:Jovanni Pierceunier , 03/28/2025 09:15:00 AM, [address] [facility], [place], [address], Procedure Notes * Category Sub-Category Detail Notes [...] T1, T2, T3, T4, T5, T6, T8, T9 ), was performed exclusively by the physician of record to reduce/remove overall nail length, girth, thickness, subungual debris, and necrotic tissue, by manual and/or electrical means through the use of a nail nipper and/or dremel-type precision thread grinder operator, to a more viable healthy nail plate [...] to maintain effectiveness in symptomatic relief - 95023 Keratoma Treatment Parring or Cutting o f [...] instrumentation by the physician of record - 25616, Q8 Progress Notes * Jesus SALAZAR JrDOB:[birth year] (84 yo M)Acc No.[id number]:12/27/2024 Progress Note Patient:?Jesus SALAZAR Jr Provider:?Jovanni Khan DPM :1940???Age:84 Y???Sex:Male Ilia e:12/27/2024 Address:[address] [place] [id number] Pcp:Boni Styles Subjective: * Chief Complaints: * ???At Risk FootcarePainful N ail(s) aggrevated by shoes and causing difficulty standing/walking. * HPI: ???At Risk footcare:?Pt States Last PCP Visit:?Date?08/29/2024 ?Misc?Patient accompanied by, ,PAN, who is physically present in exam room at time of visit.? * ROS:?General/Constitutional:?Nausea?denies.?Vomiting?denies.?Hunger Thirst?denies.?Loss appetite?denies.?Chills?denies.?Fatigue?denies.?Fever?denies.?Night Sweats?denies.?Unexplained weight loss?denies.?Unexplained [...] ataract surgery 06/2024 * [place]/Major Diagno stic [place] [place] * Family History:?Mother: dece ased.?Father: .? * Social History:?Tobacco Use:?Tobacco use other than smoking?Are you an other tobacco user??No ?Tobacco Control (Standard)?Tobacco use:?Nonsmoker ?Additional Findings: Tobacco non-user?Current nonsmoker ???Drugs/Alcohol:?Drugs?Have you used drugs other than those for medical reasons in the past 12 months??No ???Miscellaneous:?Caffeine: yes, 1/2 cups per day. ?Children: yes, 1. ?Exercise: no, Active work. ?Marital status: partner. 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 ???Drug/Alcohol:?AUDIT-C (Standard)?Did you have a drink containing alcohol in the past year??No ?Points?0 ?Interpretation?Negative * Medications:?TakingLasix 20 MG Tablet 1 tablet Orally Once a day Fiber dilTIAZem HCl ER 120 MG Capsule Extended Release 12 Hour 1 capsule Orally Once a day Eliquis 5 MG Tablet as directed Orally Twice a day MiraLax Taking Lasix 20 MG Tablet 1 tablet Orally Once a day Taking Fiber Taking dilTIAZem HCl ER 120 [...] Tablet 1 tablet Orally Once a day Not- Taking/PRN Metoprolol Succinate 50 MG Capsule ER 24 Hour Sprinkle 1 capsule Orally Once a day Not-Taking/PRN Senokot 8.6 MG Tablet 2 tablets at bedtime as needed Orally Once a day Not-Taking/PRN advil , Notes to Pharmacist: PRNMedication List reviewed and reconciled with the patient * Allergies:?N.K.D.A.yes[Aller gies Verified] Objective: * Vitals:?Ht: 5 ft 10 in, Wt:2 36, BMI: 33.86, Shoe size:11, BP:138/70mm Hg, Wt-k.05 kg. * Examination: ???Vascular: ?DP [...] Assessment: 1.?Tinea unguium - B35.1???2 .?Atherosclerosis of [place] artery of both lower extremities, with unspecified presence of clinical manifestation - I70.203 (Primary)???3.?Pain in right toe(s) - M79.674???4.?Pain in left toe(s) - M79.675??? Plan: * Treatment: 2.?Tinea unguium?Procedure: 16730-SHGMWSJ NAIL, 6 OR MORE * Procedures:?Debride Nail 6-10:?Nail debridement?Due to the clinical pathology outlined in the exam findings, performance of this nail treatment is medically necessary as its management by an unskilled/untrained nonprofessional would put this patients foot and overall health at risk. Therefore, debridement to affected nail(s), as described in exam (??TA, T1, T2, T3, T4,?T5,?T6,?T8,?T9?), was performed exclusively by the physician of record to reduce/remove overall nail length, girth, thickness, subungual debris, and necrotic tissue, by manual and/or electrical means through the use of a nail nipper and/or dremel-type precision thread grinder operator, to a more viable healthy nail plate [...] to maintain effectiveness in symptomatic relief - 79660.?Keratoma Treatment:?Parring or Cutting of Benign Hyperkeratotic Lesion(s)?(-56) [...] instrumentation by the physician of record - 32583, Q8.? * Procedure Codes:?17620 DEBRI DE NAIL, 6 OR MORE, Modifiers: XS 12424 TRIM SKIN LESIONS, 2 TO 4, Modifiers: XS , Q8 * Follow Up:?prn * Images: * Sign off status: Completed true * Provider:?Jovanni Khan DPM Date:?2024 Generated for Luci pizarro/Le/Jordyn on:?01/20/2025 10:27 AM EDT History and Physical Notes * HPI (History of Present Illness) Category Sub-Category Detail Notes Category Not es At Risk footcare Pt States Last PCP Visit: Date: 4 [facility] [place] Patient accompanied by, , PAN, who is physically present in exam room at time of visit Examination Category Sub-Category Detail Notes Category Not [...]
== END ==
LOC: HO.CARD 10:00
DX: I50.20 Unspecified systolic (congestive) heart failure (principal)
CPT/HCPCS: 93306

== ENCOUNTER → 2025-01-20 10:04 | Outpatient (BNV) | payer MEDICARE, SELFPAY | PROVIDERS: Visit Provider Internal Medicine | DX: I35.0 Nonrheumatic aortic (valve) stenosis (principal); I36.1 Nonrheumatic tricuspid (valve) insufficiency | CPT/HCPCS: 93306 ==

== ENCOUNTER 2025-01-25 10:03 | Outpatient (AMB) | payer MEDICARE, SELFPAY ==
[2025-01-25 10:12] VITALS: BP 110/60; PULSE 78; O2SAT 96; BMI 34.3
--- NOTE | 2025-01-25 10:12 | MHC.OFFVIS ---
Vital Signs 01/25/25 10:12 Height 5 ft 10 in Weight 239 lb 3.225 oz BMI 34.3 BP 110/60 Blood Pressure Location Lt brachial Position Sitting Pulse 78 Pulse Source Pulse Oximeter Pulse Oximetry (%) 96 Oxygen Delivery Method Room Air Intake Visit Reasons: Obstructive sleep apnea Intake Note: pt is here for follow up and states he the cpap is not his friend, Any exertion causes short of breath Financial Specialist Required: No Allergies No Known Allergies [No Known Allergies*] Allergy (Verified 01/25/25 12:07) Medication List - Last Reconciled 01/25/25 by Ari Rea MD apixaban (Eliquis) 5 mg PO BID diltiazem HCl ER 120 mg PO DAILY enalapril maleate 5 mg PO DAILY erythromycin 0.5 inches ophthalmic (eye) TID furosemide 40 mg (2 x 20 mg) PO DAILY polyethylene glycol 3350 (Miralax) 17 grams PO DAILY sennosides (senna) 8.6 mg PO DAILY vitamins A,C,F-toaf-fkfyza 4,296 mcg-226 mg-90 mg (PreserVision AREDS) 1 cap PO BID Do you need a note to return to daycare/school/sports/work: No HPI HPI Obstructive sleep apnea: Details: This 84 years old very pleasant gentleman who is grossly obese and has confirmed diagnosis of obstructive sleep apnea. He is here. For his follow-up after 6 months He does use CPAP every night but unfortunately has to remove it after using for 2-3 hours. Sometime tries to use the CPAP during the daytime as well. Main complaint is that he gets short of breath on minimal exertion. His spirometry and pulmonary function test in the past has shown very little obstructive or restrictive lung disorder. He does not need to use any inhalers. He remains tired but that is seems to be due to lack of enough usage of CPAP, and due to his comorbid conditions. 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 Social History Housing: House Alcohol intake: never Patient Tobacco Use Status: Never used Tobacco Current occupational status: retired Current occupation: Right Handed Cognitive needs: No Hearing needs: No Vision needs: Yes (reading glasses) Review of Systems Const All systems reviewed & are unremarkable except as noted in HPI and below Eyes Reports no additional complaints ENT Reports no additional complaints Card Denies chest pain, Reports irregular heart rhythm, Denies leg edema and Reports dyspnea on exertion (mild) Resp Reports dyspnea on exertion (mild) GI Reports no additional complaints Reports no additional complaints Musc Reports no additional complaints Skin/Breast Reports system reviewed and no additional complaints, except as documented Neuro Reports no additional complaints Psych Reports no additional complaints Physical Exam Vital Signs: Last Vital Signs Pulse 78 01/25/25 10:12 BP 110/60 01/25/25 10:12 Pulse Ox 96 01/25/25 10:12 Oxygen Delivery Method Room Air 01/25/25 10:12 BMI result Body Mass Index 34.3 Const General: healthy appearing (Except for being overweight), comfortable, no acute distress, alert and awake Orientation/consciousness: patient oriented x3 HEENT Head: Yes normal to inspection General nose exam: No nasal polyps present and No nasal discharge present Face and sinus: Yes sinuses nontender Mouth: oropharynx normal Throat: Yes posterior oropharynx normal Eyes General: appearance normal, both eyes and all related structures Neck Neck: Yes normal visual inspection, Yes no lymphadenopathy, Yes trachea midline and Yes no JVD Thyroid: Thyroid normal Chest Chest palpation & inspection: normal inspection of the chest, normal palpation of entire chest wall and no tenderness Resp Effort & Inspection: normal respiratory effort Auscultation: clear to auscultation bilaterally, no crackles and no wheezes Percussion: percussion normal Cardio Palpation: normal PMI Rate: regular rate Rhythm: abnormal rhythm (Atrial fib) Heart sounds: no gallops and no murmurs Peripheral pulses: Peripheral pulses 2+ throughout GI Palpation (GI): Soft to palpation, nontender, No hepatosplenomegaly present, no masses and Other GI palpation findings present (Abdomen is moderately obese and protuberant) Auscultation: normal bowel sounds Back/Spine/Pelvis Thoracic/Lumbar Spine: thoracic and lumbar spine normal to inspection Skin General skin exam: no rashes or lesions noted Neuro General: patient oriented x3 and no focal motor deficits Cranial nerves: Yes CN's II-XII intact bilaterally Extrem General: Yes normal to inspection, Yes no clubbing, cyanosis or edema and Yes no calf tenderness Psych Appearance: grossly normal and well kempt Speech and movement: Normal speech and movement present Results Reviewed Results Reviewed: Compliance report for the last 30 nights shows that he has used 26/30 nights, 87%. Average use it per night 3 hours 19 minutes. He has very little air leak and residual AHI is 3.2 Assessment & Plan Assessment & Plan (1) Obesity (BMI 30-39.9): Comment: Remains moderately obese. He is not able to lose much weight. as he cannot do much exercise Code(s): E66.9 - Obesity, unspecified Category: Medical Plan: Discussed about the weight issue. The patient and his her fully aware that the weight remains up because he is not able to do much exercise. As he is on diltiazem he does have tendency to retain fluid especially in the legs. And he is being treated with small doses of furosemide (2) LATASHA (obstructive sleep apnea): Comment: HE DOES HAVE OBSTRUCTIVE SLEEP APNEA WHICH IS BEING TREATED WITH USE OF CPAP. HE USES NASAL MASK WHICH IS COMFORTABLE, THERE IS NOT MUCH AIR LEAK. USING THE CPAP MORE REGULARLY, BUT HIS DURATION OF USAGE AT NIGHT IS STILL SUBOPTIMAL. Code(s): G47.33 - Obstructive sleep apnea (adult) (pediatric) Category: Medical Plan: Advise that he may add using CPAP during the daytime especially when he relaxes in a recliner. (3) Dyspnea on exertion: Comment: DYSPNEA ON EXERTION FOR THE LAST FEW YEARS. * As per pulmonary function test he does not have obstructive or restrictive pulmonary disorder. Dyspnea on exertion is probably functional, may be contributed by his abdominal obesity, and atrial fibrillation. Code(s): R06.00 - Dyspnea, unspecified Category: Medical Plan: Advised to do deep abdominal breathing exercises. Does have incentive spirometry device at home. And is encouraged to do deep breathing exercises every 2-3 hours during the daytime. Coding Level of Care Code Est Pt Level 3 (90213) Diagnoses Obesity (BMI 30-39.9) E66.9 LATASHA (obstructive sleep apnea) G47.33 Dyspnea on exertion R06.00
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
--- OUTSIDE RECORDS SUMMARY | 2025-01-25 11:03 | XMS_ITS ---
Author Organization [facility] Address [address] [place] [address] Care Team Providers Care Lace Machine Operator Name Role Phone Boni Styles Primary Care Provider [phone] Jovanni Khan Unavailable [phone] Encounters Encounter Location Date Provider Diagnosis [address] [address] 06/28/2024 Jovanni Khan Plan Of Treatment Next Appt Details Provider Name:Jovanni Khan , 03/28/2025 09:15:00 AM, [address] [place] [address], [phone], Progress Notes * Jesus SALAZAR DOB:[birth year] (84 yo M)Acc No.[id number]:06/28/2024 Progress Note Patient:?Jesus SALAZAR Provider:?Jovanni Khan DPM :1940???Age:83 Y???Sex:Male Ilia e:06/28/2024 Address:[address] [place] [phone] Pcp:Boni Styles Subjective: * Chief Complaints: * ??? * Medical History:? Objective: * Vitals:? Assessment: Plan: * Treatment: * Images: * The named appointment provid er may or may not be the originator of this progress note, and it is not deemed complete until electronically signed by the appointment provider. Sign off status: Pending * Provider:?Jovanni Khan DPM Date:?2023 Generated for Luci pizarro/Le/Jordyn on:?01/25/2025 11:03 AM EDT
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
== END 2025-01-25 10:43 | disposition home or self-care (01) ==
LOC: HO.HPS 10:04
PROVIDERS: PCP Internal Medicine; Visit Provider Internal Medicine
DX: E66.9 Obesity, unspecified (principal); G47.33 Obstructive sleep apnea (adult) (pediatric); R06.00 Dyspnea, unspecified
CPT/HCPCS: 99213

== ENCOUNTER → 2025-01-25 10:03 | Outpatient (BNVA) | payer MEDICARE, SELFPAY | PROVIDERS: PCP Internal Medicine; Visit Provider Internal Medicine | DX: G47.33 Obstructive sleep apnea (adult) (pediatric) (principal); R06.00 Dyspnea, unspecified; E66.9 Obesity, unspecified; Z68.34 Body mass index [BMI] 34.0-34.9, adult | CPT/HCPCS: 99212 ==

== ENCOUNTER 2025-03-02 11:35 | Outpatient (AMB) | payer MEDICARE, SELFPAY ==
--- NOTE | 2025-03-02 11:40 | A.OFFVIS_ITS ---
Intake Visit Reasons: Six-month follow-up UA and PSA Intake Note: Patient is present for 6M/UA/PSA Urology Medication:NONE Antibiotic Allergy:NONE Blood Thinner:APIXABAN Cigar Head Pegger Required: No Allergies No Known Allergies [No Known Allergies*] Allergy (Verified 03/02/25 11:40) HPI Comments Details: Jesus is a very pleasant male. He is a patient of Dr. Leyva. He is seen for the following issues - elevated PSA - lower urinary tract symptoms - recurrent urinary tract infection Six-month follow-up PSA has increased Urine otherwise clear Has been off finasteride Restart is nurse who accompanied him throughout Urinary Symptoms Review - No reported ongoing urinary tract infections. - Urine currently appears clear. - Frequent urination and incontinence post-ingestion of Lasix, particularly if taken at inappropriate times relative to daily activities. - No mention of nocturnal discomfort or pain mentioned. - Use of vitamin C, purportedly for maintenance of clear urine. Lower urinary tract symptoms Here for further assessment of lower urinary tract symptoms Nocturia x3, weakness of stream Current medications include terazosin 10 mg and finasteride PSA 06/16 8.6, 04/17 7.5, 09/17 3.1, 03/19 4.6 35%, 01/20 7.42 ERIC 3+ prostate Discussed risks of prostate cancer approximately 20% 01/19 GreenLight laser prostate with bladder stone removal Diagnosed with colorectal cancer 2021 Underwent resection in August 2022 - Associated with urinary retention [facility] Medical History Somnolence, daytime Obesity (BMI 30-39.9) Colon adenoma LATASHA (obstructive sleep apnea) Dyspnea on exertion half-way current use of anticoagulant Paroxysmal atrial fibrillation Elevated PSA Unilateral primary osteoarthritis, right hip Surgical History History of colonoscopy (~04/30/22) History of bowel resection 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 Social History Housing: House Alcohol intake: never Patient Tobacco Use Status: Never used Tobacco Current occupational status: retired Current occupation: Right Handed Cognitive needs: No Hearing needs: No Vision needs: Yes (reading glasses) Review of Systems Const Denies chills and Denies fever(s) Card Reports no additional complaints and Denies syncope Resp Denies cough GI Denies abdominal pain and Denies heartburn Reports as per HPI and Denies change in libido Neuro Denies syncope Psych Denies change in libido Endo Denies change in libido Physical Exam Const General: cooperative, healthy appearing, comfortable and no acute distress Orientation/consciousness: patient oriented x3 HEENT Face and sinus: Yes normal facial exam Mouth: moist mucous membranes Neck Neck: Yes normal visual inspection, Yes full ROM and Yes trachea midline Chest Chest palpation & inspection: normal inspection of the chest Resp Effort & Inspection: normal respiratory effort, able to speak in complete sentences and no respiratory distress GI Inspection: Yes normal to inspection Back/Spine/Pelvis Cervical Spine: normal cervical lordosis Thoracic/Lumbar Spine: thoracic and lumbar spine normal to inspection Skin General skin exam: no rashes or lesions noted Neuro General: patient oriented x3, gait normal, tone normal and moves all extremities Extrem General: Yes normal to inspection and Yes capillary refill normal Results AMB Urinalysis, Automated UA Leukoctes 0 Haley/uL Last Edit by AYAAN Saucedo on 03/02/25 11:55 UA Nitrite Negative Last Edit by AYAAN Saucedo on 03/02/25 11:55 UA Urobilinogen 0.2 mg/dL Last Edit by AYAAN Saucedo on 03/02/25 11:5 5 UA Protein 0 mg/dL Last Edit by AYAAN Saucedo on 03/02/25 11:55 UA pH 6.0 Last Edit by AYAAN Saucedo on 03/02/25 11:55 UA Blood 0 Ortiz/uL Last Edit by AYAAN Saucedo on 03/02/25 11:55 UA Specific Mathias 1.015 Last Edit by AYAAN Saucedo on 03/02/25 11: 55 UA Ketone Negative Last Edit by AYAAN Saucedo on 03/02/25 11:55 UA Bilirubin 0 mg/dL Last Edit by AYAAN Saucedo on 03/02/25 11:55 UA Glucose 0 mg/dL Last Edit by AYAAN Saucedo on 03/02/25 11:55 Assessment & Plan Assessment & Plan (1) Elevated PSA: Code(s): R97.20 - Elevated prostate specific antigen [PSA] Category: Medical (2) BPH w urinary obs/LUTS: Code(s): N40.1 - Benign prostatic hyperplasia with lower urinary tract symptoms; N13.8 - Other obstructive and reflux uropathy Category: Medical (3) Complicated urinary tract infection: Code(s): N39.0 - Urinary tract infection, site not specified Category: Medical Plan Plan 1. Benign Prostatic Hyperplasia Restart finasteride. Monitor PSA in six months. Monitor liver function. 2. Urinary Incontinence Expect improvement with finasteride. Monitor for any need for lifestyle adjustments. 3. Elevated Psa Monitor PSA in six months; consider further action if levels do not decrease. Discussion Notes I discussed with the patient the current management path regarding his benign prostatic hyperplasia and the necessity of restarting finasteride to control prostate enlargement and symptomatic urinary incontinence. We explicitly covered the need for a careful use of Lasix to avoid exacerbated urinary frequency, particularly as it could adversely affect his daily activities. I have addressed the implications of managing his elevated PSA level, anticipated our follow-up plan, and discussed options if the condition persists, including possible biopsy in the future. I offered reassurance on our conservative approach in managing PSA levels given the patient's age and the likely benign nature of the elevation, agreeing on monitoring PSA changes. We confirmed continuous communication with his production assembly supervisor regarding overlapping medication effects on his atrial fibrillation: his reduced ejection fraction and established heart failure regimen are concurrently managed under similar holistic care goals. Patient Instructions - Take finasteride as prescribed. - Use Lasix primarily in the morning to manage urinary frequency. - Continue using vitamin C supplements to maintain urine clarity. - Monitor urinary symptoms and report any changes. - Contact us if experiencing difficulty or discomfort in managing medications. - Schedule a follow-up to check PSA levels in six months. - Discuss any concerns about your medications with your production assembly supervisor. - Report any unexpected side effects from your medications. Orders: Orders PSA,Total (Free>4and<10) 6 Months N13.8 - Other obstructive and reflux uropathy, N40.1 - Benign prostatic hyperplasia with lower urinary tract symptoms AMB Urinalysis Automated Today Z13.9 - Encounter for screening, unspecified Patient Instructions: This note is constructed using voice recognition software. While every effort has been made to ensure accuracy outside sales representative insurance errors may have been included. Imaging studies, laboratory and physical exam results were discussed and reviewed in detail. No major barriers to patient understanding were identified. An opportunity to ask questions regarding the treatment plan was provided. All questions were answered. The patient expressed understanding and agreement with the above treatment plan. The patient is aware they should contact our office by phone for worsening of their current condition or the appearance of new urologic symptoms. Compliance is encouraged with any medications and followup testing that is ordered. It is a privilege to participate in the urologic care of your patient. If you have any questions or concerns regarding treatment for the above conditions, or other urologic issues, please do not hesitate to contact me. The office telephon e contact is [phone]. Sincerely, Dr Carlin Perez MD, [facility] - Urology Compassionate Specialist Care for the Genitourinary System Coding Level of Care Code Est Pt Level 4 (09677) Complex EM visit Add On G2211 Diagnoses Elevated PSA R97.20 BPH w urinary obs/LUTS N40.1; N13.8 Complicated urinary tract infection N39.0
== END 2025-03-02 12:14 | disposition home or self-care (01) ==
LOC: HO.HUSH 11:36
PROVIDERS: PCP Internal Medicine; Visit Provider Urology
DX: R97.20 Elevated prostate specific antigen [PSA] (principal); N40.1 Benign prostatic hyperplasia with lower urinary tract symptoms; N13.8 Other obstructive and reflux uropathy; N39.0 Urinary tract infection, site not specified; Z13.9 Encounter for screening, unspecified
CPT/HCPCS: 99214; G2211

== ENCOUNTER → 2025-03-02 11:35 | Outpatient (BNVA) | payer MEDICARE, SELFPAY | PROVIDERS: PCP Internal Medicine; Visit Provider Urology | DX: N40.1 Benign prostatic hyperplasia with lower urinary tract symptoms (principal); N13.8 Other obstructive and reflux uropathy; N39.0 Urinary tract infection, site not specified; R97.20 Elevated prostate specific antigen [PSA] | CPT/HCPCS: 81003; 99212 ==

== ENCOUNTER 2025-03-08 10:03 | Outpatient (AMB) | payer MEDICARE, SELFPAY ==
[2025-03-08 10:07] VITALS: BP 140/84; PULSE 88; BMI 34.2
--- NOTE | 2025-03-08 10:07 | A.OFFVIS_ITS ---
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: No Veterinary Science Teacher: Veterinary Science Teacher Present Accompanied by: Spouse Allergies No Known Allergies [No Known Allergies*] Allergy (Verified 03/02/25 11:40) Medication List - Last Reconciled 03/08/25 by Kwaku Valencia MD apixaban (Eliquis) 5 mg PO BID diltiazem HCl ER 120 mg PO DAILY enalapril maleate 5 mg PO DAILY erythromycin 0.5 inches ophthalmic (eye) TID finasteride 5 mg PO DAILY 90 days furosemide 40 mg (2 x 20 mg) PO DAILY polyethylene glycol 3350 (Miralax) 17 grams PO DAILY sennosides (senna) 8.6 mg PO DAILY vitamins A,C,I-rlyo-svzzzj 4,296 mcg-226 mg-90 mg (PreserVision AREDS) 1 cap PO BID HPI Comments Details: Jesus returns for follow-up regarding atrial fibrillation. In 2020, he was diagnosed with atrial fibrillation. After that, he has had cardioversions as well as amiodarone use but eventually reverted back to atrial fibrillation. However, he states that he feels the same with or without atrial fibrillation. Main concern is that progressively he is getting short of breath with activity. states that even walking short distances makes him quite short of breath. No clear-cut angina. It seems that he has been put on diuretics but but no significant change in symptoms. 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 Social History Housing: House Alcohol intake: never Patient Tobacco Use Status: Never used Tobacco Current occupational status: retired Current occupation: Right Handed Cognitive needs: No Hearing needs: No Vision needs: Yes (reading glasses) Review of Systems Const Denies chills, Denies fatigue, Denies fever(s), Denies frequent falls, Denies weakness, Denies weight gain and Denies weight loss ENT Denies dizziness Card Denies chest pain, Denies leg edema, Denies lightheadedness, Denies palpitations, Denies dyspnea, Denies dyspnea on exertion, Denies orthopnea and Denies other (loss of consciousness) Resp Denies cough, Denies dyspnea and Denies dyspnea on exertion GI Denies hematochezia and Denies change in stool character Musc Denies abnormal gait, Denies muscle weakness, Denies numbness, Denies radiating pain into limb and Denies tingling Neuro Denies abnormal gait, Denies dizziness, Denies frequent falls, Denies numbness, Denies tingling and Denies weakness Endo Denies fatigue and Denies palpitations Physical Exam Vital Signs: Last Vital Signs Pulse 88 03/08/25 10:07 BP 140/84 H 03/08/25 10:07 BMI result Body Mass Index 34.2 Const General: comfortable and no acute distress Orientation/consciousness: patient oriented x3 HEENT Other: Unremarkable Head: Yes normal to inspection Neck Neck: Yes normal visual inspection Chest Chest palpation & inspection: normal inspection of the chest Resp Auscultation: clear to auscultation bilaterally Cardio Palpation: normal PMI Heart sounds: S1 normal heart sound present, S2 normal heart sound present, no gallops, no murmurs and no rubs GI Palpation (GI): Soft to palpation Back/Spine/Pelvis Other: unremarkable Skin General skin exam: no rashes or lesions noted Neuro General: patient oriented x3 Extrem General: Yes normal to inspection Psych Mental Status: mental status grossly normal Assessment & Plan Assessment & Plan (1) Persistent atrial fibrillation: Code(s): I48.19 - Other persistent atrial fibrillation Category: Medical (2) LATASHA (obstructive sleep apnea): Comment: HE DOES HAVE OBSTRUCTIVE SLEEP APNEA WHICH IS BEING TREATED WITH USE OF CPAP. HE USES NASAL MASK WHICH IS COMFORTABLE, THERE IS NOT MUCH AIR LEAK. USING THE CPAP MORE REGULARLY, BUT HIS DURATION OF USAGE AT NIGHT IS STILL SUBOPTIMAL. Code(s): G47.33 - Obstructive sleep apnea (adult) (pediatric) Category: Medical (3) Dyspnea on exertion: Code(s): R06.00 - Dyspnea, unspecified Category: Medical Plan In the most recent echocardiogram, LVEF is 50-55%. No wall motion abnormalities and otherwise unremarkable. In the Holter monitor, underlying atrial fibrillation with an average rate of 89/Min. Overall, adequate rate control. No significant pauses. With regard to the atrial fibrillation itself, previously underwent cardioversions but failed in spite of amiodarone use. Also shortness of breath is the same with or without atrial fibrillation. Hence may remain on rate control. With regard to the shortness of breath itself, states it is getting worse and he can barely walk a few feet. Uncertain etiology. Previously, myocardial perfusion imaging study was unremarkable. We discussed about a diagnostic catheterization to assess further and after long discussion, they willing to proceed. Can arrange that in the near future. With regard to diuretic, do not really think it is necessary and we can hold off. Otherwise, continue CPAP. Follow-up after the procedure. Discussion Notes I discussed the potential reasons behind the patient's persistent shortness of breath and the necessity of an angiogram to evaluate for cardiovascular blockages. The angiogram is explained, detailing how it involves accessing the heart via a wrist catheter, injecting dye, and measuring pressures. I explained the risks and confirmed the low likelihood of complications, noting the possibility of stent placement if necessary. We discussed the current ineffectiv eness of Lasix and considered reducing or discontinuing it. Follow-up points on CPAP usage were also covered. The patient and I agreed on the need for a procedure, understanding the risks, benefits, and alternatives, concluding with plans for prompt scheduling. Patient was informed and verbally consented to the use of an ambient scribe for clinic note documentation during this visit. 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 - Use your CPAP machine as much as possible, even when awake if comfortable. - Monitor your symptoms, especially shortness of breath, and report any changes. - Coordinate scheduling for an angiogram as discussed today. - Stay active within your comfort level but avoid overexertion. - Keep a watch on any swelling or fluid retention. Coding Level of Care Code Est Pt Level 4 (83895) Complex EM visit Add On G2211 Diagnoses Persistent atrial fibrillation I48.19 LATASHA (obstructive sleep apnea) G47.33 Dyspnea on exertion R06.00
== END 2025-03-08 10:41 | disposition home or self-care (01) ==
LOC: HO.HCS 10:04
PROVIDERS: PCP Internal Medicine; Visit Provider Internal Medicine
DX: I48.19 Other persistent atrial fibrillation (principal); G47.33 Obstructive sleep apnea (adult) (pediatric); R06.00 Dyspnea, unspecified
CPT/HCPCS: 99214; G2211

== ENCOUNTER → 2025-03-08 10:03 | Outpatient (BNVA) | payer MEDICARE, SELFPAY | PROVIDERS: PCP Internal Medicine; Visit Provider Internal Medicine | DX: I48.19 Other persistent atrial fibrillation (principal); G47.33 Obstructive sleep apnea (adult) (pediatric); R06.00 Dyspnea, unspecified | CPT/HCPCS: 99212 ==

== ENCOUNTER 2025-03-11 10:40 | Outpatient (REF) | payer MEDICARE, SELFPAY ==
[2025-03-11 11:12] LABS: Hematocrit 43.4 % (42.0-52.0); Hemoglobin 14.1 g/dl (14.0-18.0); Mean Corpuscular HGB Conc 32.5 g/dl (31.0-36.0); Mean Corpuscular Hemoglobin 29.9 pg (27.0-33.0); Mean Corpuscular Volume 92.1 fL (80.0-98.0); Mean Platelet Volume 10.3 fL (9.4-12.4); Platelet Count 232 X10*3/uL (160-400); Red Blood Count 4.71 X10*6/uL (4.60-5.80); Red Cell Distribution Width 13.5 % (11.0-16.0); White Blood Count 9.3 X10*3/uL (4.8-10.8)
[2025-03-11 11:19] LABS: INTERNATIONAL NORM RATIO 1.5 (0.9-1.1); Prothrombin Time 17.2 SEC (10.9-12.4)
[2025-03-11 12:04] LABS: Anion Gap 13 (12-20); Blood Urea Nitrogen 18 mg/dL (9-16); Calcium 9.3 mg/dL (8.4-10.2); Carbon Dioxide 23 mmol/L (22-29); Chloride 111 mmol/L (96-108); Estimated Glomerular Filt Rate > 60; Glucose Random 70 mg/dL (60-115); Potassium 4.5 mmol/L (3.3-5.1); Sodium 142 mmol/L (135-145)
[2025-03-11 12:13] LABS: Prostate Specific Antigen 8.78 ng/mL (<0.05-4.0)
== END 2025-03-11 10:41 | disposition home or self-care (01) ==
LOC: HO.LAB 10:40
PROVIDERS: Urology; PCP Internal Medicine; Visit Provider Internal Medicine
DX: Z12.5 Encounter for screening for malignant neoplasm of prostate (principal); N40.1 Benign prostatic hyperplasia with lower urinary tract symptoms; N13.8 Other obstructive and reflux uropathy; I48.19 Other persistent atrial fibrillation
CPT/HCPCS: 36415; 80048; 84153; 85027; 85610

== ENCOUNTER 2025-05-15 10:17 | Outpatient (AMB) | payer MEDICARE, SELFPAY ==
[2025-05-15 10:22] VITALS: BP 112/78; PULSE 78; O2SAT 97; BMI 34.3
--- NOTE | 2025-05-15 10:22 | MHC.OFFVIS ---
Vital Signs 05/15/25 10:22 Height 5 ft 10 in Weight 239 lb 3.225 oz BMI 34.3 BP 112/78 Blood Pressure Location Lt brachial Position Sitting Pulse 78 Pulse Source Pulse Oximeter Pulse Oximetry (%) 97 Oxygen Delivery Method Room Air Intake Visit Reasons: Obstructive sleep apnea Intake Note: pt is here for follow up and states his breathing is not good, he is being worked up for cardiac issues, and waiting on plan. But he states his breathing is not good with any exertion. 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 Required: No Allergies No Known Allergies (No Known Allergies*) Allergy (Verified 05/15/25 10:39) Medication List - Last Reconciled 05/15/25 by Ari Rea MD apixaban (Eliquis) 5 mg PO BID diltiazem HCl ER 120 mg PO DAILY enalapril maleate 5 mg PO DAILY erythromycin 0.5 inches ophthalmic (eye) TID finasteride 5 mg PO DAILY 90 days furosemide 40 mg (2 x 20 mg) PO DAILY polyethylene glycol 3350 (Miralax) 17 grams PO DAILY sennosides (senna) 8.6 mg PO DAILY vitamins A,C,Y-zxdn-bqdcjd 4,296 mcg-226 mg-90 mg (PreserVision AREDS) 1 cap PO BID Do you need a note to return to daycare/school/sports/work: No HPI HPI Obstructive sleep apnea: Details: 84 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 DOES USE CPAP BUT ONLY 2-3 HOURS PER NIGHT. THEN TAKES OFF THE MASK. HE CLAIMS THAT HE DOES SLEEP GOOD GETTING ABOUT 6-7 HOURS OF SLEEP EVERY NIGHT. WHETHER HE SLEEPS WITH ON WITHOUT THE CPAP ON, HE DOES NOT NOTICE ANY DIFFERENCE. HE HAS MILD SHORTNESS OF BREATH ON EXERTION WHICH SEEMS TO BE RELATED TO HIS OBESITY AND ALSO CORONARY ARTERY DISEASE. 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 HE IS BEING CLOSELY FOLLOWED BY CARDIOLOGY SERVICE. 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 Social History Housing: House Alcohol intake: never Patient Tobacco Use Status: Never used Tobacco Current occupational status: retired Current occupation: Right Handed Cognitive needs: No Hearing needs: No Vision needs: Yes (reading glasses) Review of Systems Const All systems reviewed & are unremarkable except as noted in HPI and below Eyes Reports no additional complaints ENT Reports no additional complaints Card Denies chest pain, Reports irregular heart rhythm, Denies leg edema and Reports dyspnea on exertion (mild) Resp Reports dyspnea on exertion (mild) GI Reports no additional complaints Reports no additional complaints Musc Reports no additional complaints Skin/Breast Reports system reviewed and no additional complaints, except as documented Neuro Reports no additional complaints Psych Reports no additional complaints Physical Exam Vital Signs: Last Vital Signs Pulse 78 05/15/25 10:22 BP 112/78 05/15/25 10:22 Pulse Ox 97 05/15/25 10:22 Oxygen Delivery Method Room Air 05/15/25 10:22 BMI result Body Mass Index 34.3 Const General: healthy appearing (Except for being overweight), comfortable, no acute distress, alert and awake Orientation/consciousness: patient oriented x3 HEENT Head: Yes normal to inspection General nose exam: No nasal polyps present and No nasal discharge present Face and sinus: Yes sinuses nontender Mouth: oropharynx normal Throat: Yes posterior oropharynx normal Eyes General: appearance normal, both eyes and all related structures Neck Neck: Yes normal visual inspection, Yes no lymphadenopathy, Yes trachea midline and Yes no JVD Thyroid: Thyroid normal Chest Chest palpation & inspection: normal inspection of the chest, normal palpation of entire chest wall and no tenderness Resp Effort & Inspection: normal respiratory effort Auscultation: clear to auscultation bilaterally, no crackles and no wheezes Percussion: percussion normal Cardio Palpation: normal PMI Rate: regular rate Rhythm: abnormal rhythm (Atrial fib) Heart sounds: no gallops and no murmurs Peripheral pulses: Peripheral pulses 2+ throughout GI Palpation (GI): Soft to palpation, nontender, No hepatosplenomegaly present, no masses and Other GI palpation findings present (Abdomen is moderately obese and protuberant) Auscultation: normal bowel sounds Back/Spine/Pelvis Thoracic/Lumbar Spine: thoracic and lumbar spine normal to inspection Skin General skin exam: no rashes or lesions noted Neuro General: patient oriented x3 and no focal motor deficits Cranial nerves: Yes CN's II-XII intact bilaterally Extrem General: Yes normal to inspection, Yes no clubbing, cyanosis or edema and Yes no calf tenderness Psych Appearance: grossly normal and well kempt Speech and movement: Normal speech and movement present Results Reviewed Results Reviewed: COMPLIANCE REPORT FOR THE LAST 30 NIGHTS IS REVIEWED. HE HAS USED 25 OUT OF 30 NIGHTS, 83%. AVERAGE USE IT PER NIGHT 2 HOURS 30 MINUTES. PRESSURE USED MOSTLY 9-10 CM. NO SIGNIFICANT AIR LEAK. RESIDUAL AHI 2.4 Assessment & Plan Assessment & Plan (1) Obesity (BMI 30-39.9): Comment: Remains moderately obese. He is not able to lose much weight. as he cannot do much exercise Code(s): E66.9 - Obesity, unspecified Category: Medical Plan: TALKED ABOUT DIET AND ALSO WALK DAILY MUCH HE CAN (2) LATASHA (obstructive sleep apnea): Comment: HE DOES HAVE OBSTRUCTIVE SLEEP APNEA WHICH IS BEING TREATED WITH USE OF CPAP. HE USES NASAL MASK WHICH IS COMFORTABLE, THERE IS NOT MUCH AIR LEAK. USING THE CPAP MORE REGULARLY, BUT HIS DURATION OF USAGE AT NIGHT IS STILL SUBOPTIMAL( 2-3 HRS ) HE CLAIMS THAT HE DOES GET GOOD SLEEP EVERY NIGHT WITH OR WITHOUT THE CPAP. Code(s): G47.33 - Obstructive sleep apnea (adult) (pediatric) Category: Medical Plan: ADVISE THAT HE SHOULD CONTINUE TO PUT THE CPAP ON AND TRY TO KEEP IT ON FOR AT LEAST 4 HOURS PER NIGHT. Coding Level of Care Code Est Pt Level 3 (83541) Diagnoses Obesity (BMI 30-39.9) E66.9 LATASHA (obstructive sleep apnea) G47.33
--- OUTSIDE RECORDS SUMMARY | 2025-05-15 11:16 | XMS_ITS | Clinical Summary ---
Author Organization [facility] Address [address] [place] [phone] Phone Care Team Providers Care Pre Billing Clinician Name Role Phone Demond Leyva MD Primary Care Provider Allergies No known active allergies Medications apixaban (ELIQUIS) 5 mg tablet Take 5 mg by mouth 2 (two) times a day. 0 Active vitamins A,C,E-zinc-joey er (PRESERVISION AREDS) 4,296 mcg-226 mg-90 mg Cap Take 1 capsule by mouth 2 (two) times a day with meals. Active prednisolone-mo xiflox-bromfen 1-0.5-0.075 % DrpS Apply 1 drop in left eye to eye 4 (four) times a day. Begin 3 days PRIOR to surgery and continue as directed. 8 mL 1 4 Active Additional Information Patient not taking.Reported on 09/14/2024 dilTIAZem (CARDIZEM SR) 120 MG 12 hr capsule 1 capsule. Active methenamine (HIPREX) 1 gram tablet 4 Active cefuroxime (CEFTIN) 500 MG tablet 4 Active clindamycin (CLEOCIN T) 1 % lotion 4 Active dilTIAZem (TIAZAC) 120 MG 24 hr capsule 4 Active ascorbic acid, vitamin C, (VITAMIN C) 1000 MG tablet Take 1,000 mg by mouth daily. Active Active Problems No known active problems Family History Medical History Relation Comments Glaucoma Sister Macular degeneration Neg Hx Relation Status Comments Sister Social History Tobacco Use Types Packs/Day Years Used Date Smoking Tobacco: Never Smokeless Tobacco: Never Tobacco Cessation:Counseling Given: Not Answered Alcohol Use Standard Drinks/Week Comments Not Currently 0 (1 standard drink = 0.6 oz pur e alcohol) Education Answer Date Recorded Are you interested in more education? Not on ivon e 01/23/2023 Are you concerned about learning? Not on file 01/23/2023 No 01/23/2023 No 01/23/2023 Digital Access Answer Date Recorded No 02/23/2023 No 02/23/2023 Reliable internet access at home? Not on file 02/23/2023 Device with a working camera? Not on file Sex and Gender Information Value Date Recorded Sex Assigned at Not on file Legal Sex Male 5:04 PM EDT Gender Identity Not on file Sexual Orientation Not on file Last Filed Vital Signs Vital Sign Reading Time Taken Comments Blood Pressure 141/93 06/01/2024 8:55 AM EDT Pulse 78 06/01/2024 8:55 AM EDT Temperature 36.3 C (97.3 F) 06/01/2024 7:19 AM EDT Respiratory Rate 16 06/01/2024 8:55 AM EDT Oxygen Saturation 97% 06/01/2024 8:55 AM EDT Inhaled Oxygen Concentration - - Weight - - Height - - Body Mass Index - - Plan of Treatment Upcoming Encounters Date Type Department Care Team (Late st Contact Info) Description 06/01/2025 9:00 AM EDT [facility] [address] [address] Radha Real MD [address] [place], [place] [id number] 09/27/2025 1:00 PM EST [facility] [address] [address] Lalitha Mcelroy OD [address] [place] [address] Health Maintenance Due Date Last Done Comments Adult Td,Tdap Booster 1940 CREATININE LEVEL 1940 DEPRESSION SCREENING 1951 ZOSTER VACCINES (1 of 2) 1989 RSV VACCINE (1 - 1-dose 75+ series) 2014 COVID-19 VACCINE (2 - 2023-2 5 season) 2024 08/09/2021 PNEUMOCOCCAL VACCINES (50+ years) Completed 06/21/2015, 05/19/2013 HEPATITIS A VACCINES Aged Out No long er eligible based on patient's age to complete this topic HIB VACCINES Aged Out No longer eligi ble based on patient's age to complete this topic MENINGOCOCCAL VACCINES (ACWY) Aged Out No longer eligible based on patient's age to complete this topic MENINGOCOCCAL VACCINES (B) Aged Out N o longer eligible based on patient's age to complete this topic Medical Devices Implanted Type Area Coal Hauler Operator Device Identifier Shelf Expiration Date Model / Serial / Lot Porter [id number] (Ocb)-06/01/2024 Implanted:06/01 (Quantity not on file) [employer] 06/01/2027 Insurance MEDICARE PART A & B BLUE CROSS MEDEX SUPPLEMENT MEDICARE PART A & B [employer] SUPPLEMENT MEDICARE PART A & B [employer] SUPPLEMENT MEDICARE PART A & B [employer] MEDEX SUPPLEMENT MEDICARE PART A & B [employer] MEDEX SUPPLEMENT MEDICARE PART A & B [employer] MEDEX SUPPLEMENT MEDICARE PART A & B Member Subscriber Plan / Payer ( fective 2004-) Name:Jesus Giraldo Member ID:[id number] Relation to Subscriber:Self Name:Jesus Giraldo Subscriber ID:[id number] Payer ID:[id number] Group ID:Not on file Type:Medicare Address: [employer] [address] [place] [id number] [employer] CROSS MEDEX SUPPLEMENT MEDICARE PART A & B [employer]Home MEDEX SUPPLEMENT MEDICARE PART A & B [employer] MEDEX SUPPLEMENT MEDICARE PART A & B [employer] MEDEX SUPPLEMENT MEDICARE PART A & B [employer] CROSS MEDEX SUPPLEMENT Care Teams Pre Billing Clinician Relationship Specialty Start Date End Date Demond Leyva MD [address] [place] [address] [place] [address] PCP - General Internal Medicine 06/23/22 Additional Source Comments The information contained in this document represents components of the legal health record. It is not the complete legal health record.[facility]
--- OUTSIDE RECORDS SUMMARY | 2025-05-15 11:16 | XMS_ITS | Clinical Summary ---
Author Organization [facility] Address [address] [facility] [address] [place] [address] Care Team Providers Care Line Fixer Name Role Phone Wojciech Mcnamara MD Primary Care Provider [phone] Wojciech Mcnamara MD Unavailable Social History Tobacco Use Types Packs/Day Years Used Date Smoking Tobacco: Never Assessed Sex and Gender Information Value Date Recorded Sex Assigned at Not on file Legal Sex Male 2:43 AM EST Gender Identity Not on file Sexual Orientation Not on file Plan of Treatment Health Maintenance Due Date Last Done Comments DTaP/Tdap/Td Vaccines (1 - Tdap) 1959 Pneumococcal Vaccine: 50+ Ye ars (1 of 1 - PCV) 1989 Zoster Vaccines (1 of 2) 1989 COVID-19 Vaccine (2 - 2023-2 5 season) 2024 08/09/2021 Depression Screening 09/28/2024 Influenza Vaccine (#1) 2025 HIB Vaccines Aged Out No longer eligi ble based on patient's age to complete this topic HPV Vaccines Aged Out No longer eligi ble based on patient's age to complete this topic Hepatitis A Vaccines Aged Out No long er eligible based on patient's age to complete this topic Hepatitis B Vaccines Aged Out No long er eligible based on patient's age to complete this topic IPV Vaccines Aged Out No longer eligi ble based on patient's age to complete this topic Meningococcal B Vaccine Aged Out No l onger eligible based on patient's age to complete this topic Meningococcal Vaccine Aged Out No [place]sha [place] eligible based on patient's age to complete this topic Rotavirus Vaccines Aged Out No longer eligible based on patient's age to complete this topic Care Teams Line Fixer Relationship Specialty Start Date End Date Wojciech Mcnamara MD [facility] [address] [facility] - General 11/01/21 Wojciech Mcnamara MD [address] [place] [address] 11/01/21
== END 2025-05-15 10:38 | disposition home or self-care (01) ==
PROVIDERS: PCP Internal Medicine; Visit Provider Internal Medicine
DX: E66.9 Obesity, unspecified (principal); G47.33 Obstructive sleep apnea (adult) (pediatric)
CPT/HCPCS: 99213

== ENCOUNTER → 2025-05-15 10:17 | Outpatient (BNVA) | payer MEDICARE, SELFPAY | PROVIDERS: PCP Internal Medicine; Visit Provider Internal Medicine | DX: G47.33 Obstructive sleep apnea (adult) (pediatric) (principal); E66.9 Obesity, unspecified; Z68.34 Body mass index [BMI] 34.0-34.9, adult | CPT/HCPCS: 99212 ==

== ENCOUNTER 2025-05-25 10:00 | Outpatient (REF) | payer MEDICARE, SELFPAY ==
--- OUTSIDE RECORDS SUMMARY | 2025-05-19 23:59 | XMS_ITS | Continuity of Care Document ---
Author Organization [facility] Neida charlette Address [address] [place] [address] [place] [address]- Care Team Providers Care Paint Line Supervisor Name Role Phone Stephani GONGORA, Boni Beatty Primary Care Physician Encounter [facility] Date(s): 04/19/25 - 05/19/25 [facility] [address] [place] [address] Drive [address] [place], [place] [address] Encounter Type: Triage Allergies, Adverse Reactions, Alerts No Known Allergies Immunizations Given and Recorded Vaccine Date Status Refusal Reason pneumococcal 13-valent vaccine 06/21/15 Given pneumococcal 23-valent vaccine 05/19/13 Given Tet/Diphth/Acel, Pertussis (oldterm) 05/19/13 Give n Medications clindamycin 1% topical lotion 1 application, Topically, 2 times a day, # 60 mL, 0 Refills, Maintenance, 04/18/25 8:41:00 AM EDT, Lotion, Partial fill upon patient request if the prescription is for a schedule II opioid drug. Start Date: 04/18/25 Status: Ordered Quantity: 60.0 Unit: mL Repeat number: 1 Eliquis 5 mg oral tablet 1 tablet = 5 mg, By Mouth, 2 times a day, # 60 tablet, 5 Refills, Maintenance, 04/11/25 7:57:00 AM EDT, Tablet, Partial fill upon patient request if the prescription is for a schedule II opioid drug. Start Date: 04/11/25 Status: Ordered Quantity: 60.0 Unit: tablet Repeat number: 1 enalapril 5 mg oral tablet 5 mg, 1, tablet, By Mouth, Daily, # 90 tablet, Refills 0, Maintenance, 04/11/25 7:58:00 AM EDT, Partial fill upon patient request if the prescription is for a schedule II opioid drug. Start Date: 04/11/25 Status: Ordered Quantity: 90.0 Unit: tablet Repeat number: 1 finasteride 5 mg oral tablet 1 tablet = 5 mg, By Mouth, Daily, # 90 tablet, 0 Refills, Maintenance, 04/11/25 7:58:00 AM EDT, Tablet, Partial fill upon patient request if the prescription is for a schedule II opioid drug. Start Date: 04/11/25 Status: Ordered Quantity: 90.0 Unit: tablet Repeat number: 1 PreserVision AREDS 2 oral capsule 1 capsule, By Mouth, 2 times a day, # 60 capsule, 0 Refills, Maintenance, 04/18/25 8:41:00 AM EDT, Capsule, Partial fill upon patient request if the prescription is for a schedule II opioid drug. Start Date: 04/18/25 Status: Ordered Quantity: 60.0 Unit: capsule Repeat number: 1 Senna 8.6 mg oral tablet 17.2 mg, 2, tablet, By Mouth, Daily at bedtime, Refills 0, Maintenance, 04/11/25 9:01:00 AM EDT, Partial fill upon patient request if the prescription is for a schedule II opioid drug. Start Date: 04/11/25 Status: Ordered Repeat number: 1 Tiadylt ER 120 mg/24 hours oral capsule, extended release 0 Refills, Maintenance, 04/11/25 7:58:00 AM EDT, Partial fill upon patient request if the prescription is for a schedule II opioid drug. Start Date: 04/11/25 Status: Ordered Repeat number: 1 Vitamin C 500 mg oral tablet 1 tablet = 500 mg, By Mouth, Daily, # 30 tablet, 0 Refills, Maintenance, 04/18/25 8:41:00 AM EDT, Tablet, Partial fill upon patient request if the prescription is for a schedule II opioid drug. Start Date: 04/18/25 Status: Ordered Quantity: 30.0 Unit: tablet Repeat number: 1 Problem List Condition Confirmation Course Effective Dates Status Health St atus Informant Nasal polyps Confirmed Active Obese class I Confirmed Active Inguinal hernia, right Confirmed Active Social History Social History Type Response Smoking Status Never smoker entered on: 05/25/18 Sex Sex Representation Male (finding) Patient Care team information Care Team Personnel Name: Boni Styles MD Position: Reference Physician Member Role: PCP Address: [address] [place], [place] [address] Telecom: Care Team Related Persons Name: LUCINDA SALAZAR Name: MICHAEL SALAZAR Name: HILLARY SALAZAR Name: MICHAEL, DEFAULTED Name: PAN WHALEY Name: PAN PURCELL Insurance Providers Guarantor name: SILVA NADINEDONTE Health Plan Information #: 1 Payer: MEDICARE B Payer Identifier: LIS Member Number: [id number] Group Number: Subscriber Identifier: [id number] Relationship to Subscriber: self Coverage Type: NA Coverage Verification Date: Telecom: Address: Health Plan Information #: 2 Payer: MEDEX SECONDARY ONLY Payer Identifier: NA Member Number: [id number] Group Number: Subscriber Identifier: [id number] Relationship to Subscriber: self Coverage Type: Medicare Other Coverage Verification Date: Telecom: Address:
[2025-05-25 10:43] LABS: Hematocrit 44.7 % (42.0-52.0); Hemoglobin 14.6 g/dl (14.0-18.0); Mean Corpuscular HGB Conc 32.7 g/dl (31.0-36.0); Mean Corpuscular Hemoglobin 30.2 pg (27.0-33.0); Mean Corpuscular Volume 92.4 fL (80.0-98.0); NRBC Abs Auto 0.000 X10*3/uL (0.0-0.012); NRBC Pct Auto 0.0 /100WBC (0.0-0.2); Platelet Count 251 X10*3/uL (160-400); Red Blood Count 4.84 X10*6/uL (4.60-5.80); White Blood Count 7.8 X10*3/uL (4.8-10.8)
[2025-05-25 10:47] LABS: INTERNATIONAL NORM RATIO 1.4 (0.9-1.1); Prothrombin Time 16.1 SEC (10.9-12.4)
[2025-05-25 11:00] LABS: Anion Gap 11 (12-20); Blood Urea Nitrogen 22 mg/dL (9-16); Calcium 9.2 mg/dL (8.4-10.2); Carbon Dioxide 27 mmol/L (22-29); Chloride 108 mmol/L (96-108); Estimated Glomerular Filt Rate 52; Potassium 4.6 mmol/L (3.3-5.1); Sodium 141 mmol/L (135-145)
--- OUTSIDE RECORDS SUMMARY | 2025-05-25 11:12 | XMS_ITS | Clinical Summary ---
Author Organization [facility] Address [address] [place] [address] Care Team Providers Care Research Executive Name Role Phone Wojciech Mcnamara MD Primary Care Provider [phone] Wojciech Mcnamara MD Unavailable Social History Tobacco [...] age to complete this topic Care Teams Research Executive Relationship Specialty Start Date End Date Wojciech Mcnamara MD [facility] [address] [facility] - General 11/01/21 Wojciech Mcnamara MD [address] [place] [address] 11/01/21
--- OUTSIDE RECORDS SUMMARY | 2025-05-25 11:12 | XMS_ITS | Clinical Summary ---
Author Organization [facility] Address [address] [place] [address] Phone Care Team Providers Care Clay Press Operator Name Role Phone Demond Leyva MD Primary [...] AM EDT [facility] [address] [address] Radha Real MD [address] [place], [place] [id number] 09/27/2025 1:00 PM EST [facility] [address] [address] Lalitha Mcelroy OD [address] [place] [address] Health Maintenance Due Date Last Done Comments [...] this topic Medical Devices Implanted Type Area Senior Office Assistant Device Identifier Shelf Expiration Date Model / Serial / Lot Porter [id number] (Ocb)-06/01/2024 Implanted:06/01 (Quantity not on file) [employer] 06/01/2027 Insurance MEDICARE PART A & B BLUE CROSS MEDEX SUPPLEMENT MEDICARE PART A & B [address] SUPPLEMENT MEDICARE PART A & B [employer] SUPPLEMENT MEDICARE PART A & B [employer] MEDEX SUPPLEMENT MEDICARE PART A & B [employer] MEDEX SUPPLEMENT MEDICARE PART A & B [employer] MEDEX SUPPLEMENT MEDICARE PART A & B Member Subscriber Plan / Payer ( fective 2004-) Name:Jesus Giraldo Member ID:[id number] Relation to Subscriber:Self Name:Jesus Giraldo Subscriber ID:[id number] Payer ID:[id number] Group ID:Not on file Type:Medicare Address: Fitbit [address] [place] [phone] [facility] CROSS MEDEX SUPPLEMENT MEDICARE PART A & B [employer] MEDEX SUPPLEMENT MEDICARE PART A & B [employer] MEDEX SUPPLEMENT MEDICARE PART A & B [employer] MEDEX SUPPLEMENT MEDICARE PART A & B [facility] CROSS MEDEX SUPPLEMENT Care Teams Clay Press Operator Relationship Specialty Start Date End Date Demond Leyva MD [address] [place] [address] [place] [address] PCP - General Internal Medicine 06/23/22 Additional Source Comments The information contained in this document represents components of the legal health record. It is not the complete legal health record.[facility]
== END 2025-05-25 10:01 | disposition home or self-care (01) ==
LOC: HO.LAB 10:00
PROVIDERS: PCP Physician Assistant; Visit Provider Internal Medicine Cardiovascular Disease
DX: I25.10 Atherosclerotic heart disease of native coronary artery without angina pectoris (principal)
CPT/HCPCS: 36415; 80048; 85027; 85610

== ENCOUNTER → 2025-05-26 23:59 | Outpatient (BNV) | payer MEDICARE, SELFPAY | PROVIDERS: PCP Physician Assistant; Visit Provider Internal Medicine Cardiovascular Disease | DX: I20.89 Other forms of angina pectoris (principal) | CPT/HCPCS: 92920; 92928; 92978; 99152 ==

== ENCOUNTER 2025-06-08 10:42 | Outpatient (AMB) | payer MEDICARE, SELFPAY ==
--- NOTE | 2025-06-08 11:34 | MHC.OFFVIS ---
Vital Signs 06/08/25 11:37 Height 5 ft 10 in Weight 231 lb 7.766 oz BMI 33.2 BP 118/60 Blood Pressure Location Lt brachial Position Sitting Pulse 99 Pulse Source Monitor Intake Visit Reasons: 2week f/up Allergies No Known Allergies (No Known Allergies*) Allergy (Verified 05/15/25 10:39) Medication List - Last Reconciled 06/08/25 by Kwaku Valencia MD apixaban (Eliquis) 5 mg PO BID clopidogrel (Plavix) 75 mg PO DAILY diltiazem HCl ER (Tiadylt ER) 120 mg PO DAILY enalapril maleate (Vasotec) 5 mg PO DAILY finasteride 5 mg PO DAILY 90 days vitamins A,C,B-qjpj-ixnnml 4,296 mcg-226 mg-90 mg (PreserVision AREDS) 1 cap PO BID HPI Comments Details: Jesus returns for follow-up regarding atrial fibrillation and coronary artery disease. In 2019, he was diagnosed with atrial fibrillation. After that, he has had cardioversions as well as amiodarone use but eventually reverted back to atrial fibrillation. However, he felt the same either in atrial fibrillation or in sinus rhythm and hence not clear if it indeed is etiology. His main concerns still continues to be shortness of breath with activity. Even mild activities make him short of breath. Because of this, he underwent further workup with a diagnostic catheterization that showed complex CAD. Surgery was recommended but he was felt to be too high of a risk and he had circumflex PCI done. He still has the LAD PCI. Overall, he does not really noticed any big change after the circumflex PCI. More or less the same. No angina. Just short of breath with activity. 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 Social History Housing: House Alcohol intake: never Patient Tobacco Use Status: Never used Tobacco Current occupational status: retired Current occupation: Right Handed Cognitive needs: No Hearing needs: No Vision needs: Yes (reading glasses) Review of Systems Const Denies weakness ENT Denies dizziness Card Denies chest pain, Denies chest pain with activity, Denies syncope, Denies rapid heart rate, Denies pedal edema, Denies edema, Denies leg edema, Denies lightheadedness, Reports palpitations, Reports dyspnea, Reports dyspnea on exertion and Reports orthopnea Resp Denies cough, Reports dyspnea and Reports dyspnea on exertion GI Denies hematochezia and Denies change in stool character Musc Denies abnormal gait, Denies muscle cramps, Denies muscle weakness, Denies numbness, Denies radiating pain into limb and Denies tingling Neuro Denies abnormal gait, Denies dizziness, Denies syncope, Denies numbness, Denies tingling and Denies weakness Endo Reports palpitations Physical Exam Vital Signs: Last Vital Signs Pulse 99 06/08/25 11:37 BP 118/60 06/08/25 11:37 BMI result Body Mass Index 33.2 Const General: comfortable and no acute distress Orientation/consciousness: patient oriented x3 HEENT Other: Unremarkable Head: Yes normal to inspection Neck Neck: Yes normal visual inspection Chest Chest palpation & inspection: normal inspection of the chest Resp Auscultation: clear to auscultation bilaterally Cardio Palpation: normal PMI Heart sounds: S1 normal heart sound present, S2 normal heart sound present, no gallops, no murmurs and no rubs GI Palpation (GI): Soft to palpation Back/Spine/Pelvis Other: unremarkable Skin General skin exam: no rashes or lesions noted Neuro General: patient oriented x3 Extrem General: Yes normal to inspection Psych Mental Status: mental status grossly normal Office Procedures EKG Details: EKG with atrial fibrillation at 99/Min; rightward axis; nonspecific ST-T changes. 56817-[id number], Complete Assessment & Plan Assessment & Plan (1) Atherosclerotic cardiovascular disease: Code(s): I25.10 - Atherosclerotic heart disease of [place] coronary artery without angina pectoris Category: Medical Plan: Recent cardiac catheterization and status post PCI to circumflex. 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 He would like that at rest as well. However, I am not entirely clear how much of his shortness of breath is from this. We will discuss with Interventional. Otherwise, start statins. On Plavix/Eliquis. (2) Persistent atrial fibrillation: Code(s): I48.19 - Other persistent atrial fibrillation Category: Medical Plan: On diltiazem for rate control. Previously, attempted cardioversions but more recently, he is just on rate control. On Eliquis. Medications: New atorvastatin (Lipitor) 40 mg PO QPM 90 tabs 1RF Coding Level of Care Code Est Pt Level 4 (85565) Diagnoses Atherosclerotic cardiovascular disease I25.10 Persistent atrial fibrillation I48.19 CPT Codes EKG - CPT: 82209-[id number], Complete ([id number])
[2025-06-08 11:37] VITALS: BP 118/60; PULSE 99; BMI 33.2
== END 2025-06-08 11:59 | disposition home or self-care (01) ==
LOC: HO.HCS 10:43
PROVIDERS: PCP Internal Medicine; Visit Provider Internal Medicine
DX: I25.10 Atherosclerotic heart disease of native coronary artery without angina pectoris (principal); I48.19 Other persistent atrial fibrillation
CPT/HCPCS: 93010; 99214

== ENCOUNTER → 2025-06-08 10:42 | Outpatient (BNVA) | payer MEDICARE, SELFPAY | PROVIDERS: PCP Internal Medicine; Visit Provider Internal Medicine | DX: I25.10 Atherosclerotic heart disease of native coronary artery without angina pectoris (principal); Z79.01 Long term (current) use of anticoagulants; I48.19 Other persistent atrial fibrillation | CPT/HCPCS: 93005; 99212 ==

== ENCOUNTER 2025-07-24 09:29 | Outpatient (AMB) | payer MEDICARE, SELFPAY ==
--- NOTE | 2025-07-24 09:17 | MHC.PC.OV ---
Vital Signs 07/24/25 09:38 Height 5 ft 8.54 in Weight 107.955 kg BMI 35.6 BP 100/74 Blood Pressure Location Lt brachial Position Sitting Respiration 20 Pulse 103 H Pulse Source Pulse Oximeter Temp 97.5 F Temp Source Temporal Artery Scan Pulse Oximetry (%) 98 Oxygen Delivery Method Room Air Intake Visit Reasons: 6 Month F/U Campaign Worker Required: No Accompanied by: partner-mauricio Allergies No Known Allergies (No Known Allergies*) Allergy (Verified 07/24/25 09:17) Medication List - Last Reconciled 07/24/25 by SINDI Cates apixaban (Eliquis) 5 mg PO BID atorvastatin (Lipitor) 40 mg PO QPM clindamycin phosphate 1% topical clopidogrel (Plavix) 75 mg PO DAILY diltiazem HCl ER (Tiadylt ER) 120 mg PO DAILY enalapril maleate (Vasotec) 5 mg PO DAILY erythromycin 1 appl ophthalmic (eye) DAILY finasteride 5 mg PO DAILY 90 days vitamins A,C,V-aqxx-sukgqn 4,296 mcg-226 mg-90 mg (PreserVision AREDS) 1 cap PO BID Tobacco use date assessed: 01/16/25 Dental Screening Dental Screen Date: 01/16/25 HPI HPI Comments History of Present Illness Details 84-year-old male with history of LATASHA, CAD, hyperlipidemia, hypertension, BPH, atrial fibrillation among others presenting to the office today for management of chronic conditions and follow-up. CAD-follows with Dr. Valencia. 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 Continues on Eliquis, Plavix, atorvastatin. Will have upcoming appointment with interventional cardiology for 2nd opinion given ongoing dyspnea. No chest pains Persistent atrial fibrillation-s/p cardioversion x2. anticoagulated with Eliquis 5 mg twice daily. On diltiazem 120 mg ER. No lightheadedness or palpitations Hypertension-blood pressure in the office today 100/74. On diltiazem 120 mg ER, enalapril 5 mg daily BPH-stable on finasteride LATASHA-compliant with CPAP Chronic red eye- follows with [facility], needs appt. Requesting refill of erythromycin ointment that was previously prescribed by [facility] Concerns: Positional lightheadedness when standing. Also has dyspnea on exertion but this is not new. No syncope. No palpitations or chest pain. He has discussed this with Cardiology and we will be getting 2nd opinion from [facility] cadioversion x 2 Constipation-on daily bowel regimen but still requires castor oil occasionally. Health maintenance: History of colon polyp, last colonoscopy 2021 with PRN follow-up advised ROS: See HPI EXAM: Constitutional - Awake and Alert, No apparent distress Eyes - PERRL Cardiovascular - S1S2, RRR, No edema Respiratory - Normal lung expansion, Normal respiratory effort, No respiratory distress, CTA bilaterally Extremities - no calf tenderness bilaterally, no swelling Skin - Warm/Dry Neurological - Alert & oriented x3 Psychological - Appropriate affect [facility] Medical History (Updated 06/08/25 @ 12:43 by Kwaku Valencia MD) Atherosclerotic cardiovascular disease Somnolence, daytime Obesity (BMI 30-39.9) Colon adenoma LATASHA (obstructive sleep apnea) 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 Social History Housing: House Alcohol intake: never Patient Tobacco Use Status: Never used Tobacco Current occupational status: retired Current occupation: Right Handed Cognitive needs: No Hearing needs: No Vision needs: Yes (reading glasses) Questionnaire Thrive Questionnaire Date Thrive assessed: 01/16/25 HUGH-7 AMB Questionnaire HUGH-7 Date HUGH - 7 assessed: 01/16/25 Source: Developed by Drs. Arturo Nesbitt, Chasidy Gaviria, Minh Dill and colleagues, with an educational clementina from [employer]. Physical exam (Primary Care) Vital Signs: Last Vital Signs Temp 97.5 F 07/24/25 09:38 Pulse 103 H 07/24/25 09:38 Resp 20 07/24/25 09:38 BP 100/74 07/24/25 09:38 Pulse Ox 98 07/24/25 09:38 Oxygen Delivery Method Room Air 10/27/25 09:38 BMI result Body Mass Index 35.6 Tobacco/Smoking Status: Tobacco use Status Tobacco use date assessed 01/16/25 07/24/25 09:18 Patient Tobacco Use Status Never used Tobacco 07/24/25 09:18 Thrive Assessment: Date of Thrive Assessment Date Thrive assessed 01/16/25 07/24/25 09:18 Coding Level of Care Code Est Pt Level 4 (51602) Complex EM visit Add On G2211 Diagnoses CAD (coronary artery disease) I25.10 Persistent atrial fibrillation I48.19 BPH w urinary obs/LUTS N40.1; N13.8 LATASHA (obstructive sleep apnea) G47.33 Obesity (BMI 30-39.9) E66.9 Assessment & Plan Assessment & Plan (1) CAD (coronary artery disease): Code(s): I25.10 - Atherosclerotic heart disease of [place] coronary artery without angina pectoris Category: Medical Plan: Stable, no recent chest pain following PCI. Continue on Eliquis, Plavix, statin. Follow-up with cardiology as scheduled. Reviewed last note (2) Persistent atrial fibrillation: Code(s): I48.19 - Other persistent atrial fibrillation Category: Medical Plan: Rate controlled. Continue Eliquis, diltiazem (3) BPH w urinary obs/LUTS: Code(s): N40.1 - Benign prostatic hyperplasia with lower urinary tract symptoms; N13.8 - Other obstructive and reflux uropathy Category: Medical Plan: Stable. Continue finasteride (4) LATASHA (obstructive sleep apnea): Comment: HE DOES HAVE OBSTRUCTIVE SLEEP APNEA WHICH IS BEING TREATED WITH USE OF CPAP. HE USES NASAL MASK WHICH IS COMFORTABLE, THERE IS NOT MUCH AIR LEAK. USING THE CPAP MORE REGULARLY, BUT HIS DURATION OF USAGE AT NIGHT IS STILL SUBOPTIMAL( 2-3 HRS ) HE CLAIMS THAT HE DOES GET GOOD SLEEP EVERY NIGHT WITH OR WITHOUT THE CPAP. Code(s): G47.33 - Obstructive sleep apnea (adult) (pediatric) Category: Medical Plan: Continue CPAP (5) Obesity (BMI 30-39.9): Comment: Remains moderately obese. He is not able to lose much weight. as he cannot do much exercise Code(s): E66.9 - Obesity, unspecified Category: Medical Plan: Weight loss recommended. Discussed that some of his dyspnea may be related to obesity hypoventilation. Recommend diet lower in calories with emphasis on elevated protein, fruits, vegetables and lower in refined sugars, simple carbohydrates and highly processed foods. Recommend exercise as tolerated as recommended by Cardiology Plan Follow-up in the office in 3 months with labs completed prior to visit. Reviewed last labs from 04/2025 Orders: Orders Lipid Panel 3 Months I25.10 - Atherosclerotic heart disease of [place] coronary artery without angina pectoris, I48.0 - Paroxysmal atrial fibrillation, I50.20 - Unspecified systolic (congestive) heart failure Basic Metabolic Panel 3 Months I25.10 - Atherosclerotic heart disease of [place] coronary artery without angina pectoris, I48.0 - Paroxysmal atrial fibrillation, I50.20 - Unspecified systolic (congestive) heart failure Liver Panel 3 Months I25.10 - Atherosclerotic heart disease of [place] coronary artery without angina pectoris, I48.0 - Paroxysmal atrial fibrillation, I50.20 - Unspecified systolic (congestive) heart failure Complete Blood Count Auto Diff 3 Months I25.10 - Atherosclerotic heart disease of [place] coronary artery without angina pectoris, I48.0 - Paroxysmal atrial fibrillation, I50.20 - Unspecified systolic (congestive) heart failure Medications: New erythromycin 1 appl ophthalmic (eye) DAILY 50 grams 0RF
[2025-07-24 09:38] VITALS: BP 100/74; PULSE 103; RESP 20; TEMP 36.4; O2SAT 98; BMI 35.6
--- OUTSIDE RECORDS SUMMARY | 2025-07-24 10:38 | XMS_ITS | Clinical Summary ---
Author Organization [facility] Address [address] [address] Care Team Providers Care Power Press Operator Name Role Phone Wojciech Mcnamara MD Primary Care Provider [phone] Wojciech Mcnamara MD Unavailable Social History Tobacco Use Types Packs/Day Years Used Date Smoking Tobacco: Never Assessed Sex and Gender Information Value Date Recorded Sex Assigned at Not on file Legal Sex Male 2:43 AM EST Gender Identity Not on file Sexual Orientation Not on file Plan of Treatment Not on file Care Teams Power Press Operator Relationship Specialty Start Date End Date Wojciech Mcnamara MD [address] [place] [address] PCP - General 11/01/21 Wojciech Mcnamara MD [address] [place] [address] 11/01/21
== END 2025-07-24 11:18 | disposition home or self-care (01) ==
LOC: HO.HMCHD 09:29
PROVIDERS: PCP Physician Assistant; Visit Provider Physician Assistant
DX: I25.10 Atherosclerotic heart disease of native coronary artery without angina pectoris (principal); I48.19 Other persistent atrial fibrillation; N40.1 Benign prostatic hyperplasia with lower urinary tract symptoms; N13.8 Other obstructive and reflux uropathy; G47.33 Obstructive sleep apnea (adult) (pediatric); E66.9 Obesity, unspecified

== ENCOUNTER → 2025-07-24 09:29 | Outpatient (BNVA) | payer MEDICARE, SELFPAY | PROVIDERS: PCP Physician Assistant; Visit Provider Physician Assistant | DX: I25.10 Atherosclerotic heart disease of native coronary artery without angina pectoris (principal); I48.19 Other persistent atrial fibrillation; N40.1 Benign prostatic hyperplasia with lower urinary tract symptoms; N13.8 Other obstructive and reflux uropathy; G47.33 Obstructive sleep apnea (adult) (pediatric); E66.9 Obesity, unspecified; Z68.35 Body mass index [BMI] 35.0-35.9, adult; K59.00 Constipation, unspecified; Z79.01 Long term (current) use of anticoagulants; Z79.02 Long term (current) use of antithrombotics/antiplatelets; Z79.899 Other long term (current) drug therapy; Z99.89 Dependence on other enabling machines and devices | CPT/HCPCS: 99212 ==

== ENCOUNTER 2025-08-07 09:52 | Outpatient (AMB) | payer MEDICARE, SELFPAY ==
--- NOTE | 2025-08-07 10:08 | A.OFFVIS_ITS ---
Vital Signs 08/07/25 10:09 Height 5 ft 10 in Weight 233 lb 11.04 oz BMI 33.5 BP 124/68 Blood Pressure Location Lt brachial Position Sitting Pulse 86 Pulse Source Pulse Oximeter Intake Visit Reasons: 2 months Allergies No Known Allergies (No Known Allergies*) Allergy (Verified 07/24/25 09:17) Medication List - Last Reconciled 08/07/25 by Kwaku Valencia MD apixaban (Eliquis) 5 mg PO BID atorvastatin (Lipitor) 40 mg PO QPM clindamycin phosphate 1% topical clopidogrel (Plavix) 75 mg PO DAILY diltiazem HCl ER (Tiadylt ER) 120 mg PO DAILY enalapril maleate 5 mg PO DAILY erythromycin 1 appl ophthalmic (eye) DAILY finasteride 5 mg PO DAILY 90 days vitamins A,C,Q-fxpl-udexij 4,296 mcg-226 mg-90 mg (PreserVision AREDS) 1 cap PO BID HPI Comments Details: Jesus returns for follow-up regarding atrial fibrillation and coronary artery disease. In 2019, he was diagnosed with atrial fibrillation. After that, he has had cardioversions as well as being on Amiodarone, but eventually reverted back to atrial fibrillation. However, he felt the same either in atrial fibrillation or in sinus rhythm and hence not clear if it indeed is etiology. His main concerns still continues to be shortness of breath with activity. Even mild activities make him short of breath. Because of this, he underwent further workup with a diagnostic catheterization that showed complex CAD. Surgery was recommended but he was felt to be too high of a risk and he had circumflex PCI done. He still has the LAD PCI. More or less the same as before. He still feels short of breath with activity. 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 Social History Housing: House Alcohol intake: never Patient Tobacco Use Status: Never used Tobacco Current occupational status: retired Current occupation: Right Handed Cognitive needs: No Hearing needs: No Vision needs: Yes (reading glasses) Review of Systems Const Denies weakness ENT Denies dizziness Card Denies chest pain, Denies chest pain with activity, Denies syncope, Denies rapid heart rate, Denies pedal edema, Denies edema, Denies leg edema, Denies lightheadedness, Denies palpitations, Denies dyspnea, Denies dyspnea on exertion and Denies orthopnea Resp Denies cough, Denies dyspnea and Denies dyspnea on exertion GI Denies hematochezia and Denies change in stool character Musc Denies abnormal gait, Denies muscle cramps, Denies muscle weakness, Denies numbness, Denies radiating pain into limb and Denies tingling Neuro Denies abnormal gait, Denies dizziness, Denies syncope, Denies numbness, Denies tingling and Denies weakness Endo Denies palpitations Physical Exam Vital Signs: Last Vital Signs Pulse 86 08/07/25 10:09 BP 124/68 08/07/25 10:09 BMI result Body Mass Index 33.5 Const General: comfortable and no acute distress Orientation/consciousness: patient oriented x3 HEENT Other: Unremarkable Head: Yes normal to inspection Neck Neck: Yes normal visual inspection Chest Chest palpation & inspection: normal inspection of the chest Resp Auscultation: clear to auscultation bilaterally Cardio Palpation: normal PMI Heart sounds: S1 normal heart sound present, S2 normal heart sound present, no gallops, no murmurs and no rubs GI Palpation (GI): Soft to palpation Back/Spine/Pelvis Other: unremarkable Skin General skin exam: no rashes or lesions noted Neuro General: patient oriented x3 Extrem General: Yes normal to inspection Psych Mental Status: mental status grossly normal Assessment & Plan Assessment & Plan (1) Atherosclerotic cardiovascular disease: Code(s): I25.10 - Atherosclerotic heart disease of [place] coronary artery without angina pectoris Category: Medical Plan: Recent cardiac catheterization and status post PCI to circumflex. 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 Appointment pending this week with , we discussed if intervention was feasible for the LAD LEAD SOFTWARE DEVELOPMENT ENGINEER. On Plavix/Eliquis. On statins. We will follow up lipids in due course. (2) Persistent atrial fibrillation: Code(s): I48.19 - Other persistent atrial fibrillation Category: Medical Plan: On diltiazem for rate control. Previously, attempted cardioversions but more recently, he is just on rate control. On Eliquis. It does not notice any difference while in atrial fibrillation or in sinus. Plan Discussion Notes I discussed with the patient the chronic total occlusion of his coronary artery and the potential need for specialized intervention. We reviewed the risks associated with surgical procedures for this condition and the possibility of consulting a specialist in [place]. Patient was informed and verbally consented to the use of an ambient scribe for clinic note documentation during this visit. Medications: New diltiazem HCl ER (Tiadylt ER) 120 mg PO DAILY 90 caps 3RF Patient Instructions: - Attend the upcoming appointment with the specialist to discuss the coronary artery blockage. - Monitor shortness of breath and report any worsening symptoms. Coding Level of Care Code Est Pt Level 4 (08501) Complex EM visit Add On G2211 Diagnoses Atherosclerotic cardiovascular disease I25.10 Persistent atrial fibrillation I48.19
[2025-08-07 10:09] VITALS: BP 124/68; PULSE 86; BMI 33.5
--- OUTSIDE RECORDS SUMMARY | 2025-08-07 11:15 | XMS_ITS | Clinical Summary ---
Author Organization [facility] Address [address] [address] Care Team Providers Care Network Engineer Administrator Name Role Phone Wojciech Mcnamara MD Primary Care Provider [phone] Wojciech Mcnamara MD Unavailable Social History Tobacco Use Types Packs/Day Years Used Date Smoking Tobacco: Never Assessed Sex and Gender Information Value Date Recorded Sex Assigned at Not on file Legal Sex Male 2:43 AM EST Gender Identity Not on file Sexual Orientation Not on file Plan of Treatment Not on file Care Teams Network Engineer Administrator Relationship Specialty Start Date End Date Wojciech Mcnamara MD [address] [place] [address] PCP - General 11/01/21 Wojciech Mcnamara MD [address] [place] [address] 11/01/21
--- OUTSIDE RECORDS SUMMARY | 2025-08-07 11:15 | XMS_ITS | Clinical Summary ---
Author Organization [facility] Address [address] [place] [address] Phone Care Team Providers Care Sales Floor Manager Name Role Phone Demond Leyva MD Primary [...] Upcoming Encounters Date Type Department Care Team ([facility] st Contact Info) Description 09/27/2025 1:00 PM EST Office [place] [facility] [place] [address] [facility] [address] [place] [address] Lalitha Mcelroy OD [address] [address] [email or web address] Health Maintenance Due Date Last Done Comments Adult Td,Tdap Booster 1940 CREATININE LEVEL 1940 DEPRESSION SCREENING 1951 ZOSTER VACCINES (1 of 2) 1989 RSV VACCINE (1 - 1-dose 75+ series) 2014 INFLUENZA VACCINE (#1) 2025 COVID-19 VACCINE (2 - 2024-2 6 season) 2025 08/09/2021 PNEUMOCOCCAL VACCINES (50+ years) Completed 06/21/2015, [...] this topic Medical Devices Implanted Type Area Physical Education Department Chair Device Identifier Shelf Expiration Date Model / Serial / Lot Porter [id number] 17.5 (Ocb)-06/01/2024 Implanted:06/01 (Quantity not on file) Lens [employer] 06/01/2027 Insurance MEDICARE PART A & B [facility] MEDEX SUPPLEMENT MEDICARE PART A & B [employer] MEDEX SUPPLEMENT MEDICARE PART A & B [employer] MEDEX SUPPLEMENT Five[employer] SUPPLEMENT MEDICARE PART A & B [employer] SUPPLEMENT MEDICARE PART A & B [employer] SUPPLEMENT MEDICARE PART A & B [employer] MEDEX SUPPLEMENT MEDICARE PART A & B [employer] MEDEX SUPPLEMENT MEDICARE PART A & B Member Subscriber Plan / Payer ( fective 2004-) Name:Rizwana Giraldoo Member ID:[id number] Relation to Subscriber:Self Name:Jesus Giraldo Subscriber ID:[id number] Payer ID:[id number] Group ID:Not on file Type:Medicare Address: [employer] [address] [place] [phone] [employer] MEDEX SUPPLEMENT MEDICARE PART A & B [employer] MEDEX SUPPLEMENT MEDICARE PART A & B [employer] MEDEX SUPPLEMENT Care Teams Sales Floor Manager Relationship Specialty Start Date End Date Demond Leyva MD [address] [place] [address] [place] [address] PCP - General Internal Medicine 06/23/22 Additional Source Comments The information contained in this document represents components of the legal health record. It is not the complete legal health record.[facility]
== END 2025-08-07 10:27 | disposition home or self-care (01) ==
LOC: HO.HCS 09:53
PROVIDERS: PCP Internal Medicine; Visit Provider Internal Medicine
DX: I25.10 Atherosclerotic heart disease of native coronary artery without angina pectoris (principal); I48.19 Other persistent atrial fibrillation
CPT/HCPCS: 99214; G2211

== ENCOUNTER → 2025-08-07 09:52 | Outpatient (BNVA) | payer MEDICARE, SELFPAY | PROVIDERS: PCP Internal Medicine; Visit Provider Internal Medicine | DX: I25.10 Atherosclerotic heart disease of native coronary artery without angina pectoris (principal); I48.19 Other persistent atrial fibrillation | CPT/HCPCS: 99212 ==

== ENCOUNTER 2025-08-15 08:52 | Outpatient (REF) | payer MEDICARE, SELFPAY ==
[2025-08-15 10:40] LABS: PSA,Total (Free>4and<10) 5.21 ng/mL (0.00-4.00)
--- OUTSIDE RECORDS SUMMARY | 2025-08-15 18:23 | XMS_ITS | Clinical Summary ---
Author Organization [facility] Address [address] [address] Care Team Providers Care Jewel Lathe Operator Name Role Phone Wojciech Mcnamara MD Primary Care Provider [phone] Wojciech Mcnamara MD Unavailable Social History Tobacco Use Types Packs/Day Years Used Date Smoking Tobacco: Never Assessed Sex and Gender Information Value Date Recorded Sex Assigned at Not on file Legal Sex Male 2:43 AM EST Gender Identity Not on file Sexual Orientation Not on file Plan of Treatment Not on file Care Teams Jewel Lathe Operator Relationship Specialty Start Date End Date Wojciech Mcnamara MD [address] [place] [address] PCP - General 11/01/21 Wojciech Mcnamara MD [address] [place] [address] 11/01/21
--- OUTSIDE RECORDS SUMMARY | 2025-08-15 18:23 | XMS_ITS | Clinical Summary ---
Author Organization [facility] Address [address] [place] [address] Phone Care Team Providers Care Position Description Manager Name Role Phone Demond Leyva MD [...] Care Team (Late st Contact Info) Description 01/23/2026 7:30 AM EDT Office Visit [facility] [place] [address] [facility] [address] [place] [address] Rula Aguilar, OD [address] [place] [address] [email or web address] Health Maintenance Due Date Last Done Comments [...] this topic Medical Devices Implanted Type Area Assistant Store Manager Sales Device Identifier Shelf Expiration Date Model / Serial / Lot Porter [id number] 17.5 (Ocb)-06/01/2024 Implanted:06/01 (Quantity not on file) Lens [employer] 06/01/2027 Insurance MEDICARE PART A & B [employer] MEDEX SUPPLEMENT MEDICARE PART A & B Member Subscriber Plan / Payer ( fective 2004-) Name:Rizwana Giraldoo Member ID:[id number] Relation to Subscriber:Self Name:Jesus Giraldo Subscriber ID:[id number] Payer ID:[id number] Group ID:Not on file Type:Medicare Address: [employer] [address] [place] [phone] [employer] MEDEX SUPPLEMENT MEDICARE PART A & B [employer] MEDEX SUPPLEMENT [employer] SUPPLEMENT MEDICARE PART A & B [employer] SUPPLEMENT MEDICARE PART A & B [employer] MEDEX SUPPLEMENT MEDICARE PART A & B [employer] MEDEX SUPPLEMENT MEDICARE PART A & B [facility] MEDEX SUPPLEMENT MEDICARE PART A & B Member Subscriber Plan / Payer ( fective 2004-) Name:Rizwana Giraldoo Member ID:[id number] Relation to Subscriber:Self Name:EnzoRizwanao Subscriber ID:[id number] Payer ID:[id number] Group ID:Not on file Type:Medicare Address: [employer] [address] [place] [phone] [employer] MEDEX SUPPLEMENT MEDICARE PART A & B [employer] MEDEX SUPPLEMENT MEDICARE PART A & B [employer] MEDEX SUPPLEMENT Care Teams Position Description Manager Relationship Specialty Start Date End Date Demond Leyva MD [address] [place] [address] [place] [address] PCP - General Internal Medicine 06/23/22 Additional Source Comments The information contained in this document represents components of the legal health record. It is not the complete legal health record.[facility]
[2025-08-16 13:23] LABS: Free Prostate Spec Ag 1.3 ng/mL; Percent Free Prostate Spec Ag 28 % (calc) (>25)
== END 2025-08-15 08:53 | disposition home or self-care (01) ==
LOC: HO.LAB 08:52
PROVIDERS: PCP Physician Assistant; Visit Provider Urology
DX: Z12.5 Encounter for screening for malignant neoplasm of prostate (principal); N40.1 Benign prostatic hyperplasia with lower urinary tract symptoms; N13.8 Other obstructive and reflux uropathy
CPT/HCPCS: 36415; 84153; 84154

== ENCOUNTER 2025-08-31 10:08 | Outpatient (AMB) | payer MEDICARE, SELFPAY ==
--- NOTE | 2025-08-31 10:08 | A.OFFVIS_ITS ---
Intake Visit Reasons: 6M PSA SET Intake Note: Patient is present for 6M/UA/PSA Urology Medication:NONE Antibiotic Allergy:NONE Blood Thinner:APIXABAN/PLAVIX Labs done : 08/15/2025 Total PSA 5.21 PVR: 76 mls Velvet Cutter Required: No Accompanied by: Self / Same As Patient Allergies No Known Allergies (No Known Allergies*) Allergy (Verified 08/31/25 10:09) HPI Comments Details: Jesus is a very pleasant male. He is a patient of Dr. Leyva. He is seen for the following issues - elevated PSA - lower urinary tract symptoms - recurrent urinary tract infection Six-month follow-up Has been on finasteride 75 cc PVR PSA reducing Repeat lab work in six-month is nurse who accompanied him throughout Lower urinary tract symptoms Here for further assessment of lower urinary tract symptoms Nocturia x3, weakness of stream Current medications include terazosin 10 mg and finasteride PSA 06/16 8.6, 04/17 7.5, 09/17 3.1, 03/19 4.6 35%, 01/20 7.42, 08/22 4.7 28% ERIC 3+ prostate Discussed risks of prostate cancer approximately 20% 01/19 GreenLight laser prostate with bladder stone removal Diagnosed with colorectal cancer 2021 Underwent resection in August 2022 - Associated with urinary retention [facility] Medical History (Updated 06/08/25 @ 12:43 by Kwaku Valencia MD) Atherosclerotic cardiovascular disease Somnolence, daytime Obesity (BMI 30-39.9) Colon adenoma LATASHA (obstructive sleep apnea) 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 Social History Housing: House Alcohol intake: never Patient Tobacco Use Status: Never used Tobacco Current occupational status: retired Current occupation: Right Handed Cognitive needs: No Hearing needs: No Vision needs: Yes (reading glasses) Review of Systems Const Denies chills and Denies fever(s) Card Reports no additional complaints and Denies syncope Resp Denies cough GI Denies abdominal pain and Denies heartburn Reports as per HPI and Denies change in libido Neuro Denies syncope Psych Denies change in libido Endo Denies change in libido Physical Exam Const General: cooperative, healthy appearing, comfortable and no acute distress Orientation/consciousness: patient oriented x3 HEENT Face and sinus: Yes normal facial exam Mouth: moist mucous membranes Neck Neck: Yes normal visual inspection, Yes full ROM and Yes trachea midline Chest Chest palpation & inspection: normal inspection of the chest Resp Effort & Inspection: normal respiratory effort, able to speak in complete sentences and no respiratory distress GI Inspection: Yes normal to inspection Back/Spine/Pelvis Cervical Spine: normal cervical lordosis Thoracic/Lumbar Spine: thoracic and lumbar spine normal to inspection Skin General skin exam: no rashes or lesions noted Neuro General: patient oriented x3, gait normal, tone normal and moves all extremities Extrem General: Yes normal to inspection and Yes capillary refill normal Office Procedures Post Void Residual Post Residual Void Post Void Residual (PVR): 76 [id number] Void Residual by ultrasound Results AMB Urinalysis, Automated UA Leukoctes 0 Haley/uL Last Edit by Berna Crow [facility] on 08/31/25 10:28 UA Nitrite Negative Last Edit by Berna Crow [facility] on 08/31/25 10:28 UA Urobilinogen 0.2 mg/dL Last Edit by Berna Crow [facility] on 08/31/25 10:28 UA Protein 15 mg/dL Last Edit by Berna Crow [facility] on 08/31/25 10:28 UA pH 6.0 Last Edit by Berna Crow [facility] on 08/31/25 10:28 UA Blood 0 Ortiz/uL Last Edit by Berna Crow [facility] on 08/31/25 10:28 UA Specific Converse 1.025 Last Edit by Berna Crow [facility] on 08/31/25 10:2 8 UA Ketone Negative Last Edit by Berna Crow [facility] on 08/31/25 10:28 UA Bilirubin 0 mg/dL Last Edit by Berna Crow [facility] on 08/31/25 10:28 UA Glucose 0 mg/dL Last Edit by AYAAN Cole on 08/31/25 10:28 Results Reviewed Results Reviewed: Laboratory Last Values Urine pH (Auto) 6.0 08/31/25 10:27 Specific Converse (Auto) 1.025 08/31/25 10:27 Urine Protein (Auto) 15 mg/dL 08/31/25 10:27 Glucose (UA)(Auto) 0 mg/dL 08/31/25 10:27 Urine Ketones (Auto) Negative 08/31/25 10:27 Urine Blood (Auto) 0 Ortiz/uL 08/31/25 10:27 Urine Nitrite (Auto) Negative 08/31/25 10:27 Urine Bilirubin (Auto) 0 mg/dL 08/31/25 10:27 Urine Urobilinogen (Auto) 0.2 mg/dL 08/31/25 10:27 Leukocyte Esterase (Auto) 0 Haley/uL 08/31/25 10:27 Assessment & Plan Assessment & Plan (1) Elevated PSA: Code(s): R97.20 - Elevated prostate specific antigen [PSA] Category: Medical (2) Urinary retention with incomplete bladder emptying: Code(s): R33.9 - Retention of urine, unspecified Category: Medical Plan Six-month follow-up PSA Orders: Orders PSA,Total (Free>4and<10) 6 Months R97.20 - Elevated prostate specific antigen [PSA] AMB Urinalysis Automated Today N13.8 - Other obstructive and reflux uropathy, N40.1 - Benign prostatic hyperplasia with lower urinary tract symptoms AMB Post Void Residual by ultrasound Today N40.1 - Benign prostatic hyperplasia with lower urinary tract symptoms Patient Instructions: This note is constructed using voice recognition software. While every effort has been made to ensure accuracy union organizer errors may have been included. Imaging studies, laboratory and physical exam results were discussed and reviewed in detail. No major barriers to patient understanding were identified. An opportunity to ask questions regarding the treatment plan was provided. All questions were answered. The patient expressed understanding and agreement with the above treatment plan. The patient is aware they should contact our office by phone for worsening of their current condition or the appearance of new urologic symptoms. Compliance is encouraged with any medications and followup testing that is ordered. It is a privilege to participate in the urologic care of your patient. If you have any questions or concerns regarding treatment for the above conditions, or other urologic issues, please do not hesitate to contact me. The office telephone contact is [phone]. Sincerely, Dr Carlin Perez MD, [facility] - Urology Compassionate Specialist Care for the Genitourinary System Coding Level of Care Code Est Pt Level 3 (63299) Complex visit Add On G2211 Diagnoses Elevated PSA R97.20 Urinary retention with incomplete bladder emptying R33.9 CPT Codes Post Residual Void - PVR CPT Code: 42516-[id number] Void Residual by ultrasound ([id number])
--- OUTSIDE RECORDS SUMMARY | 2025-08-31 12:09 | XMS_ITS | Clinical Summary ---
Author Organization [facility] Address [address] [address] Care Team Providers Care Sign Board Erector Name Role Phone Wojciech Mcnamara MD Primary Care Provider [phone] Wojciech Mcnamara MD Unavailable Social History Tobacco Use Types Packs/Day Years Used Date Smoking Tobacco: Never Assessed Sex and Gender Information Value Date Recorded Sex Assigned at Not on file Legal Sex Male 2:43 AM EST Gender Identity Not on file Sexual Orientation Not on file Plan of Treatment Not on file Care Teams Sign Board Erector Relationship Specialty Start Date End Date Wojciech Mcnamara MD [address] [place] [address] PCP - General 11/01/21 Wojciech Mcnamara MD [address] [place] [address] 11/01/21
--- OUTSIDE RECORDS SUMMARY | 2025-08-31 12:09 | XMS_ITS | Clinical Summary ---
Author Organization [facility] Address [address] [place] [address] Phone Care Team Providers Care Appliance Sales Associate Name Role Phone Demond Leyva MD Primary [...] AM EDT Office Visit [facility] [place] [facility] [place] [address] [facility] [address] [place] [address] Rula Aguilar, OD [address] [place] [address] [email or web address] Health Maintenance Due Date Last [...] this topic Medical Devices Implanted Type Area Business Practices Supervisor Device Identifier Shelf Expiration Date Model / Serial / Lot Porter [id number] 17.5 (Ocb)-06/01/2024 Implanted:06/01 (Quantity not on file) L[employer] 06/01/2027 Insurance MEDICARE PART A & B [place] [employer] MEDEX SUPPLEMENT MEDICARE PART A & B Member Subscriber Plan / Payer ( fective 2004-) Name:Rizwana Giraldoo Member ID:[id number] Relation to Subscriber:Self Name:Jesus Giraldo Subscriber ID:[id number] Payer ID:[id number] Group ID:Not on file Type:Medicare Address: [employer] [address] [place] [phone] [employer] MEDEX SUPPLEMENT MEDICARE PART A & B [employer] MEDEX SUPPLEMENT [employer] SUPPLEMENT Member Subscriber Plan / Payer ( fective 2004-) Name:Jesus Giraldo Relation to Subscriber:Self Name:Jesus Giraldo Payer ID:[id number] ([facility]) Type:Indemnity Address: [facility] [address] [place] [address] MEDICARE PART A & B [employer] SUPPLEMENT MEDICARE PART A & B [employer] MEDEX SUPPLEMENT MEDICARE PART A & B [employer] MEDEX SUPPLEMENT MEDICARE PART A & B [facility] MEDEX SUPPLEMENT MEDICARE PART A & B Member Subscriber Plan / Payer ( fective 2004-) Name:Rizwana Giraldoo Member ID:[id number] Relation to Subscriber:Self Name:EnzoRizwanao Subscriber ID:[id number] Payer ID:[id number] Group ID:Not on file Type:Medicare Address: [employer] [address] [place] [phone] [employer] MEDEX SUPPLEMENT MEDICARE PART A & B [employer] MEDEX SUPPLEMENT MEDICARE PART A & B [employer] MEDEX SUPPLEMENT Care Teams Appliance Sales Associate Relationship Specialty Start Date End Date Demond Leyva MD [address] [place] [address] [place] [address] PCP - General Internal Medicine 06/23/22 Additional Source Comments The information contained in this document represents components of the legal health record. It is not the complete legal health record.[facility]
== END 2025-08-31 11:06 | disposition home or self-care (01) ==
LOC: HO.HUSH 10:08
PROVIDERS: PCP Internal Medicine; Visit Provider Urology
DX: R97.20 Elevated prostate specific antigen [PSA] (principal); R33.9 Retention of urine, unspecified; N40.1 Benign prostatic hyperplasia with lower urinary tract symptoms; N13.8 Other obstructive and reflux uropathy
CPT/HCPCS: 99213; G2211

== ENCOUNTER → 2025-08-31 10:08 | Outpatient (BNVA) | payer MEDICARE, SELFPAY | PROVIDERS: PCP Internal Medicine; Visit Provider Urology | DX: R97.20 Elevated prostate specific antigen [PSA] (principal); N40.1 Benign prostatic hyperplasia with lower urinary tract symptoms; R33.9 Retention of urine, unspecified; N13.8 Other obstructive and reflux uropathy | CPT/HCPCS: 51798; 81003; 99212 ==